=== PATIENT | male | born 1955 | race Caucasian/White ===

== ENCOUNTER 2017-10-02 15:23 | Inpatient (IN) | payer MEDICARE, OTHER ==
[~2017-10-02] VITALS: Ht 167.6 cm; Wt 89.8 kg
--- OUTSIDE RECORDS SUMMARY | 2017-10-02 15:32 | XMS REPORT | Continuity of Care Document ---
Author Author [facility] Address Unknown Phone Unavailable Allergies There is no data. Medications There is no data. Problems Date Dx Coded Attending Type Code Diagnosis Diagnosed By 10/04/2012 682.9 CELLULITIS AND ABSCESS OF UNSPECIFIED SITES 10/04/2012 682.9 CELLULITIS AND ABSCESS OF UNSPECIFIED SITES 10/04/2012 LUCÍA YANEZ APRN 682.9 CELLULITIS AND ABSCESS OF UNSPECIFIED SITES 10/04/2012 LUCÍA YANEZ APRN 682.9 CELLULITIS AND ABSCESS OF UNSPECIFIED SITES 10/04/2012 LUCÍA YANEZ APRN 682.9 CELLULITIS AND ABSCESS OF UNSPECIFIED SITES 10/04/2012 LUCÍA YANEZ APRN 682.9 CELLULITIS AND ABSCESS OF UNSPECIFIED SITES 10/04/2012 PANCHO ANDRADE MD 682.9 CELLULITIS AND ABSCESS OF UNSPECIFIED SITES 10/04/2012 LUCÍA YANEZ APRN 682.9 CELLULITIS AND ABSCESS OF UNSPECIFIED SITES 10/04/2012 PANCHO ANDRADE MD 682.9 CELLULITIS AND ABSCESS OF UNSPECIFIED SITES 10/20/2012 477.9 RHINITIS 10/20/2012 LUCÍA YANEZ APRN 477.9 RHINITIS 10/20/2012 LUCÍA YANEZ APRN 477.9 RHINITIS 10/20/2012 LUCÍA YANEZ APRN 477.9 RHINITIS 10/20/2012 LUCÍA YANEZ APRN 477.9 RHINITIS 10/20/2012 PANCHO ANDRADE MD 477.9 RHINITIS 10/20/2012 LUCÍA YANEZ APRN 477.9 RHINITIS 10/20/2012 PANCHO ANDRADE MD 477.9 RHINITIS 07/14/2013 LUCÍA YANEZ APRN 401.1 HYPERTENSION, BENIGN ESSENTIAL 07/14/2013 LUCÍA YANEZ APRN 401.1 HYPERTENSION, BENIGN ESSENTIAL 07/14/2013 LUCÍA YANEZ APRN 401.1 HYPERTENSION, BENIGN ESSENTIAL 07/14/2013 LUCÍA YANEZ APRN 401.1 HYPERTENSION, BENIGN ESSENTIAL 07/14/2013 PANCHO ANDRADE MD 401.1 HYPERTENSION, BENIGN ESSENTIAL 07/14/2013 LUCÍA YANEZ APRN 401.1 HYPERTENSION, BENIGN ESSENTIAL 07/14/2013 PANCHO ANDRADE MD 401.1 HYPERTENSION, BENIGN ESSENTIAL 09/11/2013 LUCÍA YANEZ APRN 302.72 ERECTILE DISORDER 09/11/2013 LUCÍA YANEZ APRN 785.0 TACHYCARDIA UNSPECIFIED 09/11/2013 LUCÍA YANEZ APRN 790.6 Liver Function Test, Abnormal 09/11/2013 LUCÍA YANEZ APRN 302.72 ERECTILE DISORDER 09/11/2013 LUCÍA YANEZ APRN 785.0 TACHYCARDIA UNSPECIFIED 09/11/2013 LUCÍA YANEZ APRN 790.6 Liver Function Test, Abnormal 09/11/2013 PANCHO ANDRADE MD 302.72 ERECTILE DISORDER 09/11/2013 PANCHO ANDRADE MD 785.0 TACHYCARDIA UNSPECIFIED 09/11/2013 PANCHO ANDRADE MD 790.6 Liver Function Test, Abnormal 09/11/2013 LUCÍA YANEZ APRN 302.72 ERECTILE DISORDER 09/11/2013 LUCÍA YANEZ APRN 785.0 TACHYCARDIA UNSPECIFIED 09/11/2013 LUCÍA YANEZ APRN 790.6 Liver Function Test, Abnormal 09/11/2013 PANCHO ANDRADE MD 302.72 ERECTILE DISORDER 09/11/2013 PANCHO ANDRADE MD 785.0 TACHYCARDIA UNSPECIFIED 09/11/2013 PANCHO ANDRADE MD 790.6 Liver Function Test, Abnormal 09/21/2013 LUCÍA YANEZ APRN 070.54 HEPATITIS C CHRONIC 09/21/2013 PANCHO ANDRADE MD 070.54 HEPATITIS C CHRONIC 09/21/2013 LUCÍA YANEZ APRN 070.54 HEPATITIS C CHRONIC 09/21/2013 PANCHO ANDRADE MD 070.54 HEPATITIS C CHRONIC 02/08/2014 PANCHO ANDRADE MD 686.9 UNSPECIFIED LOCAL INFECTION OF SKIN AND SUBCUTANEOUS TISSUE 02/08/2014 LUCÍA YANEZ APRN 686.9 UNSPECIFIED LOCAL INFECTION OF SKIN AND SUBCUTANEOUS TISSUE 02/08/2014 PANCHO ANDRADE MD 686.9 UNSPECIFIED LOCAL INFECTION OF SKIN AND SUBCUTANEOUS TISSUE Procedures Code Description [place] [address] ROUTINE VENIPUNCTURE 08/03/2013 27148 A1C (RML) 08/03/2013 06632 PSA TOTAL 08/03/2013 30673 TESTOSTERONE TOTAL MALES 08/03/2013 42069 TSH 08/03/2013 44988 CBC 08/03/2013 1855693 GFR CALC (RESULT ONLY) 08/03/2013 52543 CMP 08/03/2013 55591 LIPID PANEL 08/03/2013 72088 ROUTINE VENIPUNCTURE 09/11/2013 03603 LIVER PANEL (LFT) 09/11/2013 85138 HEPATITIS PROFILE 09/11/2013 24744 AMYLASE 09/11/2013 95461 LIPASE 09/11/2013 71004 EKG, TRACING (IN-HOUSE) 09/11/2013 11681 ROUTINE VENIPUNCTURE 09/21/2013 65548 HEP C PCR QUANT W/RAKAN 09/21/2013 [facility] 09/22/2013 02250 ROUTINE VENIPUNCTURE 03/10/2014 00442 TESTOSTERONE TOTAL MALES 03/10/2014 88503 HEP C PCR QUANT (SERIAL) 03/10/2014 11280 LIVER PANEL (LFT) 03/10/2014 46619 CULTURE WOUND (AEROBIC) 08/12/2014 Results Test Result Range CBC - 08/14/17 12:06 WHITE BLOOD CELL COUNT 7.6 Thousand/uL 3.8-10.8 RED BLOOD CELL COUNT 3.25 Million/uL 4.20-5.80 HEMOGLOBIN 11.2 g/dL 13.2-17.1 HEMATOCRIT 31.4 % 38.5-50.0 MCV 96.6 fL 80.0-100.0 MCH 34.5 pg 27.0-33.0 MCHC 35.7 g/dL 32.0-36.0 RDW 12.6 % 11.0-15.0 PLATELET COUNT 113 Thousand/uL 140-400 MPV 10.1 fL 7.5-12.5 ABSOLUTE NEUTROPHILS 4522 cells/uL 4085-8168 ABSOLUTE LYMPHOCYTES 1444 cells/uL 850-3900 ABSOLUTE MONOCYTES 1011 cells/uL 200-950 ABSOLUTE EOSINOPHILS 562 cells/uL 15-500 ABSOLUTE BASOPHILS 61 cells/uL 0-200 NEUTROPHILS 59.5 % NRG LYMPHOCYTES 19.0 % NRG MONOCYTES 13.3 % NRG EOSINOPHILS 7.4 % NRG BASOPHILS 0.8 % NRG TSH - 08/14/17 12:06 TSH 1.38 mIU/L 0.40-4.50 PLATELET ESTIMATION - 08/14/17 12:06 PLATELET ESTIMATION DECREASED ADEQUATE BNP - 08/14/17 12:06 B TYPE NATRIURETIC PEPTIDE (BNP) 39 pg/mL <100 Encounters ACCT No. Visit Date/Time Discharge Status Pt. Type Provider Facility Loc./Unit Complaint [id number] 08/09/2014 15:36:00 08/09/2014 23:59:59 CLS Outpatient PANCHO ANDRADE MD [id number] 03/10/2014 15:22:00 03/10/2014 23:59:59 CLS Outpatient LUCÍA YANEZ APRN [id number] 02/08/2014 15:28:00 02/08/2014 23:59:59 CLS Outpatient PANCHO ANDRADE MD [id number] 09/21/2013 11:47:00 09/21/2013 23:59:59 CLS Outpatient LUCÍA YANEZ APRN [id number] 09/11/2013 11:46:00 09/11/2013 23:59:59 CLS Outpatient LUCÍA YANEZ APRN [id number] 08/03/2013 12:10:00 08/03/2013 23:59:59 CLS Outpatient LUCÍA YANEZ APRN [id number] 07/14/2013 15:51:00 07/14/2013 23:59:59 CLS Outpatient LUCÍA YANEZ APRN [id number] 10/20/2012 12:45:00 Document Registration [id number] 10/04/2012 14:10:00 Document Registration [id number] 08/14/2017 10:40:00 08/14/2017 23:59:59 CLS Outpatient LUCÍA YANEZ APRN [facility] [id number] 08/14/2017 10:40:00 Document Registration [id number] 08/14/2017 12:24:00 08/14/2017 12:24:00 CAN Preadmit RADHA PIÑA Via [facility] CARD B18.2 CHRONIC HEP C R60.1 EDMEA
[2017-10-02] MEDS ORDERED: NS IV 1000 ML 1,000 ML IV ONE (15:40)
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
[2017-10-02 16:06] LABS: BASOPHILS # (AUTO) 0.1 10^3/uL (0.0-0.1); BASOPHILS % (AUTO) 1 % (0-10); EOSINOPHILS # (AUTO) 0.5 10^3/uL (0.0-0.3); EOSINOPHILS % (AUTO) 4 % (0-10); HEMATOCRIT 38 % (40-54); HEMOGLOBIN 12.7 G/DL (13.3-17.7); LYMPHOCYTES # (AUTO) 2.3 X 10^3 (1.0-4.0); LYMPHOCYTES % (AUTO) 20 % (12-44); MEAN CORPUSCULAR HEMOGLOBIN 33 PG (25-34); MEAN CORPUSCULAR HGB CONC 34 G/DL (32-36); MEAN CORPUSCULAR VOLUME 100 FL (80-99); MEAN PLATELET VOLUME 9.9 FL (7.4-10.4); MONOCYTES # (AUTO) 1.6 X 10^3 (0.0-1.0); MONOCYTES % (AUTO) 13 % (0-12); NEUTROPHILS # (AUTO) 7.4 X 10^3 (1.8-7.8); NEUTROPHILS % (AUTO) 63 % (42-75); PLATELET COUNT 121 10^3/uL (130-400); RED CELL DISTRIBUTION WIDTH 13.9 % (10.0-14.5); WHITE BLOOD COUNT 11.8 10^3/uL (4.3-11.0)
[2017-10-02 16:20] LABS: INR 1.2 (0.8-1.4); PROTHROMBIN TIME PATIENT 15.6 SEC (12.2-14.7)
[2017-10-02 16:25] LABS: ACETAMINOPHEN < 10 UG/ML (10-30); ALANINE AMINOTRANSFERASE 45 U/L (0-55); ALBUMIN 2.5 GM/DL (3.2-4.5); ALKALINE PHOSPHATASE 76 U/L (40-136); AMMONIA 110 UMOL/L (11-32); BILIRUBIN,TOTAL 1.9 MG/DL (0.1-1.0); BUN/CREATININE RATIO 22; CARBON DIOXIDE 21 MMOL/L (21-32); CHLORIDE 113 MMOL/L (98-107); CREATININE SERUM 0.86 MG/DL (0.60-1.30); GFR ESTIMATED > 60; GLUCOSE 102 MG/DL (70-105); MAGNESIUM 1.7 MG/DL (1.8-2.4); POTASSIUM 3.7 MMOL/L (3.6-5.0); SALICYLATE < 5.0 MG/DL (5.0-20.0); SODIUM 141 MMOL/L (135-145); TOTAL PROTEIN 8.8 GM/DL (6.4-8.2)
[2017-10-02] MEDS ORDERED: IOHEXOL 350 MG/ML 100 ML (OMNIPAQUE 350) VIAL IV ONE (17:00)
[2017-10-02] MEDS ORDERED: LACTULOSE SYRUP 10GM/15ML (ENULOSE) 30ML UDC PO ONE (17:00)
[2017-10-02] MEDS ORDERED: NS 250 ML (IVPB) BAG IV ONE (17:00)
[2017-10-02] MEDS ORDERED: CATHETER FLUSH 10 ML SYR IV PRN (17:00)
--- NOTE | 2017-10-02 17:31 | Diagnostic Imaging Report ---
PROCEDURE: CT abdomen and pelvis with contrast. TECHNIQUE: Multiple contiguous axial images were obtained through the abdomen and pelvis after administration of intravenous contrast. INDICATION: Substance abuse, abdominal pain. FINDINGS: Lung bases are clear. The liver appears cirrhotic. There is gallbladder wall thickening which may be secondary to the cirrhosis. There are no calculi seen. Portal vein is not dilated. The common duct is not dilated. Pancreas appears normal. Spleen is mildly enlarged. 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 Kidneys and adrenals appear normal. There is marked distention of the urinary bladder with some filling defect in the bladder that could be clot. There is no intraperitoneal free air or free fluid. Small bowel is not dilated. Colon is unremarkable. IMPRESSION: Distended urinary bladder with probable clot in the bladder. Dictated by: Dictated on workstation # [id number]
[2017-10-02 17:40] LABS: CLARITY,URINE SLIGHTLY CLOUDY; COLOR,URINE YELLOW; GLUCOSE, URINE (UA) NEGATIVE (NEGATIVE); KETONES,URINE NEGATIVE (NEGATIVE); LEUKOCYTE ESTERASE ,URINE 3+ (NEGATIVE); NITRITE,URINE NEGATIVE (NEGATIVE); PH,URINE 6 (5-9); PROTEIN,URINE 2+ (NEGATIVE); UROBILINOGEN,URINE 8 MG/DL (NORMAL)
[2017-10-02 17:48] LABS: BILIRUBIN,URINE 1+ (NEGATIVE)
[2017-10-02 17:49] LABS: BACTERIA,URINE LARGE /HPF; WBC,URINE TNTC /HPF
[2017-10-02 17:54] LABS: AMPHETAMINE SCREEN, URINE NEGATIVE (NEGATIVE); BARBITURATE SCREEN URINE NEGATIVE (NEGATIVE); BENZODIAZEPINES SCREEN URINE NEGATIVE (NEGATIVE); CANNABINOID SCREEN, URINE NEGATIVE (NEGATIVE); COCAINE SCREEN URINE NEGATIVE (NEGATIVE); METHADONE STAT NEGATIVE (NEGATIVE); METHAMPHETAMINE SCREEN URINE S POSITIVE (NEGATIVE); OPIATE SCREEN URINE NEGATIVE (NEGATIVE); OXYCODONE STAT NEGATIVE (NEGATIVE); PROPOXYPHENE STAT NEGATIVE (NEGATIVE); TRICYCLIC ANTIDEPRESSANTS SCRE NEGATIVE (NEGATIVE)
[2017-10-02] MEDS ORDERED: cefTRIAXone INJECTION 1,000 MG in NS (IVPB) 50 ML IV ONE (18:15)
--- OUTSIDE RECORDS SUMMARY | 2017-10-02 18:20 | XMS REPORT | Continuity of Care Document ---
Author Author [facility] Address Unknown Phone Unavailable Allergies There [...] Procedures Code [place] [id number] ROUTINE VENIPUNCTURE 08/03/2013 38394 A1C (RML) 08/03/2013 48716 PSA TOTAL 08/03/2013 81960 TESTOSTERONE TOTAL MALES 08/03/2013 96904 TSH 08/03/2013 17309 CBC 08/03/2013 [id number] GFR CALC (RESULT ONLY) 08/03/2013 45493 CMP 08/03/2013 11711 LIPID PANEL 08/03/2013 20699 ROUTINE VENIPUNCTURE 09/11/2013 90630 LIVER PANEL (LFT) 09/11/2013 31271 HEPATITIS PROFILE 09/11/2013 33347 AMYLASE 09/11/2013 22285 LIPASE 09/11/2013 53350 EKG, TRACING (IN-HOUSE) 09/11/2013 35551 ROUTINE VENIPUNCTURE 09/21/2013 48990 HEP C PCR QUANT W/RAKAN 09/21/2013 [facility] [place] 09/22/2013 04467 ROUTINE VENIPUNCTURE 03/10/2014 42655 TESTOSTERONE TOTAL MALES 03/10/2014 02423 HEP C PCR QUANT (SERIAL) 03/10/2014 45064 LIVER PANEL (LFT) 03/10/2014 47071 CULTURE WOUND (AEROBIC) 08/12/2014 Results Test Result Range CBC - 08/14/17 12:06 WHITE BLOOD CELL COUNT 7.6 Thousand/uL 3.8-10.8 RED BLOOD CELL COUNT 3.25 Million/uL 4.20-5.80 HEMOGLOBIN 11.2 g/dL 13.2-17.1 HEMATOCRIT 31.4 % 38.5-50.0 MCV 96.6 fL 80.0-100.0 MCH 34.5 pg 27.0-33.0 MCHC 35.7 g/dL 32.0-36.0 RDW 12.6 % 11.0-15.0 PLATELET COUNT 113 Thousand/uL 140-400 MPV 10.1 fL 7.5-12.5 ABSOLUTE NEUTROPHILS 4522 cells/uL 2095-3179 ABSOLUTE LYMPHOCYTES 1444 cells/uL 850-3900 ABSOLUTE MONOCYTES [...] TYPE NATRIURETIC PEPTIDE (BNP) 39 pg/mL <100 Complete blood count (CBC) with automated white blood cell (WBC) differential - 10/02/17 15:57 Blood leukocytes automated count (number/volume) 11.8 10*3/uL 4.3-11.0 Blood erythrocytes automated count (number/volume) 3.80 10*6/uL 4.35-5.85 Venous blood hemoglobin measurement (mass/volume) 12.7 g/dL 13.3-17.7 Blood hematocrit (volume fraction) 38 % 40-54 Automated erythrocyte mean corpuscular volume 100 [foz_us] 80-99 Automated erythrocyte mean corpuscular hemoglobin (mass per erythrocyte) 33 pg 25-34 Automated erythrocyte mean corpuscular hemoglobin concentration measurement ( mass/volume) 34 g/dL 32-36 Automated erythrocyte distribution width ratio 13.9 % 10.0-14.5 Automated blood platelet count (count/volume) 121 10*3/uL 130-400 Automated blood platelet mean volume measurement 9.9 [foz_us] 7.4-10.4 Automated blood neutrophils/100 leukocytes 63 % 42-75 Automated blood lymphocytes/100 leukocytes 20 % 12-44 Blood monocytes/100 leukocytes 13 % 0-12 Automated blood eosinophils/100 leukocytes 4 % 0-10 Automated blood basophils/100 leukocytes 1 % 0-10 Blood neutrophils automated count (number/volume) 7.4 10*3 1.8-7.8 Blood lymphocytes automated count (number/volume) 2.3 10*3 1.0-4.0 Blood monocytes automated count (number/volume) 1.6 10*3 0.0-1.0 Automated eosinophil count 0.5 10*3/uL 0.0-0.3 Automated blood basophil count (count/volume) 0.1 10*3/uL 0.0-0.1 Blood lactic acid measurement (moles/volume) - 10/02/17 15:57 Blood lactic acid measurement (moles/volume) 1.42 mmol/L 0.50-2.00 Comprehensive metabolic panel - 10/02/17 15:57 Serum or plasma sodium measurement (moles/volume) 141 mmol/L 135-145 Serum or plasma potassium measurement (moles/volume) 3.7 mmol/L 3.6-5.0 Serum or plasma chloride measurement (moles/volume) 113 mmol/L 98-107 Carbon dioxide 21 mmol/L 21-32 Serum or plasma anion gap determination (moles/volume) 7 mmol/L 5-14 Serum or plasma urea nitrogen measurement (mass/volume) 19 mg/dL 7-18 Serum or plasma creatinine measurement (mass/volume) 0.86 mg/dL 0.60-1.30 Serum or plasma urea nitrogen/creatinine mass ratio 22 NRG Serum or plasma creatinine measurement with calculation of estimated glomerular filtration rate > NRG Serum or plasma glucose measurement (mass/volume) 102 mg/dL 70-105 Serum or plasma calcium measurement (mass/volume) 9.0 mg/dL 8.5-10.1 Serum or plasma total bilirubin measurement (mass/volume) 1.9 mg/dL 0.1-1.0 Serum or plasma alkaline phosphatase measurement (enzymatic activity/volume) 76 U/L 40-136 Serum or plasma aspartate aminotransferase measurement (enzymatic activity/ volume) 76 U/L 5-34 Serum or plasma alanine aminotransferase measurement (enzymatic activity/volume ) 45 U/L 0-55 Serum or plasma protein measurement (mass/volume) 8.8 g/dL 6.4-8.2 Serum or plasma albumin measurement (mass/volume) 2.5 g/dL 3.2-4.5 Magnesium - 10/02/17 15:57 Magnesium 1.7 mg/dL 1.8-2.4 Ammonia - 10/02/17 15:57 Ammonia 110 umol/L 11-32 THYROID STIMULATING HORMONE - 10/02/17 15:57 THYROID STIMULATING HORMONE 0.99 u[iU]/mL 0.35-4.94 Serum or plasma salicylates measurement (mass/volume) - 10/02/17 15:57 Serum or plasma salicylates measurement (mass/volume) < mg/dL 5.0-20.0 Serum or plasma acetaminophen measurement (mass/volume) - 10/02/17 15:57 Serum or plasma acetaminophen measurement (mass/volume) < ug/mL 10-30 PT panel in platelet poor plasma by coagulation assay - 10/02/17 15:57 Prothrombin time (PT) in platelet poor plasma by coagulation assay 15.6 s 12.2-14.7 INR in platelet poor plasma or blood by coagulation assay 1.2 0.8-1.4 Activated partial thromboplastin time (aPTT) in platelet poor plasma bycoagulation assay - 10/02/17 15:57 Activated partial thromboplastin time (aPTT) in platelet poor plasma bycoagulation assay 33 s 24-35 Serum or plasma ethanol measurement (mass/volume) - 10/02/17 15:57 Serum or plasma ethanol measurement (mass/volume) < mg/dL <10 Complete urinalysis with reflex to culture - 10/02/17 17:33 Urine color determination YELLOW NRG Urine clarity determination SLIGHTLY CLOUDY NRG Urine pH measurement by test strip 6 5-9 Specific gravity of urine by test strip 1.015 1.016- 1.022 Urine protein assay by test strip, semi-quantitative 2+ NEGATIVE Urine glucose detection by automated test strip NEGATIVE NEGATIVE Erythrocytes detection in urine sediment by light microscopy 4+ NEGATIVE Urine ketones detection by automated test strip NEGATIVE NEGATIVE Urine nitrite detection by test strip NEGATIVE NEGATIVE Urine total bilirubin detection by test strip 1+ NEGATIVE Urine urobilinogen measurement by automated test strip (mass/volume) 8 mg/dL NORMAL Urine leukocyte esterase detection by dipstick 3+ NEGATIVE Automated urine sediment erythrocyte count by microscopy (number/high power field) [HPF] NRG Automated urine sediment leukocyte count by microscopy (number/high power field ) TNTC NRG Bacteria detection in urine sediment by light microscopy LARGE NRG Squamous epithelial cells detection in urine sediment by light microscopy NONE NRG Crystals detection in urine sediment by light microscopy NONE NRG Casts detection in urine sediment by light microscopy NONE NRG Mucus detection in urine sediment by light microscopy NEGATIVE NRG Complete urinalysis with reflex to culture YES NRG Urine drug screening test - 10/02/17 17:33 Urine phencyclidine detection by screening method NEGATIVE NEGATIVE Urine benzodiazepines detection by screening method NEGATIVE NEGATIVE Urine cocaine detection NEGATIVE NEGATIVE Urine amphetamines detection by screening method NEGATIVE NEGATIVE Urine methamphetamine detection by screening method POSITIVE NEGATIVE Urine cannabinoids detection by screening method NEGATIVE NEGATIVE Urine opiates detection by screening method NEGATIVE NEGATIVE Urine barbiturates detection NEGATIVE NEGATIVE Screening urine tricyclic antidepressants detection NEGATIVE NEGATIVE Urine methadone detection by screening method NEGATIVE NEGATIVE Urine oxycodone detection NEGATIVE NEGATIVE Urine propoxyphene detection NEGATIVE NEGATIVE Encounters ACCT No. Visit Date/Time Discharge Status Pt. Type Provider Facility Loc./Unit Complaint [id number] 08/09/2014 15:36:00 08/09/2014 23:59:59 CLS Outpatient PANCHO ANDRADE MD [id number] 03/10/2014 15:22:00 03/10/2014 23:59:59 CLS Outpatient RENATA AGUILARDenis LUCÍA Gilles [id number] 02/08/2014 15:28:00 02/08/2014 23:59:59 CLS Outpatient PANCHO ANDRADE MD [id number] 09/21/2013 11:47:00 09/21/2013 23:59:59 CLS Outpatient RENATA AGUILARLUCÍA Barrios [id number] 09/11/2013 11:46:00 09/11/2013 23:59:59 CLS Outpatient RENATA AGUILARLUCÍA Barrios [id number] 08/03/2013 12:10:00 08/03/2013 23:59:59 CLS Outpatient RENATA AGUILARLUCÍA Barrios [id number] 07/14/2013 15:51:00 07/14/2013 23:59:59 CLS Outpatient RENATA AGUILARLUCÍA Barrios [id number] 10/20/2012 12:45:00 Document Registration [id number] 10/04/2012 14:10:00 Document Registration [id number] 08/14/2017 10:40:00 08/14/2017 23:59:59 CLS Outpatient RENATA AGUILARLUCÍA Barrios [facility] [place] [id number] 08/14/2017 10:40:00 Document Registration [id number] 08/14/2017 12:24:00 08/14/2017 12:24:00 CAN Preadmit RADHA PIÑA [facility] CARD B18.2 CHRONIC HEP C R60.1 EDMEA [id number] 10/02/2017 16:08:00 Document Registration
[2017-10-02 19:00] VITALS: BP 158/85
[2017-10-02] MEDS ORDERED: 1/2 NS IV SOLUTION 1,000 ML IV PRN (19:07)
[2017-10-02 19:15] VITALS: BP 163/87
[2017-10-02] MEDS ORDERED: LORazepam INJ 2 MG/ML (ATIVAN) VIAL IV PRN (19:15)
[2017-10-02] MEDS ORDERED: SENNA W/DOCUSATE (SENOKOT S) TABLET PO PRN (19:15)
[2017-10-02] MEDS ORDERED: ONDANSETRON 4 MG (ZOFRAN) ORAL DISSOLVE TAB SL PRN (19:15)
[2017-10-02] MEDS ORDERED: LORazepam INJ 2 MG/ML (ATIVAN) VIAL IM/IV PRN (19:15)
[2017-10-02] MEDS ORDERED: ANTACID SUSP 30 ML UDC (MYLANTA) PO PRN (19:15)
[2017-10-02] MEDS ORDERED: LORazepam 1 MG (ATIVAN) TAB PO PRN (19:15)
[2017-10-02] MEDS ORDERED: D5 1/2 NS 1000 ML IV SOLUTION 1,000 ML IV PRN (19:15)
[2017-10-02] MEDS ORDERED: ONDANSETRON 4 MG/2 ML (SDV) Z0FRAN IV PRN (19:15)
[2017-10-02 19:30] VITALS: BP 141/78
[2017-10-02] MEDS: D5 1/2 NS W/KCL 20 MEQ/L 1,000 ML IV SCH (19:36)
[2017-10-02] MEDS: THIAMINE INJECTION 100 MG, FOLIC ACID INJECTION 1 MG, MAGNESIUM SULFATE 2 GM, VITAMIN M... IV SCH ×5 (19:47)
[2017-10-02] MEDS: LACTULOSE SYRUP 10GM/15ML (ENULOSE) 30ML UDC PO SCH ×3 (19:49→23:15)
[2017-10-02 20:00] VITALS: BP 161/77
[2017-10-02 22:00] VITALS: BP 172/86
[2017-10-02 23:00] VITALS: BP 154/78
[2017-10-03] VITALS (24 sets, daily range): BP systolic 117–194; BP diastolic 57–119
[2017-10-03] MEDS: D5 1/2 NS W/KCL 20 MEQ/L 1,000 ML IV SCH ×4 (03:53→20:04)
[2017-10-03 04:44] LABS: BASOPHILS # (AUTO) 0.1 10^3/uL (0.0-0.1); BASOPHILS % (AUTO) 0 % (0-10); EOSINOPHILS # (AUTO) 0.6 10^3/uL (0.0-0.3); EOSINOPHILS % (AUTO) 4 % (0-10); HEMATOCRIT 35 % (40-54); HEMOGLOBIN 11.7 G/DL (13.3-17.7); LYMPHOCYTES % (AUTO) 14 % (12-44); MEAN CORPUSCULAR HEMOGLOBIN 33 PG (25-34); MEAN CORPUSCULAR HGB CONC 33 G/DL (32-36); MEAN CORPUSCULAR VOLUME 100 FL (80-99); MEAN PLATELET VOLUME 10.4 FL (7.4-10.4); MONOCYTES # (AUTO) 2.1 X 10^3 (0.0-1.0); MONOCYTES % (AUTO) 15 % (0-12); NEUTROPHILS # (AUTO) 9.1 X 10^3 (1.8-7.8); NEUTROPHILS % (AUTO) 66 % (42-75); PLATELET COUNT 121 10^3/uL (130-400); RED CELL DISTRIBUTION WIDTH 13.7 % (10.0-14.5); WHITE BLOOD COUNT 13.8 10^3/uL (4.3-11.0)
[2017-10-03 05:10] LABS: ALANINE AMINOTRANSFERASE 47 U/L (0-55); ALBUMIN 2.4 GM/DL (3.2-4.5); ALKALINE PHOSPHATASE 89 U/L (40-136); AMMONIA 100 UMOL/L (11-32); BILIRUBIN,TOTAL 1.2 MG/DL (0.1-1.0); BUN/CREATININE RATIO 15; CALCIUM 8.3 MG/DL (8.5-10.1); CARBON DIOXIDE 20 MMOL/L (21-32); CHLORIDE 115 MMOL/L (98-107); CREATININE SERUM 0.85 MG/DL (0.60-1.30); GFR ESTIMATED > 60; GLUCOSE 118 MG/DL (70-105); POTASSIUM 3.6 MMOL/L (3.6-5.0); SODIUM 142 MMOL/L (135-145); TOTAL PROTEIN 8.2 GM/DL (6.4-8.2)
[2017-10-03] MEDS ORDERED: POTASSIUM CL 10MEQ/50ML IVPB 100 ML IV ONE (05:24)
[2017-10-03] MEDS: POTASSIUM CL 10MEQ/50ML IVPB 50 ML IV SCH ×3 (05:26→06:28)
[2017-10-03] MEDS: MAGNESIUM 1 GM/100 ML IVPB 100 ML IV SCH (05:26)
[2017-10-03] MEDS: KCL 20 MEQ TAB (K-DUR) PO SCH (05:27)
[2017-10-03] MEDS: LACTULOSE SYRUP 10GM/15ML (ENULOSE) 30ML UDC PO SCH ×3 (06:21→21:39)
[2017-10-03] MEDS: cefTRIAXone 1 GM/NS 50 ML IVPB IV SCH ×2 (08:45)
[2017-10-03] MEDS: THIAMINE INJECTION 100 MG, FOLIC ACID INJECTION 1 MG, MAGNESIUM SULFATE 2 GM, VITAMIN M... IV SCH ×5 (08:46)
--- NOTE | 2017-10-03 10:10 | History & Physicial (CHS) ---
HPI History of Present Illness: 62 year old male who has a long history of heavy alcohol use was brought to the ED by his family yesterday with report that "he wasn't acting right". Patient had not had any alcohol in several days, and reported being dizzy and having a headache, but "feeling fine" when he got to the ED. His family did not think he was fine, nor did his significant other that he lives with. He has been sleeping a lot and very unsteady on his feet the last two days. Significant other reports that he has done this before in the past when he has stopped drinking, but it hasn't gotten this bad -- she would give him little sips of alcohol with a straw when he got this way before, and he would get better. She reports she tried this, but he wouldn't take it. The patient was noted to fall asleep during conversation, and awaken only with stimulation. He was noted to have a significantly elevated ammonia level, as well as an extremely distended bladder on CT -- when Garcia catheter was placed, 2900 cc was returned. UA shows evidence of UTI. Patient admitted for Sepsis, UTI, Encephalopathy. Source: family, RN/MD, RN notes reviewed, old records Exam Limitations: clinical condition Date seen by provider: October 03, 2017 Time Seen by Provider: 12:00 Attending Physician Monserrat Jones DO [facility] Consult Date of Admission October 02, 2017 at 18:16 Home Medications Home Medications Reviewed patient Home Medication Reconciliation performed by pharmacy medication reconciliations biological science technician and/or nursing. Patients Allergies have been reviewed. Allergies Coded Allergies: No Known Drug Allergies (Unverified , 10/02/17) [facility] Hx Patient Social History Marrital Status: cohabiting Living Status: lives with significant other Employed/Student: self-employed Alcohol Use: Regular Use Recreational Drug Use: No (UDS positive for methamphetamines) Smoking Status: Current Everyday Smoker Type Used: Cigarettes 2nd Hand Smoke Exposure: Yes Recent Foreign Travel: No Contact w/other who traveled: No Recent Hopitalizations: No Recent Infectious Disease Expo: No Physical Abuse Screen: No Sexual Abuse: No Past Medical History Chronic Hepatits C Alcohol Abuse Tobacco Abuse Methamphetamine Abuse Erectile Dysfunction HTN Seasonal Allergies Past Surgical History: Appendectomy Family Medical History Significant Family History: Hypertension, Psychiatric Problems (multiple family members with substance abuse issues) Review of Systems ([facility]) Constitutional: see HPI, dizziness, weakness EENTM: hearing loss (patient hard of hearing at baseline) Respiratory: no symptoms reported Cardiovascular: edema (bilateral lower extremity edema - significant other reports is always present) Gastrointestinal: loss of appetite Genitourinary: see HPI Musculoskeletal: no symptoms reported Skin: no symptoms reported Psychiatric/Neurological: See HPI, Weakness, Other (somnolence) Reviewed Test Results Reviewed Test Results Radiology Date of Exam: 10/02/17 CT ABDOMEN/PELVIS W PROCEDURE: CT abdomen and pelvis with contrast. TECHNIQUE: Multiple contiguous axial images were obtained through the abdomen and pelvis after administration of intravenous contrast. INDICATION: Substance abuse, abdominal pain. FINDINGS: Lung bases are clear. The liver appears cirrhotic. There is gallbladder wall thickening which may be secondary to the cirrhosis. There are no calculi seen. Portal vein is not dilated. The common duct is not dilated. Pancreas appears normal. Spleen is mildly enlarged. 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 Kidneys and adrenals appear normal. There is marked distention of the urinary bladder with some filling defect in the bladder that could be clot. There is no intraperitoneal free air or free fluid. Small bowel is not dilated. Colon is unremarkable. IMPRESSION: Distended urinary bladder with probable clot in the bladder. Physical Exam-([facility]) Physical Exam Vital Signs VS - Last 72 Hours, by Label 10/05/17 10/05/17 10/06/17 10/06/17 20:00 20:00 00:47 01:00 Temp 98.6 100.1 Pulse 85 86 85 Resp 18 17 B/P (MAP) 134/67 (89) 125/58 (80) Pulse Ox 99 95 O2 Delivery Room Air Room Air Room Air 10/06/17 10/06/17 10/06/17 10/06/17 04:23 07:00 08:00 08:39 Temp 99.5 97.8 Pulse 85 66 72 Resp 16 16 B/P (MAP) 122/60 (80) 132/57 (82) Pulse Ox 91 93 O2 Delivery Room Air Room Air Room Air 10/06/17 11:55 B/P (MAP) Capillary Refill : Less Than 3 Seconds General Appearance: WD/WN, no apparent distress Eyes: Bilateral Eye Normal Inspection, Bilateral Eye PERRL HEENT: No scleral icterus (R), No scleral icterus (L), No photophobia Neck: non-tender, full range of motion, supple, normal inspection Respiratory: chest non-tender, lungs clear, normal breath sounds, no respiratory distress, no accessory muscle use Cardiovascular: regular rate, rhythm, no gallop, JVD, systolic murmur Gastrointestinal: normal bowel sounds, non tender, soft, no pulsatile mass, hepatomegaly Back: normal inspection, no CVA tenderness, no vertebral tenderness Extremities: no calf tenderness, normal capillary refill, swelling (2+ pitting edema in bilateral lower extremities, right mildly worse than left) Neurologic/Psychiatric: other (awakens with stimulation and answers questions appropriately, then quickly drifts off to sleep) Skin: normal color, warm/dry Assessment/Plan Assessment/Plan Admission Dx Sepsis UTI Encephalopathy Hyperammonemia Hx of Alcohol Abuse Methamphetamine Abuse Anemia Elevated LFTs Hyperbilirubinemia Hypomagnesemia Hepatitis C Cirrhosis Splenomegaly Gastroesophageal Varices Bladder Distention with probable clot Admission Status: Inpatient Order (span 2 midnights) Reason for Inpatient Admission: treatment of admission diagnoses Assessment & Plan Sepsis -secondary to UTI, see below UTI 10/03 -urine culture pending -started on Rocephin in ED, now Day 2 -WBC 11.8 --> 13.8 -blood cultures pending -bladder significantly distended on CT scan; when garcia placed in ED, return of 2900 cc cloudy, concentrated urine -CT also noted possible clot in bladder, will likely need follow up with urology , or possibly repeat imaging to assure no abnormalities in the bladder after distention and infection resolved Encephalopathy 10/03 -secondary to hyperammonemia vs infection, likely combination of both, as well as potentially also ETOH withdrawal Hyperammonemia 10/03 -110 --> 100 -Lactulose started in ED, appears pt got one dose then no more overnight and one again this morning -will start Xifaxan 550 mg PO BID, continue lactulose q2 hours until stool, then q8 -will trend out; highly possible that pt has elevated ammonia at baseline Hx of Alcohol Abuse 10/03 -BAL <10 on admission -last drink ~3-4 days ago, although unclear, as patient is not awake enough to answer, and significant other not sure -all family at bedside report patient has a long history of heavy alcohol use -significant other reports he will consume 2-3 bottles of hard liquor per week, and go to the bar on the weekend, she will drop him off and pick him up because she does not want him driving -significant other also reports that he will sometimes stop drinking for days at a time, and often will have periods where he is weak and confused, but it resolves after a few days, then pt is fine until his friend that brings him the bottles of alcohol comes over, and then patient starts drinking again -[facility] protocol; has not required any ativan Methamphetamine Abuse 10/03 -UDS positive for methamphetamines -large amount of family at bedside, patient not awake or communicative at the time of exam other than to open eyes briefly -will address further when patient is more awake and alert Anemia 10/03 -Hgb 12.7 --> 11.7 -no joanna bleeding, likely dilutional secondary to IV hydration -gastroesophageal varices on CT scan -no hematemesis, hematuria, or hemoptysis per family Elevated LFTs 10/03 -total bili 1.9 --> 1.2 -AST 76 --> 78 -avoid hepatotoxic medications when possible -known Hep C positive Hyperbilirubinemia 1.9 --> 1.2 Hypomagnesemia 10/03 -1.7 --> 2.1 Hypocalcemia 10/03 -9 --> 8.3 Hypoalbuminemia 10/03 -2.5 --> 2.4 Hepatitis C -chronic Cirrhosis Splenomegaly -mild, per CT Gastroesophageal Varices Bladder Distention with probable clot -2900 cc returned with garcia placement -no gross hematuria -would recommend follow up with urology after discharge and/or reimaging of pelvis after infection cleared FEN: Continue IVF, diet as tolerated once awake DVT Ppx: SCDs, ambulation once awake; will hold lovenox for now, if patient not more awake and ambulating in AM will start lovenox Dispo: Transfer to floor with telemetry, will have PT and OT eval in AM. Patient will likely require 3-4 nights of hospitalization for adequate treatment of his infection and monitoring of his labs and mental status. Condition: Stable CODE STATUS: FULL CODE Clinical Quality Measures DVT/VTE Risk/Contraindication: Risk Factor Score Per Nursin RFS Level Per Nursing on Admit: 3=High Copy Copies To 1: [facility]/MONSERRAT BOLAÑOS DO October 03, 2017 10:10
[2017-10-03] MEDS: RIFAXIMIN 550 MG TABLET (XIFAXAN) PO SCH (21:39)
[2017-10-04] VITALS (11 sets, daily range): BP systolic 123–187; BP diastolic 71–111
[2017-10-04 04:06] LABS: BASOPHILS # (AUTO) 0.1 10^3/uL (0.0-0.1); BASOPHILS % (AUTO) 1 % (0-10); EOSINOPHILS # (AUTO) 0.6 10^3/uL (0.0-0.3); EOSINOPHILS % (AUTO) 6 % (0-10); HEMATOCRIT 33 % (40-54); LYMPHOCYTES # (AUTO) 1.9 X 10^3 (1.0-4.0); LYMPHOCYTES % (AUTO) 18 % (12-44); MEAN CORPUSCULAR HEMOGLOBIN 34 PG (25-34); MEAN CORPUSCULAR HGB CONC 34 G/DL (32-36); MEAN CORPUSCULAR VOLUME 101 FL (80-99); MEAN PLATELET VOLUME 10.3 FL (7.4-10.4); MONOCYTES # (AUTO) 1.8 X 10^3 (0.0-1.0); MONOCYTES % (AUTO) 17 % (0-12); NEUTROPHILS # (AUTO) 6.1 X 10^3 (1.8-7.8); NEUTROPHILS % (AUTO) 59 % (42-75); PLATELET COUNT 105 10^3/uL (130-400); RED BLOOD COUNT 3.23 10^6/uL (4.35-5.85); RED CELL DISTRIBUTION WIDTH 13.9 % (10.0-14.5); WHITE BLOOD COUNT 10.4 10^3/uL (4.3-11.0)
[2017-10-04] MEDS: D5 1/2 NS W/KCL 20 MEQ/L 1,000 ML IV SCH ×3 (04:08→18:43)
[2017-10-04 04:24] LABS: MAGNESIUM 1.8 MG/DL (1.8-2.4)
[2017-10-04 04:33] LABS: ALANINE AMINOTRANSFERASE 45 U/L (0-55); ALBUMIN 2.1 GM/DL (3.2-4.5); ALKALINE PHOSPHATASE 94 U/L (40-136); BILIRUBIN,TOTAL 1.1 MG/DL (0.1-1.0); BUN/CREATININE RATIO 11; CALCIUM 7.7 MG/DL (8.5-10.1); CARBON DIOXIDE 18 MMOL/L (21-32); CHLORIDE 114 MMOL/L (98-107); CREATININE SERUM 0.79 MG/DL (0.60-1.30); GFR ESTIMATED > 60; GLUCOSE 144 MG/DL (70-105); POTASSIUM 3.7 MMOL/L (3.6-5.0); SODIUM 139 MMOL/L (135-145); TOTAL PROTEIN 7.4 GM/DL (6.4-8.2)
[2017-10-04] MEDS: LACTULOSE SYRUP 10GM/15ML (ENULOSE) 30ML UDC PO SCH ×3 (05:41→20:37)
[2017-10-04] MEDS: POTASSIUM CL 10MEQ/50ML IVPB 50 ML IV SCH (05:41)
[2017-10-04] MEDS: MAGNESIUM 1 GM/100 ML IVPB 100 ML IV SCH (05:41)
[2017-10-04] MEDS: KCL 20 MEQ TAB (K-DUR) PO SCH (05:41)
--- NOTE | 2017-10-04 09:20 | Progress Note (SOAP) ---
Subjective Subjective/Events-last exam Patient doing well. Ambulating to bathroom without difficulty. Much more awake than yesterday. Denies complaints, would like to know when he can have the catheter out. No acute events overnight. Review of Systems Date Seen by Provider: October 04, 2017 Time Seen by Provider: 13:19 General: No Chills, No Night Sweats HEENT: No Head Aches, No Dysphasia Pulmonary: No Dyspnea, No Cough Cardiovascular: Edema; No: Chest Pain, Palpitations Gastrointestinal: Diarrhea (per patient report); No: Nausea, Vomiting, Abdominal Pain Genitourinary: No Hematuria Musculoskeletal: No: neck pain, back pain, leg pain Neurological: No: Incoordination, Change in speech, Confusion, Seizures Focused Exam Lactate Level 10/02/17 15:57: Lactic Acid Level 1.42 Objective Exam Last Set of Vital Signs Vital Signs Date Time Temp Pulse Resp B/P (MAP) Pulse Ox O2 Delivery O2 Flow Rate FiO2 10/04/17 07:00 84 10/04/17 06:00 15 167/78 (107) 95 Room Air 10/04/17 04:00 97.9 Capillary Refill : Less Than 3 Seconds I&O Intake and Output 10/04/17 00:00 Intake Total 1550 ml Output Total 3075 ml Balance -1525 ml Intake Oral 1500 ml IV Total 50 ml Output Urine Total 3075 ml General: Alert, Oriented X3, Cooperative, No Acute Distress HEENT: Atraumatic, EOMI, Mucous Memb Moist/[place] Neck: Supple, No Thyromegaly Lungs: Clear to Auscultation, Normal Air Movement Heart: Regular Rate, Normal S1, Normal S2, Other (pt tilted to left at time of exam, murmur III/, best heard at LSB) Abdomen: Normal Bowel Sounds, Soft, No Tenderness Extremities: No Clubbing, No Cyanosis, Other (2+ bilateral lower extremity edema) Skin: No Rashes, No Significant Lesion Neuro: Normal Speech, Normal Tone, Sensation Intact, Cranial Nerves 3-12 NL Psych/Mental Status: Mental Status NL (patient is somewhat sleepy), Mood NL Results/Procedures Lab Laboratory Tests 10/04/17 03:50: White Blood Count 10.4, Red Blood Count 3.23L, Hemoglobin 11.0L, Hematocrit 33L , Mean Corpuscular Volume 101H, Mean Corpuscular Hemoglobin 34, Mean Corpuscular Hemoglobin Concent 34, Red Cell Distribution Width 13.9, Platelet Count 105L, Mean Platelet Volume 10.3, Neutrophils (%) (Auto) 59, Lymphocytes (% ) (Auto) 18, Monocytes (%) (Auto) 17H, Eosinophils (%) (Auto) 6, Basophils (%) ( Auto) 1, Neutrophils # (Auto) 6.1, Lymphocytes # (Auto) 1.9, Monocytes # (Auto) 1.8H, Eosinophils # (Auto) 0.6H, Basophils # (Auto) 0.1, Sodium Level 139, Potassium Level 3.7, Chloride Level 114H, Carbon Dioxide Level 18L, Anion Gap 7 , Blood Urea Nitrogen 9, Creatinine 0.79, Estimat Glomerular Filtration Rate > 60, BUN/Creatinine Ratio 11, Glucose Level 144H, Calcium Level 7.7L, Magnesium Level 1.8, Total Bilirubin 1.1H, Aspartate Amino Transf (AST/SGOT) 78H, Alanine Aminotransferase (ALT/SGPT) 45, Alkaline Phosphatase 94, Ammonia 76H, Total Protein 7.4, Albumin 2.1L Microbiology 10/02/17 Blood Culture - Preliminary, Resulted No growth 10/02/17 MRSA Screen - Final, Complete 10/02/17 Urine Culture - Final, Complete Strep agalactiae Group B See Comments Assessment/Plan Assessment/Plan Assessment & Plan Sepsis -secondary to UTI, see below UTI 10/03 -urine culture pending -started on Rocephin in ED, now Day 2 -WBC 11.8 --> 13.8 -blood cultures pending -bladder significantly distended on CT scan; when garcia placed in ED, return of 2900 cc cloudy, concentrated urine -CT also noted possible clot in bladder, will likely need follow up with urology , or possibly repeat imaging to assure no abnormalities in the bladder after distention and infection resolved 10/04 -urine culture - GBS -Day 3 Rocephin --> change to Ampicillin 1 gram q4H -blood cultures - no growth to date x2 -WBC 11.8 --> 13.8 --> 10.4 -will remove garcia overnight and see if patient is able to void Encephalopathy 10/03 -secondary to hyperammonemia vs infection, likely combination of both, as well as potentially also ETOH withdrawal 10/04 -mental status much improved, although patient still sleepier than normal per significant other Hyperammonemia 10/03 -110 --> 100 -Lactulose started in ED, appears pt got one dose then no more overnight and one again this morning -will start Xifaxan 550 mg PO BID, continue lactulose q2 hours until stool, then q8 -will trend out; highly possible that pt has elevated ammonia at baseline 10/04 -110 --> 100 --> 76 -continue lactulose and Xifaxan Hx of Alcohol Abuse 10/03 -BAL <10 on admission -last drink ~3-4 days ago, although unclear, as patient is not awake enough to answer, and significant other not sure -all family at bedside report patient has a long history of heavy alcohol use -significant other reports he will consume 2-3 bottles of hard liquor per week, and go to the bar on the weekend, she will drop him off and pick him up because she does not want him driving -significant other also reports that he will sometimes stop drinking for days at a time, and often will have periods where he is weak and confused, but it resolves after a few days, then pt is fine until his friend that brings him the bottles of alcohol comes over, and then patient starts drinking again -CIWA protocol; has not required any ativan 10/04 -continues to not require any ativan -continue CIWA scoring Methamphetamine Abuse 10/03 -UDS positive for methamphetamines -large amount of family at bedside, patient not awake or communicative at the time of exam other than to open eyes briefly -will address further when patient is more awake and alert 10/04 -patient still somewhat sleepy at the time of exam -significant other asked about methamphetamines, she appears genuinely surprised and unaware; they have lived together for several years and she states she has never seen him with any drugs, she appears quite distressed but patient is sleeping and she doesn't want to wake him up to confront him -[facility] Anemia 10/03 -Hgb 12.7 --> 11.7 -no joanna bleeding, likely dilutional secondary to IV hydration -gastroesophageal varices on CT scan -no hematemesis, hematuria, or hemoptysis per family 10/04 -Hgb 12.7 --> 11.7 --> 11 -no joanna bleeding seen Thrombocytopenia 10/04 Platelets 121 --> 121 --> 105 Elevated LFTs 10/03 -total bili 1.9 --> 1.2 -AST 76 --> 78 -avoid hepatotoxic medications when possible -known Hep C positive 10/04 -total bili 1.9 --> 1.2 --> 1.1 -AST 76 --> 78 --> 78 -ALT 47 --> 45 Hyperbilirubinemia 1.9 --> 1.2 --> 1.1 Hypomagnesemia 10/03 -1.7 --> 2.1 Hypocalcemia 10/03 -9 --> 8.3 10/04 -9 --> 8.3 --> 7.7 Hypoalbuminemia 10/03 -2.5 --> 2.4 10/04 -2.5 --> 2.4 --> 2.1 Prealbumin pending Heart Murmur 10/04 -noted on yesterday's exam and echo ordered, performed this AM -echo report pending, murmur still present, and much louder when patient tilts to left side -significant other reports patient was scheduled for outpatient echo in August, but did not go; she is not sure why he was scheduled and reports that he does not have a known history of a heart murmur Hepatitis C -chronic Cirrhosis Splenomegaly -mild, per CT Gastroesophageal Varices Bladder Distention with probable clot -2900 cc returned with garcia placement -no gross hematuria -would recommend follow up with urology after discharge and/or reimaging of pelvis after infection cleared FEN: Continue IVF, regular diet DVT Ppx: SCDs, ambulation Dispo: Continue inpatient care with IV abx, PT, OT and lab monitoring. Pt still somewhat sleepy, but much improved. Likely discharge Saturday if patient continues to improve. Condition: Stable CODE STATUS: FULL CODE Clinical Quality Measures DVT/VTE Risk/Contraindication: Risk Factor Score Per Nursin RFS Level Per Nursing on Admit: 3=High Copy Copies To 1: [facility]/ORQUIDEA BOLAÑOS DO October 04, 2017 09:20
[2017-10-04] MEDS: cefTRIAXone 1 GM/NS 50 ML IVPB IV SCH ×2 (09:21)
[2017-10-04] MEDS: RIFAXIMIN 550 MG TABLET (XIFAXAN) PO SCH ×2 (09:40→20:37)
[2017-10-04] MEDS: THIAMINE INJECTION 100 MG, FOLIC ACID INJECTION 1 MG, MAGNESIUM SULFATE 2 GM, VITAMIN M... IV SCH ×5 (09:40)
--- NOTE | 2017-10-04 11:46 | Physical Therapy Evaluation ---
PT Evaluation-General Medical Diagnosis Admission Date October 02, 2017 at 18:16 Medical Diagnosis: hepatic encephalopathy Onset Date: October 02, 2017 Therapy Diagnosis Therapy Diagnosis: weakness/debility Height/Weight Height (Feet): 5 Height (Inches): 6.00 Weight (Pounds): 198 Weight (Ounces): 0.0 Precautions Precautions/Isolations: Fall Prevention, Standard Precautions Weight Bear Status Right Lower Extremity: Right Full Weight Bearing Left Lower Extremity: Left Full Weight Bearing Referral Physician: Karen Reason for Referral: Evaluation/Treatment Medical History Pertinent Medical History: Alcoholism Additional Medical History (+) meth Current History ED with substance abuse/ETOH withdrawal/confusion/liver failure/multiple falls Reviewed History: Yes Social History Home: Single Level Current Living Status: Significant Other Entry Into Home: Stairs With Railing PT Steps Into Home: 4 Prior/Core FIM Prior Level of Function Functional [place] Measure 0=Not Assessed/NA 4=Minimal Assistance 1=Total Assistance 5=Supervision or Setup 2=Maximal Assistance 6=Modified [place] 3=Moderate Assistance 7=Complete [place] Bed Mobility: 7 Transfers (B,C,W/C) (FIM): 7 Gait: 7 PT Evaluation-Current Subjective Patient and family agree to PT. Pain Numeric Pain Scale: 0-No Pain Location: No Pain Reported Objective Patient Orientation: Confused Problem Solving: Fair Attachments: Victor Catheter, IV ROM/Strength ROM Lower Extremities bilateral LE WNL Strength Lower Extremities right knee flexion/extension 4/5; hip flexion 4/5; DF/PF/4/5 left knee flexion/extension 4/5; hip flexion 4/5; DF/PF 4/5 (with noted delay in response of use) Integumentary/Posture Integumentary refer to nursing notes Bladder Incontinence: Vitcor Cath Posture WFL/with left lean in stand and with ambulation Neuromuscular (Tone, Coordination, Reflexes) diminished proprioception and coordination with left LE and UE/noted facial droop left Sensory Vision: Functional Hearing: Impaired Sensation Right Lower Extremit: Impaired Sensation Left Lower Extremity: Impaired Transfers Functional [place] Measure 0=Not Assessed/NA 4=Minimal Assistance 1=Total Assistance 5=Supervision or Setup 2=Maximal Assistance 6=Modified [place] 3=Moderate Assistance 7=Complete [place] Transfers (B, C, W/C) (FIM): 4 Scootin Rollin Supine to/from Sit: 5 Sit to/from Stand: 4 Gait Mode of Locomotion: Walk Anticipated Mode of Locomotion: Walk Gait (FIM): 4 Distance (FIM): 3=150 ft Distance: 250' Gait Level of Assist: 4 Gait Persons Needed: 1 Gait Assistive Device: FWW Comments/Gait Description noted left lean with diminished proprioception with turning left with use of FWW and without/very NBOS and occasionally scissor gait pattern Balance Sitting Static: Normal Sitting Dynamic: Normal Standing Static: Fair Standing Dynamic: Fair (with testing patient is able to self correct 50% of time) Assessment/Needs 62 y.o. male, will benefit from skilled PT to address functional strength and mobility to improve current LOF and to safely return to home with family at maximum LOF. Rehab Potential: Fair Post Rehab Potential-Barriers: drug/alcohol use PT Fpc Goals [employer] Salesperson Goals PT Fpc Goals Time Frame: Oct 18, 2017 Transfers (B,C,W/C) (FIM): 6 Gait (FIM): 6 Gait distance (FIM): 3=150 ft Distance: 300' Gait Level of Assist: 6 Gait Assistive Device: None, FWW Stairs (FIM): 6 # of Steps: 12 Stairs Level Of Assist: 6 PT Plan Problem List Problem List: Activity Tolerance, Functional Strength, Safety, Balance, Gait Treatment/Plan Treatment Plan: Continue Plan of Care Treatment Plan: Bed Mobility, Education, Functional Activity Latha, Functional Strength, Gait, Safety, Therapeutic Exercise, Transfers Treatment Duration: Oct 18, 2017 Frequency: 6 times per week Estimated Hrs Per Day: .5 hour per day Patient and/or Family Agrees t: Yes Safety Risks/Education Patient Education: Safety Issues Teaching Recipient: Patient, Family Teaching Methods: Demonstration, Discussion Response to Teaching: Verbalize Understanding, Return Demonstration Discharge Recommendations Therapy D/C Recommendations: Home w/ Family Support Time/GCodes Time In: 1111 Time Out: 1123 Total Billed Treatment Time: 12 [facility] October 04, 2017 11:46
[2017-10-04] MEDS: AMPICILLIN INJECTION 1,000 MG in NS (IVPB) 50 ML IV SCH ×3 (12:21→20:37)
[2017-10-04] MEDS ORDERED: hydrALAZINE (APESOLINE) 20 MG/ML VIAL IV NR (14:45)
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
[2017-10-04] MEDS ORDERED: lisINopril 10 MG (PRINIVIL) TABLET PO NR (20:00)
[2017-10-04 22:07] LABS: AMPHETAMINE SCREEN, URINE NEGATIVE (NEGATIVE); BARBITURATE SCREEN URINE NEGATIVE (NEGATIVE); BENZODIAZEPINES SCREEN URINE POSITIVE (NEGATIVE); CANNABINOID SCREEN, URINE NEGATIVE (NEGATIVE); COCAINE SCREEN URINE NEGATIVE (NEGATIVE); METHADONE STAT NEGATIVE (NEGATIVE); METHAMPHETAMINE SCREEN URINE S POSITIVE (NEGATIVE); OPIATE SCREEN URINE NEGATIVE (NEGATIVE); OXYCODONE STAT NEGATIVE (NEGATIVE); PROPOXYPHENE STAT NEGATIVE (NEGATIVE); TRICYCLIC ANTIDEPRESSANTS SCRE NEGATIVE (NEGATIVE)
[2017-10-05] MEDS: AMPICILLIN INJECTION 1,000 MG in NS (IVPB) 50 ML IV SCH ×6 (00:08→20:28)
[2017-10-05 00:25] VITALS: BP 130/60
[2017-10-05] MEDS: D5 1/2 NS W/KCL 20 MEQ/L 1,000 ML IV SCH ×2 (03:06→08:38)
[2017-10-05 04:16] VITALS: BP 138/64
[2017-10-05 06:04] LABS: BASOPHILS # (AUTO) 0.1 10^3/uL (0.0-0.1); BASOPHILS % (AUTO) 0 % (0-10); EOSINOPHILS # (AUTO) 0.7 10^3/uL (0.0-0.3); EOSINOPHILS % (AUTO) 6 % (0-10); HEMATOCRIT 34 % (40-54); HEMOGLOBIN 11.5 G/DL (13.3-17.7); LYMPHOCYTES # (AUTO) 2.1 X 10^3 (1.0-4.0); LYMPHOCYTES % (AUTO) 16 % (12-44); MEAN CORPUSCULAR HEMOGLOBIN 34 PG (25-34); MEAN CORPUSCULAR HGB CONC 34 G/DL (32-36); MEAN CORPUSCULAR VOLUME 100 FL (80-99); MEAN PLATELET VOLUME 10.7 FL (7.4-10.4); MONOCYTES # (AUTO) 1.8 X 10^3 (0.0-1.0); MONOCYTES % (AUTO) 14 % (0-12); NEUTROPHILS # (AUTO) 8.4 X 10^3 (1.8-7.8); NEUTROPHILS % (AUTO) 65 % (42-75); PLATELET COUNT 105 10^3/uL (130-400); RED CELL DISTRIBUTION WIDTH 13.7 % (10.0-14.5); WHITE BLOOD COUNT 13.1 10^3/uL (4.3-11.0)
[2017-10-05] MEDS: LACTULOSE SYRUP 10GM/15ML (ENULOSE) 30ML UDC PO SCH ×3 (06:18→20:29)
[2017-10-05 06:27] LABS: ALANINE AMINOTRANSFERASE 47 U/L (0-55); ALBUMIN 2.2 GM/DL (3.2-4.5); ALKALINE PHOSPHATASE 93 U/L (40-136); AMMONIA 55 UMOL/L (11-32); BILIRUBIN,TOTAL 1.3 MG/DL (0.1-1.0); BUN/CREATININE RATIO 14; CALCIUM 7.9 MG/DL (8.5-10.1); CARBON DIOXIDE 20 MMOL/L (21-32); CHLORIDE 112 MMOL/L (98-107); CREATININE SERUM 0.72 MG/DL (0.60-1.30); GFR ESTIMATED > 60; GLUCOSE 117 MG/DL (70-105); MAGNESIUM 1.7 MG/DL (1.8-2.4); POTASSIUM 3.9 MMOL/L (3.6-5.0); SODIUM 138 MMOL/L (135-145); TOTAL PROTEIN 7.5 GM/DL (6.4-8.2)
[2017-10-05 07:00] VITALS: BP 138/62
--- NOTE | 2017-10-05 07:32 | Progress Note (SOAP) ---
Subjective Subjective/Events-last exam Patient much more awake and alert, sitting up in bed, able to easily answer questions appropriately. Wants to go home. Was able to void overnight after catheter DC'ed. No acute events overnight. Review of Systems Date Seen by Provider: October 05, 2017 Time Seen by Provider: 10:40 General: No Chills, No Night Sweats, No Fatigue HEENT: No Head Aches, No Dysphasia Pulmonary: No Dyspnea, No Cough, No Pleuritic Chest Pain Cardiovascular: Edema; No: Chest Pain, Palpitations Gastrointestinal: No: Nausea, Vomiting, Abdominal Pain, Constipation, Hematochezia Genitourinary: No Dysuria, No Frequency, No Incontinence Musculoskeletal: No: neck pain, back pain Neurological: No: Weakness, Numbness, Incoordination, Change in speech, Confusion, Seizures Focused Exam Lactate Level 10/02/17 15:57: Lactic Acid Level 1.42 Objective Exam Last Set of Vital Signs Vital Signs Date Time Temp Pulse Resp B/P (MAP) Pulse Ox O2 Delivery O2 Flow Rate FiO2 10/05/17 04:16 97.1 88 16 138/64 (88) 96 Room Air Capillary Refill : Less Than 3 Seconds I&O Intake and Output 10/05/17 00:00 Intake Total 3670 ml Output Total 3050 ml Balance 620 ml Intake Oral 1770 ml IV Total 1900 ml Output Urine Total 3050 ml # Bowel Movements 2 General: Alert, Oriented X3, Cooperative, No Acute Distress HEENT: Atraumatic, EOMI, Mucous Memb Moist/[place] Lungs: Clear to Auscultation, Normal Air Movement Heart: Regular Rate, Normal S1, Normal S2, Other (III/ murmur, best heard at LSB) Abdomen: Normal Bowel Sounds, Soft, No Tenderness Extremities: No Clubbing, No Cyanosis Skin: No Rashes, No Significant Lesion Neuro: Normal Speech, Normal Tone, Sensation Intact, Cranial Nerves 3-12 NL Psych/Mental Status: Mental Status NL, Mood NL Results/Procedures Lab Laboratory Tests 10/04/17 20:11: Urine Opiates Screen NEGATIVE, Urine Oxycodone Screen NEGATIVE, Urine Methadone Screen NEGATIVE, Urine Propoxyphene Screen NEGATIVE, Urine Barbiturates Screen NEGATIVE, Ur Tricyclic Antidepressants Screen NEGATIVE, Urine Phencyclidine Screen NEGATIVE, Urine Amphetamines Screen NEGATIVE, Urine Methamphetamines Screen POSITIVEH, Urine Benzodiazepines Screen POSITIVEH, Urine Cocaine Screen NEGATIVE, Urine Cannabinoids Screen NEGATIVE 10/05/17 05:50: White Blood Count 13.1H, Red Blood Count 3.40L, Hemoglobin 11.5L, Hematocrit 34L , Mean Corpuscular Volume 100H, Mean Corpuscular Hemoglobin 34, Mean Corpuscular Hemoglobin Concent 34, Red Cell Distribution Width 13.7, Platelet Count 105L, Mean Platelet Volume 10.7H, Neutrophils (%) (Auto) 65, Lymphocytes ( %) (Auto) 16, Monocytes (%) (Auto) 14H, Eosinophils (%) (Auto) 6, Basophils (%) (Auto) 0, Neutrophils # (Auto) 8.4H, Lymphocytes # (Auto) 2.1, Monocytes # (Auto ) 1.8H, Eosinophils # (Auto) 0.7H, Basophils # (Auto) 0.1, Sodium Level 138, Potassium Level 3.9, Chloride Level 112H, Carbon Dioxide Level 20L, Anion Gap 6 , Blood Urea Nitrogen 10, Creatinine 0.72, Estimat Glomerular Filtration Rate > 60, BUN/Creatinine Ratio 14, Glucose Level 117H, Calcium Level 7.9L, Magnesium Level 1.7L, Total Bilirubin 1.3H, Aspartate Amino Transf (AST/SGOT) 76H, Alanine Aminotransferase (ALT/SGPT) 47, Alkaline Phosphatase 93, Ammonia 55H, Total Protein 7.5, Albumin 2.2L Microbiology 10/02/17 Blood Culture - Preliminary, Resulted No growth 10/02/17 MRSA Screen - Final, Complete 10/02/17 Urine Culture - Final, Complete Strep agalactiae Group B See Comments Assessment/Plan Assessment/Plan Assessment & Plan Sepsis -secondary to UTI, see below UTI 10/03 -urine culture pending -started on Rocephin in ED, now Day 2 -WBC 11.8 --> 13.8 -blood cultures pending -bladder significantly distended on CT scan; when garcia placed in ED, return of 2900 cc cloudy, concentrated urine -CT also noted possible clot in bladder, will likely need follow up with urology , or possibly repeat imaging to assure no abnormalities in the bladder after distention and infection resolved 10/04 -urine culture - GBS -Day 3 Rocephin --> change to Ampicillin 1 gram q4H -blood cultures - no growth to date x2 -WBC 11.8 --> 13.8 --> 10.4 -will remove garcia overnight and see if patient is able to void 10/05 -Day 2 Ampicillin -WBC 11.8 --> 13.8 --> 10.4 --> 13.1 -patient able to void without difficulty after garcia removed Encephalopathy 10/03 -secondary to hyperammonemia vs infection, likely combination of both, as well as potentially also ETOH withdrawal 10/04 -mental status much improved, although patient still sleepier than normal per significant other 10/05 -patient awake and alert, at his baseline per significant other Hyperammonemia 10/03 -110 --> 100 -Lactulose started in ED, appears pt got one dose then no more overnight and one again this morning -will start Xifaxan 550 mg PO BID, continue lactulose q2 hours until stool, then q8 -will trend out; highly possible that pt has elevated ammonia at baseline 10/04 -110 --> 100 --> 76 -continue lactulose and Xifaxan 10/05 -110 --> 100 --> 76 --> 55 -continue lactulose and Xifaxan -would like to see ammonia <50, however pt's baseline is unknown; patient wanting discharge today -- will recheck tonight at 1800 and if <50 will discharge tonight, otherwise, will recheck in AM and if stable will plan discharge tomorrow Hx of Alcohol Abuse 10/03 -BAL <10 on admission -last drink ~3-4 days ago, although unclear, as patient is not awake enough to answer, and significant other not sure -all family at bedside report patient has a long history of heavy alcohol use -significant other reports he will consume 2-3 bottles of hard liquor per week, and go to the bar on the weekend, she will drop him off and pick him up because she does not want him driving -significant other also reports that he will sometimes stop drinking for days at a time, and often will have periods where he is weak and confused, but it resolves after a few days, then pt is fine until his friend that brings him the bottles of alcohol comes over, and then patient starts drinking again -CIWA protocol; has not required any ativan 10/04 -continues to not require any ativan -continue CIWA scoring 10/05 -continues to not require any ativan -continue CIWA scoring Methamphetamine Abuse 10/03 -UDS positive for methamphetamines -large amount of family at bedside, patient not awake or communicative at the time of exam other than to open eyes briefly -will address further when patient is more awake and alert 10/04 -patient still somewhat sleepy at the time of exam -significant other asked about methamphetamines, she appears genuinely surprised and unaware; they have lived together for several years and she states she has never seen him with any drugs, she appears quite distressed but patient is sleeping and she doesn't want to wake him up to confront him -[facility] -repeat UDS again positive for methamphetamines; now also positive for benzos -no benzos have been given by staff, chart checked multiple times and also confirmed with nursing staff who checked multiple times -when asked patient and significant other, significant other reports that while patient was more out of it, his daughter who likes to snort xanax and granddaughter who also abuses xanax by snorting or crushing them and injecting them, were wanting him to take something and patient did not want to. She reports that they demanded to be left alone with him, and she stepped out of the room. Asked if patient's behavior was any different when she returned, she said he was much sleepier, and slept for several hours. Patient states he did not take anything brought by anyone, that he doesn't like pills. -patient admits to smoking meth sometimes, states his last use was about a week before admission to the hospital Anemia 10/03 -Hgb 12.7 --> 11.7 -no joanna bleeding, likely dilutional secondary to IV hydration -gastroesophageal varices on CT scan -no hematemesis, hematuria, or hemoptysis per family 10/04 -Hgb 12.7 --> 11.7 --> 11 -no joanna bleeding seen 10/05 -Hgb 12.7 --> 11.7 --> 11 --> 11.5 Thrombocytopenia 10/04 Platelets 121 --> 121 --> 105 10/05 Platelets 121 --> 121 --> 105 --> 105 Elevated LFTs 10/03 -total bili 1.9 --> 1.2 -AST 76 --> 78 -avoid hepatotoxic medications when possible -known Hep C positive 10/04 -total bili 1.9 --> 1.2 --> 1.1 -AST 76 --> 78 --> 78 -ALT 47 --> 45 10/05 -total bili 1.9 --> 1.2 --> 1.1 --> 1.3 -AST 76 --> 78 --> 78 --> 76 -ALT 47 --> 45 --> 47 Hyperbilirubinemia 1.9 --> 1.2 --> 1.1 --> 1.3 Hypomagnesemia 10/03 -1.7 --> 2.1 10/05 -1.7, replace with 2 grams IVPB Hypocalcemia 10/03 -9 --> 8.3 10/04 -9 --> 8.3 --> 7.7 10/04 -9 --> 8.3 --> 7.7 --> 7.9 Hypoalbuminemia 10/03 -2.5 --> 2.4 10/04 -2.5 --> 2.4 --> 2.1 10/05 -2.5 --> 2.4 --> 2.2 Prealbumin still pending Heart Murmur 10/04 -noted on yesterday's exam and echo ordered, performed this AM -echo report pending, murmur still present, and much louder when patient tilts to left side -significant other reports patient was scheduled for outpatient echo in August, but did not go; she is not sure why he was scheduled and reports that he does not have a known history of a heart murmur 10/05 -echo results still pending Hepatitis C -chronic Cirrhosis Splenomegaly -mild, per CT Gastroesophageal Varices Bladder Distention with probable clot -2900 cc returned with garcia placement -no gross hematuria -would recommend follow up with urology after discharge and/or reimaging of pelvis after infection cleared FEN: Saline Lock, regular diet DVT Ppx: SCDs, ambulation Dispo: Continue inpatient care with IV abx, Will recheck ammonia at 1800, if < 50 will discharge, otherwise will recheck in AM and likely DC tomorrow Condition: Stable CODE STATUS: FULL CODE Clinical Quality Measures DVT/VTE Risk/Contraindication: Risk Factor Score Per Nursin RFS Level Per Nursing on Admit: 3=High Copy Copies To 1: [facility]/ORQUIDEA BOLAÑOS DO October 05, 2017 07:32
[2017-10-05] MEDS: lisINopril 20 MG (PRINIVIL) TABLET PO SCH (08:29)
[2017-10-05] MEDS: RIFAXIMIN 550 MG TABLET (XIFAXAN) PO SCH ×2 (08:29→20:28)
[2017-10-05] MEDS: MAGNESIUM 1 GM/100 ML IVPB 100 ML IV SCH ×2 (08:53→09:46)
--- NOTE | 2017-10-05 09:46 | Physical Therapy Daily Note ---
PT Daily Note-Current Subjective Pt laying Supine in bed asleep upon arrival. Pt agrees to walk for PT. Pt is [place]. Pain Location: No Pain Reported Mental Status Patient Orientation: Person, Place, Situation Attachments: IV Transfers Functional [place] Measure 0=Not Assessed/NA 4=Minimal Assistance 1=Total Assistance 5=Supervision or Setup 2=Maximal Assistance 6=Modified [place] 3=Moderate Assistance 7=Complete IndependenceIRFPAI Quality Coding Scale 6 Independent with activity with or without an assistive device 5 Patient requires set up or clean up by helper. Patient completes activity by themselves 4 Supervision or touching assist (CGA). Brick provide cues , steadying assist 3 The helper provides less than half the effort to complete the activity 2 The helper provides more than half the effort to complete the activity 1 Dependent. The helper does all the effort to complete an activity 7 Patient refused to complete or attempt activity 9 The patient did not perform the activity before the current illness or injury 88 Not attempted due to Medical conditions or safety concerns Scootin Supine to/from Sit: 5 Sit to/from Stand: 5 Weight Bearing Right Lower Extremity: Right Full Weight Bearing Left Lower Extremity: Left Full Weight Bearing Gait Training Distance (FIM): 3=150 ft Distance: 200' Gait Level of Assist: 4 Gait Persons Needed: 1 Gait Assistive Device: FWW Pt has slow magdiel & NBOS. TERRITORY SUPERVISOR gives VC to keep feet further apart but pt needs reminders. Treatments Pt transfers from Supine to EOB then EOB to Standing at close SBA. Pt ambulates using FWW at CGA for safety. Pt walks with NBOS and receives VC from TERRITORY SUPERVISOR for wider ELISA. Pt returns to room at end of walk and transfers to recliner to rest. Sp is given education on how pt is walking and how Sp can remind pt to keep wider ELISA for safety. Pt resting at end of tx with all needs met, including call light next to pt. Assessment Current Status: Good Progress Pt fatigues easy and needs VC for wider ELISA. PT Half-Way Goals Bounty Trapper Goals PT Bounty Trapper Goals Time Frame: Oct 18, 2017 Transfers (B,C,W/C) (FIM): 6 Gait (FIM): 6 Gait distance (FIM): 3=150 ft Distance: 300' Gait Level of Assist: 6 Gait Assistive Device: None, FWW Stairs (FIM): 6 # of Steps: 12 Stairs Level Of Assist: 6 PT Plan Problem List Problem List: Activity Tolerance, Functional Strength, Safety, Balance, Gait Treatment/Plan Treatment Plan: Continue Plan of Care Treatment Plan: Bed Mobility, Education, Functional Activity [place], Functional Strength, Gait, Safety, Therapeutic Exercise, Transfers Treatment Duration: Oct 18, 2017 Frequency: 6 times per week Estimated Hrs Per Day: .5 hour per day Patient and/or Family Agrees t: Yes Safety Risks/Education Patient Education: Gait Training, Correct Positioning, Safety Issues Teaching Recipient: Patient, Significant Other Teaching Methods: Discussion Response to Teaching: Verbalize Understanding Time/GCodes Time In: 850 Time Out: 915 Total Billed Treatment Time: 25 Total Billed Treatment 1, GT (15m) & FA (10m) G Codes Necessary: ARAM Greene TERRITORY SUPERVISOR October 05, 2017 09:45
[2017-10-05 12:00] VITALS: BP 149/68
[2017-10-05] MEDS: MUPIROCIN 2% OINT 22 GM (BACTROBAN) TUBE TOP SCH ×2 (13:43→20:29)
[2017-10-05 16:14] VITALS: BP 161/70
[2017-10-05] MEDS ORDERED: LISI-552 PO (18:25)
[2017-10-05] MEDS ORDERED: AMOX500T2 PO (18:25)
--- NOTE | 2017-10-05 18:41 | Discharge Instructions ---
Discharge [facility] Discharge Medications New, Converted or Re-Newed RX: Transmitted to Pharmacy New Medications: Amoxicillin (Amoxicillin) 500 Mg Tablet 500 MG PO TID for 8 Days, #24 TAB 0 Refills Lisinopril (Lisinopril) 20 Mg Tablet 20 MG PO DAILY for 30 Days, #30 TAB Patient Instructions Patient Instructions -take all medications as prescribed -NO ALCOHOL -NO METH -NO SMOKING -keep follow up appointment Goal/Follow Up Appt: Everett Umanzor APRN, October 11 at 11:40 Return to The Hospital For: chest pain or pressure, shortness of breath not relieved by rest, nausea or vomiting that makes you unable to keep down clear liquids or medication for more than 12-24 hours, fever >101 not relieved by tylenol or ibuprofen, if directed by mason apprentice provider or any other emergent complaints or concerns Activity & Diet Discharge Diet: Low Sodium Diet Activity as Tolerated: Yes Copy Copies To 1: [facility]/ORQUIDEA BOLAÑOS DO October 05, 2017 18:31
[2017-10-05 20:00] VITALS: BP 134/67
[2017-10-06] MEDS: AMPICILLIN INJECTION 1,000 MG in NS (IVPB) 50 ML IV SCH ×3 (00:25→08:36)
[2017-10-06 00:47] VITALS: BP 125/58
[2017-10-06 04:23] VITALS: BP 122/60
[2017-10-06] MEDS: LACTULOSE SYRUP 10GM/15ML (ENULOSE) 30ML UDC PO SCH (05:40)
[2017-10-06 05:58] LABS: BASOPHILS # (AUTO) 0.1 10^3/uL (0.0-0.1); BASOPHILS % (AUTO) 1 % (0-10); EOSINOPHILS # (AUTO) 0.9 10^3/uL (0.0-0.3); EOSINOPHILS % (AUTO) 9 % (0-10); HEMATOCRIT 30 % (40-54); HEMOGLOBIN 10.1 G/DL (13.3-17.7); LYMPHOCYTES # (AUTO) 1.8 X 10^3 (1.0-4.0); LYMPHOCYTES % (AUTO) 19 % (12-44); MEAN CORPUSCULAR HEMOGLOBIN 34 PG (25-34); MEAN CORPUSCULAR HGB CONC 33 G/DL (32-36); MEAN CORPUSCULAR VOLUME 102 FL (80-99); MEAN PLATELET VOLUME 10.2 FL (7.4-10.4); MONOCYTES # (AUTO) 1.5 X 10^3 (0.0-1.0); MONOCYTES % (AUTO) 16 % (0-12); NEUTROPHILS # (AUTO) 5.3 X 10^3 (1.8-7.8); NEUTROPHILS % (AUTO) 56 % (42-75); PLATELET COUNT 102 10^3/uL (130-400); RED BLOOD COUNT 2.97 10^6/uL (4.35-5.85); WHITE BLOOD COUNT 9.5 10^3/uL (4.3-11.0)
[2017-10-06 06:19] LABS: ALANINE AMINOTRANSFERASE 47 U/L (0-55); ALBUMIN 1.9 GM/DL (3.2-4.5); ALKALINE PHOSPHATASE 77 U/L (40-136); AMMONIA 57 UMOL/L (11-32); BILIRUBIN,TOTAL 1.3 MG/DL (0.1-1.0); BUN/CREATININE RATIO 14; CALCIUM 7.5 MG/DL (8.5-10.1); CARBON DIOXIDE 20 MMOL/L (21-32); CHLORIDE 112 MMOL/L (98-107); CREATININE SERUM 0.71 MG/DL (0.60-1.30); GFR ESTIMATED > 60; GLUCOSE 122 MG/DL (70-105); MAGNESIUM 1.6 MG/DL (1.8-2.4); POTASSIUM 3.8 MMOL/L (3.6-5.0); SODIUM 138 MMOL/L (135-145); TOTAL PROTEIN 6.6 GM/DL (6.4-8.2)
[2017-10-06 08:00] VITALS: BP 132/57
--- NOTE | 2017-10-06 08:23 | Discharge Summary ---
Diagnosis/Chief Complaint Date of Admission October 02, 2017 at 18:16 Date of Discharge 10/06/17 Admission Diagnosis Admission Diagnosis Sepsis UTI Encephalopathy Hyperammonemia Hx of Alcohol Abuse Methamphetamine Abuse Anemia Elevated LFTs Hyperbilirubinemia Hypomagnesemia Hepatitis C Cirrhosis Splenomegaly Gastroesophageal Varices Bladder Distention with probable clot Discharge Diagnosis Sepsis -secondary to UTI, see below UTI 10/03 -urine culture pending -started on Rocephin in ED, now Day 2 -WBC 11.8 --> 13.8 -blood cultures pending -bladder significantly distended on CT scan; when garcia placed in ED, return of 2900 cc cloudy, concentrated urine -CT also noted possible clot in bladder, will likely need follow up with urology , or possibly repeat imaging to assure no abnormalities in the bladder after distention and infection resolved 10/04 -urine culture - GBS -Day 3 Rocephin --> change to Ampicillin 1 gram q4H -blood cultures - no growth to date x2 -WBC 11.8 --> 13.8 --> 10.4 -will remove garcia overnight and see if patient is able to void 10/05 -Day 2 Ampicillin -WBC 11.8 --> 13.8 --> 10.4 --> 13.1 -patient able to void without difficulty after garcia removed 10/06 -Day 3 Ampicillin -WBC 11.8 --> 13.8 --> 10.4 --> 13.1 --> 9.5 -will discharge to home on Amoxicillin 500 mg TID Encephalopathy 10/03 -secondary to hyperammonemia vs infection, likely combination of both, as well as potentially also ETOH withdrawal 10/04 -mental status much improved, although patient still sleepier than normal per significant other 10/05 -patient awake and alert, at his baseline per significant other 10/06 -remains at baseline, ambulating, eating, voiding, mentating appropriately Hyperammonemia 10/03 -110 --> 100 -Lactulose started in ED, appears pt got one dose then no more overnight and one again this morning -will start Xifaxan 550 mg PO BID, continue lactulose q2 hours until stool, then q8 -will trend out; highly possible that pt has elevated ammonia at baseline 10/04 -110 --> 100 --> 76 -continue lactulose and Xifaxan 10/05 -110 --> 100 --> 76 --> 55 -continue lactulose and Xifaxan -would like to see ammonia <50, however pt's baseline is unknown; patient wanting discharge today -- will recheck tonight at 1800 and if <50 will discharge tonight, otherwise, will recheck in AM and if stable will plan discharge tomorrow 10/06 -110 --> 100 --> 76 --> 55 --> 59 --> 57 -as patient has been at his baseline mentation with his ammonia in 50's, this may be his baseline -will discharge to home -would recommend checking in 1-2 weeks as outpatient to establish baseline for patient Hx of Alcohol Abuse 10/03 -BAL <10 on admission -last drink ~3-4 days ago, although unclear, as patient is not awake enough to answer, and significant other not sure -all family at bedside report patient has a long history of heavy alcohol use -significant other reports he will consume 2-3 bottles of hard liquor per week, and go to the bar on the weekend, she will drop him off and pick him up because she does not want him driving -significant other also reports that he will sometimes stop drinking for days at a time, and often will have periods where he is weak and confused, but it resolves after a few days, then pt is fine until his friend that brings him the bottles of alcohol comes over, and then patient starts drinking again -CIWA protocol; has not required any ativan 10/04 -continues to not require any ativan -continue CIWA scoring 10/05 -continues to not require any ativan -continue CIWA scoring 10/06 -no ativan has been required -all alcohol has been removed from the house by family member -patient encouraged not to start drinking again, has he has several medical issues and several were caused by and can be made worse by ETOH use -pt plans to stay sober; encouraged to utilize resources available at the clinic Methamphetamine Abuse 10/03 -UDS positive for methamphetamines -large amount of family at bedside, patient not awake or communicative at the time of exam other than to open eyes briefly -will address further when patient is more awake and alert 10/04 -patient still somewhat sleepy at the time of exam -significant other asked about methamphetamines, she appears genuinely surprised and unaware; they have lived together for several years and she states she has never seen him with any drugs, she appears quite distressed but patient is sleeping and she doesn't want to wake him up to confront him -[facility] 10/05 -repeat UDS again positive for methamphetamines; now also positive for benzos -no benzos have been given by staff, chart checked multiple times and also confirmed with nursing staff who checked multiple times -when asked patient and significant other, significant other reports that while patient was more out of it, his daughter who likes to snort xanax and granddaughter who also abuses xanax by snorting or crushing them and injecting them, were wanting him to take something and patient did not want to. She reports that they demanded to be left alone with him, and she stepped out of the room. Asked if patient's behavior was any different when she returned, she said he was much sleepier, and slept for several hours. Patient states he did not take anything brought by anyone, that he doesn't like pills. -patient admits to smoking meth sometimes, states his last use was about a week before admission to the hospital 10/06 -pt encouraged to refrain from drug use Tobacco Use -pt encouraged to remain tobacco free Anemia 10/03 -Hgb 12.7 --> 11.7 -no joanna bleeding, likely dilutional secondary to IV hydration -gastroesophageal varices on CT scan -no hematemesis, hematuria, or hemoptysis per family 10/04 -Hgb 12.7 --> 11.7 --> 11 -no joanna bleeding seen 10/05 -Hgb 12.7 --> 11.7 --> 11 --> 11.5 10/06 -Hgb 12.7 --> 11.7 --> 11 --> 11.5 --> 10.1 Thrombocytopenia 10/04 Platelets 121 --> 121 --> 105 10/05 Platelets 121 --> 121 --> 105 --> 105 10/06 Platelets 121 --> 121 --> 105 --> 105 --> 102 Elevated LFTs 10/03 -total bili 1.9 --> 1.2 -AST 76 --> 78 -avoid hepatotoxic medications when possible -known Hep C positive 10/04 -total bili 1.9 --> 1.2 --> 1.1 -AST 76 --> 78 --> 78 -ALT 47 --> 45 10/05 -total bili 1.9 --> 1.2 --> 1.1 --> 1.3 -AST 76 --> 78 --> 78 --> 76 -ALT 47 --> 45 --> 47 10/06 -total bili 1.9 --> 1.2 --> 1.1 --> 1.3 --> 1.3 -AST 76 --> 78 --> 78 --> 76 --> 78 -ALT 47 --> 45 --> 47 --> 47 Hyperbilirubinemia 1.9 --> 1.2 --> 1.1 --> 1.3 --> 1.3 Hypomagnesemia 10/03 -1.7 --> 2.1 10/05 -1.7, replace with 2 grams IVPB 10/06 -1.6 Hypocalcemia 10/03 -9 --> 8.3 10/04 -9 --> 8.3 --> 7.7 10/05 -9 --> 8.3 --> 7.7 --> 7.9 10/06 -9 --> 8.3 --> 7.7 --> 7.9 --> 7.5 Hypoalbuminemia 10/03 -2.5 --> 2.4 10/04 -2.5 --> 2.4 --> 2.1 10/05 -2.5 --> 2.4 --> 2.2 10/06 -2.5 --> 2.4 --> 2.2 --> 1.9 Protein Calorie Malnutrition prealbumin 5.0 Heart Murmur 10/04 -noted on yesterday's exam and echo ordered, performed this AM -echo report pending, murmur still present, and much louder when patient tilts to left side -significant other reports patient was scheduled for outpatient echo in August, but did not go; she is not sure why he was scheduled and reports that he does not have a known history of a heart murmur 10/05 -echo results still pending 10/06 -echo results still pending, pt's follow up in the clinic is not until Saturday so echo results should be available long before then and can be reviewed at discharge appt HTN Pt with HTN throughout stay, was quite significant at one point and pt was given IV hydralazine x1, started on PO lisinopril discharged with rx for lisinopril Hepatitis C -chronic Cirrhosis Splenomegaly -mild, per CT Gastroesophageal Varices Bladder Distention with probable clot -2900 cc returned with garcia placement -no gross hematuria -would recommend follow up with urology after discharge and/or reimaging of pelvis after infection cleared Chief Complaint/HPI Chief Complaint/HPI 62 year old male who has a long history of heavy alcohol use was brought to the ED by his family yesterday with report that "he wasn't acting right". Patient had not had any alcohol in several days, and reported being dizzy and having a headache, but "feeling fine" when he got to the ED. His family did not think he was fine, nor did his significant other that he lives with. He has been sleeping a lot and very unsteady on his feet the last two days. Significant other reports that he has done this before in the past when he has stopped drinking, but it hasn't gotten this bad -- she would give him little sips of alcohol with a straw when he got this way before, and he would get better. She reports she tried this, but he wouldn't take it. The patient was noted to fall asleep during conversation, and awaken only with stimulation. He was noted to have a significantly elevated ammonia level, as well as an extremely distended bladder on CT -- when Garcia catheter was placed, 2900 cc was returned. UA shows evidence of UTI. Patient admitted for Sepsis, UTI, Encephalopathy. Discharge Summary-Simple/Stand Consultations Discharge Physical Examination Allergies: Coded Allergies: No Known Drug Allergies (Unverified , 10/02/17) Vitals & I&Os Vital Sign - Last 12Hours Date Time Temp Pulse Resp B/P (MAP) Pulse Ox O2 Delivery O2 Flow Rate FiO2 10/06/17 07:00 66 10/06/17 04:23 99.5 16 122/60 (80) 91 Room Air Intake and Output 10/06/17 00:00 Intake Total 2450 ml Balance 2450 ml General Appearance: Alert, Oriented X3, Cooperative, No Acute Distress HEENT: Atraumatic, EOMI, Mucous Memb Moist/[place] Respiratory: Clear to Auscultation, Normal Air Movement Cardiovascular: Regular Rate, Normal S1, Normal S2, Other (III/ murmur) Abdominal: Normal Bowel Sounds, Soft, No Tenderness Extremities: No Clubbing, No Cyanosis Skin: No Rashes, No Significant Lesion Neuro: Normal Speech, Normal Tone, Sensation Intact, Cranial Nerves 3-12 NL Psych/Mental Status: Mental Status NL, Mood NL Hospital Course See final discharge diagnosis. Discussion & Recommendations -follow up on echo report at discharge appt; not available for review before patient discharged -would recommend patient have repeat CBC, CMP and Ammonia to establish baseline in 1-2 weeks -CT scan showed bladder distention with probable clot, would recommend urology follow up and/or re-imaging pelvis as outpatient Discharge Condition at discharge stable Instructions to patient/family Please see electronic discharge instructions given to patient. Discharge Medications Reviewed and agree with Discharge Medication list on patient's Discharge Instruction sheet Clinical Quality Measures DVT/VTE Risk/Contraindication: Risk Factor Score Per Nursin RFS Level Per Nursing on Admit: 3=High Copy Copies To 1: [facility]/ORQUIDEA BOLAÑOS DO October 06, 2017 08:23
[2017-10-06] MEDS: MUPIROCIN 2% OINT 22 GM (BACTROBAN) TUBE TOP SCH (08:36)
[2017-10-06] MEDS: lisINopril 20 MG (PRINIVIL) TABLET PO SCH (08:36)
[2017-10-06] MEDS: RIFAXIMIN 550 MG TABLET (XIFAXAN) PO SCH (08:36)
--- NOTE | 2017-10-07 10:58 | Physician Query-Final Dx ---
MORAIMA SHELDON 10/07/17 1058: Final Diagnosis Give Final Diagnosis Please give Final Diagnosis ORQUIDEA GALVAN DO 10/08/17 2202: Final Diagnosis Give Final Diagnosis Sepsis UTI Encephalopathy Hyperammonemia Hx of Alcohol Abuse Methamphetamine Abuse Tobacco Use Anemia Thrombocytopenia Elevated LFTs Hyperbilirubinemia Hypomagnesemia Hypocalcemia Hypoalbuminemia Protein Calorie Malnutrition Heart Murmur HTN Hepatitis C Cirrhosis Splenomegaly Gastroesophageal Varices Bladder Distention with probable clot MORAIMA SHELDON October 07, 2017 10:58 ORQUIDEA GALVAN DO October 08, 2017 22:02
== END 2017-10-06 11:55 | disposition home or self-care (01) | DRG 871 ==
LOC: EDUNIT# 15:23 → ER 15:25 → ICU 18:16 → 4TH 10-04 06:00
PROVIDERS: ADMIT Family Medicine; ATTEND Family Medicine
DX: A41.9 Sepsis, unspecified organism (principal); N39.0 Urinary tract infection, site not specified; G93.40 Encephalopathy, unspecified; E72.20 Disorder of urea cycle metabolism, unspecified; I85.00 Esophageal varices without bleeding; E46 Unspecified protein-calorie malnutrition; F10.20 Alcohol dependence, uncomplicated; N32.89 Other specified disorders of bladder; R26.81 Unsteadiness on feet; R41.0 Disorientation, unspecified; F17.210 Nicotine dependence, cigarettes, uncomplicated; F15.10 Other stimulant abuse, uncomplicated; D64.9 Anemia, unspecified; D69.6 Thrombocytopenia, unspecified; B18.2 Chronic viral hepatitis C; E80.6 Other disorders of bilirubin metabolism; E83.42 Hypomagnesemia; E83.51 Hypocalcemia; E88.09 Other disorders of plasma-protein metabolism, not elsewhere classified; R01.1 Cardiac murmur, unspecified; I10 Essential (primary) hypertension; K74.60 Unspecified cirrhosis of liver; R16.1 Splenomegaly, not elsewhere classified; Y90.0 Blood alcohol level of less than 20 mg/100 ml
CPT/HCPCS: 36415; 51702; 74177; 80053; 80306; 80320; 80329; 81000; 82140; 83605; 83735; 84134; 84443; 85025; 85610; 85730; 87040; 87077; 87081; 87088; 93306; 96361; 96374

== ENCOUNTER 2017-11-01 13:55 | Inpatient (IN) | payer OTHER ==
[~2017-11-01] VITALS: Ht 167.6 cm; Wt 88.5 kg
[~2017-11-01 13:55] MED LIST: AMOX500T2 PO; LISI-552 PO
--- OUTSIDE RECORDS SUMMARY | 2017-11-01 16:22 | XMS REPORT | Continuity of Care Document ---
Author Author [facility] Address Unknown Phone Unavailable Allergies Active Description Code Type Severity Reaction Onset Reported/Identified Relationship to Patient Clinical Status Yes No Known Drug Allergies [id number] Drug Allergy Unknown N/A 10/02/2017 Medications There is no data. Problems Date [...] CELLULITIS AND ABSCESS OF UNSPECIFIED SITES 10/04/2012 LUCAÍ YANEZ APRN 682.9 CELLULITIS AND ABSCESS OF [...] 10/20/2012 LUCÍA YANEZ APRN 477.9 RHINITIS 10/20/2012 LCUÍA YANEZ APRN 477.9 RHINITIS 10/20/2012 PANCHO ANDRADE MD 477.9 RHINITIS 10/20/2012 LUCÍA YANEZ APRN 477.9 RHINITIS 10/20/2012 PANCHO ANDRADE MD 477.Jigar RHINITIS 07/14/2013 LUCÍA YANEZ APRN 401.1 HYPERTENSION, [...] APRN 790.6 Liver Function Test, Abnormal 09/11/2013 PACNHO ANDRADE MD 302.72 ERECTILE DISORDER 09/11/2013 PANCHO ANDRADE MD 785.0 TACHYCARDIA UNSPECIFIED 09/11/2013 PANCHO ANDRADE MD 790.6 Liver Function Test, Abnormal 09/21/2013 LUCÍA YANEZ APRN 070.54 HEPATITIS C CHRONIC 09/21/2013 PANCHO ANDRADE MD 070.54 HEPATITIS C CHRONIC 09/21/2013 LUCÍA YANEZ APRN 070.54 HEPATITIS C CHRONIC 09/21/2013 PANCHO ANDRADE MD 070.54 HEPATITIS C CHRONIC 02/08/2014 PANCHO ANDRADE MD6.9 UNSPECIFIED LOCAL INFECTION OF SKIN AND SUBCUTANEOUS TISSUE 02/08/2014 LUCÍA YANEZ APRN 686.9 UNSPECIFIED LOCAL INFECTION OF SKIN AND SUBCUTANEOUS TISSUE 02/08/2014 APNCHO ANDRADE MD6.9 UNSPECIFIED LOCAL INFECTION OF SKIN AND SUBCUTANEOUS TISSUE 10/03/2017 BARNIDGE DO, ORQUIDEA E Ot F10.10 ALCOHOL ABUSE, UNCOMPLICATED 10/03/2017 BARNIDGE DO, ORQUIDEA E Ot F17.200 NICOTINE DEPENDENCE, UNSPECIFIED, UNCOMP 10/03/2017 BARNIDGE DO, ORQUIDEA E Ot H91.90 UNSPECIFIED HEARING LOSS, UNSPECIFIED EA 10/03/2017 BARNIDGE DO, ORQUIDEA E Ot K72.00 ACUTE AND SUBACUTE HEPATIC FAILURE WITHO 10/03/2017 BARNIDGE DO, ORQUIDEA E Ot N30.01 ACUTE CYSTITIS WITH HEMATURIA 10/03/2017 BARNIDGE DO, ORQUIDEA E Ot R26.81 UNSTEADINESS ON FEET 10/03/2017 BARNIDGE DO, ORQUIDEA E Ot R41.0 DISORIENTATION, UNSPECIFIED 10/04/2017 BARNIDGE DO, ORQUIDEA E Ot F10.10 ALCOHOL ABUSE, UNCOMPLICATED 10/04/2017 BARNIDGE DO, ORQUIDEA E Ot F17.200 NICOTINE DEPENDENCE, UNSPECIFIED, UNCOMP 10/04/2017 BARNIDGE DO, ORQUIDEA E Ot H91.90 UNSPECIFIED HEARING LOSS, UNSPECIFIED EA 10/04/2017 BARNIDGE DO, ORQUIDEA E Ot K72.00 ACUTE AND SUBACUTE HEPATIC FAILURE WITHO 10/04/2017 BARNIDGE DO, ORQUIDEA E Ot N30.01 ACUTE CYSTITIS WITH HEMATURIA 10/04/2017 BARNIDGE DO, ORQUIDEA E Ot R26.81 UNSTEADINESS ON FEET 10/04/2017 BARNIDGE DO, ORQUIDEA E Ot R41.0 DISORIENTATION, UNSPECIFIED 10/04/2017 BARNIDGE DO, ORQUIDEA E Ot F10.10 ALCOHOL ABUSE, UNCOMPLICATED 10/04/2017 BARNIDGE DO, ORQUIDEA E Ot F17.200 NICOTINE DEPENDENCE, UNSPECIFIED, UNCOMP 10/04/2017 BARNIDGE DO, ORQUIDEA E Ot H91.90 UNSPECIFIED HEARING LOSS, UNSPECIFIED EA 10/04/2017 BARNIDGE DO, ORQUIDEA E Ot K72.00 ACUTE AND SUBACUTE HEPATIC FAILURE WITHO 10/04/2017 BARNIDGE DO, ORQUIDEA E Ot N30.01 ACUTE CYSTITIS WITH HEMATURIA 10/04/2017 [facility].81 UNSTEADINESS ON FEET 10/04/2017 [facility] R41.0 DISORIENTATION, UNSPECIFIED 10/06/2017 [facility] A41.9 SEPSIS, UNSPECIFIED ORGANISM 10/06/2017 [facility] B18.2 CHRONIC VIRAL HEPATITIS C 10/06/2017 [facility] D64.9 ANEMIA, UNSPECIFIED 10/06/2017 [facility] D69.6 THROMBOCYTOPENIA, UNSPECIFIED 10/06/2017 [facility] E46 UNSPECIFIED PROTEIN-CALORIE MALNUTRITION 10/06/2017 [facility] E72.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, UNSPE 10/06/2017 [facility] E80.6 OTHER DISORDERS OF BILIRUBIN METABOLISM 10/06/2017 [facility] E83.42 HYPOMAGNESEMIA 10/06/2017 [facility] E83.51 HYPOCALCEMIA 10/06/2017 [facility] E88.09 OT DISORDERS OF PLASMA-PROTEIN METABOLI 10/06/2017 [facility] F10.10 ALCOHOL ABUSE, UNCOMPLICATED 10/06/2017 [facility] F10.20 ALCOHOL DEPENDENCE, UNCOMPLICATED 10/06/2017 [facility] F15.10 OTHER STIMULANT ABUSE, UNCOMPLICATED 10/06/2017 [facility] F17.200 NICOTINE DEPENDENCE, UNSPECIFIED, UNCOMP 10/06/2017 [facility] F17.210 NICOTINE DEPENDENCE, CIGARETTES, UNCOMPL 10/06/2017 [facility] G93.40 ENCEPHALOPATHY, UNSPECIFIED 10/06/2017 [facility] H91.90 UNSPECIFIED HEARING LOSS, UNSPECIFIED EA 10/06/2017 [facility] I10 ESSENTIAL (PRIMARY) HYPERTENSION 10/06/2017 BARNIDGE DO ORQUIDEA E Ot I85.00 ESOPHAGEAL VARICES WITHOUT BLEEDING 10/06/2017 LORETTARyanne OTT ORQUIDEA E Ot K72.00 ACUTE AND SUBACUTE HEPATIC FAILURE WITHO 10/06/2017 LORETTADGE ORQUIDEA E Ot K74.60 UNSPECIFIED CIRRHOSIS OF LIVER 10/06/2017 BARNIDGE DO ORQUIDEA E Ot N30.01 ACUTE CYSTITIS WITH HEMATURIA 10/06/2017 [facility] DO ORQUIDEA E Ot N32.89 OTHER SPECIFIED DISORDERS OF BLADDER 10/06/2017 BARNIDGE DO ORQUIDEA E Ot N39.0 URINARY TRACT INFECTION, SITE NOT SPECIF 10/06/2017 COLE OTTARACELIORQUIDEA E Ot R01.1 CARDIAC MURMUR, UNSPECIFIED 10/06/2017 LORETTAE ORQUIDEA E Ot R16.1 SPLENOMEGALY, NOT ELSEWHERE CLASSIFIED 10/06/2017 BARJESUSDGRyanne OTT ORQUIDEA E Ot R26.81 UNSTEADINESS ON FEET 10/06/[address] [facility] E Ot R41.0 DISORIENTATION, UNSPECIFIED 10/06/2017 LORETTARyanne OTT ORQUIDEA Pearl Ot Y90.0 BLOOD ALCOHOL LEVEL OF LESS THAN 20 MG/1 Procedures Code Description [place] [address] ROUTINE VENIPUNCTURE 08/03/2013 00024 A1C (RML) 08/03/2013 26915 PSA TOTAL 08/03/2013 10253 TESTOSTERONE TOTAL MALES 08/03/2013 80386 TSH 08/03/2013 70876 CBC 08/03/2013 9065813 GFR CALC (RESULT ONLY) 08/03/2013 27176 CMP 08/03/2013 44706 LIPID PANEL 08/03/2013 57280 ROUTINE VENIPUNCTURE 09/11/2013 88785 LIVER PANEL (LFT) 09/11/2013 22248 HEPATITIS PROFILE 09/11/2013 11512 AMYLASE 09/11/2013 41290 LIPASE 09/11/2013 77382 EKG, TRACING (IN-HOUSE) 09/11/2013 32514 ROUTINE VENIPUNCTURE 09/21/2013 56135 HEP C PCR QUANT W/RAKAN 09/21/2013 [facility] 09/22/2013 84120 ROUTINE VENIPUNCTURE 03/10/2014 30351 TESTOSTERONE TOTAL MALES 03/10/2014 81507 HEP C PCR QUANT (SERIAL) 03/10/2014 35320 LIVER PANEL (LFT) 03/10/2014 81302 CULTURE WOUND (AEROBIC) 08/12/2014 Results Test Result Range CBC - 08/14/17 12:06 WHITE BLOOD CELL COUNT 7.6 Thousand/uL 3.8-10.8 RED BLOOD CELL COUNT 3.25 Million/uL 4.20-5.80 HEMOGLOBIN 11.2 g/dL 13.2-17.1 HEMATOCRIT 31.4 % 38.5-50.0 MCV 96.6 fL 80.0-100.0 MCH 34.5 pg 27.0-33.0 MCHC 35.7 g/dL 32.0-36.0 RDW 12.6 % 11.0-15.0 PLATELET COUNT 113 Thousand/uL 140-400 MPV 10.1 fL 7.5-12.5 ABSOLUTE NEUTROPHILS 4522 cells/uL [id number] ABSOLUTE LYMPHOCYTES 1444 cells/uL 850-3900 ABSOLUTE MONOCYTES [...] plasma ethanol measurement (mass/volume) < mg/dL <10 Bacterial blood culture - 10/02/17 15:57 Bacterial blood culture NG NRG Bacterial blood culture - 10/02/17 16:45 Bacterial blood culture NG NRG Complete urinalysis with reflex to culture - [...] NEGATIVE NEGATIVE Urine propoxyphene detection NEGATIVE NEGATIVE Bacterial urine culture - 10/02/17 17:33 Bacterial urine culture SEE COMMEN NRG COLONY COUNT . NRG FTX;REPORTABLE SENT TO [facility] 10/03 09:00 NR FREE TEXT ENTRY 2 REPORTED BY [facility] 10/03/17 17:05 NR Methicillin resistant Staphylococcus aureus (MRSA) screening culture - 19:00 MRSA SCREEN RESULT MRSA ISOLATED NRG Complete blood count (CBC) with automated white blood cell (WBC) differential - 10/03/17 04:33 Blood leukocytes automated count (number/volume) 13.8 10*3/uL 4.3-11.0 Blood erythrocytes automated count (number/volume) 3.50 10*6/uL 4.35-5.85 Venous blood hemoglobin measurement (mass/volume) 11.7 g/dL 13.3-17.7 Blood hematocrit (volume fraction) 35 % 40-54 Automated erythrocyte mean corpuscular volume 100 [foz_us] 80-99 Automated erythrocyte mean corpuscular hemoglobin (mass per erythrocyte) 33 pg 25-34 Automated erythrocyte mean corpuscular hemoglobin concentration measurement ( mass/volume) 33 g/dL 32-36 Automated erythrocyte distribution width ratio 13.7 % 10.0-14.5 Automated blood platelet count (count/volume) 121 10*3/uL 130-400 Automated blood platelet mean volume measurement 10.4 [foz_us] 7.4-10.4 Automated blood neutrophils/100 leukocytes 66 % 42-75 Automated blood lymphocytes/100 leukocytes 14 % 12-44 Blood monocytes/100 leukocytes 15 % 0-12 Automated blood eosinophils/100 leukocytes 4 % 0-10 Automated blood basophils/100 leukocytes 0 % 0-10 Blood neutrophils automated count (number/volume) 9.1 10*3 1.8-7.8 Blood lymphocytes automated count (number/volume) 2.0 10*3 1.0-4.0 Blood monocytes automated count (number/volume) 2.1 10*3 0.0-1.0 Automated eosinophil count 0.6 10*3/uL 0.0-0.3 Automated blood basophil count (count/volume) 0.1 10*3/uL 0.0-0.1 Magnesium - 10/03/17 04:33 Magnesium 2.1 mg/dL 1.8-2.4 Comprehensive metabolic panel - 10/03/17 04:33 Serum or plasma sodium measurement (moles/volume) 142 mmol/L 135-145 Serum or plasma potassium measurement (moles/volume) 3.6 mmol/L 3.6-5.0 Serum or plasma chloride measurement (moles/volume) 115 mmol/L 98-107 Carbon dioxide 20 mmol/L 21-32 Serum or plasma anion gap determination (moles/volume) 7 mmol/L 5-14 Serum or plasma urea nitrogen measurement (mass/volume) 13 mg/dL 7-18 Serum or plasma creatinine measurement (mass/volume) 0.85 mg/dL 0.60-1.30 Serum or plasma urea nitrogen/creatinine mass ratio 15 NRG Serum or plasma creatinine measurement with calculation of estimated glomerular filtration rate > NRG Serum or plasma glucose measurement (mass/volume) 118 mg/dL 70-105 Serum or plasma calcium measurement (mass/volume) 8.3 mg/dL 8.5-10.1 Serum or plasma total bilirubin measurement (mass/volume) 1.2 mg/dL 0.1-1.0 Serum or plasma alkaline phosphatase measurement (enzymatic activity/volume) 89 U/L 40-136 Serum or plasma aspartate aminotransferase measurement (enzymatic activity/ volume) 78 U/L 5-34 Serum or plasma alanine aminotransferase measurement (enzymatic activity/volume ) 47 U/L 0-55 Serum or plasma protein measurement (mass/volume) 8.2 g/dL 6.4-8.2 Serum or plasma albumin measurement (mass/volume) 2.4 g/dL 3.2-4.5 Ammonia - 10/03/17 04:33 Ammonia 100 umol/L 11-32 Complete blood count (CBC) with automated white blood cell (WBC) differential - 10/04/17 03:50 Blood leukocytes automated count (number/volume) 10.4 10*3/uL 4.3-11.0 Blood erythrocytes automated count (number/volume) 3.23 10*6/uL 4.35-5.85 Venous blood hemoglobin measurement (mass/volume) 11.0 g/dL 13.3-17.7 Blood hematocrit (volume fraction) 33 % 40-54 Automated erythrocyte mean corpuscular volume 101 [foz_us] 80-99 Automated erythrocyte mean corpuscular hemoglobin (mass per erythrocyte) 34 pg 25-34 Automated erythrocyte mean corpuscular hemoglobin concentration measurement ( mass/volume) 34 g/dL 32-36 Automated erythrocyte distribution width ratio 13.9 % 10.0-14.5 Automated blood platelet count (count/volume) 105 10*3/uL 130-400 Automated blood platelet mean volume measurement 10.3 [foz_us] 7.4-10.4 Automated blood neutrophils/100 leukocytes 59 % 42-75 Automated blood lymphocytes/100 leukocytes 18 % 12-44 Blood monocytes/100 leukocytes 17 % 0-12 Automated blood eosinophils/100 leukocytes 6 % 0-10 Automated blood basophils/100 leukocytes 1 % 0-10 Blood neutrophils automated count (number/volume) 6.1 10*3 1.8-7.8 Blood lymphocytes automated count (number/volume) 1.9 10*3 1.0-4.0 Blood monocytes automated count (number/volume) 1.8 10*3 0.0-1.0 Automated eosinophil count 0.6 10*3/uL 0.0-0.3 Automated blood basophil count (count/volume) 0.1 10*3/uL 0.0-0.1 Magnesium - 10/04/17 03:50 Magnesium 1.8 mg/dL 1.8-2.4 Ammonia - 10/04/17 03:50 Ammonia 76 umol/L 11-32 Comprehensive metabolic panel - 10/04/17 03:50 Serum or plasma sodium measurement (moles/volume) 139 mmol/L 135-145 Serum or plasma potassium measurement (moles/volume) 3.7 mmol/L 3.6-5.0 Serum or plasma chloride measurement (moles/volume) 114 mmol/L 98-107 Carbon dioxide 18 mmol/L 21-32 Serum or plasma anion gap determination (moles/volume) 7 mmol/L 5-14 Serum or plasma urea nitrogen measurement (mass/volume) 9 mg/dL 7-18 Serum or plasma creatinine measurement (mass/volume) 0.79 mg/dL 0.60-1.30 Serum or plasma urea nitrogen/creatinine mass ratio 11 NRG Serum or plasma creatinine measurement with calculation of estimated glomerular filtration rate > NRG Serum or plasma glucose measurement (mass/volume) 144 mg/dL 70-105 Serum or plasma calcium measurement (mass/volume) 7.7 mg/dL 8.5-10.1 Serum or plasma total bilirubin measurement (mass/volume) 1.1 mg/dL 0.1-1.0 Serum or plasma alkaline phosphatase measurement (enzymatic activity/volume) 94 U/L 40-136 Serum or plasma aspartate aminotransferase measurement (enzymatic activity/ volume) 78 U/L 5-34 Serum or plasma alanine aminotransferase measurement (enzymatic activity/volume ) 45 U/L 0-55 Serum or plasma protein measurement (mass/volume) 7.4 g/dL 6.4-8.2 Serum or plasma albumin measurement (mass/volume) 2.1 g/dL 3.2-4.5 PREALBUMIN - 10/04/17 03:50 PREALBUM 5.0 % 18.0-37.0 Urine drug screening test - 10/04/17 20:11 Urine phencyclidine detection by screening method NEGATIVE NEGATIVE Urine benzodiazepines detection by screening method POSITIVE NEGATIVE Urine cocaine detection NEGATIVE NEGATIVE Urine [...] NEGATIVE NEGATIVE Urine propoxyphene detection NEGATIVE NEGATIVE Complete blood count (CBC) with automated white blood cell (WBC) differential - 10/05/17 05:50 Blood leukocytes automated count (number/volume) 13.1 10*3/uL 4.3-11.0 Blood erythrocytes automated count (number/volume) 3.40 10*6/uL 4.35-5.85 Venous blood hemoglobin measurement (mass/volume) 11.5 g/dL 13.3-17.7 Blood hematocrit (volume fraction) 34 % 40-54 Automated erythrocyte mean corpuscular volume 100 [foz_us] 80-99 Automated erythrocyte mean corpuscular hemoglobin (mass per erythrocyte) 34 pg 25-34 Automated erythrocyte mean corpuscular hemoglobin concentration measurement ( mass/volume) 34 g/dL 32-36 Automated erythrocyte distribution width ratio 13.7 % 10.0-14.5 Automated blood platelet count (count/volume) 105 10*3/uL 130-400 Automated blood platelet mean volume measurement 10.7 [foz_us] 7.4-10.4 Automated blood neutrophils/100 leukocytes 65 % 42-75 Automated blood lymphocytes/100 leukocytes 16 % 12-44 Blood monocytes/100 leukocytes 14 % 0-12 Automated blood eosinophils/100 leukocytes 6 % 0-10 Automated blood basophils/100 leukocytes 0 % 0-10 Blood neutrophils automated count (number/volume) 8.4 10*3 1.8-7.8 Blood lymphocytes automated count (number/volume) 2.1 10*3 1.0-4.0 Blood monocytes automated count (number/volume) 1.8 10*3 0.0-1.0 Automated eosinophil count 0.7 10*3/uL 0.0-0.3 Automated blood basophil count (count/volume) 0.1 10*3/uL 0.0-0.1 Comprehensive metabolic panel - 10/05/17 05:50 Serum or plasma sodium measurement (moles/volume) 138 mmol/L 135-145 Serum or plasma potassium measurement (moles/volume) 3.9 mmol/L 3.6-5.0 Serum or plasma chloride measurement (moles/volume) 112 mmol/L 98-107 Carbon dioxide 20 mmol/L 21-32 Serum or plasma anion gap determination (moles/volume) 6 mmol/L 5-14 Serum or plasma urea nitrogen measurement (mass/volume) 10 mg/dL 7-18 Serum or plasma creatinine measurement (mass/volume) 0.72 mg/dL 0.60-1.30 Serum or plasma urea nitrogen/creatinine mass ratio 14 NRG Serum or plasma creatinine measurement with calculation of estimated glomerular filtration rate > NRG Serum or plasma glucose measurement (mass/volume) 117 mg/dL 70-105 Serum or plasma calcium measurement (mass/volume) 7.9 mg/dL 8.5-10.1 Serum or plasma total bilirubin measurement (mass/volume) 1.3 mg/dL 0.1-1.0 Serum or plasma alkaline phosphatase measurement (enzymatic activity/volume) 93 U/L 40-136 Serum or plasma aspartate aminotransferase measurement (enzymatic activity/ volume) 76 U/L 5-34 Serum or plasma alanine aminotransferase measurement (enzymatic activity/volume ) 47 U/L 0-55 Serum or plasma protein measurement (mass/volume) 7.5 g/dL 6.4-8.2 Serum or plasma albumin measurement (mass/volume) 2.2 g/dL 3.2-4.5 Magnesium - 10/05/17 05:50 Magnesium 1.7 mg/dL 1.8-2.4 Ammonia - 10/05/17 05:50 Ammonia 55 umol/L 11-32 Ammonia - 10/05/17 18:15 Ammonia 59 umol/L 11-32 Complete blood count (CBC) with automated white blood cell (WBC) differential - 10/06/17 05:30 Blood leukocytes automated count (number/volume) 9.5 10*3/uL 4.3-11.0 Blood erythrocytes automated count (number/volume) 2.97 10*6/uL 4.35-5.85 Venous blood hemoglobin measurement (mass/volume) 10.1 g/dL 13.3-17.7 Blood hematocrit (volume fraction) 30 % 40-54 Automated erythrocyte mean corpuscular volume 102 [foz_us] 80-99 Automated erythrocyte mean corpuscular hemoglobin (mass per erythrocyte) 34 pg 25-34 Automated erythrocyte mean corpuscular hemoglobin concentration measurement ( mass/volume) 33 g/dL 32-36 Automated erythrocyte distribution width ratio 14.0 % 10.0-14.5 Automated blood platelet count (count/volume) 102 10*3/uL 130-400 Automated blood platelet mean volume measurement 10.2 [foz_us] 7.4-10.4 Automated blood neutrophils/100 leukocytes 56 % 42-75 Automated blood lymphocytes/100 leukocytes 19 % 12-44 Blood monocytes/100 leukocytes 16 % 0-12 Automated blood eosinophils/100 leukocytes 9 % 0-10 Automated blood basophils/100 leukocytes 1 % 0-10 Blood neutrophils automated count (number/volume) 5.3 10*3 1.8-7.8 Blood lymphocytes automated count (number/volume) 1.8 10*3 1.0-4.0 Blood monocytes automated count (number/volume) 1.5 10*3 0.0-1.0 Automated eosinophil count 0.9 10*3/uL 0.0-0.3 Automated blood basophil count (count/volume) 0.1 10*3/uL 0.0-0.1 Comprehensive metabolic panel - 10/06/17 05:30 Serum or plasma sodium measurement (moles/volume) 138 mmol/L 135-145 Serum or plasma potassium measurement (moles/volume) 3.8 mmol/L 3.6-5.0 Serum or plasma chloride measurement (moles/volume) 112 mmol/L 98-107 Carbon dioxide 20 mmol/L 21-32 Serum or plasma anion gap determination (moles/volume) 6 mmol/L 5-14 Serum or plasma urea nitrogen measurement (mass/volume) 10 mg/dL 7-18 Serum or plasma creatinine measurement (mass/volume) 0.71 mg/dL 0.60-1.30 Serum or plasma urea nitrogen/creatinine mass ratio 14 NRG Serum or plasma creatinine measurement with calculation of estimated glomerular filtration rate > NRG Serum or plasma glucose measurement (mass/volume) 122 mg/dL 70-105 Serum or plasma calcium measurement (mass/volume) 7.5 mg/dL 8.5-10.1 Serum or plasma total bilirubin measurement (mass/volume) 1.3 mg/dL 0.1-1.0 Serum or plasma alkaline phosphatase measurement (enzymatic activity/volume) 77 U/L 40-136 Serum or plasma aspartate aminotransferase measurement (enzymatic activity/ volume) 78 U/L 5-34 Serum or plasma alanine aminotransferase measurement (enzymatic activity/volume ) 47 U/L 0-55 Serum or plasma protein measurement (mass/volume) 6.6 g/dL 6.4-8.2 Serum or plasma albumin measurement (mass/volume) 1.9 g/dL 3.2-4.5 Magnesium - 10/06/17 05:30 Magnesium 1.6 mg/dL 1.8-2.4 Ammonia - 10/06/17 05:30 Ammonia 57 umol/L 11-32 Encounters ACCT No. Visit Date/Time Discharge Status Pt. Type Provider Facility Loc./Unit Complaint [id number] 08/09/2014 15:36:00 08/09/2014 23:59:59 CLS Outpatient PANCHO ANDRADE MD [id number] 03/10/2014 15:22:00 03/10/2014 23:59:59 CLS Outpatient LUCÍA YANEZ APRN [id number] 02/08/2014 15:28:00 02/08/2014 23:59:59 CLS Outpatient PANCHO ANDRADE MD [id number] 09/21/2013 11:47:00 09/21/2013 23:59:59 CLS Outpatient LUCÍA YANEZ APRN [id number] 09/11/2013 11:46:00 09/11/2013 23:59:59 CLS Outpatient LUCÍA YANEZ APRN [id number] 08/03/2013 12:10:00 08/03/2013 23:59:59 CLS Outpatient LUCÍA YANEZ APRN [id number] 07/14/2013 15:51:00 07/14/2013 23:59:59 CLS Outpatient LUCÍA YANEZ APRN [id number] 10/20/2012 12:45:00 Document Registration [id number] 10/04/2012 14:10:00 Document Registration [id number] 10/11/2017 11:40:00 10/11/2017 23:59:59 CLS Outpatient LUCÍA YANEZ APRN [facility] [id number] 08/14/2017 10:40:00 Document Registration [id number] 10/02/2017 18:16:00 10/06/2017 11:55:00 DIS Outpatient ORQUIDEA GALVAN DO [facility] 4TH HEPATIC ENCEPHALOPATHY,LIVER FAILURE,UTI [id number] 08/14/2017 12:24:00 08/14/2017 12:24:00 CAN Preadmit RADHA PIÑA [facility] CARD B18.2 CHRONIC HEP C R60.1 EDMEA
[2017-11-01] MEDS ORDERED: LORazepam 1 MG (ATIVAN) TAB PO PRN (16:30)
[2017-11-01] MEDS ORDERED: CATHETER FLUSH 10 ML SYR IV PRN (16:30)
[2017-11-01] MEDS ORDERED: IBUPROFEN TABLET 200 MG TAB PO PRN (16:30)
[2017-11-01 16:39] LABS: BILIRUBIN,URINE NEGATIVE (NEGATIVE); CLARITY,URINE VERY CLOUDY; COLOR,URINE YELLOW; GLUCOSE, URINE (UA) NEGATIVE (NEGATIVE); KETONES,URINE NEGATIVE (NEGATIVE); LEUKOCYTE ESTERASE ,URINE 3+ (NEGATIVE); NITRITE,URINE NEGATIVE (NEGATIVE); PH,URINE 7 (5-9); PROTEIN,URINE 2+ (NEGATIVE); UROBILINOGEN,URINE 4 MG/DL (NORMAL)
--- NOTE | 2017-11-01 16:41 | History & Physicial (CHS) ---
HPI History of Present Illness: 62 year old male accepted for transfer from [place] ED for admission for hepatic encephalopathy. Pt presented to outlying facility ED by EMS with complaints of increased drowsiness, constipation, decreased voiding. Ammonia was noted to be 113. UDS positive for amphetamines. Report of garcia placement with immediate return of 1L urine; transport EMS reports they obtained another 3L prior to transport, and patient continues to have cloudy urine draining in foely bag. No significant elevation of WBC, but UA with evidence of infection. Based on altered mental status, tachypnea, UTI, suspect sepsis secondary to UTI, secondary to urinary retention. Pt reports he has not had any alcohol since discharge from this facility 10/06. 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 His alcohol level is less than 10, which is consistent with pt's report of abstaining from alcohol. Pt is awake and alert, although somewhat drowsier than baseline. Source: patient, RN/MD, old records Exam Limitations: no limitations Date seen by provider: Nov 01, 2017 Time Seen by Provider: 15:30 Attending Physician Monserrat Jones DO [facility] [place],[facility] Consult Date of Admission Nov 01, 2017 at 15:30 Home Medications Home Medications Reviewed patient Home Medication Reconciliation performed by pharmacy medication reconciliations health type technician and/or nursing. Patients Allergies have been reviewed. Allergies Coded Allergies: No Known Drug Allergies (Unverified , 10/02/17) SSL-[id number]-Qlctus Hx Patient Social History Marrital Status: cohabiting Living Status: lives with significant other in [place] Employed/Student: employed Alcohol Use: Past History (heavy alcohol use until about one month ago) Recreational Drug Use: Yes (methamphetamine positive UDS) Drug of Choice: methamphetamine Smoking Status: Current Everyday Smoker Type Used: Cigarettes 2nd Hand Smoke Exposure: Yes Recent Hopitalizations: No Past Medical History Chronic Hepatits C Alcohol Abuse Tobacco Abuse Methamphetamine Abuse Erectile Dysfunction HTN Seasonal Allergies Past Surgical History: Appendectomy Family Medical History Significant Family History: Hypertension, Psychiatric Problems Review of Systems (CHC) Constitutional: see HPI EENTM: no symptoms reported Respiratory: no symptoms reported Cardiovascular: edema Gastrointestinal: constipation Genitourinary: see HPI, decreased output Musculoskeletal: no symptoms reported Skin: no symptoms reported Psychiatric/Neurological: No Symptoms Reported Reviewed Test Results Reviewed Test Results Lab Laboratory Tests Test 11/01/17 16:30 Range/Units Urine Color YELLOW Urine Clarity VERY CLOUDY H Urine pH 7 5-9 Urine Specific [place] 1.010 L 1.016-1.022 Urine Protein 2+ H NEGATIVE Urine Glucose (UA) NEGATIVE NEGATIVE Urine Ketones NEGATIVE NEGATIVE Urine Nitrite NEGATIVE NEGATIVE Urine Bilirubin NEGATIVE NEGATIVE Urine Urobilinogen 4 H NORMAL MG/DL Urine Leukocyte Esterase 3+ H NEGATIVE Urine RBC (Auto) 5+ H NEGATIVE Urine RBC >100 H /HPF Urine WBC >100 H /HPF Urine Squamous Epithelial Cells 0-2 /HPF Urine Crystals NONE /LPF Urine Bacteria FEW H /HPF Urine Casts NONE /LPF Urine Mucus NEGATIVE /LPF Urine Yeast LARGE H /HPF Urine Culture Indicated NO Urine Opiates Screen NEGATIVE NEGATIVE Urine Oxycodone Screen NEGATIVE NEGATIVE Urine Methadone Screen NEGATIVE NEGATIVE Urine Propoxyphene Screen NEGATIVE NEGATIVE Urine Barbiturates Screen NEGATIVE NEGATIVE Ur Tricyclic Antidepressants Screen NEGATIVE NEGATIVE Urine Phencyclidine Screen NEGATIVE NEGATIVE Urine Amphetamines Screen POSITIVE H NEGATIVE Urine Methamphetamines Screen POSITIVE H NEGATIVE Urine Benzodiazepines Screen NEGATIVE NEGATIVE Urine Cocaine Screen NEGATIVE NEGATIVE Urine Cannabinoids Screen NEGATIVE NEGATIVE Physical Exam-(CHC) Physical Exam Vital Signs VS - Last 72 Hours, by Label 11/01/17 11/01/17 16:45 16:53 Pulse 78 Resp 18 B/P (MAP) 128/62 Pulse Ox 96 96 O2 Delivery Room Air Room Air Capillary Refill : General Appearance: WD/WN, no apparent distress Eyes: Bilateral Eye Normal Inspection, Bilateral Eye EOMI HEENT: normal ENT inspection; No scleral icterus (R), No scleral icterus (L), No pale conjunctivae (R), No pale conjunctivae (L), No photophobia Neck: non-tender, full range of motion, supple, normal inspection Respiratory: chest non-tender, normal breath sounds, no respiratory distress, no accessory muscle use Cardiovascular: normal peripheral pulses, regular rate, rhythm, no gallop, systolic murmur Gastrointestinal: normal bowel sounds, non tender, soft, no pulsatile mass Rectal: deferred Back: normal inspection, no CVA tenderness, no vertebral tenderness Extremities: normal range of motion, non-tender, normal inspection, no calf tenderness, normal capillary refill, swelling Neurologic/Psychiatric: 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, alert, normal mood/affect, oriented x 3, motor weakness (pt with some left sided weakness) Skin: normal color, warm/dry Lymphatic: no adenopathy Assessment/Plan Assessment/Plan Admission Dx Hepatic Encephalopathy Sepsis UTI Urinary Retention HTN Methamphetamine Abuse Hx of ETOH Abuse Admission Status: Inpatient Order (span 2 midnights) Reason for Inpatient Admission: treatment and stabilization of admission conditions (1) Hepatic encephalopathy Status: Acute Assessment & Plan: 11/01 -113 at [facility] -lactulose and xifaxin -recheck in AM -based on previous hospitalization, baseline appears to be in the 50's for patient -pt with left sided weakness, suspect secondary to hepatic encephalopathy which is know to be associated with hemiparesis; pt also displayed this during last hospitalization when ammonia levels were elevated significantly above his baseline (2) Sepsis Status: Acute Assessment & Plan: 11/01 -urine culture pending -rocephin 1 gram IVPB Q24 hours -UA results confirmed with repeat UA on arrival -pt with 3-4 L of urinary retention per report; suspect infection secondary to retention -continue rocephin pending culture results Qualifiers: Qualified Codes: A41.9 - Sepsis, unspecified organism (3) Urinary tract infection Status: Acute Assessment & Plan: 11/01 -see above Qualifiers: Qualified Codes: N30.01 - Acute cystitis with hematuria (4) Urinary retention Status: Chronic Assessment & Plan: 11/01 -suspect that pt has overdistended his bladder to the point that he will continue to have repeated UTI's -garcia in place, would suggest leaving for now -consider discharge with garcia and leg bag, unless able to get urology follow up shortly after discharge -pt with previously assumed blood clot in bladder on previous admission, but no confirmation; consider CT with Contrast to examine now that bladder is empty (5) History of alcohol abuse Status: Chronic Assessment & Plan: 11/01 -reports no ETOH use since previous admission (6) Methamphetamine abuse Status: Chronic Assessment & Plan: 11/01 -positive UDS -admitted history of methamphetamine use (7) Hypertension Status: Chronic Assessment & Plan: 11/01 -pt with mild HTN, similar to previous admission -pt was discharged on lisinopril; pt reports he did not apple picking supervisor rx Qualifiers: Qualified Codes: I10 - Essential (primary) hypertension (8) Thrombocytopenia Status: Chronic Assessment & Plan: -platelets low; similar to previous admission (9) Hyperammonemia Status: Chronic Assessment & Plan: 11/01 -113 at outlying facility -recheck in AM (10) Constipation Status: Acute Assessment & Plan: 11/01 -pt receiving lactulose, this should help with constipation Qualifiers: Qualified Codes: K59.00 - Constipation, unspecified Copy Copies To 1: [facility]/MONSERRAT BOLAÑOS DO Nov 01, 2017 16:41
[2017-11-01 16:45] VITALS: BP 128/62
[2017-11-01 16:48] LABS: BACTERIA,URINE FEW /HPF; RBC,URINE >100 /HPF; SQUAMOUS EPITHELIAL CELL,UR 0-2 /HPF; WBC,URINE >100 /HPF; YEAST,URINE LARGE /HPF
[2017-11-01 16:49] LABS: AMPHETAMINE SCREEN, URINE POSITIVE (NEGATIVE); BARBITURATE SCREEN URINE NEGATIVE (NEGATIVE); BENZODIAZEPINES SCREEN URINE NEGATIVE (NEGATIVE); CANNABINOID SCREEN, URINE NEGATIVE (NEGATIVE); COCAINE SCREEN URINE NEGATIVE (NEGATIVE); METHADONE STAT NEGATIVE (NEGATIVE); METHAMPHETAMINE SCREEN URINE S POSITIVE (NEGATIVE); OPIATE SCREEN URINE NEGATIVE (NEGATIVE); OXYCODONE STAT NEGATIVE (NEGATIVE); PROPOXYPHENE STAT NEGATIVE (NEGATIVE); TRICYCLIC ANTIDEPRESSANTS SCRE NEGATIVE (NEGATIVE)
[2017-11-01] MEDS: fluCOnazole (DIFLUCAN) 100 MG TAB PO SCH (18:13)
[2017-11-01] MEDS: ENOXAPARIN 40 MG/0.4 ML (LOVENOX) SYR SC SCH (18:13)
[2017-11-01] MEDS: NS IV 1000 ML 1,000 ML IV SCH (18:14)
[2017-11-01] MEDS: cefTRIAXone INJECTION 1,000 MG in NS (IVPB) 50 ML IV SCH (18:14)
[2017-11-01 19:45] VITALS: BP 155/75
[2017-11-01] MEDS: POLYETHYLENE GLYCOL 17 GM (MIRALAX) PACK PO SCH (20:46)
[2017-11-01] MEDS: LACTULOSE SYRUP 10GM/15ML (ENULOSE) 30ML UDC PO SCH (20:46)
[2017-11-01] MEDS: RIFAXIMIN 550 MG TABLET (XIFAXAN) PO SCH (20:46)
[2017-11-02] MEDS: NS IV 1000 ML 1,000 ML IV SCH ×4 (00:02→20:27)
[2017-11-02 00:27] VITALS: BP 167/77
[2017-11-02 04:25] LABS: BASOPHILS # (AUTO) 0.1 10^3/uL (0.0-0.1); BASOPHILS % (AUTO) 1 % (0-10); EOSINOPHILS % (AUTO) 9 % (0-10); HEMATOCRIT 34 % (40-54); HEMOGLOBIN 11.8 G/DL (13.3-17.7); LYMPHOCYTES # (AUTO) 1.8 X 10^3 (1.0-4.0); LYMPHOCYTES % (AUTO) 17 % (12-44); MEAN CORPUSCULAR HEMOGLOBIN 35 PG (25-34); MEAN CORPUSCULAR HGB CONC 35 G/DL (32-36); MEAN CORPUSCULAR VOLUME 99 FL (80-99); MEAN PLATELET VOLUME 10.1 FL (7.4-10.4); MONOCYTES # (AUTO) 1.1 X 10^3 (0.0-1.0); MONOCYTES % (AUTO) 11 % (0-12); NEUTROPHILS # (AUTO) 6.5 X 10^3 (1.8-7.8); NEUTROPHILS % (AUTO) 62 % (42-75); PLATELET COUNT 85 10^3/uL (130-400); RED BLOOD COUNT 3.41 10^6/uL (4.35-5.85); RED CELL DISTRIBUTION WIDTH 14.6 % (10.0-14.5); WHITE BLOOD COUNT 10.4 10^3/uL (4.3-11.0)
[2017-11-02 04:27] VITALS: BP 149/75
[2017-11-02 04:47] LABS: ALANINE AMINOTRANSFERASE 71 U/L (0-55); ALBUMIN 2.2 GM/DL (3.2-4.5); ALKALINE PHOSPHATASE 100 U/L (40-136); AMMONIA 123 UMOL/L (11-32); BILIRUBIN,TOTAL 1.1 MG/DL (0.1-1.0); BUN/CREATININE RATIO 21; CALCIUM 7.8 MG/DL (8.5-10.1); CARBON DIOXIDE 18 MMOL/L (21-32); CHLORIDE 113 MMOL/L (98-107); GFR ESTIMATED > 60; GLUCOSE 112 MG/DL (70-105); POTASSIUM 3.6 MMOL/L (3.6-5.0); SODIUM 139 MMOL/L (135-145); TOTAL PROTEIN 7.6 GM/DL (6.4-8.2)
[2017-11-02 08:00] VITALS: BP 181/79
[2017-11-02] MEDS: LACTULOSE SYRUP 10GM/15ML (ENULOSE) 30ML UDC PO SCH ×2 (08:39→20:28)
[2017-11-02] MEDS: cefTRIAXone INJECTION 1,000 MG in NS (IVPB) 50 ML IV SCH (08:43)
[2017-11-02] MEDS: RIFAXIMIN 550 MG TABLET (XIFAXAN) PO SCH ×2 (08:43→20:28)
[2017-11-02] MEDS: fluCOnazole (DIFLUCAN) 100 MG TAB PO SCH (08:43)
[2017-11-02] MEDS ORDERED: lisINopril 20 MG (PRINIVIL) TABLET PO SCH (09:00)
[2017-11-02] MEDS ORDERED: METHYL SALICYLATE/MENTHOL (BENGAY, MUSCLE RUB) 3 OZ TUBE TP PRN (11:15)
[2017-11-02 12:00] VITALS: BP 159/76
--- NOTE | 2017-11-02 12:21 | Progress Note (SOAP) ---
Subjective Subjective/Events-last exam Pt reports feeling better. Continues to have some slurred speech. Pt's S.O reports pt he was not having difficulty with urinary retention until he became more lathargic - he then just stopped getting up to use the bathroom. Pt is unable to tell me today if he is having any difficulty urinating or trouble with weak stream, etc. Review of Systems Date Seen by Provider: Nov 02, 2017 Time Seen by Provider: 11:10 Objective Exam Last Set of Vital Signs Vital Signs Date Time Temp Pulse Resp B/P (MAP) Pulse Ox O2 Delivery O2 Flow Rate FiO2 11/02/17 09:00 Room Air 11/02/17 08:00 99.1 74 16 181/79 (113) 97 Capillary Refill : I&O Intake and Output 11/02/17 00:00 Intake Total 360 ml Output Total 650 ml Balance -290 ml Intake Oral 360 ml Output Urine Total 650 ml # Bowel Movements 2 Daily Weight Change No General: Alert, Cooperative Lungs: Clear to Auscultation Heart: Regular Rate Psych/Mental Status: Mood NL, Other (continues with some mild confusion and slurred speech) Results/Procedures Lab Laboratory Tests 11/01/17 16:30: Urine Color YELLOW, Urine Clarity VERY CLOUDYH, Urine pH 7, Urine Specific [place] 1.010L, Urine Protein 2+H, Urine Glucose (UA) NEGATIVE, Urine Ketones NEGATIVE, Urine Nitrite NEGATIVE, Urine Bilirubin NEGATIVE, Urine Urobilinogen 4H, Urine Leukocyte Esterase 3+H, Urine RBC (Auto) 5+H, Urine RBC >100H, Urine WBC >100H, Urine Squamous Epithelial Cells 0-2, Urine Crystals NONE, Urine Bacteria FEWH, Urine Casts NONE, Urine Mucus NEGATIVE, Urine Yeast LARGEH, Urine Culture Indicated NO, Urine Opiates Screen NEGATIVE, Urine Oxycodone Screen NEGATIVE, Urine Methadone Screen NEGATIVE, Urine Propoxyphene Screen NEGATIVE, Urine Barbiturates Screen NEGATIVE, Ur Tricyclic Antidepressants Screen NEGATIVE, Urine Phencyclidine Screen NEGATIVE, Urine Amphetamines Screen POSITIVEH, Urine Methamphetamines Screen POSITIVEH, Urine Benzodiazepines Screen NEGATIVE, Urine Cocaine Screen NEGATIVE, Urine Cannabinoids Screen NEGATIVE 11/02/17 04:14: White Blood Count 10.4, Red Blood Count 3.41L, Hemoglobin 11.8L, Hematocrit 34L , Mean Corpuscular Volume 99, Mean Corpuscular Hemoglobin 35H, Mean Corpuscular Hemoglobin Concent 35, Red Cell Distribution Width 14.6H, Platelet Count 85L, Mean Platelet Volume 10.1, Neutrophils (%) (Auto) 62, Lymphocytes (%) (Auto) 17 , Monocytes (%) (Auto) 11, Eosinophils (%) (Auto) 9, Basophils (%) (Auto) 1, Neutrophils # (Auto) 6.5, Lymphocytes # (Auto) 1.8, Monocytes # (Auto) 1.1H, Eosinophils # (Auto) 1.0H, Basophils # (Auto) 0.1, Sodium Level 139, Potassium Level 3.6, Chloride Level 113H, Carbon Dioxide Level 18L, Anion Gap 8, Blood Urea Nitrogen 15, Creatinine 0.70, Estimat Glomerular Filtration Rate > 60, BUN/ Creatinine Ratio 21, Glucose Level 112H, Calcium Level 7.8L, Total Bilirubin 1.1H, Aspartate Amino Transf (AST/SGOT) 109H, Alanine Aminotransferase (ALT/SGPT ) 71H, Alkaline Phosphatase 100, Ammonia 123H, Total Protein 7.6, Albumin 2.2L Microbiology 11/01/17 Urine Culture - Preliminary, Resulted Sent To [facility] Assessment/Plan Assessment/Plan (1) Hepatic encephalopathy Status: Acute Assessment & Plan: 11/01 - at [facility] -lactulose and xifaxin -recheck in AM -based on previous hospitalization, baseline appears to be in the 50's for patient -pt with left sided weakness, suspect secondary to hepatic encephalopathy which is know to be associated with hemiparesis; pt also displayed this during last hospitalization when ammonia levels were elevated significantly above his baseline 11/02/17 -ammonia level this am 123; continue lactulose and xifaxin - pt's SO reports they were told he "had a stroke at some point" per CT scan at [facility] - will review outside records (2) Sepsis Status: Acute Assessment & Plan: 11/01 -urine culture pending -rocephin 1 gram IVPB Q24 hours -UA results confirmed with repeat UA on arrival -pt with 3-4 L of urinary retention per report; suspect infection secondary to retention -continue rocephin pending culture results 11/02/17 - urine culture pending Qualifiers: Qualified Codes: A41.9 - Sepsis, unspecified organism (3) Urinary tract infection Status: Acute Qualifiers: Qualified Codes: N30.01 - Acute cystitis with hematuria (4) Urinary retention Status: Chronic Assessment & Plan: 11/01 -suspect that pt has overdistended his bladder to the point that he will continue to have repeated UTI's -garcia in place, would suggest leaving for now -consider discharge with garcia and leg bag, unless able to get urology follow up shortly after discharge -pt with previously assumed blood clot in bladder on previous admission, but no confirmation; consider CT with Contrast to examine now that bladder is empty 11/02/17 - pt's SO reported pt did not have difficulty with urinating until he became lethargic and refused to get up to the BR - when mental status returns to normal, recommend DC garcia and evaluate for urinary retention. 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 11/02/17 - pt had bottle of lisinopril present today Qualifiers: Qualified Codes: I10 - Essential (primary) hypertension (8) Thrombocytopenia Status: Chronic Assessment & Plan: -platelets low; similar to previous admission 11/04/17 - stable at 85 (9) Hyperammonemia Status: Chronic Assessment & Plan: 11/01 -113 at outlying facility -recheck in AM 11/02/17 - 123 today (10) Constipation Status: Acute Assessment & Plan: 11/01 -pt receiving lactulose, this should help with constipation Qualifiers: Qualified Codes: K59.00 - Constipation, unspecified (11) Hepatitis C virus infection Status: Chronic Assessment & Plan: Type 1A - last quant done in 2013 (12) Liver disease, chronic Assessment & Plan: secondary to chronic alcohol use and Hepatitis C Clinical Quality Measures DVT/VTE Risk/Contraindication: Risk Factor Score Per Nursin RFS Level Per Nursing on Admit: 3=High HENRI BLOUNT DO Nov 02, 2017 12:21
--- NOTE | 2017-11-02 14:00 | Physical Therapy Evaluation ---
PT Evaluation-General Medical Diagnosis Admission Date Nov 01, 2017 at 15:30 Medical Diagnosis: hepatic encephalopathy Onset Date: Nov 01, 2017 Therapy Diagnosis Therapy Diagnosis: decreased functional mobility Height/Weight Height (Feet): 5 Height (Inches): 6.00 Weight (Pounds): 195 Weight (Ounces): 0.0 Precautions Precautions/Isolations: Fall Prevention, Standard Precautions Weight Bear Status Right Lower Extremity: Right Full Weight Bearing Left Lower Extremity: Left Full Weight Bearing Referral Physician: Hemant Reason for Referral: Evaluation/Treatment Medical History Pertinent Medical History: Alcoholism, HTN, Smoking Additional Medical History methamphetamine use, chronic Hep C, ED, allergies Current History Pt presented to outside facility ER due to increased drowsiness, constipation, and decreased voiding. Transferred to this facility for hepatic encephalopathy. (+) amphetamines Reviewed History: Yes Social History Home: Single Level Current Living Status: Significant Other Entry Into Home: Level Entry Prior/Core FIM Prior Level of Function Functional [place] Measure 0=Not Assessed/NA 4=Minimal Assistance 1=Total Assistance 5=Supervision or Setup 2=Maximal Assistance 6=Modified [place] 3=Moderate Assistance 7=Complete [place] Bed Mobility: 7 Transfers (B,C,W/C) (FIM): 7 Gait: 7 PT Evaluation-Current Subjective Pt agreeable. Pt and S.O. report the (L) sided weakness is "much better" this date. Pt states he feels "a little wobbly but not bad" with activity. Denies pain. Objective Patient Orientation: Person, Place, Time, Situation Problem Solving: Good Attachments: Victor Catheter ROM/Strength ROM Upper Extremities WFL for mobility ROM Lower Extremities WFL for mobility Strength Upper Extremities WFL for mobility Strength Lower Extremities Grossly 4+/5 Integumentary/Posture Posture unremarkable Sensory Vision: Functional Hearing: Impaired Transfers Functional [place] Measure 0=Not Assessed/NA 4=Minimal Assistance 1=Total Assistance 5=Supervision or Setup 2=Maximal Assistance 6=Modified [place] 3=Moderate Assistance 7=Complete [place] Transfers (B, C, W/C) (FIM): 5 Scootin Rollin Supine to/from Sit: 6 Sit to/from Stand: 5 Gait Mode of Locomotion: Walk Anticipated Mode of Locomotion: Walk Gait (FIM): 4 Distance (FIM): 3=150 ft Distance: 300 Gait Level of Assist: 4 Gait Persons Needed: 1 Gait Assistive Device: None Comments/Gait Description Pt ambulated with CGA x 1. Mildly unsteady but no joanna LOB and stability improved with time up. Does demonstrate narrow ELISA, scissoring at times with gait initiation. Balance Sitting Static: Good Sitting Dynamic: Good Standing Static: Fair Standing Dynamic: Fair Treatment Eval. Returned to bed with rails up, alarm activated. Assessment/Needs Pt is a 62 y.o. male admitted with hepatic encephalopathy. Pt's problem list includes: mild balance deficit and decreased (I) with functional mobility. Pt would benefit from skilled PT to improve functional strength and balance to increase (I) with functional mobility. Rehab Potential: Good PT Short Term Goals Short Term Goals Time Frame: Nov 05, 2017 Transfers (B,C,W/C) (FIM): 6 PT Manager Order Goals Nursing Home Goals PT Manager Order Goals Time Frame: Nov 09, 2017 Gait (FIM): 6 Gait distance (FIM): 3=150 ft Distance: 150 Gait Level of Assist: 6 Gait Assistive Device: None Stairs (FIM): 5 # of Steps: 4 Stairs Level Of Assist: 6 PT LTGs established to allow safe return home with S.O. PT Plan Problem List Problem List: Activity Tolerance, Functional Strength, Safety, Balance, Gait, Transfer Treatment/Plan Treatment Plan: Continue Plan of Care Treatment Plan: Education, Functional Activity L[place], Functional Strength, Gait , Safety, Therapeutic Exercise, Transfers Treatment Duration: Nov 09, 2017 Frequency: 6 times per week Estimated Hrs Per Day: .25 hour per day Patient and/or Family Agrees t: Yes Safety Risks/Education Patient Education: Safety Issues Teaching Recipient: Patient Teaching Methods: Discussion Response to Teaching: Verbalize Understanding Discharge Recommendations Therapy D/C Recommendations: Home w/ Family Support Time/GCodes Time In: 1148 Time Out: 1206 Total Billed Treatment Time: 18 Total Billed Treatment 1, EVLOWC x 18' G Codes Necessary: No HUBER LEAL DPGilles Nov 02, 2017 14:00
[2017-11-02 15:46] VITALS: BP 170/83
[2017-11-02] MEDS: ENOXAPARIN 40 MG/0.4 ML (LOVENOX) SYR SC SCH (16:49)
[2017-11-02] MEDS: POLYETHYLENE GLYCOL 17 GM (MIRALAX) PACK PO SCH (20:27)
[2017-11-02 20:28] VITALS: BP 158/78
[2017-11-03] VITALS (8 sets, daily range): BP systolic 102–161; BP diastolic 51–75
[2017-11-03 05:32] LABS: BASOPHILS # (AUTO) 0.1 10^3/uL (0.0-0.1); BASOPHILS % (AUTO) 1 % (0-10); EOSINOPHILS # (AUTO) 0.9 10^3/uL (0.0-0.3); EOSINOPHILS % (AUTO) 9 % (0-10); HEMATOCRIT 33 % (40-54); HEMOGLOBIN 11.1 G/DL (13.3-17.7); LYMPHOCYTES # (AUTO) 2.1 X 10^3 (1.0-4.0); LYMPHOCYTES % (AUTO) 21 % (12-44); MEAN CORPUSCULAR HEMOGLOBIN 34 PG (25-34); MEAN CORPUSCULAR HGB CONC 34 G/DL (32-36); MEAN CORPUSCULAR VOLUME 100 FL (80-99); MEAN PLATELET VOLUME 10.4 FL (7.4-10.4); MONOCYTES # (AUTO) 1.2 X 10^3 (0.0-1.0); MONOCYTES % (AUTO) 12 % (0-12); NEUTROPHILS # (AUTO) 5.9 X 10^3 (1.8-7.8); NEUTROPHILS % (AUTO) 58 % (42-75); PLATELET COUNT 78 10^3/uL (130-400); RED CELL DISTRIBUTION WIDTH 14.7 % (10.0-14.5); WHITE BLOOD COUNT 10.2 10^3/uL (4.3-11.0)
[2017-11-03 05:59] LABS: ALANINE AMINOTRANSFERASE 65 U/L (0-55); ALBUMIN 2.1 GM/DL (3.2-4.5); ALKALINE PHOSPHATASE 93 U/L (40-136); BILIRUBIN,TOTAL 1.1 MG/DL (0.1-1.0); BUN/CREATININE RATIO 14; CARBON DIOXIDE 21 MMOL/L (21-32); CHLORIDE 116 MMOL/L (98-107); CREATININE SERUM 0.81 MG/DL (0.60-1.30); GFR ESTIMATED > 60; GLUCOSE 106 MG/DL (70-105); POTASSIUM 3.6 MMOL/L (3.6-5.0); SODIUM 141 MMOL/L (135-145)
[2017-11-03] MEDS: cefTRIAXone INJECTION 1,000 MG in NS (IVPB) 50 ML IV SCH (09:16)
[2017-11-03] MEDS: LACTULOSE SYRUP 10GM/15ML (ENULOSE) 30ML UDC PO SCH ×3 (09:16→20:33)
[2017-11-03] MEDS: lisINopril 20 MG (PRINIVIL) TABLET PO SCH (09:17)
[2017-11-03] MEDS: fluCOnazole (DIFLUCAN) 100 MG TAB PO SCH (09:17)
[2017-11-03] MEDS: RIFAXIMIN 550 MG TABLET (XIFAXAN) PO SCH ×2 (09:19→20:33)
[2017-11-03] MEDS: NS IV 1000 ML 1,000 ML IV SCH ×2 (10:24→13:04)
--- NOTE | 2017-11-03 11:59 | Progress Note (SOAP) ---
Subjective Subjective/Events-last exam More alert this am. Review of Systems Date Seen by Provider: Nov 03, 2017 Time Seen by Provider: 10:05 Objective Exam Last Set of Vital Signs Vital Signs Date Time Temp Pulse Resp B/P (MAP) Pulse Ox O2 Delivery O2 Flow Rate FiO2 11/03/17 08:00 99.1 61 16 145/65 (91) 96 Room Air Capillary Refill : I&O Intake and Output 11/03/17 00:00 Intake Total 3540 ml Output Total 2225 ml Balance 1315 ml Intake Oral 1490 ml IV Total 2050 ml Output Urine Total 2225 ml # Bowel Movements 2 General: Alert, Oriented X3, Cooperative Psych/Mental Status: Mood NL Results/Procedures Lab Laboratory Tests 11/03/17 05:17: White Blood Count 10.2, Red Blood Count 3.30L, Hemoglobin 11.1L, Hematocrit 33L , Mean Corpuscular Volume 100H, Mean Corpuscular Hemoglobin 34, Mean Corpuscular Hemoglobin Concent 34, Red Cell Distribution Width 14.7H, Platelet Count 78L, Mean Platelet Volume 10.4, Neutrophils (%) (Auto) 58, Lymphocytes (% ) (Auto) 21, Monocytes (%) (Auto) 12, Eosinophils (%) (Auto) 9, Basophils (%) ( Auto) 1, Neutrophils # (Auto) 5.9, Lymphocytes # (Auto) 2.1, Monocytes # (Auto) 1.2H, Eosinophils # (Auto) 0.9H, Basophils # (Auto) 0.1, Sodium Level 141, Potassium Level 3.6, Chloride Level 116H, Carbon Dioxide Level 21, Anion Gap 4L , Blood Urea Nitrogen 11, Creatinine 0.81, Estimat Glomerular Filtration Rate > 60, BUN/Creatinine Ratio 14, Glucose Level 106H, Calcium Level 8.0L, Total Bilirubin 1.1H, Aspartate Amino Transf (AST/SGOT) 98H, Alanine Aminotransferase (ALT/SGPT) 65H, Alkaline Phosphatase 93, Total Protein 7.0, Albumin 2.1L Microbiology 11/01/17 Urine Culture - Preliminary, Resulted Yeast species Assessment/Plan Assessment/Plan (1) Hepatic encephalopathy Status: Acute Assessment & Plan: 11/01 [facility] xifaxin -recheck in AM -based on previous hospitalization, baseline appears to be in the 50's for patient -pt with left sided weakness, suspect secondary to hepatic encephalopathy which is know to be associated with hemiparesis; pt also displayed this during last hospitalization when ammonia levels were elevated significantly above his baseline 11/02/17 -ammonia level this am 123; on lactulose and xifaxin - pt's SO reports they were told he "had a stroke at some point" per CT scan at [facility] - will review outside records 11/03/17 - will repeat ammonia level in am - review of records from [facility] - evidence of chronic/old stroke R capsule c/ w w/ L UE weakness - pt unable to determine when his weakness began. - pt was not taking Lactulose as OP - increase lactulose to TID (2) Sepsis Status: Acute Assessment & Plan: 11/01 -urine culture pending -rocephin 1 gram IVPB Q24 hours -UA results confirmed with repeat UA on arrival -pt with 3-4 L of urinary retention per report; suspect infection secondary to retention -continue rocephin pending culture results 11/02/17 - urine culture pending 11/03/17 - urine culture growing yeast Qualifiers: Qualified Codes: A41.9 - Sepsis, unspecified organism (3) Urinary tract infection Status: Acute Qualifiers: Qualified Codes: N30.01 - Acute cystitis with hematuria (4) Urinary retention Status: Chronic Assessment & Plan: 11/01 -suspect that pt has overdistended his bladder to the point that he will continue to have repeated UTI's -garcia in place, would suggest leaving for now -consider discharge with garcia and leg bag, unless able to get urology follow up shortly after discharge -pt with previously assumed blood clot in bladder on previous admission, but no confirmation; consider CT with Contrast to examine now that bladder is empty 11/02/17 - pt's SO reported pt did not have difficulty with urinating until he became lethargic and refused to get up to the BR - when mental status returns to normal, recommend DC garcia and evaluate for urinary retention. 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 not picker feeder rx 11/02/17 - pt had bottle of lisinopril present today 11/03/17 - increase Lisinopril to 40mg daily Qualifiers: Qualified Codes: I10 - Essential (primary) hypertension (8) Thrombocytopenia Status: Chronic Assessment & Plan: -platelets low; similar to previous admission 11/02/17 - stable at 85 (9) Hyperammonemia Status: Chronic Assessment & Plan: 11/01 -113 at outlying facility -recheck in AM 11/02/17 - 123 today (10) Constipation Status: Acute Assessment & Plan: 11/01 -pt receiving lactulose, this should help with constipation Qualifiers: Qualified Codes: K59.00 - Constipation, unspecified (11) Hepatitis C virus infection Status: Chronic Assessment & Plan: Type 1A - last quant done in 2013 - can f/u with Dr. Larson as OP (12) Liver disease, chronic Assessment & Plan: secondary to chronic alcohol use and Hepatitis C Clinical Quality Measures DVT/VTE Risk/Contraindication: Risk Factor Score Per Nursin RFS Level Per Nursing on Admit: 3=High HENRI BLOUNT DO Nov 03, 2017 11:59
[2017-11-03] MEDS: ENOXAPARIN 40 MG/0.4 ML (LOVENOX) SYR SC SCH (16:20)
[2017-11-03] MEDS: POLYETHYLENE GLYCOL 17 GM (MIRALAX) PACK PO SCH (20:34)
[2017-11-04] MEDS: NS IV 1000 ML 1,000 ML IV SCH (01:47)
[2017-11-04 04:59] VITALS: BP 142/68
[2017-11-04 05:26] LABS: BASOPHILS # (AUTO) 0.1 10^3/uL (0.0-0.1); BASOPHILS % (AUTO) 1 % (0-10); EOSINOPHILS % (AUTO) 8 % (0-10); HEMATOCRIT 32 % (40-54); LYMPHOCYTES # (AUTO) 1.8 X 10^3 (1.0-4.0); LYMPHOCYTES % (AUTO) 15 % (12-44); MEAN CORPUSCULAR HEMOGLOBIN 34 PG (25-34); MEAN CORPUSCULAR HGB CONC 35 G/DL (32-36); MEAN CORPUSCULAR VOLUME 99 FL (80-99); MEAN PLATELET VOLUME 10.9 FL (7.4-10.4); MONOCYTES # (AUTO) 1.6 X 10^3 (0.0-1.0); MONOCYTES % (AUTO) 13 % (0-12); NEUTROPHILS # (AUTO) 7.4 X 10^3 (1.8-7.8); NEUTROPHILS % (AUTO) 62 % (42-75); PLATELET COUNT 80 10^3/uL (130-400); RED CELL DISTRIBUTION WIDTH 14.7 % (10.0-14.5); WHITE BLOOD COUNT 11.9 10^3/uL (4.3-11.0)
[2017-11-04 05:46] LABS: ALANINE AMINOTRANSFERASE 62 U/L (0-55); ALKALINE PHOSPHATASE 98 U/L (40-136); AMMONIA 104 UMOL/L (11-32); BILIRUBIN,TOTAL 1.1 MG/DL (0.1-1.0); BUN/CREATININE RATIO 20; CALCIUM 7.9 MG/DL (8.5-10.1); CARBON DIOXIDE 20 MMOL/L (21-32); CHLORIDE 112 MMOL/L (98-107); GFR ESTIMATED > 60; GLUCOSE 131 MG/DL (70-105); POTASSIUM 3.5 MMOL/L (3.6-5.0); SODIUM 139 MMOL/L (135-145); TOTAL PROTEIN 6.9 GM/DL (6.4-8.2)
[2017-11-04 08:29] VITALS: BP 145/75
[2017-11-04] MEDS: cefTRIAXone INJECTION 1,000 MG in NS (IVPB) 50 ML IV SCH (09:19)
[2017-11-04] MEDS: LACTULOSE SYRUP 10GM/15ML (ENULOSE) 30ML UDC PO SCH ×3 (09:20→20:13)
[2017-11-04] MEDS: lisINopril 20 MG (PRINIVIL) TABLET PO SCH (09:20)
[2017-11-04] MEDS: fluCOnazole (DIFLUCAN) 100 MG TAB PO SCH (09:20)
[2017-11-04] MEDS: RIFAXIMIN 550 MG TABLET (XIFAXAN) PO SCH ×2 (09:20→20:13)
[2017-11-04] MEDS ORDERED: ASPI-999 PO (10:14)
[2017-11-04] MEDS ORDERED: MULT1CAP27 PO (10:14)
--- NOTE | 2017-11-04 10:17 | Physical Therapy Daily Note ---
PT Daily Note-Current Subjective Patient agrees to PT. He does c/o fatigue. Pain Numeric Pain Scale: 0-No Pain Location: No Pain Reported Mental Status Patient Orientation: Person, Time, Situation Attachments: IV Transfers Functional [place] Measure 0=Not Assessed/NA 4=Minimal Assistance 1=Total Assistance 5=Supervision or Setup 2=Maximal Assistance 6=Modified [place] 3=Moderate Assistance 7=Complete IndependenceIRFPAI Quality Coding Scale 6 Independent with activity with or without an assistive device 5 Patient requires set up or clean up by helper. Patient completes activity by themselves 4 Supervision or touching assist (CGA). [place] provide cues , steadying assist 3 The helper provides less than half the effort to complete the activity 2 The helper provides more than half the effort to complete the activity 1 Dependent. The helper does all the effort to complete an activity 7 Patient refused to complete or attempt activity 9 The patient did not perform the activity before the current illness or injury 88 Not attempted due to Medical conditions or safety concerns Transfers (B, C, W/C) (FIM): 6 Scootin Rollin Supine to/from Sit: 6 Sit to/from Stand: 6 Weight Bearing Right Lower Extremity: Right Full Weight Bearing Left Lower Extremity: Left Full Weight Bearing Gait Training Gait (FIM): 5 Distance (FIM): 3=150 ft Distance: 400' x 2 Gait Level of Assist: 5 Gait Assistive Device: FWW SBA for safety/NBOS/shuffle gait sequence with FWW use. Extended UE's. Assessment Patient ceased treatment and returned to bed. Patient tolerated treatment well. Bed alarm activated. PT Short Term Goals Short Term Goals Time Frame: Nov 05, 2017 Transfers (B,C,W/C) (FIM): 6 PT Human Resources District Manager Goals Nursing Home Goals PT Human Resources District Manager Goals Time Frame: Nov 09, 2017 Gait (FIM): 6 Gait distance (FIM): 3=150 ft Distance: 150 Gait Level of Assist: 6 Gait Assistive Device: None Stairs (FIM): 5 # of Steps: 4 Stairs Level Of Assist: 6 PT Plan Treatment/Plan Treatment Plan: Continue Plan of Care Treatment Plan: Education, Functional Activity [place], Functional Strength, Gait , Safety, Therapeutic Exercise, Transfers Treatment Duration: Nov 09, 2017 Frequency: 6 times per week Estimated Hrs Per Day: .25 hour per day Patient and/or Family Agrees t: Yes Time/GCodes Time In: 907 Time Out: 959 Total Billed Treatment Time: 23 Total Billed Treatment 1 visit FA x 2 23 min EVELINA BALLARD PT Nov 04, 2017 10:17
[2017-11-04 12:00] VITALS: BP 143/70
--- NOTE | 2017-11-04 14:44 | Progress Note (SOAP) ---
Subjective Subjective/Events-last exam Still febrile, remains mildly confused, but is feeling somewhat better. Denies abdominal pain. Review of Systems Date Seen by Provider: Nov 04, 2017 Time Seen by Provider: 10:41 Objective Exam Last Set of Vital Signs Vital Signs Date Time Temp Pulse Resp B/P (MAP) Pulse Ox O2 Delivery O2 Flow Rate FiO2 11/04/17 12:00 99.3 70 16 143/70 (94) 98 Room Air Capillary Refill : I&O Intake and Output 11/04/17 00:00 Intake Total 2100 ml Output Total 3450 ml Balance -1350 ml Intake Oral 2100 ml Output Urine Total 3450 ml # Voids 1 # Bowel Movements 1 General: Alert, No Acute Distress Lungs: Clear to Auscultation, Normal Air Movement Heart: Regular Rate, Other (systolic murmur loudest at tricuspid area) Abdomen: Normal Bowel Sounds, Soft, No Tenderness Extremities: Other (1+ edema to shins) Neuro: Normal Speech Psych/Mental Status: Mood NL Results/Procedures Lab Laboratory Tests 11/04/17 05:15: White Blood Count 11.9H, Red Blood Count 3.20L, Hemoglobin 11.0L, Hematocrit 32L , Mean Corpuscular Volume 99, Mean Corpuscular Hemoglobin 34, Mean Corpuscular Hemoglobin Concent 35, Red Cell Distribution Width 14.7H, Platelet Count 80L, Mean Platelet Volume 10.9H, Neutrophils (%) (Auto) 62, Lymphocytes (%) (Auto) 15 , Monocytes (%) (Auto) 13H, Eosinophils (%) (Auto) 8, Basophils (%) (Auto) 1, Neutrophils # (Auto) 7.4, Lymphocytes # (Auto) 1.8, Monocytes # (Auto) 1.6H, Eosinophils # (Auto) 1.0H, Basophils # (Auto) 0.1, Sodium Level 139, Potassium Level 3.5L, Chloride Level 112H, Carbon Dioxide Level 20L, Anion Gap 7, Blood Urea Nitrogen 14, Creatinine 0.70, Estimat Glomerular Filtration Rate > 60, BUN/ Creatinine Ratio 20, Glucose Level 131H, Calcium Level 7.9L, Total Bilirubin 1.1H, Aspartate Amino Transf (AST/SGOT) 93H, Alanine Aminotransferase (ALT/SGPT ) 62H, Alkaline Phosphatase 98, Ammonia 104H, Total Protein 6.9, Albumin 2.0L Microbiology 11/01/17 Urine Culture - Final, Complete Yeast species Assessment/Plan Assessment/Plan (1) Hepatic encephalopathy Status: Acute Assessment & Plan: 11/01 -113 at [facility]lying hospital -lactulose and xifaxin -based on previous hospitalization, baseline appears to be in the 50's for patient 11/02/17 -ammonia level this am 123; on lactulose and xifaxin 11/03/17 - review of records from [facility] - evidence of chronic/old stroke R capsule c/ w w/ L UE weakness - pt unable to determine when his weakness began. - pt was not taking Lactulose as OP - increase lactulose to TID 11/04/17 - ammonia remains elevated, but patient is alert and has no asterixis, continue increased lactulose dose and rifaximin and monitor clinically. Consider SBP as cause of worsening- given his fever and elevated WBC, however he has no abdominal pain and is on ceftriaxone. Will obtain CT abd/pelvis to evaluate for ascites and re-check bladder abnormalities noted on previous CT in September. (2) Sepsis Status: Acute Assessment & Plan: 11/01 -urine culture pending -rocephin 1 gram IVPB Q24 hours -pt with 3-4 L of urinary retention per report; suspect infection secondary to retention -continue rocephin pending culture results 11/03/17 - urine culture growing yeast 11/04/17 -On fluconazole and ceftriaxone, but remains febrile, checking CT abd/pelvis as noted above. Qualifiers: Qualified Codes: A41.9 - Sepsis, unspecified organism (3) Urinary tract infection Status: Acute Qualifiers: Qualified Codes: N30.01 - Acute cystitis with hematuria (4) Urinary retention Status: Chronic Assessment & Plan: 11/01 -suspect that pt has overdistended his bladder to the point that he will continue to have repeated UTI's -garcia in place, would suggest leaving for now -consider discharge with garcia and leg bag, unless able to get urology follow up shortly after discharge -pt with previously assumed blood clot in bladder on previous admission, but no confirmation; consider CT with Contrast to examine now that bladder is empty 11/02/17 - pt's SO reported pt did not have difficulty with urinating until he became lethargic and refused to get up to the BR - when mental status returns to normal, recommend DC garcia and evaluate for urinary retention. 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 11/02/17 - pt had bottle of lisinopril present today 11/03/17 - increase Lisinopril to 40mg daily Qualifiers: Qualified Codes: I10 - Essential (primary) hypertension (8) Thrombocytopenia Status: Chronic Assessment & Plan: -platelets low; similar to previous admission 11/02/17 - stable at 85 (9) Hyperammonemia Status: Chronic Assessment & Plan: 11/01 -113 at outlying facility (10) Constipation Status: Acute Assessment & Plan: 11/01 -pt receiving lactulose, this should help with constipation Qualifiers: Qualified Codes: K59.00 - Constipation, unspecified (11) Hepatitis C virus infection Status: Chronic Assessment & Plan: Type 1A - last quant done in 2013 - can f/u with Dr. Larson as OP (12) Liver disease, chronic Assessment & Plan: secondary to chronic alcohol use and Hepatitis C Clinical Quality Measures DVT/VTE Risk/Contraindication: Risk Factor Score Per Nursin RFS Level Per Nursing on Admit: 3=High DONTE CASTANEDA MD Nov 04, 2017 2:44 pm
[2017-11-04] MEDS ORDERED: NS 100 ML (IVPB) BAG IV ONE (15:00)
[2017-11-04] MEDS ORDERED: IOHEXOL 350 MG/ML 100 ML (OMNIPAQUE 350) VIAL IV ONE (15:00)
[2017-11-04] MEDS ORDERED: CATHETER FLUSH 10 ML SYR IV PRN (15:00)
[2017-11-04 16:00] VITALS: BP 154/75
[2017-11-04] MEDS ORDERED: ENOXAPARIN 40 MG/0.4 ML (LOVENOX) SYR SC SCH (16:00)
[2017-11-04] MEDS ORDERED: LIDOCAINE UROJET 2% GEL 10 ML PKG TOP NR (16:15)
--- NOTE | 2017-11-04 17:16 | Diagnostic Imaging Report ---
PROCEDURE: CT abdomen and pelvis with contrast. TECHNIQUE: Multiple contiguous axial images were obtained through the abdomen and pelvis after administration of intravenous contrast. INDICATION: Hematuria. COMPARISON: 10/02/2017 FINDINGS: Included portions of the lower chest are clear. CT abdomen: Urinary bladder is severely distended. Small amount of gas is noted near the dome within the etl-caphdto-qewpcbfyp portion of the urinary bladder. No other distinct filling defects are seen. Kidneys have a normal appearance, bilaterally. Liver again demonstrates cirrhotic morphology. There is an area of nodular hyperenhancement within the dome of segment 8 that measures approximately 1.6 cm in diameter. Less well-defined area of nodular enhancement is also noted within segment 6 and measures 2 cm (image 25, series 2). Multiple paraesophageal varices are noted. Spleen is also mildly enlarged. Portal vein is suboptimally opacified to assess for thrombosis. Adrenal glands and pancreas have a normal CT appearance. Small bowel loops are nondistended. Note is made of somewhat thickened appearance to the small bowel wall, distally. Normal appendix cannot be adequately identified, but there is no pericecal inflammation. There is nonspecific mesenteric edema. There may also be small amount of free fluid within the paracolic gutter on the right. No loculated air-fluid collection is seen. There is no free air within the the abdomen. No abnormal mesenteric or retroperitoneal adenopathy is seen. Bony structures show no acute abnormalities. There is mild calcified aortic and arterial atherosclerosis. CT pelvis: Again, urinary bladder is severely distended with small amount of air within the xmn-jfgeddf-tniwxzsbq portion. There is no loculated fluid collection, free fluid, nor free air within the pelvis. No abnormal adenopathy is seen. Bony structures show no acute abnormalities. IMPRESSION: 1. Severe distention of the urinary bladder. Correlation for underlying bladder outlet obstruction is recommended. 2. Small amount of gas within the ost-fkliauk-rjorlrnyq portion of the urinary bladder near the dome. Correlation with recent instrumentation is recommended. Additionally, findings may also be seen with gas-forming cystitis. Clinical correlation recommended. 3. Cirrhotic morphology to the liver. Areas of hyperenhancement within segments 6 and 8 is noted and could be on the basis of regenerative nodule versus hepatomas. Correlation with Eovist MRI of the abdomen is recommended. 4. Sequela of portal venous hypertension including multiple gastroesophageal varices and splenomegaly. 5. Thickening of the distal small bowel wall, mesenteric edema, and small amount of free fluid within the right paracolic gutter. These findings may also be on the basis of underlying portal venous hypertension and underlying liver disease. Underlying enteritis, however, cannot be excluded. Dictated by: Dictated on workstation # [id number]
[2017-11-04 20:00] VITALS: BP 168/76
[2017-11-04] MEDS: POLYETHYLENE GLYCOL 17 GM (MIRALAX) PACK PO SCH (20:13)
[2017-11-05 00:15] VITALS: BP 154/65
[2017-11-05 04:17] VITALS: BP 126/57
[2017-11-05 07:20] LABS: BASOPHILS # (AUTO) 0.1 10^3/uL (0.0-0.1); BASOPHILS % (AUTO) 1 % (0-10); EOSINOPHILS # (AUTO) 1.1 10^3/uL (0.0-0.3); EOSINOPHILS % (AUTO) 11 % (0-10); HEMATOCRIT 32 % (40-54); HEMOGLOBIN 10.8 G/DL (13.3-17.7); LYMPHOCYTES # (AUTO) 1.8 X 10^3 (1.0-4.0); LYMPHOCYTES % (AUTO) 18 % (12-44); MEAN CORPUSCULAR HEMOGLOBIN 34 PG (25-34); MEAN CORPUSCULAR HGB CONC 34 G/DL (32-36); MEAN CORPUSCULAR VOLUME 99 FL (80-99); MEAN PLATELET VOLUME 10.6 FL (7.4-10.4); MONOCYTES # (AUTO) 1.4 X 10^3 (0.0-1.0); MONOCYTES % (AUTO) 13 % (0-12); NEUTROPHILS # (AUTO) 5.9 X 10^3 (1.8-7.8); NEUTROPHILS % (AUTO) 58 % (42-75); PLATELET COUNT 74 10^3/uL (130-400); RED CELL DISTRIBUTION WIDTH 14.9 % (10.0-14.5); WHITE BLOOD COUNT 10.2 10^3/uL (4.3-11.0)
[2017-11-05 07:53] LABS: ALANINE AMINOTRANSFERASE 61 U/L (0-55); ALBUMIN 2.2 GM/DL (3.2-4.5); ALKALINE PHOSPHATASE 103 U/L (40-136); BILIRUBIN,TOTAL 1.3 MG/DL (0.1-1.0); BUN/CREATININE RATIO 18; CALCIUM 8.2 MG/DL (8.5-10.1); CARBON DIOXIDE 25 MMOL/L (21-32); CHLORIDE 110 MMOL/L (98-107); CREATININE SERUM 0.72 MG/DL (0.60-1.30); GFR ESTIMATED > 60; GLUCOSE 96 MG/DL (70-105); POTASSIUM 3.5 MMOL/L (3.6-5.0); SODIUM 140 MMOL/L (135-145); TOTAL PROTEIN 7.1 GM/DL (6.4-8.2)
[2017-11-05] MEDS: lisINopril 20 MG (PRINIVIL) TABLET PO SCH (08:44)
[2017-11-05] MEDS: fluCOnazole (DIFLUCAN) 100 MG TAB PO SCH (08:44)
[2017-11-05] MEDS: RIFAXIMIN 550 MG TABLET (XIFAXAN) PO SCH (08:44)
[2017-11-05] MEDS: LACTULOSE SYRUP 10GM/15ML (ENULOSE) 30ML UDC PO SCH ×2 (08:44→14:14)
[2017-11-05] MEDS: cefTRIAXone INJECTION 1,000 MG in NS (IVPB) 50 ML IV SCH (09:21)
[2017-11-05] MEDS ORDERED: RIFA550T PO (09:26)
[2017-11-05] MEDS ORDERED: CEFD300C3 PO (09:26)
[2017-11-05] MEDS ORDERED: FLUC100T6 PO (09:26)
[2017-11-05] MEDS ORDERED: LACT20SO2 PO (09:26)
[2017-11-05] MEDS ORDERED: TAMS0.4C98 PO (09:26)
[2017-11-05] MEDS ORDERED: LISI-552 PO (09:26)
[2017-11-05] MEDS ORDERED: CEFDINIR 300 MG (OMNICEF) CAP PO SCH (09:30)
--- NOTE | 2017-11-05 09:35 | D/C HH Face to Face Order ---
D/C Face to Face Orders Instructions for Patient Patient Instructions/FollowUp: Follow up with Everett Umanzor APRN at [facility] on 11/11 at 2 pm. At that time, you can talk to him about a referral to see Dr. Larson at [facility] about your hepatitis C. Follow up with Dr. Jacobs (Urology) next week to talk about whether you will be able to stop using the catheter in your bladder. Start taking Flomax (tamsulosin) to help you be able to urinate. Physician to follow Patient: Everett Umanzor APRN Discharge Diet for Home: Low Sodium Diet Goals for Patient: Improve mentation, improve understanding of medications, decrease urinary retention. Patient Data-Allergies,Ht & Wt Patient Allergies: Coded Allergies: No Known Drug Allergies (Unverified , 10/02/17) Height (Feet): 5 Height (Inches): 6.00 Weight (Pounds): 195 Weight (Ounces): 0.0 Home Health Need/Face to Face Date of Face to Face: Nov 05, 2017 Clinical Findings: Generalized weakness and fatigue, Other-list in note ( hepatic encephalopathy) I have seen Pt [id number]: Yes Discharged To: Home Diagnosis/Conditions: Hepatic encephalopathy Urinary retention Hypertension Patient is Homebound due to: CognItive deficits Homebound Status Due to the above stated illness, injury or surgical procedure (medical condition or diagnosis) and associated clinical findings, the patient is homebound because of his/her inability to leave home except with aid of a supportive device and/or person AND leaving the home requires a considerable and taxing effort or is medically contraindicated. Pt req the following assistanc: Aid of another person Home Health Nursing Orders Home Health Services Order: Nursing Services, Bone Drier-Evaluate & Treat, Physical Therapy-Evaluate & Treat Home Health Infusion Therapy Site Location: Hand Therapy Orders Therapy Orders: OT (must have SN or PT order), Physical Therapy Therapy Specific Orders: Teach strategies/cognitive deficits, Teach enviro modifications/safety, Gait training Certify Stmt I certify that this patient is under my care and that I, a nurse practitioner or a physician; a sales operations assistant working with me, had a face to face encounter that - meets the physician face to face encounter requirements with this patient as dated. DONTE CASTANEDA MD Nov 05, 2017 9:32 am
[2017-11-05 10:18] VITALS: BP 128/56
[2017-11-05 12:00] VITALS: BP 129/58
--- NOTE | 2017-11-05 12:03 | Discharge Summary ---
Diagnosis/Chief Complaint Date of Admission Nov 01, 2017 at 3:30 pm Date of Discharge Nov 05, 2017 Admission Diagnosis Admission Diagnosis Hepatic Encephalopathy Sepsis UTI Urinary Retention HTN Methamphetamine Abuse Hx of ETOH Abuse Discharge Diagnosis (1) Hepatic encephalopathy Status: Acute Assessment & Plan: 11/01 -113 [facility] -lactulose and xifaxin -based on previous hospitalization, baseline appears to be in the 50's for patient 11/03/17 - review of records from [facility] - evidence of chronic/old stroke R capsule c/ w w/ L UE weakness - pt unable to determine when his weakness began. - pt was not taking Lactulose as OP - increase lactulose to TID 11/04/17 - ammonia remains elevated, but patient is alert and has no asterixis, continue increased lactulose dose and rifaximin and monitor clinically. Consider SBP as cause of worsening- given his fever and elevated WBC, however he has no abdominal pain and is on ceftriaxone. Will obtain CT abd/pelvis to evaluate for ascites and re-check bladder abnormalities noted on previous CT in September. 11/05- mental status normal, CT abdomen showed indeterminate liver nodules, esophageal varices, splenomegaly and marked bladder distention, garcia replaced. Was not on lactulose outpatient, scripts sent for lactulose and rifaximin. Home health ordered. MRI ordered to f/u liver nodules was inadequate study due to breathing motion, will need further follow-up outpatient. (2) Sepsis Status: Acute Assessment & Plan: 11/01 -urine culture pending -rocephin 1 gram IVPB Q24 hours -pt with 3-4 L of urinary retention per report; suspect infection secondary to retention -continue rocephin pending culture results 11/03/17 - urine culture growing yeast 11/04/17 -On fluconazole and ceftriaxone, but remains febrile, checking CT abd/pelvis as noted above. 11/05/17 discharged with cefdinir and fluconazole to complete 7 day course (3) Urinary tract infection Status: Acute Qualifiers: Qualified Codes: N30.01 - Acute cystitis with hematuria (4) Urinary retention Status: Chronic Assessment & Plan: 11/01 -suspect that pt has overdistended his bladder to the point that he will continue to have repeated UTI's -garcia in place, would suggest leaving for now -consider discharge with garcia and leg bag, unless able to get urology follow up shortly after discharge -pt with previously assumed blood clot in bladder on previous admission, but no confirmation; consider CT with Contrast to examine now that bladder is empty 11/02/17 - pt's SO reported pt did not have difficulty with urinating until he became lethargic and refused to get up to the BR - when mental status returns to normal, recommend DC garcia and evaluate for urinary retention. 11/03/17 - will DC garcia and check post-void residuals 11/05/17- CT scan showed massive retention, garcia replaced, discussed with Dr. Jacobs and will send home with catheter in place and start on tamsulosin, follow up with Dr. Jacobs next week. 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 11/02/17 - pt had bottle of lisinopril present today 11/03/17 - increase Lisinopril to 40mg daily Qualifiers: Qualified Codes: I10 - Essential (primary) hypertension (8) Thrombocytopenia Status: Chronic Assessment & Plan: -platelets low; similar to previous admission 11/02/17 - stable at 85 (9) Hyperammonemia Status: Chronic Assessment & Plan: 11/01 -113 at [facility] (10) Constipation Status: Acute Assessment & Plan: 11/01 -pt receiving lactulose, this should help with constipation Qualifiers: Qualified Codes: K59.00 - Constipation, unspecified (11) Hepatitis C virus infection Status: Chronic Assessment & Plan: Type 1A - last quant done in 2013 - can f/u with Dr. Larson as OP (12) Liver disease, chronic Assessment & Plan: secondary to chronic alcohol use and Hepatitis C Chief Complaint/HPI Chief Complaint/HPI 62 year old male accepted for transfer from [facility] for admission for hepatic encephalopathy. Pt presented to [facility] ED by EMS with complaints of increased drowsiness, constipation, decreased voiding. Ammonia was noted to be 113. UDS positive for amphetamines. Report of garcia placement with immediate return of 1L urine; transport EMS reports they obtained another 3L prior to transport, and patient continues to have cloudy urine draining in foely bag. No significant elevation of WBC, but UA with evidence of infection. Based on altered mental status, tachypnea, UTI, suspect sepsis secondary to UTI, secondary to urinary retention. Pt reports he has not had any alcohol since discharge from this facility 10/06. He reports he did not pick pulling machine tender his blood pressure medicine that was sent to pharmacy at discharge yet, but he has abstained from alcohol and tried to drink more water. His alcohol level is less than 10, which is consistent with pt's report of abstaining from alcohol. Pt is awake and alert, although somewhat drowsier than baseline. Discharge Summary-Simple/Stand Consultations Discharge Physical Examination Allergies: Coded Allergies: No Known Drug Allergies (Unverified , 10/02/17) Vitals & I&Os Vital Sign - Last 12Hours Date Time Temp Pulse Resp B/P (MAP) Pulse Ox O2 Delivery O2 Flow Rate FiO2 11/05/17 10:18 99.6 77 18 128/56 (80) 97 Room Air Intake and Output 11/05/17 00:00 Intake Total 1792 ml Output Total 2550 ml Balance -758 ml General Appearance: Alert, No Acute Distress Respiratory: Clear to Auscultation, Normal Air Movement Cardiovascular: Regular Rate, No Murmurs Abdominal: Normal Bowel Sounds, Soft, No Tenderness Neuro: Normal Speech Psych/Mental Status: Mental Status NL Hospital Course See final discharge diagnosis. Labs Laboratory Tests Test 11/04/17 05:15 11/05/17 06:18 Range/Units White Blood Count 11.9 H 10.2 4.3-11.0 10^3/uL Red Blood Count 3.20 L 3.20 L 4.35-5.85 10^6/uL Hemoglobin 11.0 L 10.8 L 13.3-17.7 G/DL Hematocrit 32 L 32 L 40-54 % Mean Corpuscular Volume 99 99 80-99 FL Mean Corpuscular Hemoglobin 34 34 25-34 PG Mean Corpuscular Hemoglobin Concent 35 34 32-36 G/DL Red Cell Distribution Width 14.7 H 14.9 H 10.0-14.5 % Platelet Count 80 L 74 L 130-400 10^3/uL Mean Platelet Volume 10.9 H 10.6 H 7.4-10.4 FL Neutrophils (%) (Auto) 62 58 42-75 % Lymphocytes (%) (Auto) 15 18 12-44 % Monocytes (%) (Auto) 13 H 13 H 0-12 % Eosinophils (%) (Auto) 8 11 H 0-10 % Basophils (%) (Auto) 1 1 0-10 % Neutrophils # (Auto) 7.4 5.9 1.8-7.8 X 10^3 Lymphocytes # (Auto) 1.8 1.8 1.0-4.0 X 10^3 Monocytes # (Auto) 1.6 H 1.4 H 0.0-1.0 X 10^3 Eosinophils # (Auto) 1.0 H 1.1 H 0.0-0.3 10^3/uL Basophils # (Auto) 0.1 0.1 0.0-0.1 10^3/uL Sodium Level 139 140 135-145 MMOL/L Potassium Level 3.5 L 3.5 L 3.6-5.0 MMOL/L Chloride Level 112 H 110 H 98-107 MMOL/L Carbon Dioxide Level 20 L 25 21-32 MMOL/L Anion Gap 7 5 5-14 MMOL/L Blood Urea Nitrogen 14 13 7-18 MG/DL Creatinine 0.70 0.72 0.60-1.30 MG/DL Estimat Glomerular Filtration Rate > 60 > 60 BUN/Creatinine Ratio 20 18 Glucose Level 131 H 96 70-105 MG/DL Calcium Level 7.9 L 8.2 L 8.5-10.1 MG/DL Total Bilirubin 1.1 H 1.3 H 0.1-1.0 MG/DL Aspartate Amino Transf (AST/SGOT) 93 H 91 H 5-34 U/L Alanine Aminotransferase (ALT/SGPT) 62 H 61 H 0-55 U/L Alkaline Phosphatase 98 103 40-136 U/L Ammonia 104 H 11-32 UMOL/L Total Protein 6.9 7.1 6.4-8.2 GM/DL Albumin 2.0 L 2.2 L 3.2-4.5 GM/DL Discharge Instructions to patient/family Please see electronic discharge instructions given to patient. Discharge Medications Reviewed and agree with Discharge Medication list on patient's Discharge Instruction sheet Clinical Quality Measures DVT/VTE Risk/Contraindication: Risk Factor Score Per Nursin RFS Level Per Nursing on Admit: 3=High DONTE CASTANEDA MD Nov 05, 2017 12:03 pm
[2017-11-05] MEDS ORDERED: GADOXETATE 2.5 MMOL/10 ML (EOVIST) IV ONE (13:45)
--- NOTE | 2017-11-05 15:33 | Diagnostic Imaging Report ---
PROCEDURE: MR imaging abdomen with and without contrast. TECHNIQUE: Multiplanar/multisequence MR imaging of the abdomen was performed with and without contrast. INDICATION: Liver masses noted on recent CT. This study is performed for further evaluation. COMPARISON: Correlation is made with the CT study from 11/04/2017. FINDINGS: The study is severely compromised. There is significant motion artifact on all sequences, limiting interpretability. Many sequences were repeated but to no success. The patient reportedly was unable to hold his breath. The two hyperdense lesions noted in the right lobe of the liver on CT are not visualized with MRI but, again, there is significant motion artifact. There is a nodular contour to the liver, consistent with cirrhosis. No biliary ductal dilatation is seen. The gallbladder is contracted. The pancreas and spleen are unremarkable. There is a small amount of perihepatic ascites. The adrenal glands and kidneys are unremarkable. The visualized bowel loops are unremarkable. IMPRESSION: Severely compromised study due to patient respiratory motion. No discrete liver mass is seen to account for the CT abnormality. Continued followup CT is recommended to confirm stability of the previously described hyperdense nodules. Dictated by: Dictated on workstation # [id number]
[2017-11-05 17:19] VITALS: BP 129/58
== END 2017-11-05 17:25 | disposition home health service (06) | DRG 871 ==
LOC: 4TH 15:30
PROVIDERS: ADMIT Family Medicine; ATTEND Family Medicine
DX: A41.9 Sepsis, unspecified organism (principal); N30.01 Acute cystitis with hematuria; R33.9 Retention of urine, unspecified; K72.00 Acute and subacute hepatic failure without coma; I69.354 Hemiplegia and hemiparesis following cerebral infarction affecting left non-dominant side; R47.81 Slurred speech; B18.2 Chronic viral hepatitis C; K70.9 Alcoholic liver disease, unspecified; I10 Essential (primary) hypertension; D69.6 Thrombocytopenia, unspecified; F15.10 Other stimulant abuse, uncomplicated; N52.9 Male erectile dysfunction, unspecified; J30.2 Other seasonal allergic rhinitis; K59.00 Constipation, unspecified; F17.210 Nicotine dependence, cigarettes, uncomplicated
CPT/HCPCS: 36415; 74177; 74183; 80053; 80306; 81000; 82140; 85025; 87088

== ENCOUNTER 2018-10-04 14:30 | Observation (INO) | payer MEDICARE ==
[~2018-10-04] VITALS: Ht 170.2 cm; Wt 95.3 kg
[~2018-10-04 14:30] MED LIST changes: +ASPI-999 PO; +CEFD300C3 PO; +FLUC100T6 PO; +LACT20SO2 PO; +MULT1CAP27 PO; +RIFA550T PO; +TAMS0.4C98 PO
--- OUTSIDE RECORDS SUMMARY | 2018-10-04 14:34 | XMS REPORT ---
Author Author Migration, Doctor Organization [facility] Address Unknown Phone Unavailable Care Team Providers Care Laborer Tanbark Name Role Phone Migration, Doctor Unavailable Unavailable PROBLEMS Type Condition ICD9-CM Code QLE19-KK Code Onset Dates Condition Status SNOMED Code Problem Generalized edema R60.1 Active 184092704 Problem Chronic liver failure without hepatic coma K72.10 Active 740330313 Problem Other retention of urine R33.8 Active 201868867 Problem Benign prostatic hyperplasia with lower urinary tract symptoms N40.1 Active 295223647 Problem Chronic hepatitis C without hepatic coma B18.2 Active 580295903 Problem Alcohol abuse F10.10 Active 08592634 ALLERGIES No Information ENCOUNTERS Encounter Location Date Diagnosis [facility] [id number], [place] [address] Jun, [facility] [id number] [address] Jun, [facility] [id number] [place] [address] May, [facility] [id number], [place] [address] May, Chronic liver failure without hepatic coma K72.10 [facility] [id number] [address] Apr, [facility] [id number] [place] [address] Apr, Chronic liver failure without hepatic coma K72.10 [facility] [id number] [place] [address] Mar, [facility] [id number] [address] Mar, Chronic liver failure without hepatic coma K72.10 [facility] [id number], [place] [address] Nov, [facility] [address], [place] [address] Nov, [facility] [address], [place] [address] Oct, Hepatic encephalopathy K72.90 [facility] [id number] [place] [address] Oct, [facility] [id number] [place] [address] Oct, [facility] [id number] [place] [address] Oct, [facility] [id number] [place] [address] September, Generalized edema R60.1 ; Alcohol abuse F10.10 and Chronic hepatitis C without hepatic coma B18.2 [facility] [address], [place] [address] September, [facility] [address], [place] [address] Aug, [facility] [address], [place] [address] Jul, [facility] [address] [place] [address] Jul, [facility] [address], [place] [address] Jul, Chronic hepatitis C without hepatic coma B18.2 ; Generalized edema R60.1 and Alcohol abuse F10.10 [facility] [address], [place] [address] Jul, Cellulitis 682.9 [facility] [address], [place] [address] 02 Jan, 2015 Cellulitis 682.9 and Edema 782.3 [facility] [place] [facility] [address] [id number] [place] [address] September, [facility] [place] [facility] [address] [id number] [place] [address] Aug, [facility] [place] [facility] [address] [facility] [id number] [place] [address] Aug, [facility] [place] [facility] [address] [id number] [place] [address] Jul, [facility] [place] [facility] [address] [id number] [place] [address] Jul, [facility] [place] [facility] [address] [facility] [id number] [place] [address] Jul, [facility] [place] [facility] [address] [facility] [id number] [place] [address] Jul, [facility] [place] [facility] [address] [facility] [id number], [place] [address] Jul, [facility] [place] [facility] [address] [facility] [id number] [place] [address] Feb, [facility] [place] [facility] [address] [facility] [id number] [place] [address] Feb, [facility] [place] [facility] [address] [facility] [id number], [place] [address] Feb, [facility] [place] [facility] [address] [id number], [place] [address] Feb, [facility] [place] [facility] [address] [facility] [id number] [place] [address] Feb, [facility] [place] [facility] [address] [facility] [id number], [place] [address] Jan, [facility] [place] [facility] [address] [facility] [id number] [place] [address] Jan, [facility] [place] [facility] [address] [facility] [id number] [place] [address] Jan, [facility] [address] [id number] [place] [address] Jan, [facility] [place] [facility] [address] [id number] [place] [address] Dec, [facility] [place] [facility] [address] [id number] [place] [address] Dec, [facility] [place] [facility] [address] [id number] [place] [address] September, [facility] [place] [facility] [address] [id number] [place] [address] September, [facility] [place] [facility] [address] [id number] [place] [address] September, [facility] [address] [id number] [place] [address] September, [facility] [place] [facility] [address] [id number] [place] [address] September, [facility] [place] [facility] [address] [id number] [place] [address] September, [facility] [place] [facility] [address] [id number] [place] [address] September, [facility] [place] [facility] [address] [id number] [place] [address] September, [facility] [place] [facility] [address] [id number] [place] [address] September, [facility] [place] [facility] [address] [id number] [place] [address] September, [facility] [place] [facility] [address] [id number] [place] [address] Aug, [facility] [place] [facility] [address] [id number] [place] [address] Aug, [facility] [address] [facility] [id number], [place] [address] Aug, [facility] [address] [facility] [id number], [place] [address] Aug, [facility] [address] [facility] [id number], [place] [address] Jul, [facility] [address] [facility] [id number], [place] [address] Jul, [facility] [address] [facility] [id number], [place] [address] Jul, [facility] [address] [facility] [id number], [place] [address] Jul, [facility] [id number], [place] [address] Jul, [facility] [id number], [place] [address] Jul, [facility] [id number], [place] [address] Jun, [facility] [id number], [place] [address] Jun, [facility] [id number], [place] [address] Oct, [facility] [id number] [address] September, IMMUNIZATIONS No Known Immunizations SOCIAL HISTORY Never Assessed REASON FOR VISIT [place] [place] VITAL SIGNS MEDICATIONS Medication Instructions Dosage Frequency Start Date End Date Duration Status Lisinopril-Hydrochlorothiazide 20-25 mg take 1 tablet by Oral route 1 time per day Take in AM Jan, Active Bactrim DS 800-160 mg take 1 tablet by Oral route every 12 hours for 1 weeks for prostatitis Jan, Active Amoxicillin 500 mg 2 capsule by Oral route 2 times per day for 10 day(s) September, Active Cialis 5 mg 1 tablet by Oral route 1 time per day PRN Feb, Active RESULTS No Results PROCEDURES No Known procedures INSTRUCTIONS MEDICATIONS ADMINISTERED No Known Medications MEDICAL (GENERAL) HISTORY Type Description Date Medical History Hypertension Medical History Hepatitis C Medical History low sodium Surgical History appendectomy Surgical History surgery at 6 mos old, pt cannot recall what kind of surgery Hospitalization History detoxing, UTI, liver failure 09/2017 Hospitalization History Hepatic encephalopathy, Sepsis, [facility] 10/2017 Hospitalization History [facility] - 2 days 03/2018
--- OUTSIDE RECORDS SUMMARY | 2018-10-04 14:34 | XMS REPORT ---
Author Author LUCÍA YANEZ Organization [facility] Address [address] [place] [address] Care Team Providers Care Echocardiography Tech Name Role Phone LUCÍA YANEZ Unavailable PROBLEMS Type Condition ICD9-CM Code NFX56-PD Code Onset Dates Condition Status SNOMED Code Problem Chronic liver failure without hepatic coma K72.10 Active 085041080 Problem Generalized edema R60.1 Active 963007182 Problem Alcohol abuse F10.10 Active 05051732 Problem Chronic hepatitis C without hepatic coma B18.2 Active [id number] ALLERGIES No Known Allergies ENCOUNTERS Encounter Location Date Diagnosis [facility] [id number] [place] [address] Mar, [facility] [id number] [place] [address] Mar, Chronic liver failure without hepatic coma K72.10 [facility] [id number] [place] [address] Nov, [facility] [id number] [place] [address] Nov, [facility] [id number] [place] [address] Oct, Hepatic encephalopathy K72.90 [facility] [id number] [place] [address] Oct, [facility] [id number] [place] [address] Oct, [facility] [id number] [place] [address] Oct, [facility] [id number] [place] [address] September, Generalized edema R60.1 ; Alcohol abuse F10.10 and Chronic hepatitis C without hepatic coma B18.2 [facility] [id number] [place] [address] September, [facility] [id number] [place] [address] Aug, [facility] [id number] [place] [address] Jul, [facility] [address] [place] [address] Jul, [facility] [id number] [place] [address] Jul, Chronic hepatitis C without hepatic coma B18.2 ; Generalized edema R60.1 and Alcohol abuse F10.10 [facility] [id number] [place] [address] Jul, Cellulitis 682.9 [facility] [id number] [place] [address] Jan, Cellulitis 682.9 and Edema 782.3 [facility] [id number] [place] [address] September, [facility] [id number] [place] [address] 14 Aug, 2014 [facility] [id number] [place] [address] Aug, [facility] [id number] [place] [address] Jul, [facility] [id number] [place] [address] Jul, [facility] [id number] [place] [address] Jul, [facility] [id number] [place] [address] Jul, [facility] [place] [facility] [address] [id number] [place] [address] Jul, [facility] [place] [facility] [address] [id number] [place] [address] Feb, [facility] [place] [facility] [address] [id number] [place] [address] Feb, [facility] [place] [facility] [address] [id number] [place] [address] Feb, [facility] [place] [facility] [address] [id number] [place] [address] Feb, [facility] [place] [facility] [address] [id number] [place] [address] Feb, [facility] [place] [facility] [address] [id number] [place] [address] Jan, [facility] [place] [facility] [address] [id number] [place] [address] Jan, [facility] [place] [facility] [address] [id number] [place] [address] Jan, [facility] [place] [facility] [address] [id number] [place] [address] Jan, [facility] [place] [facility] [address] [id number], [place] [address] Dec, [facility] [place] [facility] [address] [id number], [place] [address] Dec, [facility] [place] [facility] [address] [id number] [place] [address] September, [facility] [place] [facility] [address] [id number] [place] [address] September, [facility] [place] [facility] [address] [id number] [place] [address] September, [facility] [place] [facility] [address] [id number] [place] [address] September, [facility] [place] [facility] [address] [id number] [place] [address] September, [facility] [place] [facility] [address] [id number] [place] [address] September, [facility] [place] [facility] [address] [id number] [place] [address] September, [facility] [place] [facility] [address] [id number] [place] [address] September, [facility] [place] [facility] [address] [id number] [place] [address] September, [facility] [place] [facility] [address] [id number] [place] [address] September, [facility] [address] [id number] [place] [address] Aug, [facility] [place] [facility] [address] [id number] [place] [address] Aug, [facility] [place] [facility] [address] [id number] [place] [address] Aug, [facility] [place] [facility] [address] [id number] [place] [address] Aug, [facility] [place] [facility] [address] [id number] [place] [address] Jul, [facility] [place] [facility] [address] [id number] [place] [address] Jul, [facility] [place] [facility] [address] [id number] [place] [address] Jul, [facility] [place] [facility] [address] [id number] [place] [address] Jul, [facility] [place] [facility] [address] [id number] [place] [address] Jul, [facility] [address] [facility] [id number], [place] [address] Jul, [facility] [address] [facility] [id number], [place] [address] Jun, [facility] [address] [facility] [id number], [place] [address] Jun, [facility] [address] [facility] [id number], [place] [address] Oct, [facility] [address] [facility] [id number], [place] [address] September, IMMUNIZATIONS No Known Immunizations SOCIAL HISTORY Never Assessed REASON FOR VISIT Hospital f/u, 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 -Yaniv BILLINGS PLAN OF CARE VITAL SIGNS Height 66 in 2018-04-11 Weight 204. lbs 2018-04-11 Temperature 98.1 degrees Fahrenheit 2018-04-11 Heart Rate 88 bpm 2018-04-11 Respiratory Rate 18 2018-04-11 BMI 32.92 kg/m2 2018-04-11 Blood pressure systolic 145 mmHg 2018-04-11 Blood pressure diastolic 70 mmHg 2018-04-11 MEDICATIONS Medication Instructions Dosage Frequency Start Date End Date Duration Status Lactulose 20 GM/30ML Orally 3 times a day 15 ml 8h Active Aspirin 81 81 MG Orally Once a day 1 tablet 24h Active Multivitamin Adults - Active Xifaxan 550 MG Orally Twice a day 1 tablet 12h Mar, 30 day(s) Active Lisinopril-Hydrochlorothiazide 20-25 MG 1 tablet 30 Not-Taking Cefdinir 300 MG Not-Taking Lasix 20 mg Orally Once a day 1 tablet 24h September, 30 day(s) Active Ciprofloxacin HCl 500 MG Orally every 12 hrs 1 tablet 12h 10 day(s) Active Flomax 0.4 MG Orally Once a day 1 capsule 30 minutes after the same meal each day 24h Not-Taking Fluconazole 100 MG Active Lisinopril 20 mg Orally Once a day 2 tablets 24h Active RESULTS No Results PROCEDURES Procedure Date Ordered Result Body Site [facility] VISIT ESTABLISHED PATIENT Apr 11, 2018 INSTRUCTIONS MEDICATIONS ADMINISTERED No Known Medications MEDICAL [...]
--- OUTSIDE RECORDS SUMMARY | 2018-10-04 14:34 | XMS REPORT ---
Author Author LUCÍA YANEZ Organization [facility] Address [address] [place] [address] Care Team Providers Care Heel Dipper Name Role Phone LUCÍA YANEZ Unavailable PROBLEMS Type Condition ICD9-CM Code PXQ37-VC Code Onset Dates Condition Status SNOMED Code Problem Chronic liver failure without hepatic coma K72.10 Active 617694920 Problem Generalized edema R60.1 Active 017119975 Problem Alcohol abuse F10.10 Active 49394254 Problem Chronic hepatitis C without hepatic coma B18.2 Active 042607834 ALLERGIES No Information ENCOUNTERS Encounter Location Date Diagnosis [facility] [id number] [place] [address] Apr, Chronic liver failure without hepatic coma K72.10 [facility] [place] [id number] [place] [address] Mar, [facility] [place] [id number] [place] [address] Mar, Chronic liver failure without hepatic coma K72.10 [facility] [place] [id number] [place] [address] Nov, [facility] [place] [id number] [place] [address] Nov, [facility] [place] [id number] [place] [address] Oct, Hepatic encephalopathy K72.90 [facility] [place] [id number] [place] [address] Oct, [facility] [place] [id number] [place] [address] Oct, [facility] [place] [id number] [place] [address] Oct, [facility] [place] [address] [address] September, Generalized edema R60.1 ; Alcohol abuse F10.10 and Chronic hepatitis C without hepatic coma B18.2 [facility] [place] [id number] [place] [address] September, [facility] [place] [id number] [place] [address] Aug, [facility] [place] [id number] [place] [address] Jul, [facility] [address] [place] [address] Jul, [facility] [place] [id number] [place] [address] Jul, Chronic hepatitis C without hepatic coma B18.2 ; Generalized edema R60.1 and Alcohol abuse F10.10 [facility] [place] [id number] [place] [address] Jul, Cellulitis 682.9 [facility] [place] [id number] [place] [address] Jan, Cellulitis 682.9 and Edema 782.3 [facility] [place] [id number] [place] [address] September, [facility] [place] [id number] [place] [address] Aug, [facility] [place] [id number] [place] [address] Aug, [facility] [place] [id number] [place] [address] Jul, [facility] [place] [id number] [place] [address] Jul, [facility] [place] [id number] [place] [address], [place] [address] Jul, [facility] [place] [facility] [address] [id number] [place] [address] Jul, [facility] [place] [facility] [address] [id number] [place] [address] Jul, [facility] [place] [facility] [address] [id number] [place] [address] Feb, [facility] [place] [facility] [address] [id number] [place] [address] Feb, [facility] [place] [facility] [address] [id number] [place] [address] Feb, [facility] [place] [facility] [address] [id number] [place] [address] Feb, [facility] [place] [facility] [address] [id number] [place] [address] Feb, [facility] [place] [facility] [address] [id number] [place] [address] Jan, [facility] [place] [facility] [address] [id number] [place] [address] Jan, [facility] [place] [facility] [address] [id number] [place] [address] Jan, [facility] [place] [facility] [address] [id number] [place] [address] Jan, [facility] [place] [facility] [address] [id number] [place] [address] Dec, [facility] [place] [facility] [address] [id number] [place] [address] Dec, [facility] [place] [facility] [address] [id number] [place] [address] September, [facility] [place] [facility] [address] [id number] [place] [address] September, [facility] [place] [facility] [address] [id number] [place] [address] September, [facility] [place] [facility] [address] [id number] [place] [address] September, [facility] [place] [facility] [address] [id number] [place] [address] September, [facility] [place] [facility] [address] [id number] [place] [address] September, [facility] [place] [facility] [address] [id number] [place] [address] September, [facility] [place] [facility] [address] [id number] [place] [address] September, [facility] [place] [facility] [address] [id number] [place] [address] September, [facility] [place] [facility] [address] [id number] [place] [address] September, [facility] [place] [facility] [address] [id number] [place] [address] Aug, [facility] [place] [facility] [address] [id number] [place] [address] Aug, [facility] [place] [facility] [address] [id number] [place] [address] Aug, [facility] [place] [facility] [address] [id number] [place] [address] Aug, [facility] [place] [facility] [address] [id number] [place] [address] Jul, [facility] [place] [facility] [address] [id number] [place] [address] Jul, [facility] [place] [facility] [address] [id number] [place] [address] Jul, [facility] [place] [facility] [address] [id number] [place] [address] Jul, [facility] [place] [address] [facility] [id number] [place] [address] Jul, [facility] [place] [address] [facility] [id number] [address] Jul, [facility] [place] [address] [facility] [id number] [place] [address] Jun, [facility] [place] [address] [facility] [id number] [place] [address] Jun, [facility] [place] [address] [facility] [id number] [place] [address] Oct, [facility] [place] [id number] [address] September, IMMUNIZATIONS No Known Immunizations SOCIAL HISTORY Never Assessed REASON FOR VISIT Lab (walk-in) PLAN OF CARE Activity Details Pending Test AMMONIA Future/Pending Procedure ROUTINE VENIPUNCTURE VITAL SIGNS MEDICATIONS Unknown Medications RESULTS No Results PROCEDURES Procedure Date Ordered Result Body Site LAB NOT BILLED BY [facility] May 05, 2018 VENIPUNCT, ROUTINE* May 05, 2018 INSTRUCTIONS MEDICATIONS ADMINISTERED No Known Medications [...]
--- OUTSIDE RECORDS SUMMARY | 2018-10-04 14:35 | XMS REPORT ---
Author Author LUCÍA YANEZ Organization [facility] [place] Address [address] [place] [address] Care Team Providers Care Card Boxer Name Role Phone LUCÍA YANEZ Unavailable PROBLEMS Type Condition ICD9-CM Code QNP58-TX Code Onset Dates Condition Status SNOMED Code Problem Generalized edema R60.1 Active 895977941 Problem Alcohol abuse F10.10 Active 21392272 Problem Chronic hepatitis C without hepatic coma B18.2 Active 490409810 ALLERGIES No Known Allergies ENCOUNTERS Encounter Location Date Diagnosis [facility] [place] [id number] [place] [address] Nov, [facility] [place] [address] [address] Nov, [facility] [place] [id number] [place] [address] Oct, Hepatic encephalopathy K72.90 [facility] [place] [id number] [place] [address] Oct, [facility] [place] [id number] [place] [address] Oct, [facility] [place] [id number] [place] [address] Oct, [facility] [place] [id number] [place] [address] September, Generalized edema R60.1 ; Alcohol abuse F10.10 and Chronic hepatitis C without hepatic coma B18.2 [facility] [place] [id number] [place] [address] September, [facility] [place] [id number] [place] [address] Aug, [facility] [place] [address] [address] Jul, [facility] [address] [place] [address] Jul, [facility] [id number] [place] [address] Jul, Chronic hepatitis C without hepatic coma B18.2 ; Generalized edema R60.1 and Alcohol abuse F10.10 [facility] [id number] [place] [address] Jul, Cellulitis 682.9 [facility] [id number] [place] [address] Jan, Cellulitis 682.9 and Edema 782.3 [facility] [id number] [place] [address] September, [facility] [id number] [place] [address] Aug, [facility] [id number] [place] [address] Aug, [facility] [id number] [place] [address] Jul, [facility] [id number] [place] [address] Jul, [facility] [id number] [place] [address] Jul, [facility] [id number] [place] [address] Jul, [facility] [id number] [place] [address] Jul, [facility] [address] [address] Feb, [facility] [id number] [place] [address] Feb, [facility] [place] [facility] [address] [id number] [place] [address] Feb, [facility] [place] [facility] [address] [id number] [place] [address] Feb, [facility] [place] [facility] [address] [id number] [place] [address] Feb, [facility] [place] [facility] [address] [id number] [place] [address] Jan, [facility] [place] [facility] [address] [id number] [place] [address] Jan, [facility] [place] [facility] [address] [id number] [place] [address] Jan, [facility] [place] [facility] [address] [id number] [place] [address] Jan, [facility] [place] [facility] [address] [id number] [place] [address] Dec, [facility] [place] [facility] [address] [id number] [place] [address] Dec, [facility] [place] [facility] [address] [id number] [place] [address] September, [facility] [place] [facility] [address] [id number] [place] [address] September, [facility] [place] [facility] [address] [id number] [place] [address] September, [facility] [place] [facility] [address] [id number] [place] [address] September, [facility] [place] [facility] [address] [id number] [place] [address] September, [facility] [place] [facility] [address] [id number] [place] [address] September, [facility] [place] [facility] [address] [id number] [place] [address] September, [facility] [place] [facility] [address] [id number] [place] [address] September, [facility] [place] [facility] [address] [id number] [place] [address] September, [facility] [place] [facility] [address] [id number] [place] [address] September, [facility] [place] [facility] [address] [id number] [place] [address] Aug, [facility] [place] [facility] [address] [id number] [place] [address] Aug, [facility] [place] [facility] [address] [id number] [place] [address] Aug, [facility] [place] [facility] [address] [id number] [place] [address] Aug, [facility] [place] [facility] [address] [id number] [place] [address] Jul, [facility] [place] [facility] [address] [id number] [place] [address] Jul, [facility] [place] [facility] [address] [id number] [place] [address] Jul, [facility] [place] [facility] [address] [id number] [place] [address] Jul, [facility] [place] [facility] [address] [id number] [place] [address] Jul, [facility] [place] [facility] [address] [id number] [place] [address] Jul, [facility] [place] [facility] [address] [id number] [place] [address] Jun, [facility] [place] [facility] [address] [id number] [place] [address] Jun, [facility] [place] [address] [facility] [id number] [place] [address] Oct, [facility] [place] [address] [facility] [id number] [place] [address] September, IMMUNIZATIONS No Known Immunizations SOCIAL HISTORY Never Assessed REASON FOR VISIT [facility] Follow up, PT went to the hospital on 11/01 due to heptaic encephalopathy. PT s partner says pt still has his cathader in and has been bothering him -Kary BILLINGS , PTs partner reports his shakes started back again late las night. Its repo rts this morning the pt had to be feed and got sick. Its noted he almost fell wh ile getting out of his truck -Yaniv BILLINGS PLAN OF CARE VITAL SIGNS Height 66 in 2017-11-11 Weight 196.6 lbs 2017-11-11 Temperature 98.6 degrees Fahrenheit 2017-11-11 Heart Rate 68 bpm 2017-11-11 Respiratory Rate 18 2017-11-11 Oximetry on room air:96 % 2017-11-11 BMI 31.73 kg/m2 2017-11-11 Blood pressure systolic 140 mmHg 2017-11-11 Blood pressure diastolic 65 mmHg 2017-11-11 MEDICATIONS Medication Instructions Dosage Frequency Start Date End Date Duration Status Cefdinir 300 MG Not-Taking Fluconazole 100 MG Active Multivitamin Adults - Active Flomax 0.4 MG Orally Once a day 1 capsule 30 minutes after the same meal each day 24h Not-Taking Lisinopril 20 mg Orally Once a day 2 tablets 24h Active Lisinopril-Hydrochlorothiazide 20-25 MG 1 tablet 30 Not-Taking Xifaxan 200 mg Orally Three times a day 2 tablets 8h Oct, Dec, 30 days Active Lasix 20 mg Orally Once a day 1 tablet 24h September, 30 day(s) Not-Taking Lactulose 20 GM/30ML Orally 3 times a day 15 ml 8h Active Aspirin 81 81 MG Orally Once a day 1 tablet 24h Active RESULTS No Results PROCEDURES No Known [...]
--- OUTSIDE RECORDS SUMMARY | 2018-10-04 14:35 | XMS REPORT ---
Author Author DONTE CASTANEDA [facility] Address [address] [place] [address] Care Team Providers Care Cleaning Maid Name Role Phone LEONELTESSA FLANAGANHANY Unavailable PROBLEMS Type Condition ICD9-CM Code [id number] Code Onset Dates Condition Status SNOMED Code Problem Generalized edema R60.1 Active 138349496 Problem Alcohol abuse F10.10 Active 90012384 Problem Chronic hepatitis C without hepatic coma B18.2 Active 274822657 ALLERGIES No Information ENCOUNTERS Encounter Location Date Diagnosis [facility] [id number] [place] [address] Nov, [facility] [address] [address] Nov, [facility] [id number] [place] [address] Oct, Hepatic encephalopathy K72.90 [facility] [id number] [place] [address] Oct, [facility] [id number] [place] [address] Oct, [facility] [id number] [place] [address] Oct, [facility] [id number] [place] [address] September, Generalized edema R60.1 ; Alcohol abuse F10.10 and Chronic hepatitis C without hepatic coma B18.2 [facility] [id number] [place] [address] September, [facility] [address] [address] Aug, [facility] [address] [address] Jul, [facility] [address] [facility] [place] [address] Jul, [facility] [address], [place] [address] Jul, Chronic hepatitis C without hepatic coma B18.2 ; Generalized edema R60.1 and Alcohol abuse F10.10 [facility] [id number] [address] 18 Jul, 2015 Cellulitis 682.9 [facility] [id number] [place] [address] Jan, Cellulitis 682.9 and Edema 782.3 [facility] [id number] [place] [address] September, [facility] [address], [place] [address] Aug, [facility] [id number] [place] [address] Aug, [facility] [id number] [place] [address] Jul, [facility] [address] [address] Jul, [facility] [address], [place] [address] Jul, [facility] [address], [place] [address] Jul, [facility] [id number] [place] [address] Jul, [facility] [address], [place] [address] Feb, [facility] [id number] [place] [address] Feb, [facility] [place] [facility] [address] [id number] [place] [address] Feb, [facility] [place] [facility] [address] [id number] [place] [address] Feb, [facility] [place] [facility] [address] [id number] [place] [address] Feb, [facility] [place] [facility] [address] [id number] [place] [address] Jan, [facility] [place] [facility] [address] [id number] [place] [address] Jan, [facility] [place] [facility] [address] [id number] [place] [address] Jan, [facility] [place] [facility] [address] [id number] [place] [address] Jan, [facility] [place] [facility] [address] [id number] [place] [address] Dec, [facility] [place] [facility] [address] [id number] [place] [address] Dec, [facility] [place] [facility] [address] [id number] [place] [address] September, [facility] [place] [facility] [address] [id number] [place] [address] September, [facility] [place] [facility] [address] [id number] [place] [address] September, [facility] [place] [facility] [address] [id number] [place] [address] September, [facility] [place] [facility] [address] [id number] [place] [address] September, [facility] [place] [facility] [address] [id number] [place] [address] September, [facility] [place] [facility] [address] [id number] [place] [address] September, [facility] [place] [facility] [address] [id number] [place] [address] September, [facility] [place] [facility] [address] [id number] [place] [address] September, [facility] [place] [facility] [address] [id number] [place] [address] September, [facility] [place] [facility] [address] [id number] [place] [address] Aug, [facility] [place] [facility] [address] [id number] [place] [address] Aug, [facility] [place] [facility] [address] [id number] [place] [address] Aug, [facility] [place] [facility] [address] [id number] [place] [address] Aug, [facility] [place] [facility] [address] [id number] [place] [address] Jul, [facility] [place] [facility] [address] [id number] [place] [address] Jul, [facility] [place] [facility] [address] [id number] [place] [address] Jul, [facility] [place] [facility] [address] [id number] [place] [address] Jul, [facility] [place] [facility] [address] [id number] [place] [address] Jul, [facility] [place] [facility] [address] [id number] [place] [address] Jul, [facility] [place] [facility] [address] [id number] [place] [address] Jun, [facility] [place] [facility] [address] [id number] [place] [address] Jun, [facility] [address] [facility] [id number] [place] [address] Oct, [facility] [address] [facility] [id number] [address] September, IMMUNIZATIONS No Known Immunizations SOCIAL HISTORY Never Assessed REASON FOR VISIT Hospital admit/DC PLAN OF CARE VITAL SIGNS MEDICATIONS Medication Instructions Dosage Frequency Start Date End Date Duration Status Lasix 20 mg Orally Once a day 1 tablet 24h September, 30 day(s) Not-Taking Cialis 5 MG Orally Once a day 1 tablet as needed 24h September, Oct, 30 day(s) Not-Taking Lisinopril-Hydrochlorothiazide 20-25 MG 1 tablet 30 Not-Taking Aspirin 81 81 MG Orally Once a day 1 tablet 24h Active Lisinopril 20 mg Orally Once a day 2 tablets 24h Active Xifaxan 200 mg Orally Three times a day 2 tablets 8h Oct, Dec, 30 days Active Flomax 0.4 MG Orally Once a day 1 capsule 30 minutes after the same meal each day 24h Active Lactulose 20 GM/30ML Orally 3 times a day 15 ml 8h Active Multivitamin Adults - Active Fluconazole 100 mg Orally Once a day 1 tablet 24h Oct, Oct, Active Cefdinir 300 MG Orally every 12 hrs 1 capsule 12h Oct, Oct, Active RESULTS No Results PROCEDURES No Known [...]
--- OUTSIDE RECORDS SUMMARY | 2018-10-04 14:35 | XMS REPORT ---
Author Author LUCÍA YANEZ Organization [facility] Address [address] [place] [address] Care Team Providers Care Foam Cutting Supervisor Name Role Phone LUCÍA YANEZ Unavailable PROBLEMS Type Condition ICD9-CM Code KMK80-JO Code Onset Dates Condition Status SNOMED Code Problem Generalized edema R60.1 Active 871899583 Problem Alcohol abuse F10.10 Active 59460087 Problem Chronic hepatitis C without hepatic coma B18.2 Active 119664664 ALLERGIES No Information ENCOUNTERS Encounter Location Date Diagnosis [facility] [id number] [place] [address] Nov, [facility] [address] [address] Nov, [facility] [id number] [place] [address] Oct, Hepatic encephalopathy K72.90 [facility] [id number] [place] [address] Oct, [facility] [id number] [place] [address] Oct, [facility] [id number] [place] [address] Oct, [facility] [id number] [place] [address] September, Generalized edema R60.1 ; Alcohol abuse F10.10 and Chronic hepatitis C without hepatic coma B18.2 [facility] [id number] [place] [address] September, [facility] [id number] [place] [address] Aug, [facility] [address], [place] [address] Jul, [facility] [address] [place] [address] Jul, [facility] [id number] [place] [address] Jul, Chronic hepatitis C without hepatic coma B18.2 ; Generalized edema R60.1 and Alcohol abuse F10.10 [facility] [id number] [place] [address] 18 Jul, 2015 Cellulitis 682.9 [facility] [id number] [place] [address] Jan, Cellulitis 682.9 and Edema 782.3 [facility] [id number] [place] [address] September, [facility] [id number] [place] [address] Aug, [facility] [id number] [place] [address] Aug, [facility] [id number] [place] [address] Jul, [facility] [id number] [place] [address] Jul, [facility] [id number] [place] [address] Jul, [facility] [address], [place] [address] Jul, [facility] [id number] [place] [address] Jul, [facility] [address], [place] [address] Feb, [facility] [id number] [place] [address] Feb, [facility] [place] [facility] [address] [id number] [place] [address] Feb, [facility] [place] [facility] [address] [id number] [place] [address] Feb, [facility] [place] [facility] [address] [id number] [place] [address] Feb, [facility] [place] [facility] [address] [id number] [place] [address] Jan, [facility] [place] [facility] [address] [id number] [place] [address] Jan, [facility] [place] [facility] [address] [id number] [place] [address] Jan, [facility] [place] [facility] [address] [id number] [place] [address] Jan, [facility] [place] [facility] [address] [id number] [place] [address] Dec, [facility] [place] [facility] [address] [id number] [place] [address] Dec, [facility] [place] [facility] [address] [id number] [place] [address] September, [facility] [place] [facility] [address] [id number] [place] [address] September, [facility] [place] [facility] [address] [id number] [place] [address] September, [facility] [place] [facility] [address] [id number] [place] [address] September, [facility] [place] [facility] [address] [id number] [place] [address] September, [facility] [place] [facility] [address] [id number] [place] [address] September, [facility] [place] [facility] [address] [id number] [place] [address] September, [facility] [place] [facility] [address] [id number] [place] [address] September, [facility] [place] [facility] [address] [id number] [place] [address] September, [facility] [place] [facility] [address] [id number] [place] [address] September, [facility] [place] [facility] [address] [id number] [place] [address] Aug, [facility] [place] [facility] [address] [id number] [place] [address] Aug, [facility] [place] [facility] [address] [id number] [place] [address] Aug, [facility] [place] [facility] [address] [id number] [place] [address] Aug, [facility] [place] [facility] [address] [id number] [place] [address] Jul, [facility] [place] [facility] [address] [id number] [place] [address] Jul, [facility] [place] [facility] [address] [id number] [place] [address] Jul, [facility] [place] [facility] [address] [id number] [place] [address] Jul, [facility] [place] [facility] [address] [id number] [place] [address] Jul, [facility] [place] [facility] [address] [id number] [place] [address] Jul, [facility] [place] [facility] [address] [id number] [place] [address] Jun, [facility] [place] [facility] [address] [id number] [place] [address] Jun, [facility] [address] [facility] [id number] [place] [address] Oct, [facility] [address] [facility] [id number], [place] [address] September, IMMUNIZATIONS No Known Immunizations SOCIAL HISTORY Never Assessed REASON FOR VISIT Home Health Note PLAN OF CARE VITAL SIGNS MEDICATIONS Unknown Medications RESULTS No Results PROCEDURES No Known procedures INSTRUCTIONS MEDICATIONS ADMINISTERED No Known Medications MEDICAL (GENERAL) HISTORY Type Description Date Medical History Hypertension Medical History Hepatitis C Medical History low sodium Surgical History appendectomy Surgical History surgery at 6 mos old, pt cannot recall what kind of surgery Hospitalization History detoxing, UTI, liver failure 09/2017 Hospitalization History Hepatic encephalopathy, Sepsis, UTI-[facility] [place] [facility] 10/2017
--- OUTSIDE RECORDS SUMMARY | 2018-10-04 14:35 | XMS REPORT ---
Author Author LUCÍA YANEZ Organization [facility] Address [address] [place] [address] Care Team Providers Care Bulk Sugar Handler Name Role Phone LUCÍA YANEZ Unavailable PROBLEMS Type Condition ICD9-CM Code VZE14-OG Code Onset Dates Condition Status SNOMED Code Problem Chronic liver failure without hepatic coma K72.10 Active 468834885 Problem Generalized edema R60.1 Active 959611407 Problem Alcohol abuse F10.10 Active 45691204 Problem Chronic hepatitis C without hepatic coma B18.2 Active 833773151 ALLERGIES No Information ENCOUNTERS Encounter Location Date Diagnosis [facility] [id number] [place] [address] Mar, [facility] [id number] [place] [address] Mar, Chronic liver failure without hepatic coma K72.10 [facility] [id number] [place] [address] Nov, [facility] [id number] [place] [address] Nov, [facility] [id number] [place] [address] Oct, Hepatic encephalopathy K72.90 [facility] [id number] [place] [address] Oct, [facility] [id number] [place] [address] Oct, [facility] [id number] [place] [address] Oct, [facility] [id number] [place] [address] September, Generalized edema R60.1 ; Alcohol abuse F10.10 and Chronic hepatitis C without hepatic coma B18.2 [facility] [id number] [place] [address] September, [facility] [address] [place] [address] Aug, [facility] [id number] [place] [address] Jul, [facility] [address] [place] [address] Jul, [facility] [id number] [place] [address] Jul, Chronic hepatitis C without hepatic coma B18.2 ; Generalized edema R60.1 and Alcohol abuse F10.10 [facility] [id number] [place] [address] Jul, Cellulitis 682.9 [facility] [id number] [place] [address] Jan, Cellulitis 682.9 and Edema 782.3 [facility] [id number] [place] [address] September, [facility] [address] [address] 14 Aug, 2014 [facility] [address] [place] [address] Aug, [facility] [address] [place] [address] 27 Jul, 2014 [facility] [id number] [place] [address] 27 Jul, 2014 [facility] [address] [address] Jul, [facility] [id number] [place] [address] Jul, [facility] [place] [facility] [address] [id number] [place] [address] Jul, [facility] [place] [facility] [address] [id number] [place] [address] Feb, [facility] [place] [facility] [address] [id number] [place] [address] Feb, [facility] [place] [facility] [address] [id number] [place] [address] Feb, [facility] [place] [facility] [address] [id number] [place] [address] Feb, [facility] [place] [facility] [address] [id number] [place] [address] Feb, [facility] [place] [facility] [address] [id number] [place] [address] Jan, [facility] [place] [facility] [address] [id number] [place] [address] Jan, [facility] [place] [facility] [address] [id number] [place] [address] Jan, [facility] [place] [facility] [address] [id number] [place] [address] Jan, [facility] [place] [facility] [address] [id number] [place] [address] Dec, [facility] [place] [facility] [address] [id number] [address] Dec, [facility] [place] [facility] [address] [id number] [place] [address] September, [facility] [place] [facility] [address] [id number] [place] [address] September, [facility] [place] [facility] [address] [id number] [place] [address] September, [facility] [place] [facility] [address] [id number] [place] [address] September, [facility] [place] [facility] [address] [id number] [place] [address] September, [facility] [place] [facility] [address] [id number] [place] [address] September, [facility] [place] [facility] [address] [id number] [place] [address] September, [facility] [place] [facility] [address] [id number] [place] [address] September, [facility] [place] [facility] [address] [id number] [place] [address] September, [facility] [place] [facility] [address] [id number] [place] [address] September, [facility] [place] [facility] [address] [id number] [place] [address] Aug, [facility] [place] [facility] [address] [id number] [place] [address] Aug, [facility] [place] [facility] [address] [id number] [place] [address] Aug, [facility] [place] [facility] [address] [id number] [place] [address] Aug, [facility] [place] [facility] [address] [id number] [place] [address] Jul, [facility] [place] [facility] [address] [id number] [place] [address] Jul, [facility] [place] [facility] [address] [id number] [place] [address] Jul, [facility] [place] [facility] [address] [id number] [place] [address] Jul, [facility] [place] [facility] [address] [id number] [place] [address] Jul, [facility] [address] [facility] [id number] [address] Jul, [facility] [address] [facility] [id number], [place] [address] Jun, [facility] [id number] [address] Jun, [facility] [id number] [address] Oct, [facility] [address] [facility] [id number], [place] [address] September, IMMUNIZATIONS No Known Immunizations SOCIAL HISTORY Never Assessed REASON FOR VISIT FYI only PLAN OF CARE VITAL SIGNS MEDICATIONS Unknown [...]
--- OUTSIDE RECORDS SUMMARY | 2018-10-04 14:35 | XMS REPORT ---
Author Author LUCÍA YANEZ Organization [facility] Address [address] [place] [address] Care Team Providers Care Daycare Manager Name Role Phone LUCÍA YANEZ Unavailable PROBLEMS Type Condition ICD9-CM Code WPB10-AE Code Onset Dates Condition Status SNOMED Code Problem Generalized edema R60.1 Active 900507083 Problem Alcohol abuse F10.10 Active 40976761 Problem Chronic hepatitis C without hepatic coma B18.2 Active 243569171 ALLERGIES No Known Allergies ENCOUNTERS Encounter Location Date Diagnosis [facility] [id number] [place] [address] Nov, [facility] [address] [address] Nov, [facility] [id number] [place] [address] Oct, Hepatic encephalopathy K72.90 [facility] [id number] [place] [address] Oct, [facility] [id number] [place] [address] Oct, [facility] [id number] [place] [address] Oct, [facility] [id number] [place] [address] September, Generalized edema R60.1 ; Alcohol abuse F10.10 and Chronic hepatitis C without hepatic coma B18.2 [facility] [id number] [place] [address] September, [facility] [id number] [place] [address] Aug, [facility] [address], [place] [address] Jul, [facility] [address] [place] [address] Jul, [facility] [id number] [place] [address] Jul, Chronic hepatitis C without hepatic coma B18.2 ; Generalized edema R60.1 and Alcohol abuse F10.10 [facility] [id number] [place] [address] Jul, Cellulitis 682.9 [facility] [id number] [place] [address] Jan, Cellulitis 682.9 and Edema 782.3 [facility] [id number] [place] [address] September, [facility] [id number] [place] [address] Aug, [facility] [id number] [place] [address] Aug, [facility] [id number] [place] [address] Jul, [facility] [address] [place] [address] Jul, [facility] [id number] [place] [address] Jul, [facility] [address] [place] [address] Jul, [facility] [id number] [place] [address] Jul, [facility] [address], [place] [address] Feb, [facility] [id number] [place] [address] Feb, [facility] [place] [facility] [address] [id number] [place] [address] Feb, [facility] [place] [facility] [address] [id number] [place] [address] Feb, [facility] [place] [facility] [address] [id number] [place] [address] Feb, [facility] [place] [facility] [address] [id number] [place] [address] Jan, [facility] [place] [facility] [address] [id number] [place] [address] Jan, [facility] [place] [facility] [address] [id number] [place] [address] Jan, [facility] [place] [facility] [address] [id number] [place] [address] Jan, [facility] [place] [facility] [address] [id number] [place] [address] Dec, [facility] [place] [facility] [address] [id number] [place] [address] Dec, [facility] [place] [facility] [address] [id number] [place] [address] September, [facility] [place] [facility] [address] [id number] [place] [address] September, [facility] [place] [facility] [address] [id number] [place] [address] September, [facility] [place] [facility] [address] [id number] [place] [address] September, [facility] [place] [facility] [address] [id number] [place] [address] September, [facility] [place] [facility] [address] [id number] [place] [address] September, [facility] [place] [facility] [address] [id number] [place] [address] September, [facility] [place] [facility] [address] [id number] [place] [address] September, [facility] [place] [facility] [address] [id number] [place] [address] September, [facility] [place] [facility] [address] [id number] [place] [address] September, [facility] [place] [facility] [address] [id number] [place] [address] Aug, [facility] [place] [facility] [address] [id number] [place] [address] Aug, [facility] [place] [facility] [address] [id number] [place] [address] Aug, [facility] [place] [facility] [address] [id number] [place] [address] Aug, [facility] [place] [facility] [address] [id number] [place] [address] Jul, [facility] [place] [facility] [address] [id number] [place] [address] Jul, [facility] [place] [facility] [address] [id number] [place] [address] Jul, [facility] [place] [facility] [address] [id number] [place] [address] Jul, [facility] [place] [facility] [address] [id number] [place] [address] Jul, [facility] [place] [facility] [address] [id number] [place] [address] Jul, [facility] [place] [facility] [address] [id number] [place] [address] Jun, [facility] [place] [facility] [address] [id number] [place] [address] Jun, [facility] [address] [facility] [id number] [place] [address] Oct, [facility] [address] [facility] [id number], [place] [address] September, IMMUNIZATIONS No Known Immunizations SOCIAL HISTORY Never Assessed REASON FOR VISIT Hospital Follow up CBrumbackRN PLAN OF CARE Activity Details Follow Up 2 Weeks Reason:elevated ammonia VITAL SIGNS Height 66 in 2017-10-11 Weight 213.0 lbs 2017-10-11 Temperature 97.9 degrees Fahrenheit 2017-10-11 Heart Rate 76 bpm 2017-10-11 Respiratory Rate 18 2017-10-11 BMI 34.38 kg/m2 2017-10-11 Blood pressure systolic 136 mmHg 2017-10-11 Blood pressure diastolic 72 mmHg 2017-10-11 MEDICATIONS Medication Instructions Dosage Frequency Start Date End Date Duration Status Lisinopril 20 MG Orally Once a day 1 tablet 24h Not-Taking Lasix 20 mg Orally Once a day 1 tablet 24h September, 30 day(s) Active Lisinopril-Hydrochlorothiazide 20-25 MG 1 tablet 30 Active Amoxicillin 500 mg Orally 3 times a day 1 capsule 8h Active Cialis 5 MG Orally Once a day 1 tablet as needed 24h September, Oct, 30 day(s) Active RESULTS No Results PROCEDURES No Known procedures INSTRUCTIONS MEDICATIONS ADMINISTERED No Known Medications MEDICAL (GENERAL) HISTORY Type Description Date Medical History Hypertension Medical History Hepatitis C Medical History low sodium Surgical History appendectomy Surgical History surgery at 6 mos old, pt cannot recall what kind of surgery Hospitalization History detoxing, UTI, liver failure 09/2017 Hospitalization History Hepatic encephalopathy, Sepsis, UTI-[facility] 10/2017
--- OUTSIDE RECORDS SUMMARY | 2018-10-04 14:35 | XMS REPORT ---
Author Author LUCÍA YANEZ Organization [facility] Address [address] [place] [address] Care Team Providers Care Insulation Cupola Charger Name Role Phone LUCÍA YANEZ Unavailable PROBLEMS Type Condition ICD9-CM Code PSJ35-TO Code Onset Dates Condition Status SNOMED Code Problem Generalized edema R60.1 Active 241248984 Problem Alcohol abuse F10.10 Active 55111436 Problem Chronic hepatitis C without hepatic coma B18.2 Active 453290797 ALLERGIES No Information ENCOUNTERS Encounter Location Date Diagnosis [facility] [id number] [place] [address] Nov, [facility] [address] [address] Nov, [facility] [id number] [place] [address] Oct, Hepatic encephalopathy K72.90 [facility] [id number] [place] [address] Oct, [facility] [id number] [place] [address] Oct, [facility] [id number] [place] [address] Oct, [facility] [id number] [place] [address] September, Generalized edema R60.1 ; Alcohol abuse F10.10 and Chronic hepatitis C without hepatic coma B18.2 [facility] [id number] [place] [address] September, [facility] [id number] [place] [address] Aug, [facility] [address] [address] Jul, [facility] [address] [place] [address] Jul, [facility] [id number] [place] [address] Jul, Chronic hepatitis C without hepatic coma B18.2 ; Generalized edema R60.1 and Alcohol abuse F10.10 [facility] [place] [id number] [place] [address] 18 Jul, 2015 Cellulitis 682.9 [facility] [place] [id number] [place] [address] Jan, Cellulitis 682.9 and Edema 782.3 [facility] [place] [id number] [place] [address] September, [facility] [place] [id number] [place] [address] Aug, [facility] [id number] [place] [address] Aug, [facility] [place] [id number] [place] [address] Jul, [facility] [place] [address] [place] [address] Jul, [facility] [address] [place] [address] Jul, [facility] [address] [address] Jul, [facility] [id number] [place] [address] Jul, [facility] [address] [address] Feb, [facility] [place] [id number] [place] [address] Feb, [facility] [place] [facility] [address] [id number] [place] [address] Feb, [facility] [place] [facility] [address] [id number] [place] [address] Feb, [facility] [place] [facility] [address] [id number] [place] [address] Feb, [facility] [place] [facility] [address] [id number] [place] [address] Jan, [facility] [place] [facility] [address] [id number] [place] [address] Jan, [facility] [place] [facility] [address] [id number] [place] [address] Jan, [facility] [place] [facility] [address] [id number] [place] [address] Jan, [facility] [place] [facility] [address] [id number] [place] [address] Dec, [facility] [place] [facility] [address] [id number] [place] [address] Dec, [facility] [place] [facility] [address] [id number] [place] [address] September, [facility] [place] [facility] [address] [id number] [place] [address] September, [facility] [place] [facility] [address] [id number] [place] [address] September, [facility] [place] [facility] [address] [id number] [place] [address] September, [facility] [place] [facility] [address] [id number] [place] [address] September, [facility] [place] [facility] [address] [id number] [place] [address] September, [facility] [place] [facility] [address] [id number] [place] [address] September, [facility] [place] [facility] [address] [id number] [place] [address] September, [facility] [place] [facility] [address] [id number] [place] [address] September, [facility] [place] [facility] [address] [id number] [place] [id number] September, [facility] [place] [facility] [address] [id number] [place] [address] Aug, [facility] [place] [facility] [address] [id number] [place] [address] Aug, [facility] [place] [facility] [address] [id number] [place] [id number] Aug, [facility] [place] [facility] [address] [id number] [place] [id number] Aug, [facility] [place] [facility] [address] [id number] [place] [id number] Jul, [facility] [place] [facility] [address] [id number] [place] [id number] Jul, [facility] [place] [facility] [address] [id number] [place] [id number] Jul, [facility] [place] [facility] [address] [id number] [place] [id number] Jul, [facility] [place] [facility] [address] [id number] [place] [id number] Jul, [facility] [place] [facility] [address] [id number] [place] [id number] Jul, [facility] [place] [facility] [address] [id number] [place] [id number] Jun, [facility] [place] [facility] [address] [id number] [place] [id number] Jun, [facility] [address] [facility] [id number] [place] [address] Oct, [facility] [address] [facility] [id number] [address] September, IMMUNIZATIONS No Known Immunizations SOCIAL HISTORY Never Assessed REASON FOR VISIT Requests return call PLAN OF CARE VITAL SIGNS MEDICATIONS Medication Instructions Dosage Frequency Start Date End Date Duration Status Xifaxan 200 mg Orally Three times a day 2 tablets 8h Oct, Dec, 30 days Active RESULTS No Results PROCEDURES No Known [...]
--- OUTSIDE RECORDS SUMMARY | 2018-10-04 14:35 | XMS REPORT ---
Author Author LUCÍA YANEZ Organization [facility] Address [address] [place] [address] Care Team Providers Care Priming Machine Operator Name Role Phone LUCÍA YANEZ Unavailable PROBLEMS Type Condition ICD9-CM Code [id number] Code Onset Dates Condition Status SNOMED Code Problem Generalized edema R60.1 Active 371891951 Problem Alcohol abuse F10.10 Active 71451410 Problem Chronic hepatitis C without hepatic coma B18.2 Active 220665149 ALLERGIES No Information ENCOUNTERS Encounter Location Date Diagnosis [facility] [id number] [place] [address] Nov, [facility] [address] [address] Nov, [facility] [id number] [place] [address] Oct, Hepatic encephalopathy K72.90 [facility] [id number] [place] [address] Oct, [facility] [id number] [place] [address] Oct, [facility] [id number] [place] [address] Oct, [facility] [id number] [place] [address] September, Generalized edema R60.1 ; Alcohol abuse F10.10 and Chronic hepatitis C without hepatic coma B18.2 [facility] [id number] [place] [address] September, [facility] [id number] [place] [address] Aug, [facility] [address] [address] Jul, [facility] [address] [place] [address] Jul, [facility] [id number] [place] [address] Jul, Chronic hepatitis C without hepatic coma B18.2 ; Generalized edema R60.1 and Alcohol abuse F10.10 [facility] [id number] [place] [address] 18 Jul, 2015 Cellulitis 682.9 [facility] [id number] [place] [address] Jan, Cellulitis 682.9 and Edema 782.3 [facility] [id number] [place] [address] September, [facility] [id number] [place] [address] Aug, [facility] [id number] [place] [address] Aug, [facility] [id number] [place] [address] Jul, [facility] [id number] [place] [address] Jul, [facility] [id number] [place] [address] Jul, [facility] [address], [place] [address] Jul, [facility] [id number] [place] [address] Jul, [facility] [address], [place] [address] Feb, [facility] [id number] [place] [address] Feb, [facility] [place] [facility] [address] [id number] [place] [address] Feb, [facility] [place] [facility] [address] [id number] [place] [address] Feb, [facility] [place] [facility] [address] [id number] [place] [address] Feb, [facility] [place] [facility] [address] [id number] [place] [address] Jan, [facility] [place] [facility] [address] [id number] [place] [address] Jan, [facility] [place] [facility] [address] [id number] [place] [address] Jan, [facility] [place] [facility] [address] [id number] [place] [address] Jan, [facility] [place] [facility] [address] [id number] [place] [address] Dec, [facility] [place] [facility] [address] [id number] [place] [address] Dec, [facility] [place] [facility] [address] [id number] [place] [address] September, [facility] [place] [facility] [address] [id number] [place] [address] September, [facility] [place] [facility] [address] [id number] [place] [address] September, [facility] [place] [facility] [address] [id number] [place] [address] September, [facility] [place] [facility] [address] [id number] [place] [address] September, [facility] [place] [facility] [address] [id number] [place] [address] September, [facility] [place] [facility] [address] [id number] [place] [address] September, [facility] [place] [facility] [address] [id number] [place] [address] September, [facility] [place] [facility] [address] [id number] [place] [address] September, [facility] [place] [facility] [address] [id number] [place] [address] September, [facility] [place] [facility] [address] [id number] [place] [address] Aug, [facility] [place] [facility] [address] [id number] [place] [address] Aug, [facility] [place] [facility] [address] [id number] [place] [address] Aug, [facility] [place] [facility] [address] [id number] [place] [address] Aug, [facility] [place] [facility] [address] [id number] [place] [address] Jul, [facility] [place] [facility] [address] [id number] [place] [address] Jul, [facility] [place] [facility] [address] [id number] [place] [address] Jul, [facility] [place] [facility] [address] [id number] [place] [address] Jul, [facility] [place] [facility] [address] [id number] [place] [address] Jul, [facility] [place] [facility] [address] [id number] [place] [address] Jul, [facility] [place] [facility] [address] [id number] [place] [address] Jun, [facility] [place] [facility] [address] [id number] [place] [address] Jun, [facility] [address] [facility] [id number] [place] [address] Oct, [facility] [address] [facility] [id number] [address] September, IMMUNIZATIONS No Known Immunizations SOCIAL HISTORY Never Assessed REASON FOR VISIT home health PLAN OF CARE VITAL SIGNS MEDICATIONS Unknown [...] failure 09/2017 Hospitalization History Hepatic encephalopathy, Sepsis, [facility]TI-[facility] 10/2017
--- OUTSIDE RECORDS SUMMARY | 2018-10-04 14:36 | XMS REPORT ---
Author Author LUCÍA YANEZ Organization [facility] Address [address] [place] [address] Care Team Providers Care Photography Intern Name Role Phone LUCÍA YANEZ Unavailable PROBLEMS Type Condition ICD9-CM Code NUE50-ZL Code Onset Dates Condition Status SNOMED Code Problem Generalized edema R60.1 Active 726883512 Problem Alcohol abuse F10.10 Active 38654927 Problem Chronic hepatitis C without hepatic coma B18.2 Active 161955738 ALLERGIES No Information ENCOUNTERS Encounter Location Date Diagnosis [facility] [id number] [place] [address] Nov, [facility] [address] [address] Nov, [facility] [id number] [place] [address] Oct, Hepatic encephalopathy K72.90 [facility] [id number] [place] [address] Oct, [facility] [id number] [place] [address] Oct, [facility] [id number] [place] [address] Oct, [facility] [id number] [place] [address] September, Generalized edema R60.1 ; Alcohol abuse F10.10 and Chronic hepatitis C without hepatic coma B18.2 [facility] [id number] [place] [address] September, [facility] [id number] [place] [address] Aug, [facility] [address] [address] Jul, [facility] [address] [place] [address] Jul, [facility] [id number] [place] [address] Jul, Chronic hepatitis C without hepatic coma B18.2 ; Generalized edema R60.1 and Alcohol abuse F10.10 [facility] [id number] [place] [address] 18 Jul, 2015 Cellulitis 682.9 [facility] [id number] [place] [address] Jan, Cellulitis 682.9 and Edema 782.3 [facility] [id number] [place] [address] September, [facility] [id number] [place] [address] Aug, [facility] [id number] [place] [address] Aug, [facility] [id number] [place] [address] Jul, [facility] [address] [place] [address] Jul, [facility] [address] [place] [address] Jul, [facility] [address] [address] Jul, [facility] [id number] [place] [address] Jul, [facility] [address], [place] [address] Feb, [facility] [id number] [place] [address] Feb, [facility] [place] [facility] [address] [id number] [place] [address] Feb, [facility] [place] [facility] [address] [id number] [place] [address] Feb, [facility] [place] [facility] [address] [id number] [place] [address] Feb, [facility] [place] [facility] [address] [id number] [place] [address] Jan, [facility] [place] [facility] [address] [id number] [place] [address] Jan, [facility] [place] [facility] [address] [id number] [place] [address] Jan, [facility] [place] [facility] [address] [id number] [place] [address] Jan, [facility] [place] [facility] [address] [id number] [place] [address] Dec, [facility] [place] [facility] [address] [id number] [place] [address] Dec, [facility] [place] [facility] [address] [id number] [place] [address] September, [facility] [place] [facility] [address] [id number] [place] [address] September, [facility] [place] [facility] [address] [id number] [place] [address] September, [facility] [place] [facility] [address] [id number] [place] [address] September, [facility] [place] [facility] [address] [id number] [place] [address] September, [facility] [place] [facility] [address] [id number] [place] [address] September, [facility] [place] [facility] [address] [id number] [place] [address] September, [facility] [place] [facility] [address] [id number] [place] [address] September, [facility] [place] [facility] [address] [id number] [place] [address] September, [facility] [place] [facility] [address] [id number] [place] [address] September, [facility] [place] [facility] [address] [id number] [place] [address] Aug, [facility] [place] [facility] [address] [id number] [place] [address] Aug, [facility] [place] [facility] [address] [id number] [place] [address] Aug, [facility] [place] [facility] [address] [id number] [place] [address] Aug, [facility] [place] [facility] [address] [id number] [place] [address] Jul, [facility] [place] [facility] [address] [id number] [place] [address] Jul, [facility] [place] [facility] [address] [id number] [place] [address] Jul, [facility] [place] [facility] [address] [id number] [place] [address] Jul, [facility] [place] [facility] [address] [id number] [place] [address] Jul, [facility] [place] [facility] [address] [id number] [place] [address] Jul, [facility] [place] [facility] [address] [id number] [place] [address] Jun, [facility] [place] [facility] [address] [id number] [place] [address] Jun, [facility] [address] [facility] [id number] [place] [address] Oct, [facility] [address] [facility] [id number] [address] September, IMMUNIZATIONS No Known Immunizations SOCIAL HISTORY Never Assessed REASON FOR VISIT Unable to contact/Lab results PLAN OF CARE VITAL SIGNS MEDICATIONS Unknown [...] failure 09/2017 Hospitalization History Hepatic encephalopathy, Sepsis, [facility] 10/2017
--- OUTSIDE RECORDS SUMMARY | 2018-10-04 14:36 | XMS REPORT ---
Author Author CECILIA SHARP [facility] Address [address] [place] [address] Care Team Providers Care School Traffic Guard Name Role Phone CECILIA SHARP Unavailable PROBLEMS Type Condition ICD9-CM Code HDH97-LC Code Onset Dates Condition Status SNOMED Code Problem Generalized edema R60.1 Active 816978592 Problem Alcohol abuse F10.10 Active 85304718 Problem Chronic hepatitis C without hepatic coma B18.2 Active 739169939 ALLERGIES No Information ENCOUNTERS Encounter Location Date Diagnosis [facility] [id number] [place] [address] Nov, [facility] [address] [address] Nov, [facility] [address] [address] Oct, Hepatic encephalopathy K72.90 [facility] [address] [address] Oct, [facility] [id number] [place] [address] Oct, [facility] [id number] [place] [address] Oct, [facility] [id number] [place] [address] September, Generalized edema R60.1 ; Alcohol abuse F10.10 and Chronic hepatitis C without hepatic coma B18.2 [facility] [id number] [place] [address] September, [facility] [address] [address] Aug, [facility] [address] [address] Jul, [facility] [address] [place] [address] Jul, [facility] [address] [address] Jul, Chronic hepatitis C without hepatic coma B18.2 ; Generalized edema R60.1 and Alcohol abuse F10.10 [facility] [id number] [place] [address] Jul, Cellulitis 682.9 [facility] [id number] [place] [address] Jan, Cellulitis 682.9 and Edema 782.3 [facility] [id number] [place] [address] September, [facility] [id number] [place] [address] Aug, [facility] [id number] [place] [address] Aug, [facility] [id number] [place] [address] Jul, [facility] [address] [address] Jul, [facility] [address] [address] Jul, [facility] [address] [address] Jul, [facility] [id number] [place] [address] Jul, [facility] [address] [address] Feb, [facility] [id number] [place] [address] [place] [address] Feb, [facility] [place] [facility] [address] [id number] [place] [address] Feb, [facility] [place] [facility] [address] [id number] [place] [address] Feb, [facility] [place] [facility] [address] [id number] [place] [address] Feb, [facility] [place] [facility] [address] [id number] [place] [address] Jan, [facility] [place] [facility] [address] [id number] [place] [address] Jan, [facility] [place] [facility] [address] [id number] [place] [address] Jan, [facility] [place] [facility] [address] [id number] [place] [address] Jan, [facility] [place] [facility] [address] [id number] [place] [address] Dec, [facility] [place] [facility] [address] [id number] [place] [address] Dec, [facility] [place] [facility] [address] [id number] [place] [address] September, [facility] [place] [facility] [address] [id number] [place] [address] September, [facility] [place] [facility] [address] [id number] [place] [address] September, [facility] [place] [facility] [address] [id number] [place] [address] September, [facility] [place] [facility] [address] [id number] [place] [address] September, [facility] [place] [facility] [address] [id number] [place] [address] September, [facility] [place] [facility] [address] [id number] [place] [address] September, [facility] [place] [facility] [address] [id number] [place] [address] September, [facility] [place] [facility] [address] [id number] [place] [address] September, [facility] [place] [facility] [address] [id number] [place] [address] September, [facility] [place] [facility] [address] [id number] [place] [address] Aug, [facility] [place] [facility] [address] [id number] [place] [address] Aug, [facility] [place] [facility] [address] [id number] [place] [address] Aug, [facility] [place] [facility] [address] [id number] [place] [address] Aug, [facility] [place] [facility] [address] [id number] [place] [address] Jul, [facility] [place] [facility] [address] [id number] [place] [address] Jul, [facility] [place] [facility] [address] [id number] [place] [address] Jul, [facility] [place] [facility] [address] [id number] [place] [address] Jul, [facility] [place] [facility] [address] [id number] [place] [address] Jul, [facility] [place] [facility] [address] [id number] [place] [address] Jul, [facility] [place] [facility] [address] [id number] [place] [address] Jun, [facility] [place] [facility] [address] [id number] [place] [address] Jun, [facility] [address] [facility] [id number] [place] [address] Oct, [facility] [address] [facility] [id number] [place] [address] September, IMMUNIZATIONS No Known Immunizations SOCIAL HISTORY Never Assessed REASON FOR VISIT FYI PLAN OF CARE VITAL SIGNS MEDICATIONS Unknown [...] failure 09/2017 Hospitalization History Hepatic encephalopathy, Sepsis, [facility] 10/2017
--- OUTSIDE RECORDS SUMMARY | 2018-10-04 14:36 | XMS REPORT ---
Author Author RADHA Crowell Organization [facility] Address [address] [place] [address] Care Team Providers Care Software Tester Name Role Phone RADHA Crowell Unavailable PROBLEMS Type Condition ICD9-CM Code RHI45-HN Code Onset Dates Condition Status SNOMED Code Problem Generalized edema R60.1 Active 394871949 Problem Alcohol abuse F10.10 Active 82727661 Problem Chronic hepatitis C without hepatic coma B18.2 Active 497369268 ALLERGIES No Information ENCOUNTERS Encounter Location Date Diagnosis [facility] [id number] [place] [address] Nov, [facility] [id number] [place] [address] Nov, [facility] [id number] [place] [address] Oct, Hepatic encephalopathy K72.90 [facility] [id number] [place] [address] Oct, [facility] [id number] [place] [address] Oct, [facility] [id number] [place] [address] Oct, [facility] [id number] [place] [address] September, Generalized edema R60.1 ; Alcohol abuse F10.10 and Chronic hepatitis C without hepatic coma B18.2 [facility] [id number] [place] [address] September, [facility] [id number] [place] [address] Aug, [facility] [address] [address] Jul, [facility] [address] [place] [address] Jul, [facility] [address] [address] Jul, Chronic hepatitis C without hepatic coma B18.2 ; Generalized edema R60.1 and Alcohol abuse F10.10 [facility] [id number] [place] [address] 18 Jul, 2015 Cellulitis 682.9 [facility] [id number] [place] [address] 02 Jan, 2015 Cellulitis 682.9 and Edema 782.3 [facility] [id number] [place] [address] September, [facility] [address] [address] 14 Aug, 2014 [facility] [id number] [place] [address] Aug, [facility] [address] [address] Jul, [facility] [address] [address] Jul, [facility] [address] [address] Jul, [facility] [id number] [place] [address] Jul, [facility] [address], [place] [address] Jul, [facility] [address] [address] Feb, [facility] [place] [facility] [address] [id number] [place] [address] Feb, [facility] [place] [facility] [address] [id number] [place] [address] Feb, [facility] [place] [facility] [address] [id number] [place] [address] Feb, [facility] [place] [facility] [address] [id number] [place] [address] Feb, [facility] [place] [facility] [address] [id number] [place] [address] Jan, [facility] [place] [facility] [address] [id number] [place] [address] Jan, [facility] [place] [facility] [address] [id number] [place] [address] Jan, [facility] [place] [facility] [address] [id number] [place] [address] Jan, [facility] [place] [facility] [address] [id number] [place] [address] Dec, [facility] [place] [facility] [address] [id number] [place] [address] Dec, [facility] [place] [facility] [address] [id number] [place] [address] September, [facility] [place] [facility] [address] [id number] [place] [address] September, [facility] [place] [facility] [address] [id number] [place] [address] September, [facility] [place] [facility] [address] [id number] [place] [address] September, [facility] [place] [facility] [address] [id number] [place] [address] September, [facility] [place] [facility] [address] [id number] [place] [address] September, [facility] [place] [facility] [address] [id number] [place] [address] September, [facility] [place] [facility] [address] [id number] [place] [address] September, [facility] [place] [facility] [address] [id number] [place] [address] September, [facility] [place] [facility] [address] [id number] [place] [address] September, [facility] [place] [facility] [address] [id number] [place] [address] Aug, [facility] [place] [facility] [address] [id number] [place] [address] Aug, [facility] [place] [facility] [address] [id number] [place] [address] Aug, [facility] [place] [facility] [address] [id number] [place] [address] Aug, [facility] [place] [facility] [address] [id number] [place] [address] Jul, [facility] [place] [facility] [address] [id number] [place] [address] Jul, [facility] [place] [facility] [address] [id number] [place] [address] Jul, [facility] [place] [facility] [address] [id number] [place] [address] Jul, [facility] [place] [facility] [address] [id number] [place] [address] Jul, [facility] [place] [facility] [address] [id number] [place] [address] Jul, [facility] [place] [facility] [address] [id number] [place] [address] Jun, [facility] [place] [facility] [address] [facility] [id number] [place] [address] Jun, [facility] [address] [id number] [place] [address] Oct, [facility] [address] [id number] [address] September, IMMUNIZATIONS No Known Immunizations SOCIAL HISTORY Never Assessed REASON FOR VISIT falling PLAN OF CARE VITAL SIGNS MEDICATIONS Unknown [...] failure 09/2017 Hospitalization History Hepatic encephalopathy, Sepsis, UTI-VC 10/2017
--- OUTSIDE RECORDS SUMMARY | 2018-10-04 14:36 | XMS REPORT ---
Author Author RADHA Crowell Organization [facility] Address [address] [place] [address] Care Team Providers Care Flame Annealing Machine Operator Name Role Phone RADHA Crowell Unavailable PROBLEMS Type Condition ICD9-CM Code ZBE90-CB Code Onset Dates Condition Status SNOMED Code Problem Generalized edema R60.1 Active 645174856 Problem Alcohol abuse F10.10 Active 56574162 Problem Chronic hepatitis C without hepatic coma B18.2 Active 382619224 ALLERGIES No Known Allergies ENCOUNTERS Encounter Location Date Diagnosis [facility] [id number] [place] [address] Nov, [facility] [id number] [place] [address] Nov, [facility] [id number] [place] [address] Oct, Hepatic encephalopathy K72.90 [facility] [id number] [place] [address] Oct, [facility] [id number] [place] [address] Oct, [facility] [id number] [place] [address] Oct, [facility] [id number] [place] [address] September, Generalized edema R60.1 ; Alcohol abuse F10.10 and Chronic hepatitis C without hepatic coma B18.2 [facility] [id number] [place] [address] September, [facility] [id number] [place] [address] Aug, [facility] [id number] [place] [address] Jul, [facility] [address] [place] [address] Jul, [facility] [id number] [place] [address] Jul, Chronic hepatitis C without hepatic coma B18.2 ; Generalized edema R60.1 and Alcohol abuse F10.10 [facility] [address] [place] [address] 18 Jul, 2015 Cellulitis 682.9 [facility] [id number] [place] [address] 02 Jan, 2015 Cellulitis 682.9 and Edema 782.3 [facility] [id number] [place] [address] September, [facility] [address], [place] [address] 14 Aug, 2014 [facility] [id number] [place] [address] Aug, [facility] [address], [place] [address] Jul, [facility] [address], [place] [address] Jul, [facility] [address], [place] [address] Jul, [facility] [address] [place] [address] Jul, [facility] [address], [place] [address] Jul, [facility] [address], [place] [address] Feb, [facility] [place] [facility] [address] [id number] [place] [address] Feb, [facility] [place] [facility] [address] [id number] [place] [address] Feb, [facility] [place] [facility] [address] [id number] [place] [address] Feb, [facility] [place] [facility] [address] [id number] [place] [address] Feb, [facility] [place] [facility] [address] [id number] [place] [address] Jan, [facility] [place] [facility] [address] [id number] [place] [address] Jan, [facility] [place] [facility] [address] [id number] [place] [address] Jan, [facility] [place] [facility] [address] [id number] [place] [address] Jan, [facility] [place] [facility] [address] [id number] [place] [address] Dec, [facility] [place] [facility] [address] [id number] [place] [address] Dec, [facility] [place] [facility] [address] [id number] [place] [address] September, [facility] [place] [facility] [address] [id number] [place] [address] September, [facility] [place] [facility] [address] [id number] [place] [address] September, [facility] [place] [facility] [address] [id number] [place] [address] September, [facility] [place] [facility] [address] [id number] [place] [address] September, [facility] [place] [facility] [address] [id number] [place] [address] September, [facility] [place] [facility] [address] [id number] [place] [address] September, [facility] [place] [facility] [address] [id number] [place] [address] September, [facility] [place] [facility] [address] [id number] [place] [address] September, [facility] [place] [facility] [address] [id number] [place] [address] September, [facility] [place] [facility] [address] [id number] [place] [address] Aug, [facility] [place] [facility] [address] [id number] [place] [address] Aug, [facility] [place] [facility] [address] [id number] [place] [address] Aug, [facility] [place] [facility] [address] [id number] [place] [address] Aug, [facility] [place] [facility] [address] [id number] [place] [address] Jul, [facility] [place] [facility] [address] [id number] [place] [address] Jul, [facility] [place] [facility] [address] [id number] [place] [address] Jul, [facility] [place] [facility] [address] [id number], [place] [address] Jul, [facility] [place] [facility] [address] [id number] [place] [address] Jul, [facility] [place] [facility] [address] [id number] [place] [address] Jul, [facility] [place] [facility] [address] [id number] [place] [address] Jun, [facility] [place] [facility] [address] [facility] [id number] [place] [address] Jun, [facility] [address] [facility] [id number] [place] [address] Oct, [facility] [address] [facility] [id number] [place] [address] September, IMMUNIZATIONS No Known Immunizations SOCIAL HISTORY Never Assessed REASON FOR VISIT Vomiting- states he has slowed down on his drinking since he was told he had He patitis C- feet swelling, Family states pt has been confused- --- Tracey Reynoso RN PLAN OF CARE Activity Details Follow Up needs appt with Everett HERRON after the echo is done Reason:edema VITAL SIGNS Height 66 in 2017-08-14 Weight 215 lbs 2017-08-14 Temperature 98.6 degrees Fahrenheit 2017-08-14 Heart Rate 78 bpm 2017-08-14 Respiratory Rate 18 2017-08-14 BMI 34.70 kg/m2 2017-08-14 Blood pressure systolic 138 mmHg 2017-08-14 Blood pressure diastolic 74 mmHg 2017-08-14 MEDICATIONS Medication Instructions Dosage Frequency Start Date End Date Duration Status Lisinopril-Hydrochlorothiazide 20-25 MG 1 tablet 30 Active RESULTS No Results PROCEDURES Procedure Date Ordered Result Body Site COMPREHEN METABOLIC PANEL August 14, 2017 COMPLETE CBC W/AUTO DIFF WBC August 14, 2017 NATRIURETIC PEPTIDE August 14, 2017 ASSAY THYROID STIM HORMONE August 14, 2017 VENIPUNCT, ROUTINE* August 14, 2017 INSTRUCTIONS MEDICATIONS ADMINISTERED No Known Medications MEDICAL (GENERAL) HISTORY Type Description Date Medical History Hypertension Medical History Hepatitis C Medical History low sodium Surgical History appendectomy Surgical History surgery at 6 mos old, pt cannot recall what kind of surgery Hospitalization History detoxing, UTI, liver failure 09/2017 Hospitalization History Hepatic encephalopathy, Sepsis, UTI-[facility] 10/2017
--- OUTSIDE RECORDS SUMMARY | 2018-10-04 14:36 | XMS REPORT ---
Author Author CECILIA SHARP [facility] Address [address] [place] [address] Care Team Providers Care Ham Smoker Name Role Phone CECILIA SHARP Unavailable PROBLEMS Type Condition ICD9-CM Code VZH82-RJ Code Onset Dates Condition Status SNOMED Code Problem Generalized edema R60.1 Active 469342014 Problem Alcohol abuse F10.10 Active 20359095 Problem Chronic hepatitis C without hepatic coma B18.2 Active 495382762 ALLERGIES No Information ENCOUNTERS Encounter Location Date Diagnosis [facility] [id number] [place] [address] Nov, [facility] [address] [address] Oct, Hepatic encephalopathy K72.90 [facility] [address] [address] Oct, [facility] [address] [address] Oct, [facility] [id number] [place] [address] Oct, [facility] [id number] [place] [address] September, Generalized edema R60.1 ; Alcohol abuse F10.10 and Chronic hepatitis C without hepatic coma B18.2 [facility] [address] [address] September, [facility] [id number] [place] [address] Aug, [facility] [address] [address] Jul, [facility] [address] [place] [address] Jul, [facility] [id number] [place] [address] Jul, Chronic hepatitis C without hepatic coma B18.2 ; Generalized edema R60.1 and Alcohol abuse F10.10 [facility] [id number] [place] [address] Jul, Cellulitis 682.9 [facility] [id number] [place] [address] Jan, Cellulitis 682.9 and Edema 782.3 [facility] [id number] [place] [address] September, [facility] [id number] [place] [address] 14 Aug, 2014 [facility] [id number] [place] [address] Aug, [facility] [id number] [place] [address] Jul, [facility] [id number] [place] [address] Jul, [facility] [address] [address] Jul, [facility] [id number] [place] [address] Jul, [facility] [id number] [address] Jul, [facility] [id number] [place] [address] Feb, [facility] [address] [address] Feb, [facility] [id number] [place] [address] [place] [address] Feb, [facility] [place] [facility] [address] [id number] [place] [address] Feb, [facility] [place] [facility] [address] [id number] [place] [address] Feb, [facility] [place] [facility] [address] [id number] [place] [address] Jan, [facility] [place] [facility] [address] [id number] [place] [address] Jan, [facility] [place] [facility] [address] [id number] [place] [address] Jan, [facility] [place] [facility] [address] [id number] [place] [address] Jan, [facility] [place] [facility] [address] [id number] [place] [address] Dec, [facility] [place] [facility] [address] [id number] [place] [address] Dec, [facility] [place] [facility] [address] [id number] [place] [address] September, [facility] [place] [facility] [address] [id number] [place] [address] September, [facility] [place] [facility] [address] [id number] [place] [address] September, [facility] [place] [facility] [address] [id number] [place] [address] September, [facility] [place] [facility] [address] [id number] [place] [address] September, [facility] [place] [facility] [address] [id number] [place] [address] September, [facility] [place] [facility] [address] [id number] [place] [address] September, [facility] [place] [facility] [address] [id number] [place] [address] September, [facility] [place] [facility] [address] [id number] [place] [address] September, [facility] [place] [facility] [address] [id number] [place] [address] September, [facility] [place] [facility] [address] [id number] [place] [address] Aug, [facility] [place] [facility] [address] [id number] [place] [address] Aug, [facility] [place] [facility] [address] [id number] [place] [address] Aug, [facility] [place] [facility] [address] [id number] [place] [address] Aug, [facility] [place] [facility] [address] [id number] [place] [address] Jul, [facility] [place] [facility] [address] [id number] [place] [address] Jul, [facility] [place] [facility] [address] [id number] [place] [address] Jul, [facility] [place] [facility] [address] [id number] [place] [address] Jul, [facility] [place] [facility] [address] [id number] [place] [address] Jul, [facility] [place] [facility] [address] [id number] [place] [address] Jul, [facility] [place] [facility] [address] [id number] [place] [address] Jun, [facility] [place] [facility] [address] [id number] [place] [address] Jun, [facility] [place] [facility] [address] [id number] [place] [address] Oct, [facility] [address] [facility] [id number] [place] [address] September, IMMUNIZATIONS No Known Immunizations SOCIAL HISTORY Never Assessed REASON FOR VISIT SBIRT consultation PLAN OF CARE VITAL SIGNS MEDICATIONS Unknown [...]
--- OUTSIDE RECORDS SUMMARY | 2018-10-04 14:36 | XMS REPORT ---
Author Author LUCÍA YANEZ Organization [facility] Address [address] [place] [address] Care Team Providers Care Skin Care Consultant Name Role Phone LUCÍA YANEZ Unavailable PROBLEMS Type Condition ICD9-CM Code AVE06-KI Code Onset Dates Condition Status SNOMED Code Problem Generalized edema R60.1 Active 921301399 Problem Alcohol abuse F10.10 Active 14829149 Problem Chronic hepatitis C without hepatic coma B18.2 Active [id number] ALLERGIES No Information ENCOUNTERS Encounter Location Date Diagnosis [facility] [id number] [place] [address] Nov, [facility] [address] [address] Nov, [facility] [id number] [place] [address] Oct, Hepatic encephalopathy K72.90 [facility] [id number] [place] [address] Oct, [facility] [id number] [place] [address] Oct, [facility] [id number] [place] [address] Oct, [facility] [id number] [place] [address] September, Generalized edema R60.1 ; Alcohol abuse F10.10 and Chronic hepatitis C without hepatic coma B18.2 [facility] [id number] [place] [address] September, [facility] [id number] [place] [address] Aug, [facility] [address] [place] [address] Jul, [facility] [address] [place] [address] Jul, [facility] [id number] [place] [address] Jul, Chronic hepatitis C without hepatic coma B18.2 ; Generalized edema R60.1 and Alcohol abuse F10.10 [facility] [id number] [place] [address] 18 Jul, 2015 Cellulitis 682.9 [facility] [id number] [place] [address] Jan, Cellulitis 682.9 and Edema 782.3 [facility] [id number] [place] [address] September, [facility] [id number] [place] [address] Aug, [facility] [id number] [place] [address] Aug, [facility] [id number] [place] [address] Jul, [facility] [id number] [place] [address] Jul, [facility] [id number] [place] [address] Jul, [facility] [address] [place] [address] Jul, [facility] [id number] [place] [address] Jul, [facility] [address] [place] [address] Feb, [facility] [id number] [place] [address] Feb, [facility] [place] [facility] [address] [id number] [place] [address] Feb, [facility] [place] [facility] [address] [id number] [place] [address] Feb, [facility] [place] [facility] [address] [id number] [place] [address] Feb, [facility] [place] [facility] [address] [id number] [place] [address] Jan, [facility] [place] [facility] [address] [id number] [place] [address] Jan, [facility] [place] [facility] [address] [id number] [place] [address] Jan, [facility] [place] [facility] [address] [id number] [place] [address] Jan, [facility] [place] [facility] [address] [id number] [place] [address] Dec, [facility] [place] [facility] [address] [id number] [place] [address] Dec, [facility] [place] [facility] [address] [id number] [place] [address] September, [facility] [place] [facility] [address] [id number] [place] [address] September, [facility] [place] [facility] [address] [id number] [place] [address] September, [facility] [place] [facility] [address] [id number] [place] [address] September, [facility] [place] [facility] [address] [id number] [place] [address] September, [facility] [place] [facility] [address] [id number] [place] [address] September, [facility] [place] [facility] [address] [id number] [place] [address] September, [facility] [place] [facility] [address] [id number] [place] [address] September, [facility] [place] [facility] [address] [id number] [place] [address] September, [facility] [place] [facility] [address] [id number] [place] [address] September, [facility] [place] [facility] [address] [id number] [place] [address] Aug, [facility] [place] [facility] [address] [id number] [place] [address] Aug, [facility] [place] [facility] [address] [id number] [place] [address] Aug, [facility] [place] [facility] [address] [id number] [place] [address] Aug, [facility] [place] [facility] [address] [id number] [place] [address] Jul, [facility] [place] [facility] [address] [id number] [place] [address] Jul, [facility] [place] [facility] [address] [id number] [place] [address] Jul, [facility] [place] [facility] [address] [id number] [place] [address] Jul, [facility] [place] [facility] [address] [id number] [place] [address] Jul, [facility] [place] [facility] [address] [id number] [place] [address] Jul, [facility] [place] [facility] [address] [id number] [place] [address] Jun, [facility] [place] [facility] [address] [id number] [place] [address] Jun, [facility] [address] [facility] [id number] [place] [address] Oct, [facility] [address] [facility] [id number] [place] [address] September, IMMUNIZATIONS No Known Immunizations SOCIAL HISTORY Never Assessed REASON FOR VISIT Requests return call PLAN OF CARE VITAL SIGNS MEDICATIONS Unknown [...] failure 09/2017 Hospitalization History Hepatic encephalopathy, Sepsis, UTI-[facility] 10/2017
--- OUTSIDE RECORDS SUMMARY | 2018-10-04 14:37 | XMS REPORT | Continuity of Care Document ---
Author Organization Unknown Address Unknown Allergies Active Description Code Type Severity Reaction Onset Reported/Identified Relationship to Patient Clinical Status Yes No Known Drug Allergies [id number] Drug Allergy Unknown N/A 10/02/2017 Medications There [...] HYPERTENSION, BENIGN ESSENTIAL 09/11/2013 LUCÍA YANEZ APRN T 302.72 ERECTILE DISORDER 09/11/2013 LUCÍA YANEZ APRN [...] SKIN AND SUBCUTANEOUS TISSUE 02/08/2014 PANCHO ANDRADE MD6.9 UNSPECIFIED LOCAL INFECTION [...] E Ot R26.81 UNSTEADINESS ON FEET [facility]04[facility]0 DISORIENTATION, UNSPECIFIED 10/06/2017 [facility] Ot A41.9 SEPSIS, UNSPECIFIED ORGANISM 10/06/2017 [facility] Ot B18.2 CHRONIC VIRAL HEPATITIS C 10/06/2017 [facility] Ot D64.9 ANEMIA, UNSPECIFIED 10/06/[facility] Ot D69.6 THROMBOCYTOPENIA, UNSPECIFIED 10/06/2017 [facility] Ot E46 UNSPECIFIED PROTEIN-CALORIE MALNUTRITION 10/06/2017 [facility] Ot E72.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, UNSPE 10/06/2017 [facility] Ot E80.6 OTHER DISORDERS OF BILIRUBIN METABOLISM 10/06/2017 [facility] Ot E83.42 HYPOMAGNESEMIA 10/06/2017 [facility] Ot E83.51 HYPOCALCEMIA 10/06/2017 [facility] Ot E88.09 OT DISORDERS OF PLASMA-PROTEIN METABOLI 10/06/2017 [facility] Ot F10.10 ALCOHOL ABUSE, UNCOMPLICATED 10/06/2017 [facility] Ot F10.20 ALCOHOL DEPENDENCE, UNCOMPLICATED 10/06/2017 [facility] Ot F15.10 OTHER STIMULANT ABUSE, UNCOMPLICATED 10/06/2017 [facility] Ot F17.200 NICOTINE DEPENDENCE, UNSPECIFIED, UNCOMP 10/06/2017 [facility] Ot F17.210 NICOTINE DEPENDENCE, CIGARETTES, UNCOMPL 10/06/2017 [facility] Ot G93.40 ENCEPHALOPATHY, UNSPECIFIED 10/06/2017 [facility] Ot H91.90 UNSPECIFIED HEARING LOSS, UNSPECIFIED EA 10/06/2017 [facility] Ot I10 ESSENTIAL (PRIMARY) HYPERTENSION 10/06/2017 [facility] Ot I85.00 ESOPHAGEAL VARICES WITHOUT BLEEDING 10/06/2017 [facility] OTT Ot K72.00 ACUTE AND SUBACUTE HEPATIC FAILURE WITHO 10/06/2017 [facility] Ot K74.60 UNSPECIFIED CIRRHOSIS OF LIVER 10/06/2017 [facility] Ot N30.01 ACUTE CYSTITIS WITH HEMATURIA 10/06/2017 [facility] Ot N32.89 OTHER SPECIFIED DISORDERS OF BLADDER 10/06/2017 [facility] Ot N39.0 URINARY TRACT INFECTION, SITE NOT SPECIF 10/06/2017 [facility] [place] OTT Ot R01.1 CARDIAC MURMUR, UNSPECIFIED 10/06/2017 [facility] Ot R16.1 SPLENOMEGALY, NOT ELSEWHERE CLASSIFIED 10/06/2017 [facility] Ot R26.81 UNSTEADINESS ON FEET 10/06/2017 [facility] Ot R41.0 DISORIENTATION, UNSPECIFIED 10/06/2017 [facility] Ot Y90.0 BLOOD ALCOHOL LEVEL OF LESS THAN 20 MG/1 11/05/2017 [facility] [place] OTT Ot A41.9 SEPSIS, UNSPECIFIED ORGANISM 11/05/2017 [facility] [place] OTT Ot B18.2 CHRONIC VIRAL HEPATITIS C 11/05/2017 [facility] [place] OTT Ot D69.6 THROMBOCYTOPENIA, UNSPECIFIED 11/05/2017 [facility] Ot F15.10 OTHER STIMULANT ABUSE, UNCOMPLICATED 11/05/2017 [facility] Ot F17.210 NICOTINE DEPENDENCE, CIGARETTES, UNCOMPL 11/05/2017 [facility] [place] OTT Ot G81.94 HEMIPLEGIA, UNSPECIFIED AFFECTING LEFT N 11/05/2017 [facility] [place] OTT Ot I10 ESSENTIAL (PRIMARY) HYPERTENSION 11/05/2017 [facility] [place] OTT Ot J30.2 OTHER SEASONAL ALLERGIC RHINITIS 11/05/2017 [facility] Ot K59.00 CONSTIPATION, UNSPECIFIED 11/05/2017 [facility] Ot K70.9 ALCOHOLIC LIVER DISEASE, UNSPECIFIED 11/05/2017 [facility] Ot K72.00 ACUTE AND SUBACUTE HEPATIC FAILURE WITHO 11/05/2017 [facility] [place] Ot N30.01 ACUTE CYSTITIS WITH HEMATURIA 11/05/2017 [facility] DO Ot N52.9 MALE ERECTILE DYSFUNCTION, UNSPECIFIED 11/05/2017 [facility] [place] Ot R33.9 RETENTION OF URINE, UNSPECIFIED 11/05/2017 [facility] E Ot R47.81 SLURRED SPEECH 11/05/2017 [facility] DO Ot A41.9 SEPSIS, UNSPECIFIED ORGANISM 11/05/2017 [facility] Ot B18.2 CHRONIC VIRAL HEPATITIS C 11/05/2017 [facility] DO Ot D69.6 THROMBOCYTOPENIA, UNSPECIFIED 11/05/2017 [facility] Ot F15.10 OTHER STIMULANT ABUSE, UNCOMPLICATED 11/05/2017 [facility] Ot F17.210 NICOTINE DEPENDENCE, CIGARETTES, UNCOMPL 11/05/2017 [facility] DO Ot G81.94 HEMIPLEGIA, UNSPECIFIED AFFECTING LEFT N 11/05/2017 [facility] [place] OTT Ot I10 ESSENTIAL (PRIMARY) HYPERTENSION 11/05/2017 [facility] DO Ot I69.354 HEMIPLGA FOLLOWING CEREBRAL INFRC AFFECT 11/05/2017 [facility] Ot J30.2 OTHER SEASONAL ALLERGIC RHINITIS 11/05/2017 [facility] Ot K59.00 CONSTIPATION, UNSPECIFIED 11/05/2017 [facility] Ot K70.9 ALCOHOLIC LIVER DISEASE, UNSPECIFIED 11/05/2017 [facility] [place] Ot K72.00 ACUTE AND SUBACUTE HEPATIC FAILURE WITHO 11/05/2017 [facility] Ot N30.01 ACUTE CYSTITIS WITH HEMATURIA 11/05/2017 [facility] Ot N52.9 MALE ERECTILE DYSFUNCTION, UNSPECIFIED 11/05/2017 [facility] GALVAN DO Ot R33.9 RETENTION OF URINE, UNSPECIFIED 11/05/2017 [facility] GALV[facility] DO Ot R47.81 SLURRED SPEECH Procedures Code Description [place] [address] ROUTINE VENIPUNCTURE 08/03/2013 38856 A1C (RML) 08/03/2013 82697 PSA TOTAL 08/03/2013 83576 TESTOSTERONE TOTAL MALES 08/03/2013 71303 TSH 08/03/2013 29758 CBC 08/03/2013 7042497 GFR CALC (RESULT ONLY) 08/03/2013 87341 CMP 08/03/2013 81603 LIPID PANEL 08/03/2013 24232 ROUTINE VENIPUNCTURE 09/11/2013 22340 LIVER PANEL (LFT) 09/11/2013 07653 HEPATITIS PROFILE 09/11/2013 13958 AMYLASE 09/11/2013 00790 LIPASE 09/11/2013 35459 EKG, TRACING (IN-HOUSE) 09/11/2013 16680 ROUTINE VENIPUNCTURE 09/21/2013 77500 HEP C PCR QUANT W/RAKAN 09/21/2013 [facility] 09/22/2013 09666 ROUTINE VENIPUNCTURE 03/10/2014 72159 TESTOSTERONE TOTAL MALES 03/10/2014 77756 HEP C PCR QUANT (SERIAL) 03/10/2014 79086 LIVER PANEL (LFT) 03/10/2014 38669 CULTURE WOUND (AEROBIC) 08/12/2014 Results Test Result Range CBC - 08/14/17 12:06 WHITE BLOOD CELL COUNT 7.6 Thousand/uL 3.8-10.8 RED BLOOD CELL COUNT 3.25 Million/uL 4.20-5.80 HEMOGLOBIN 11.2 g/dL 13.2-17.1 HEMATOCRIT 31.4 % 38.5-50.0 MCV 96.6 fL 80.0-100.0 MCH 34.5 pg 27.0-33.0 MCHC 35.7 g/dL 32.0-36.0 RDW 12.6 % 11.0-15.0 PLATELET COUNT 113 Thousand/uL 140-400 MPV 10.1 fL 7.5-12.5 ABSOLUTE NEUTROPHILS 4522 cells/uL 5312-0823 ABSOLUTE LYMPHOCYTES 1444 cells/uL 850-3900 ABSOLUTE MONOCYTES [...] Automated erythrocyte mean corpuscular hemoglobin concentration measurement (mass/volume) 34 g/dL 32-36 Automated erythrocyte distribution width ratio 13.9 % 10.0- 14.5 Automated blood platelet count (count/volume) 121 10*3/uL [...] Blood monocytes automated count (number/volume) 1.6 10*3 0.0- 1.0 Automated eosinophil count 0.5 10*3/uL 0.0-0.3 Automated blood basophil count (count/volume) 0.1 10*3/uL 0.0-0.1 Blood lactic acid measurement (moles/volume) - 10/02/17 15:57 Blood lactic acid measurement (moles/volume) 1.42 mmol/L 0.50- 2.00 Comprehensive metabolic panel - 10/02/17 15:57 Serum [...] Serum or plasma aspartate aminotransferase measurement (enzymatic activity/volume) 76 U/L 5-34 Serum or plasma alanine aminotransferase measurement (enzymatic activity/volume) 45 U/L 0-55 Serum or plasma protein [...] gravity of urine by test strip 1.015 1.016-1.022 Urine protein assay by test strip, semi-quantitative [...] sediment leukocyte count by microscopy (number/high power field) TNTC NRG Bacteria detection in urine sediment [...] COLONY COUNT . NRG FTX;REPORTABLE SENT TO [facility] 10/03 09:00 NRG FREE TEXT ENTRY 2 REPORTED BY [facility] 10/03/17 17:05 NRG Methicillin resistant Staphylococcus aureus (MRSA) screening culture - 10/02/17 19:00 MRSA SCREEN RESULT MRSA ISOLATED NRG [...] Automated erythrocyte mean corpuscular hemoglobin concentration measurement (mass/volume) 33 g/dL 32-36 Automated erythrocyte distribution width ratio 13.7 % 10.0- 14.5 Automated blood platelet count (count/volume) 121 10*3/uL [...] Blood monocytes automated count (number/volume) 2.1 10*3 0.0- 1.0 Automated eosinophil count 0.6 10*3/uL 0.0-0.3 Automated [...] Serum or plasma aspartate aminotransferase measurement (enzymatic activity/volume) 78 U/L 5-34 Serum or plasma alanine aminotransferase measurement (enzymatic activity/volume) 47 U/L 0-55 Serum or plasma protein [...] Automated erythrocyte mean corpuscular hemoglobin concentration measurement (mass/volume) 34 g/dL 32-36 Automated erythrocyte distribution width ratio 13.9 % 10.0- 14.5 Automated blood platelet count (count/volume) 105 10*3/uL [...] Blood monocytes automated count (number/volume) 1.8 10*3 0.0- 1.0 Automated eosinophil count 0.6 10*3/uL 0.0-0.3 Automated blood basophil count (count/volume) 0.1 10*3/uL 0.0-0.1 Magnesium - 10/04/17 03:50 Magnesium 1.8 mg/dL 1.8-2.4 Ammonia - 10/04/17 03:50 Ammonia 76 umol/L Comprehensive metabolic panel - 10/04/17 03:50 Serum or plasma sodium measurement (moles/volume) 139 mmol/L 135-145 Serum or plasma potassium measurement (moles/volume) 3.7 mmol/L 3.6-5.0 Serum or plasma chloride measurement (moles/volume) 114 mmol/L 98-107 Carbon dioxide 18 mmol/L -32 Serum or plasma anion gap determination (moles/volume) 7 mmol/L 5-14 Serum or plasma urea nitrogen measurement (mass/volume) 9 mg/dL -18 Serum or plasma creatinine measurement (mass/volume) 0.79 [...] Serum or plasma aspartate aminotransferase measurement (enzymatic activity/volume) 78 U/L 5-34 Serum or plasma alanine aminotransferase measurement (enzymatic activity/volume) 45 U/L 0-55 Serum or plasma protein [...] Automated erythrocyte mean corpuscular hemoglobin concentration measurement (mass/volume) 34 g/dL 32-36 Automated erythrocyte distribution width ratio 13.7 % 10.0- 14.5 Automated blood platelet count (count/volume) 105 10*3/uL [...] Blood monocytes automated count (number/volume) 1.8 10*3 0.0- 1.0 Automated eosinophil count 0.7 10*3/uL 0.0-0.3 Automated [...] Serum or plasma aspartate aminotransferase measurement (enzymatic activity/volume) 76 U/L 5-34 Serum or plasma alanine aminotransferase measurement (enzymatic activity/volume) 47 U/L 0-55 Serum or plasma protein [...] Automated erythrocyte mean corpuscular hemoglobin concentration measurement (mass/volume) 33 g/dL 32-36 Automated erythrocyte distribution width ratio 14.0 % 10.0- 14.5 Automated blood platelet count (count/volume) 102 10*3/uL [...] Blood monocytes automated count (number/volume) 1.5 10*3 0.0- 1.0 Automated eosinophil count 0.9 10*3/uL 0.0-0.3 Automated [...] Serum or plasma aspartate aminotransferase measurement (enzymatic activity/volume) 78 U/L 5-34 Serum or plasma alanine aminotransferase measurement (enzymatic activity/volume) 47 U/L 0-55 Serum or plasma protein measurement (mass/volume) 6.6 g/dL 6.4-8.2 Serum or plasma albumin measurement (mass/volume) 1.9 g/dL 3.2-4.5 Magnesium - 10/06/17 05:30 Magnesium 1.6 mg/dL 1.8-2.4 Ammonia - 10/06/17 05:30 Ammonia 57 umol/L 11-32 Bacterial urine culture - 11/01/17 16:30 Bacterial urine culture [id number] NRG COLONY COUNT >100,000/ML NRG FTX;REPORTABLE RML REPORT AT 1205, 6-18 NRG Complete urinalysis with reflex to culture - 11/01/17 16:30 Urine color determination YELLOW NRG Urine clarity determination VERY CLOUDY NRG Urine pH measurement by test strip 7 5-9 Specific gravity of urine by test strip 1.010 1.016-1.022 Urine protein assay by test strip, semi-quantitative 2+ NEGATIVE Urine glucose detection by automated test strip NEGATIVE NEGATIVE Erythrocytes detection in urine sediment by light microscopy 5+ NEGATIVE Urine ketones detection by automated test strip NEGATIVE NEGATIVE Urine nitrite detection by test strip NEGATIVE NEGATIVE Urine total bilirubin detection by test strip NEGATIVE NEGATIVE Urine urobilinogen measurement by automated test strip (mass/volume) 4 mg/dL NORMAL Urine leukocyte esterase detection by dipstick 3+ NEGATIVE Automated urine sediment erythrocyte count by microscopy (number/high power field) > [HPF] NRG Automated urine sediment leukocyte count by microscopy (number/high power field) > [HPF] NRG Bacteria detection in urine sediment by light microscopy FEW NRG Squamous epithelial cells detection in urine sediment by light microscopy 0-2 NRG Crystals detection in urine sediment by light microscopy NONE NRG Casts detection in urine sediment by light microscopy NONE NRG Mucus detection in urine sediment by light microscopy NEGATIVE NRG Complete urinalysis with reflex to culture NO NRG Yeast detection in urine sediment by light microscopy LARGE NRG Urine drug screening test - 11/01/17 16:30 Urine phencyclidine detection by screening method NEGATIVE NEGATIVE Urine benzodiazepines detection by screening method NEGATIVE NEGATIVE Urine cocaine detection NEGATIVE NEGATIVE Urine amphetamines detection by screening method POSITIVE NEGATIVE Urine methamphetamine detection by screening method [...] automated white blood cell (WBC) differential - 11/02/17 04:14 Blood leukocytes automated count (number/volume) 10.4 10*3/uL 4.3-11.0 Blood erythrocytes automated count (number/volume) 3.41 10*6/uL 4.35-5.85 Venous blood hemoglobin measurement (mass/volume) 11.8 g/dL 13.3-17.7 Blood hematocrit (volume fraction) 34 % 40-54 Automated erythrocyte mean corpuscular volume 99 [foz_us] 80-99 Automated erythrocyte mean corpuscular hemoglobin (mass per erythrocyte) 35 pg 25-34 Automated erythrocyte mean corpuscular hemoglobin concentration measurement (mass/volume) 35 g/dL 32-36 Automated erythrocyte distribution width ratio 14.6 % 10.0- 14.5 Automated blood platelet count (count/volume) 85 10*3/uL 130- 400 Automated blood platelet mean volume measurement 10.1 [foz_us] 7.4-10.4 Automated blood neutrophils/100 leukocytes 62 % 42-75 Automated blood lymphocytes/100 leukocytes 17 % 12-44 Blood monocytes/100 leukocytes 11 % 0-12 Automated blood eosinophils/100 leukocytes 9 % 0-10 Automated blood basophils/100 leukocytes 1 % 0-10 Blood neutrophils automated count (number/volume) 6.5 10*3 1.8-7.8 Blood lymphocytes automated count (number/volume) 1.8 10*3 1.0-4.0 Blood monocytes automated count (number/volume) 1.1 10*3 0.0- 1.0 Automated eosinophil count 1.0 10*3/uL 0.0-0.3 Automated blood basophil count (count/volume) 0.1 10*3/uL 0.0-0.1 Comprehensive metabolic panel - 11/02/17 04:14 Serum or plasma sodium measurement (moles/volume) 139 mmol/L 135-145 Serum or plasma potassium measurement (moles/volume) 3.6 mmol/L 3.6-5.0 Serum or plasma chloride measurement (moles/volume) 113 mmol/L 98-107 Carbon dioxide 18 mmol/L 21-32 Serum or plasma anion gap determination (moles/volume) 8 mmol/L 5-14 Serum or plasma urea nitrogen measurement (mass/volume) 15 mg/dL 7-18 Serum or plasma creatinine measurement (mass/volume) 0.70 mg/dL 0.60-1.30 Serum or plasma urea nitrogen/creatinine mass ratio 21 NRG Serum or plasma creatinine measurement with calculation of estimated glomerular filtration rate > NRG Serum or plasma glucose measurement (mass/volume) 112 mg/dL 70-105 Serum or plasma calcium measurement (mass/volume) 7.8 mg/dL 8.5-10.1 Serum or plasma total bilirubin measurement (mass/volume) 1.1 mg/dL 0.1-1.0 Serum or plasma alkaline phosphatase measurement (enzymatic activity/volume) 100 U/L 40-136 Serum or plasma aspartate aminotransferase measurement (enzymatic activity/volume) 109 U/L 5-34 Serum or plasma alanine aminotransferase measurement (enzymatic activity/volume) 71 U/L 0-55 Serum or plasma protein measurement (mass/volume) 7.6 g/dL 6.4-8.2 Serum or plasma albumin measurement (mass/volume) 2.2 g/dL 3.2-4.5 Ammonia - 11/02/17 04:14 Ammonia 123 umol/L 11-32 Complete blood count (CBC) with automated white blood cell (WBC) differential - 11/03/17 05:17 Blood leukocytes automated count (number/volume) 10.2 10*3/uL 4.3-11.0 Blood erythrocytes automated count (number/volume) 3.30 10*6/uL 4.35-5.85 Venous blood hemoglobin measurement (mass/volume) 11.1 g/dL 13.3-17.7 Blood hematocrit (volume fraction) 33 % 40-54 Automated erythrocyte mean corpuscular volume 100 [foz_us] 80-99 Automated erythrocyte mean corpuscular hemoglobin (mass per erythrocyte) 34 pg 25-34 Automated erythrocyte mean corpuscular hemoglobin concentration measurement (mass/volume) 34 g/dL 32-36 Automated erythrocyte distribution width ratio 14.7 % 10.0- 14.5 Automated blood platelet count (count/volume) 78 10*3/uL 130- 400 Automated blood platelet mean volume measurement 10.4 [foz_us] 7.4-10.4 Automated blood neutrophils/100 leukocytes 58 % 42-75 Automated blood lymphocytes/100 leukocytes 21 % 12-44 Blood monocytes/100 leukocytes 12 % 0-12 Automated blood eosinophils/100 leukocytes 9 % 0-10 Automated blood basophils/100 leukocytes 1 % 0-10 Blood neutrophils automated count (number/volume) 5.9 10*3 1.8-7.8 Blood lymphocytes automated count (number/volume) 2.1 10*3 1.0-4.0 Blood monocytes automated count (number/volume) 1.2 10*3 0.0- 1.0 Automated eosinophil count 0.9 10*3/uL 0.0-0.3 Automated blood basophil count (count/volume) 0.1 10*3/uL 0.0-0.1 Comprehensive metabolic panel - 11/03/17 05:17 Serum or plasma sodium measurement (moles/volume) 141 mmol/L 135-145 Serum or plasma potassium measurement (moles/volume) 3.6 mmol/L 3.6-5.0 Serum or plasma chloride measurement (moles/volume) 116 mmol/L 98-107 Carbon dioxide 21 mmol/L 21-32 Serum or plasma anion gap determination (moles/volume) 4 mmol/L 5-14 Serum or plasma urea nitrogen measurement (mass/volume) 11 mg/dL 7-18 Serum or plasma creatinine measurement (mass/volume) 0.81 mg/dL 0.60-1.30 Serum or plasma urea nitrogen/creatinine mass ratio 14 NRG Serum or plasma creatinine measurement with calculation of estimated glomerular filtration rate > NRG Serum or plasma glucose measurement (mass/volume) 106 mg/dL 70-105 Serum or plasma calcium measurement (mass/volume) 8.0 mg/dL 8.5-10.1 Serum or plasma total bilirubin measurement (mass/volume) 1.1 mg/dL 0.1-1.0 Serum or plasma alkaline phosphatase measurement (enzymatic activity/volume) 93 U/L 40-136 Serum or plasma aspartate aminotransferase measurement (enzymatic activity/volume) 98 U/L 5-34 Serum or plasma alanine aminotransferase measurement (enzymatic activity/volume) 65 U/L 0-55 Serum or plasma protein measurement (mass/volume) 7.0 g/dL 6.4-8.2 Serum or plasma albumin measurement (mass/volume) 2.1 g/dL 3.2-4.5 Complete blood count (CBC) with automated white blood cell (WBC) differential - 11/04/17 05:15 Blood leukocytes automated count (number/volume) 11.9 10*3/uL 4.3-11.0 Blood erythrocytes automated count (number/volume) 3.20 10*6/uL 4.35-5.85 Venous blood hemoglobin measurement (mass/volume) 11.0 g/dL 13.3-17.7 Blood hematocrit (volume fraction) 32 % 40-54 Automated erythrocyte mean corpuscular volume 99 [foz_us] 80-99 Automated erythrocyte mean corpuscular hemoglobin (mass per erythrocyte) 34 pg 25-34 Automated erythrocyte mean corpuscular hemoglobin concentration measurement (mass/volume) 35 g/dL 32-36 Automated erythrocyte distribution width ratio 14.7 % 10.0- 14.5 Automated blood platelet count (count/volume) 80 10*3/uL 130- 400 Automated blood platelet mean volume measurement 10.9 [foz_us] 7.4-10.4 Automated blood neutrophils/100 leukocytes 62 % 42-75 Automated blood lymphocytes/100 leukocytes 15 % 12-44 Blood monocytes/100 leukocytes 13 % 0-12 Automated blood eosinophils/100 leukocytes 8 % 0-10 Automated blood basophils/100 leukocytes 1 % 0-10 Blood neutrophils automated count (number/volume) 7.4 10*3 1.8-7.8 Blood lymphocytes automated count (number/volume) 1.8 10*3 1.0-4.0 Blood monocytes automated count (number/volume) 1.6 10*3 0.0- 1.0 Automated eosinophil count 1.0 10*3/uL 0.0-0.3 Automated blood basophil count (count/volume) 0.1 10*3/uL 0.0-0.1 Comprehensive metabolic panel - 11/04/17 05:15 Serum or plasma sodium measurement (moles/volume) 139 mmol/L 135-145 Serum or plasma potassium measurement (moles/volume) 3.5 mmol/L 3.6-5.0 Serum or plasma chloride measurement (moles/volume) 112 mmol/L 98-107 Carbon dioxide 20 mmol/L 21-32 Serum or plasma anion gap determination (moles/volume) 7 mmol/L 5-14 Serum or plasma urea nitrogen measurement (mass/volume) 14 mg/dL 7-18 Serum or plasma creatinine measurement (mass/volume) 0.70 mg/dL 0.60-1.30 Serum or plasma urea nitrogen/creatinine mass ratio 20 NRG Serum or plasma creatinine measurement with calculation of estimated glomerular filtration rate > NRG Serum or plasma glucose measurement (mass/volume) 131 mg/dL 70-105 Serum or plasma calcium measurement (mass/volume) 7.9 mg/dL 8.5-10.1 Serum or plasma total bilirubin measurement (mass/volume) 1.1 mg/dL 0.1-1.0 Serum or plasma alkaline phosphatase measurement (enzymatic activity/volume) 98 U/L 40-136 Serum or plasma aspartate aminotransferase measurement (enzymatic activity/volume) 93 U/L 5-34 Serum or plasma alanine aminotransferase measurement (enzymatic activity/volume) 62 U/L 0-55 Serum or plasma protein measurement (mass/volume) 6.9 g/dL 6.4-8.2 Serum or plasma albumin measurement (mass/volume) 2.0 g/dL 3.2-4.5 Ammonia - 11/04/17 05:15 Ammonia 104 umol/L 11-32 Complete blood count (CBC) with automated white blood cell (WBC) differential - 11/05/17 06:18 Blood leukocytes automated count (number/volume) 10.2 10*3/uL 4.3-11.0 Blood erythrocytes automated count (number/volume) 3.20 10*6/uL 4.35-5.85 Venous blood hemoglobin measurement (mass/volume) 10.8 g/dL 13.3-17.7 Blood hematocrit (volume fraction) 32 % 40-54 Automated erythrocyte mean corpuscular volume 99 [foz_us] 80-99 Automated erythrocyte mean corpuscular hemoglobin (mass per erythrocyte) 34 pg 25-34 Automated erythrocyte mean corpuscular hemoglobin concentration measurement (mass/volume) 34 g/dL 32-36 Automated erythrocyte distribution width ratio 14.9 % 10.0- 14.5 Automated blood platelet count (count/volume) 74 10*3/uL 130- 400 Automated blood platelet mean volume measurement 10.6 [foz_us] 7.4-10.4 Automated blood neutrophils/100 leukocytes 58 % 42-75 Automated blood lymphocytes/100 leukocytes 18 % 12-44 Blood monocytes/100 leukocytes 13 % 0-12 Automated blood eosinophils/100 leukocytes 11 % 0-10 Automated blood basophils/100 leukocytes 1 % 0-10 Blood neutrophils automated count (number/volume) 5.9 10*3 1.8-7.8 Blood lymphocytes automated count (number/volume) 1.8 10*3 1.0-4.0 Blood monocytes automated count (number/volume) 1.4 10*3 0.0- 1.0 Automated eosinophil count 1.1 10*3/uL 0.0-0.3 Automated blood basophil count (count/volume) 0.1 10*3/uL 0.0-0.1 Comprehensive metabolic panel - 11/05/17 06:18 Serum or plasma sodium measurement (moles/volume) 140 mmol/L 135-145 Serum or plasma potassium measurement (moles/volume) 3.5 mmol/L 3.6-5.0 Serum or plasma chloride measurement (moles/volume) 110 mmol/L 98-107 Carbon dioxide 25 mmol/L 21-32 Serum or plasma anion gap determination (moles/volume) 5 mmol/L 5-14 Serum or plasma urea nitrogen measurement (mass/volume) 13 mg/dL 7-18 Serum or plasma creatinine measurement (mass/volume) 0.72 mg/dL 0.60-1.30 Serum or plasma urea nitrogen/creatinine mass ratio 18 NRG Serum or plasma creatinine measurement with calculation of estimated glomerular filtration rate > NRG Serum or plasma glucose measurement (mass/volume) 96 mg/dL 70-105 Serum or plasma calcium measurement (mass/volume) 8.2 mg/dL 8.5-10.1 Serum or plasma total bilirubin measurement (mass/volume) 1.3 mg/dL 0.1-1.0 Serum or plasma alkaline phosphatase measurement (enzymatic activity/volume) 103 U/L 40-136 Serum or plasma aspartate aminotransferase measurement (enzymatic activity/volume) 91 U/L 5-34 Serum or plasma alanine aminotransferase measurement (enzymatic activity/volume) 61 U/L 0-55 Serum or plasma protein measurement (mass/volume) 7.1 g/dL 6.4-8.2 Serum or plasma albumin measurement (mass/volume) 2.2 g/dL 3.2-4.5 AMMONIA - 05/05/18 16:23 AMMONIA (P) 157 umol/L < OR=72 Encounters ACCT No. Visit Date/Time Discharge Status Pt. Type Provider Facility Loc./Unit Complaint [id number] 08/09/2014 15:36:00 08/09/2014 23:59:59 CLS Outpatient PANCHO ANDRADE MD [id number] 03/10/2014 15:22:00 03/10/2014 23:59:59 CLS Outpatient LUCÍA YANEZ APRN [id number] 02/08/2014 15:28:00 02/08/2014 23:59:59 CLS Outpatient PANCHO ANDRADE MD [id number] 09/21/2013 11:47:00 09/21/2013 23:59:59 CLS Outpatient LUCÍA YANEZ APRN [id number] 09/11/2013 11:46:00 09/11/2013 23:59:59 CLS Outpatient LUCÍA YANEZ APRN [id number] 08/03/2013 12:10:00 08/03/2013 23:59:59 CLS Outpatient LUCÍA YANEZ APRN [id number] 07/14/2013 15:51:00 07/14/2013 23:59:59 CLS Outpatient LUCÍA YANEZ APRN [id number] 10/20/2012 12:45:00 Document Registration [id number] 10/04/2012 14:10:00 Document Registration [id number] 05/05/2018 16:30:00 05/05/2018 23:59:59 CLS Outpatient [facility]EN[facility] [id number] 05/05/2018 16:30:00 Document Registration [id number] 08/14/2017 10:40:00 Document Registration [id number] 11/01/2017 15:30:00 11/05/2017 17:25:00 DIS Inpatient ORQUIDEA GALVAN DO [facility] 4TH HEPATIC ENCEPHALOPATHY [id number] 10/02/2017 18:16:00 10/06/2017 11:55:00 DIS Inpatient ORQUIDEA GALVAN DO [facility] 4TH HEPATIC ENCEPHALOPATHY,LIVER FAILURE,UTI [id number] 08/14/2017 12:24:00 08/14/2017 12:24:00 CAN Preadmit RADHA PIÑA [facility] CARD B18.2 CHRONIC HEP C R60.1 EDMEA [id number] 10/04/2018 14:30:00 ACT Emergency FARNAZ CAMACHO, LISA Keane [facility] ER FALL
[2018-10-04 15:01] LABS: BASOPHILS % (AUTO) 0 % (0-10); EOSINOPHILS # (AUTO) 0.5 10^3/uL (0.0-0.3); EOSINOPHILS % (AUTO) 4 % (0-10); HEMATOCRIT 28 % (40-54); HEMOGLOBIN 9.6 G/DL (13.3-17.7); LYMPHOCYTES # (AUTO) 1.1 X 10^3 (1.0-4.0); LYMPHOCYTES % (AUTO) 9 % (12-44); MEAN CORPUSCULAR HEMOGLOBIN 34 PG (25-34); MEAN CORPUSCULAR HGB CONC 34 G/DL (32-36); MEAN CORPUSCULAR VOLUME 100 FL (80-99); MEAN PLATELET VOLUME 11.6 FL (7.4-10.4); MONOCYTES # (AUTO) 1.6 X 10^3 (0.0-1.0); MONOCYTES % (AUTO) 13 % (0-12); NEUTROPHILS # (AUTO) 9.2 X 10^3 (1.8-7.8); NEUTROPHILS % (AUTO) 75 % (42-75); PLATELET COUNT 88 10^3/uL (130-400); WHITE BLOOD COUNT 12.4 10^3/uL (4.3-11.0)
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
[2018-10-04 15:17] LABS: ALANINE AMINOTRANSFERASE 55 U/L (0-55); ALBUMIN 2.2 GM/DL (3.2-4.5); ALKALINE PHOSPHATASE 110 U/L (40-136); BILIRUBIN,TOTAL 1.7 MG/DL (0.1-1.0); BUN/CREATININE RATIO 29; CALCIUM 8.2 MG/DL (8.5-10.1); CARBON DIOXIDE 18 MMOL/L (21-32); CHLORIDE 111 MMOL/L (98-107); CREATININE SERUM 0.76 MG/DL (0.60-1.30); GFR ESTIMATED > 60; GLUCOSE 137 MG/DL (70-105); POTASSIUM 3.9 MMOL/L (3.6-5.0); SODIUM 137 MMOL/L (135-145); TOTAL PROTEIN 6.7 GM/DL (6.4-8.2)
--- NOTE | 2018-10-04 15:44 | Diagnostic Imaging Report ---
PROCEDURE: CT head and neck without contrast. TECHNIQUE: Contiguous axial images were obtained from the skull base through the vertex. Noncontrast axial images were then obtained of the soft tissue of the neck. Auto Exposure Controls were utilized during the CT exam to meet ALARA standards for radiation dose reduction. INDICATION: Fall from ladder onto concrete floor. Head injury. Neck pain. COMPARISON: No relevant comparison available. FINDINGS: There are no CT findings of acute intracranial hemorrhage. There is no evidence of an abnormal extra-axial collection. There is no intracranial mass effect or shift. There is no hydrocephalus. There are no findings of territorial loss of barros-white differentiation. There appear to be some mild microvascular changes within the white matter. Basilar cisterns are patent. Posterior fossa demonstrates no acute process. The mastoid air cells are clear. The visualized paranasal sinuses demonstrate some moderate mucosal thickening in the left sphenoid sinus but no air-fluid level. Orbital contents are unremarkable. No calvarial fracture is evident. Cervical spine demonstrates straightening of the cervical lordosis. There is normal alignment of the craniocervical junction. The facets are normally aligned. There is no facet joint or disc space widening. There is fusion of the left-sided C2 and C3 facets. There are multilevel endplate changes which are advanced at C5-6 and C6-7. The vertebral body heights are maintained. There is no acute cervical spine fracture evident. Soft tissue of the neck demonstrates no acute process. IMPRESSION: 1. No CT evidence of an acute intracranial abnormality or evidence of calvarial fracture. 2. Chronic appearing left sphenoid sinusitis. 3. Cervical degenerative disc disease and facet arthropathy without evidence of traumatic malalignment or acute cervical spine fracture. Dictated by: Dictated on workstation # [id number]
--- NOTE | 2018-10-04 15:51 | Diagnostic Imaging Report ---
Bilateral humerus series. INDICATION: Fall from ladder onto concrete floor. FINDINGS: There is a complex comminuted fracture involving the proximal aspect of the left humerus with the major fracture lines at the surgical humeral neck. They extend through the greater and lesser tuberosity. There is no evidence of left glenohumeral joint dislocation. AC joint alignment appears maintained. No definitive scapular fracture evident. On the right, there is no glenohumeral joint dislocation. There is no evidence of a right humeral fracture. AC joint alignment appears appropriate. IMPRESSION: 1. Complex comminuted proximal left humeral fracture at the left surgical neck with involvement of the greater and lesser tuberosity but no evidence of glenohumeral joint dislocation. 2. No evidence of right humeral fracture or right glenohumeral joint dislocation. Dictated by: Dictated on workstation # [id number]
--- NOTE | 2018-10-04 15:53 | Diagnostic Imaging Report ---
PROCEDURE: CT chest, abdomen, and pelvis without contrast. TECHNIQUE: Multiple contiguous axial images were obtained through the chest, abdomen, and pelvis without the use of intravenous contrast. Auto Exposure Controls were utilized during the CT exam to meet ALARA standards for radiation dose reduction. INDICATION: Fall from ladder onto concrete floor. FINDINGS: There is some minimal dependent atelectasis in the lung bases. There is no pleural or pericardial fluid. There is no pneumothorax. Thoracic aorta is normal in caliber. Heart size is normal. There is no pathologically enlarged adenopathy in the chest. There are mild degenerative changes in the spine. There are no displaced rib fractures. There is a markedly comminuted fracture of the left humeral head and neck. There is a cirrhotic appearance of the liver. Gallbladder is unremarkable. There is no biliary ductal dilatation. Spleen is normal. Pancreas and adrenal glands are unremarkable. Kidneys have a normal appearance. The abdominal aorta is nonaneurysmal. Bowel gas pattern is nonspecific. There is no free air. There is no ascites. There are no focal inflammatory changes. Bladder is normal. There is no pelvic mass or adenopathy. There are degenerative changes in the lumbar spine. IMPRESSION: Markedly comminuted fracture of the proximal left humeral head and neck. Minimal dependent atelectasis in the lung bases Cirrhotic appearance of the liver. Degenerative changes in the spine. No other acute abnormality in the chest, abdomen, or pelvis. Dictated by: Dictated on workstation # [id number]
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
[2018-10-04] MEDS ORDERED: fentaNYL INJECTION 100 MCG/2 ML AMP ONE (17:54)
[2018-10-04] MEDS ORDERED: fentaNYL INJECTION 100 MCG/2 ML AMP IVP ONE (18:00)
--- OUTSIDE RECORDS SUMMARY | 2018-10-04 18:16 | XMS REPORT | Continuity of Care Document ---
Author Organization Unknown Address Unknown Allergies Active Description Code Type Severity Reaction Onset Reported/Identified Relationship to Patient Clinical Status Yes No Known Drug Allergies [id number] Drug Allergy Unknown N/A 10/02/2017 Medications There [...] APRN 401.1 HYPERTENSION, BENIGN ESSENTIAL 07/14/2013 PANCHO NADRADE MD 401.1 HYPERTENSION, BENIGN ESSENTIAL 07/14/2013 LUCÍA [...] E Ot R26.81 UNSTEADINESS ON FEET [facility]/04[facility].0 DISORIENTATION, UNSPECIFIED 10/06/2017 [facility] Ot A41.9 SEPSIS, UNSPECIFIED ORGANISM 10/06/2017 [facility] Ot B18.2 CHRONIC VIRAL HEPATITIS C 10/06/2017 [facility] Ot D64.9 ANEMIA, UNSPECIFIED 10/06/2017 [facility] E Ot D69.6 THROMBOCYTOPENIA, UNSPECIFIED 10/06/2017 [facility] Ot E46 UNSPECIFIED PROTEIN-CALORIE MALNUTRITION 10/06/2017 [facility] E72.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, UNSPE 10/06/2017 [facility] Ot E80.6 OTHER DISORDERS OF BILIRUBIN METABOLISM 10/06/2017 [facility] Ot E83.42 HYPOMAGNESEMIA 10/06/2017 [facility] Ot E83.51 HYPOCALCEMIA 10/06/2017 [facility] Ot E88.09 OT DISORDERS OF PLASMA-PROTEIN METABOLI 10/06/2017 [facility] Ot F10.10 ALCOHOL ABUSE, UNCOMPLICATED 10/06/2017 [facility] Ot F10.20 ALCOHOL DEPENDENCE, UNCOMPLICATED 10/06/2017 [facility] Ot F15.10 OTHER STIMULANT ABUSE, UNCOMPLICATED 10/06/2017 [facility] Ot F17.200 NICOTINE DEPENDENCE, UNSPECIFIED, UNCOMP 10/06/2017 [facility] Ot F17.210 NICOTINE DEPENDENCE, CIGARETTES, UNCOMPL 10/06/2017 [facility] Ot G93.40 ENCEPHALOPATHY, UNSPECIFIED 10/06/2017 [facility] Ot H91.90 UNSPECIFIED HEARING LOSS, UNSPECIFIED EA 10/06/2017 [facility] I10 ESSENTIAL (PRIMARY) HYPERTENSION 10/06/2017 [facility] Ot I85.00 ESOPHAGEAL VARICES WITHOUT BLEEDING 10/06/2017 [facility] Ot K72.00 ACUTE AND SUBACUTE HEPATIC FAILURE WITHO 10/06/2017 [facility] Ot K74.60 UNSPECIFIED CIRRHOSIS OF LIVER 10/06/2017 [facility] Ot N30.01 ACUTE CYSTITIS WITH HEMATURIA 10/06/2017 [facility] Ot N32.89 OTHER SPECIFIED DISORDERS OF BLADDER 10/06/2017 [facility] Ot N39.0 URINARY TRACT INFECTION, SITE NOT SPECIF 10/06/2017 [facility] OTT Ot R01.1 CARDIAC MURMUR, UNSPECIFIED 10/06/2017 [facility] R16.1 SPLENOMEGALY, NOT ELSEWHERE CLASSIFIED 10/06/2017 [facility] Ot R26.81 UNSTEADINESS ON FEET 10/06/2017 [facility] Ot R41.0 DISORIENTATION, UNSPECIFIED 10/06/2017 [facility] Ot Y90.0 BLOOD ALCOHOL LEVEL OF LESS THAN 20 MG/1 11/05/2017 [facility] OTT Ot A41.9 SEPSIS, UNSPECIFIED ORGANISM 11/05/2017 [facility] OTT Ot B18.2 CHRONIC VIRAL HEPATITIS C 11/05/2017 [facility] OTT Ot D69.6 THROMBOCYTOPENIA, UNSPECIFIED 11/05/2017 [facility] Ot F15.10 OTHER STIMULANT ABUSE, UNCOMPLICATED 11/05/2017 [facility] Ot F17.210 NICOTINE DEPENDENCE, CIGARETTES, UNCOMPL 11/05/2017 [facility] OTT Ot G81.94 HEMIPLEGIA, UNSPECIFIED AFFECTING LEFT N 11/05/2017 [facility] OTT Ot I10 ESSENTIAL (PRIMARY) HYPERTENSION 11/05/2017 [facility] OTT Ot J30.2 OTHER SEASONAL ALLERGIC RHINITIS 11/05/2017 [facility] Ot K59.00 CONSTIPATION, UNSPECIFIED 11/05/2017 [facility] Ot K70.9 ALCOHOLIC LIVER DISEASE, UNSPECIFIED 11/05/2017 [facility] Ot K72.00 ACUTE AND SUBACUTE HEPATIC FAILURE WITHO 11/05/2017 [facility] Ot N30.01 ACUTE CYSTITIS WITH HEMATURIA 11/05/2017 [facility] DO Ot N52.9 MALE ERECTILE DYSFUNCTION, [...] Procedures Code Description [place] [address] ROUTINE VENIPUNCTURE 08/03/2013 26050 A1C (RML) 08/03/2013 40759 PSA TOTAL 08/03/2013 52816 TESTOSTERONE TOTAL MALES 08/03/2013 35479 TSH 08/03/2013 50506 CBC 08/03/2013 2652229 GFR CALC (RESULT ONLY) 08/03/2013 15917 CMP 08/03/2013 03133 LIPID PANEL 08/03/2013 88809 ROUTINE VENIPUNCTURE 09/11/2013 56107 LIVER PANEL (LFT) 09/11/2013 10408 HEPATITIS PROFILE 09/11/2013 94576 AMYLASE 09/11/2013 66556 LIPASE 09/11/2013 42907 EKG, TRACING (IN-HOUSE) 09/11/2013 03546 ROUTINE VENIPUNCTURE 09/21/2013 79657 HEP C PCR QUANT W/RAKAN 09/21/2013 [facility] 09/22/2013 95498 ROUTINE VENIPUNCTURE 03/10/2014 66692 TESTOSTERONE TOTAL MALES 03/10/2014 43304 HEP C PCR QUANT (SERIAL) 03/10/2014 61543 LIVER PANEL (LFT) 03/10/2014 59072 CULTURE WOUND (AEROBIC) 08/12/2014 Results Test Result Range CBC - 08/14/17 12:06 WHITE BLOOD CELL COUNT 7.6 Thousand/uL 3.8-10.8 RED BLOOD CELL COUNT 3.25 Million/uL 4.20-5.80 HEMOGLOBIN 11.2 g/dL 13.2-17.1 HEMATOCRIT 31.4 % 38.5-50.0 MCV 96.6 fL 80.0-100.0 MCH 34.5 pg 27.0-33.0 MCHC 35.7 g/dL 32.0-36.0 RDW 12.6 % 11.0-15.0 PLATELET COUNT 113 Thousand/uL 140-400 MPV 10.1 fL 7.5-12.5 ABSOLUTE NEUTROPHILS 4522 cells/uL 6522-6537 ABSOLUTE LYMPHOCYTES 1444 cells/uL 850-3900 ABSOLUTE MONOCYTES [...] COLONY COUNT . NRG FTX;REPORTABLE SENT TO [facility] 10/03 09:00 NRG FREE TEXT ENTRY 2 REPORTED BY [facility] 10/03/17 17:05 NRG Methicillin resistant Staphylococcus aureus [...] culture - 11/01/17 16:30 Bacterial urine culture [id number] NRG COLONY COUNT >100,000/ML NRG FTX;REPORTABLE RML [...] Status Pt. Type Provider Facility Loc./Unit Complaint [id number] 08/09/2014 15:36:00 08/09/2014 23:59:59 CLS Outpatient PANCHO ANDRADE MD [id number] 03/10/2014 15:22:00 03/10/2014 23:59:59 CLS Outpatient LUCÍA YANEZ APRN [id number] 02/08/2014 15:28:00 02/08/2014 23:59:59 CLS Outpatient PANCHO ANDRADE MD [id number] 09/21/2013 11:47:00 09/21/2013 23:59:59 CLS Outpatient LUCÍA YANEZ APRN [id number] 09/11/2013 11:46:00 09/11/2013 23:59:59 CLS Outpatient LUCÍA YANEZ APRN [id number] 08/03/2013 12:10:00 08/03/2013 23:59:59 CLS Outpatient LUCÍA YANEZ APRN [id number] 07/14/2013 15:51:00 07/14/2013 23:59:59 CLS Outpatient LUCÍA YANEZ APRN [id number] 10/20/2012 12:45:00 Document Registration [id number] 10/04/2012 14:10:00 Document Registration [id number] 05/05/2018 16:30:00 05/05/2018 23:59:59 CLS Outpatient LUCÍA YANEZ APRN [facility] [id number] 05/05/2018 16:30:00 Document Registration [id number] 08/14/2017 10:40:00 Document Registration [id number] 11/01/2017 15:30:00 11/05/2017 17:25:00 DIS Inpatient ORQUIDEA GALVAN DO [facility] 4TH HEPATIC ENCEPHALOPATHY [id number] 10/02/2017 18:16:00 10/06/2017 11:55:00 DIS Inpatient ORQUIDEA GALVAN DO [facility] 4TH HEPATIC ENCEPHALOPATHY,LIVER FAILURE,UTI [id number] 08/14/2017 12:24:00 08/14/2017 12:24:00 CAN Preadmit RADHA PIÑA [facility] CARD B18.2 CHRONIC HEP C R60.1 EDMEA [id number] 10/04/2018 17:32:00 ACT Inpatient ERIC DAVIS DO [facility] 4TH FALL,MULTIPLE CONTUSIONS,FX L HUMERAL NECK
--- NOTE | 2018-10-04 18:32 | NUR ---
PT HERE FOR PT AT THIS TIME.
[2018-10-04 20:00] VITALS: BP 142/63
[2018-10-04] MEDS ORDERED: ACETAMINOPHEN 500 MG TAB (TYLENOL) PO PRN (21:00)
[2018-10-04] MEDS ORDERED: HYDROcodone/APAP 5 MG/325 MG (LORTAB) TAB PO PRN ×3 (21:00→21:15)
[2018-10-04] MEDS: NS IV 1000 ML 1,000 ML IV SCH (22:56)
[2018-10-04] MEDS: fentaNYL INJECTION 100 MCG/2 ML AMP IV PRN (22:57)
[2018-10-05] VITALS: BP 129/61
[2018-10-05] MEDS: fentaNYL INJECTION 100 MCG/2 ML AMP IV PRN (04:00)
[2018-10-05 04:26] VITALS: BP 141/66
[2018-10-05 05:22] LABS: BASOPHILS % (AUTO) 0 % (0-10); EOSINOPHILS # (AUTO) 0.2 10^3/uL (0.0-0.3); EOSINOPHILS % (AUTO) 1 % (0-10); HEMATOCRIT 26 % (40-54); HEMOGLOBIN 8.7 G/DL (13.3-17.7); LYMPHOCYTES # (AUTO) 1.9 X 10^3 (1.0-4.0); LYMPHOCYTES % (AUTO) 13 % (12-44); MEAN CORPUSCULAR HEMOGLOBIN 34 PG (25-34); MEAN CORPUSCULAR HGB CONC 33 G/DL (32-36); MEAN CORPUSCULAR VOLUME 102 FL (80-99); MEAN PLATELET VOLUME 10.5 FL (7.4-10.4); MONOCYTES # (AUTO) 2.3 X 10^3 (0.0-1.0); MONOCYTES % (AUTO) 15 % (0-12); NEUTROPHILS # (AUTO) 10.8 X 10^3 (1.8-7.8); NEUTROPHILS % (AUTO) 71 % (42-75); PLATELET COUNT 98 10^3/uL (130-400); RED CELL DISTRIBUTION WIDTH 15.4 % (10.0-14.5); WHITE BLOOD COUNT 15.2 10^3/uL (4.3-11.0)
[2018-10-05 05:43] LABS: ALANINE AMINOTRANSFERASE 47 U/L (0-55); ALBUMIN 2.1 GM/DL (3.2-4.5); ALKALINE PHOSPHATASE 98 U/L (40-136); BILIRUBIN,TOTAL 1.7 MG/DL (0.1-1.0); BUN/CREATININE RATIO 35; CALCIUM 8.1 MG/DL (8.5-10.1); CARBON DIOXIDE 19 MMOL/L (21-32); CHLORIDE 111 MMOL/L (98-107); CREATININE SERUM 0.71 MG/DL (0.60-1.30); GFR ESTIMATED > 60; GLUCOSE 107 MG/DL (70-105); SODIUM 138 MMOL/L (135-145); TOTAL PROTEIN 6.2 GM/DL (6.4-8.2)
[2018-10-05 06:30] LABS: LYMPHOCYTES % (MANUAL) 11 %; MONOCYTES % (MANUAL) 11 %; NEUTROPHILS % (MANUAL) 78 %
[2018-10-05] MEDS: NS IV 1000 ML 1,000 ML IV SCH (06:52)
[2018-10-05 08:00] VITALS: BP 153/84
--- NOTE | 2018-10-05 10:04 | Consultation - Ortho ---
Consult - Ortho Chief complaintfracture left proximal humerus History of present illnessthe patient is a 63-year-old white male who fell from attic ladder landing mainly on his back hitting his head. He thinks his arms when operative tried to grab something with the left arm. He was seen in the emergency room and x-rays were obtained as well as CT scans. Bony fracture identified was a fracture of the left proximal humerus at the surgical neck and proximal shaft. There is no dislocation. There is no fractures noted of the pelvis. He patient continues with left shoulder and left hip pain. He also complains of left ankle pain but states this is unchanged from prior to his fall. He does have a history of liver disease and was told he needs a liver transplant. He daisies had previous problems with the shoulder and has had injections in the past. He is left-hand dominant. He states he's had previous falls injuring his left hip and never fracture. Past medical history was reviewed and no additions or changes On exam he has no neck pain with palpation. He has swelling and pain left shoulder. There is also bruising. He has no pain over the clavicle. He has no pain at the elbow, forearm, wrist or hand. He has normal sensation to the fingers and thumb with good capillary refill and good radial pulse. Right upper extremity shows no shoulder pain elbow pain or wrist pain. He has good motion without pain. No crepitation or deformity. He is neurovascularly intact to the right upper extremity. He has bruising lateral aspect left hip has significant pain with motion of the left hip. He has no pain left knee. He has pain with motion left ankle but again he states that was present prior to his fall. He can feel his toes and has normal sensation with good capillary refill. He has 2+ pitting edema in lower extremities. He has no pain right ankle or foot. Normal sensation with good capillary refill. No pain left knee or hip with range of motion. No back pain with palpation. X-rays and CT scans were reviewed which shows no fracture involving the pelvis or left hip. The CT scan just goes to the lesser trochanter. X-rays and CT scan were reviewed of the left shoulder and he has comminuted fracture inferior aspect of the head going down to the proximal shaft. There is mild displacement. I don't see a fracture involving the head or the tuberosities. Impression#1) comminuted fracture left proximal humerus/surgical neck,#2) contusion left hip Planthe above was discussed with the patient and family member. I talked to them about the fracture left proximal humerus. I explained to them if left in this position it could heal but he may have some problems regaining his motion and strength. The other option would need to proceed with surgery. He may have some rotator cuff disease and if so would probably be better off with a shoulder replacement versus open reduction internal fixation. He states he does not want any surgery. I explained to him that he may not do as well without surgery but he wants to try to let this heal and if he has problems he could have surgery later on. So for now we will treat him with immobilization. I am concerned about his left hip pain and I reviewed the CT scan it don't see a fracture in the hip or the pelvis but again the CT just goes to the lesser trochanter so I'm going to go ahead and order an x-ray of his pelvis and left hip and make sure he doesn't have a subtrochanteric fracture I'll review this later and if he is doing better tomorrow and there is no fracture in the pelvis or hip and will see if therapy can get him up and getting going. He does live in [place] and I can see him back in follow-up after discharge and repeat his x-rays. I explained to him that sometimes the fracture alignment will improve just with weight of the arm hanging with immobilization of the arm. So again, wall proceed with nonoperative treatment for now. DON HEMPHILL MD October 05, 2018 10:04
--- NOTE | 2018-10-05 10:28 | NUR ---
PATIENT REFUSED PAIN MEDICATION THAT WAS OFFERED AT THIS TIME.
--- NOTE | 2018-10-05 11:30 | Diagnostic Imaging Report ---
EXAMINATION: AP pelvis and left hip series INDICATION: Left hip pain. Fall. FINDINGS: There are moderate osteoarthritic change within the hips with acetabular subchondral sclerosis and osteophyte formation. There is moderate joint space loss. The morphology of the femoral heads appear appropriate without findings of an acute proximal femoral fracture. There is no SI joint or pubic symphysis diastases and the pelvic ring appears intact. IMPRESSION: 1. Osteoarthritic changes of both hips without findings of dislocation or acute fracture. Dictated by: Dictated on workstation # [id number]
[2018-10-05 12:00] VITALS: BP 170/73
--- NOTE | 2018-10-05 12:10 | Progress Note ---
Subjective Time Seen by a Provider: 11:28 Subjective/Events-last exam Pt seen and examined, his main complaints are of left arm pain and left hip pain. Tolerating diet. Review of Systems General: No Chills, No Night Sweats Pulmonary: No Dyspnea, No Cough Cardiovascular: No: Chest Pain, Palpitations Objective Exam Vital Signs Date Time Temp Pulse Resp B/P (MAP) Pulse Ox O2 Delivery O2 Flow Rate FiO2 10/05/18 08:00 98.4 80 16 153/84 (107) 98 Room Air 10/05/18 08:00 98 Room Air 10/05/18 04:26 97.7 70 16 141/66 (91) 95 Room Air 10/05/18 04:00 97.7 10/05/18 00:00 99.5 65 129/61 (83) Room Air 10/04/18 20:00 95 Room Air 2.00 10/04/18 20:00 98.8 67 18 142/63 (89) 100 Room Air 10/04/18 20:00 98.3 67 16 142/63 100 Room Air 10/04/18 20:00 95 Room Air 10/04/18 18:26 64 16 178/90 (119) 95 2.00 10/04/18 14:50 97.9 71 16 164/81 (108) 99 Room Air 10/04/18 14:38 97.9 70 18 169/80 (109) 97 I & O 10/05/18 07:00 Intake Total 300 ml Output Total 600 ml Balance -300 ml Capillary Refill : Less Than 3 SecondsLess Than 3 Seconds General Appearance: No Apparent Distress, WD/WN Respiratory: Chest Non Tender, Lungs Clear, Normal Breath Sounds, No Accessory Muscle Use, No Respiratory Distress Cardiovascular: Regular Rate, Rhythm, No Murmur Gastrointestinal: normal bowel sounds, non tender, soft, no organomegaly, no pulsatile mass Extremity: Other (Left arm immobilized) Results Lab Laboratory Tests 10/04/18 14:51: White Blood Count 12.4H, Red Blood Count 2.81L, Hemoglobin 9.6L, Hematocrit 28L, Mean Corpuscular Volume 100H, Mean Corpuscular Hemoglobin 34, Mean Corpuscular Hemoglobin Concent 34, Red Cell Distribution Width 15.0H, Platelet Count 88L, Mean Platelet Volume 11.6H, Neutrophils (%) (Auto) 75, Lymphocytes (%) (Auto) 9L , Monocytes (%) (Auto) 13H, Eosinophils (%) (Auto) 4, Basophils (%) (Auto) 0, Neutrophils # (Auto) 9.2H, Lymphocytes # (Auto) 1.1, Monocytes # (Auto) 1.6H, Eosinophils # (Auto) 0.5H, Basophils # (Auto) 0.0, Sodium Level 137, Potassium Level 3.9, Chloride Level 111H, Carbon Dioxide Level 18L, Anion Gap 8, Blood Urea Nitrogen 22H, Creatinine 0.76, Estimat Glomerular Filtration Rate > 60, BUN/Creatinine Ratio 29, Glucose Level 137H, Calcium Level 8.2L, Corrected Calcium 9.6, Total Bilirubin 1.7H, Aspartate Amino Transf (AST/SGOT) 84H, Alanine Aminotransferase (ALT/SGPT) 55, Alkaline Phosphatase 110, Total Protein 6.7, Albumin 2.2L 10/05/18 04:38: White Blood Count 15.2H, Red Blood Count 2.59L, Hemoglobin 8.7L, Hematocrit 26L, Mean Corpuscular Volume 102H, Mean Corpuscular Hemoglobin 34, Mean Corpuscular Hemoglobin Concent 33, Red Cell Distribution Width 15.4H, Platelet Count 98L, Mean Platelet Volume 10.5H, Neutrophils (%) (Auto) 71, Lymphocytes (%) (Auto) 13, Monocytes (%) (Auto) 15H, Eosinophils (%) (Auto) 1, Basophils (%) (Auto) 0, Neutrophils # (Auto) 10.8H, Lymphocytes # (Auto) 1.9, Monocytes # (Auto) 2.3H, Eosinophils # (Auto) 0.2, Basophils # (Auto) 0.0, Sodium Level 138, Potassium Level 4.0, Chloride Level 111H, Carbon Dioxide Level 19L, Anion Gap 8, Blood Urea Nitrogen 25H, Creatinine 0.71, Estimat Glomerular Filtration Rate > 60, BUN/Creatinine Ratio 35, Glucose Level 107H, Calcium Level 8.1L, Corrected Calcium 9.6, Total Bilirubin 1.7H, Aspartate Amino Transf (AST/SGOT) 63H, Alanine Aminotransferase (ALT/SGPT) 47, Alkaline Phosphatase 98, Total Protein 6.2L, Albumin 2.1L, Neutrophils % (Manual) 78, Lymphocytes % (Manual) 11, Monocytes % (Manual) 11, Macrocytosis SLIGHT Assessment/Plan Assessment/Plan Assessment/Plan Trauma Fall from Ladder approximately 8ft Left Humerus Fracture Plan to D/C home, Ortho recommended fixing arm but stated pt refused. Pt will follow up with Ortho as outpt. Clinical Quality Measures DVT/VTE Risk/Contraindication: Risk Factor Score Per Nursin RFS Level Per Nursing on Admit: 3=High ERIC DAVIS DO October 05, 2018 12:10
[2018-10-05] MEDS ORDERED: KETO10TA PO (12:17)
--- NOTE | 2018-10-05 12:22 | Discharge Inst-Surgical ---
Discharge Inst-Surgical Depart Medication/Instructions New, Converted or Re-Newed RX: Transmitted to Pharmacy Patient Instructions Follow up Appt: Make appointment for [address] Dang Instructions: Keep Left arm immobilized. No strenuous activity. May shower in 24 hours, no tub bath or soaking. Use incentive spirometer at home as directed. No Smoking Symptoms to Report: Appetite Changes, Extremity Discoloration, Numbness/Tingling, Swelling Increased, Bleeding Excessive, Eyesight Changes, Pain Increased, Urine Color Change, Constipation(Persistent), Fever over 101 degree F, Pain/Pressure in chest, Urinating Difficulty, Cough Up/Vomit Blood, Heart Beat Irreg/Pounding, Pain/Pressure in jaw, Cramps in feet or legs, Lightheadedness, Pain/Pressure in shoulder, Diarrhea(Persistent), Memory Changes Suddenly, Questions/Concerns, Weight gain consecutive days, Dizziness/Fainting, Nausea/Vomiting, Shortness of Breath, Weight gain over 2 pounds If questions or concerns contact your physician Or seek help at emergency department. Activity Activity as Tolerated: Yes Driving Instructions: No Driving/Refer to Dr. Vazquez Discharge Diet: Low Sodium Diet If Any Problems/Questions/Issu: Contact Your Physician, Go to Emergency Room Skin/Wound Care Infection Signs and Symptoms: Increased Redness, Skin Itchy or Has a Rash, Increased Swelling, Temperature Above 101 F ERIC DAVIS DO October 05, 2018 12:22
[2018-10-05 13:24] VITALS: BP 170/73
== END 2018-10-05 12:17 | disposition home or self-care (01) ==
LOC: ER 14:30 → 4TH 17:32 → UNDOADMOB 17:32 → 4TH 18:45 → UNDODISOB 10-05 13:20
PROVIDERS: ADMIT Surgery; ATTEND Surgery
DX: S42.212A Unspecified displaced fracture of surgical neck of left humerus, initial encounter for closed fracture (principal); S70.02XA Contusion of left hip, initial encounter; B19.20 Unspecified viral hepatitis C without hepatic coma; F17.210 Nicotine dependence, cigarettes, uncomplicated; W11.XXXA Fall on and from ladder, initial encounter; Z79.82 Long term (current) use of aspirin; Z79.899 Other long term (current) drug therapy
CPT/HCPCS: 12001; 36415; 70450; 70490; 71250; 74176; 80053; 85007; 85025; 85027; G0378

== ENCOUNTER 2019-06-17 09:30 | Inpatient (IN) | payer MEDICARE, OTHER ==
[2019-06-17] VITALS (19 sets, daily range): BP systolic 101–206; BP diastolic 57–108
[~2019-06-17] VITALS: Ht 182 cm; Wt 85.5 kg
[~2019-06-17 09:30] MED LIST changes: +KETO10TA PO; -TAMS0.4C98 PO; +TMSL.4C PO
[2019-06-17] MEDS ORDERED: NS IV 1000 ML 1,000 ML IV SCH (09:38)
[2019-06-17] MEDS ORDERED: PROPOFOL DRIP (ICU) 100 ML IV ONE ×2 (09:48→21:30)
[2019-06-17 09:55] LABS: BASOPHILS % (AUTO) 0 % (0-10); EOSINOPHILS # (AUTO) 0.2 10^3/uL (0.0-0.3); EOSINOPHILS % (AUTO) 2 % (0-10); HEMATOCRIT 38 % (40-54); HEMOGLOBIN 12.7 G/DL (13.3-17.7); LYMPHOCYTES # (AUTO) 1.3 X 10^3 (1.0-4.0); LYMPHOCYTES % (AUTO) 14 % (12-44); MEAN CORPUSCULAR HEMOGLOBIN 34 PG (25-34); MEAN CORPUSCULAR HGB CONC 34 G/DL (32-36); MEAN CORPUSCULAR VOLUME 100 FL (80-99); MEAN PLATELET VOLUME 10.8 FL (7.4-10.4); MONOCYTES # (AUTO) 1.1 X 10^3 (0.0-1.0); MONOCYTES % (AUTO) 12 % (0-12); NEUTROPHILS # (AUTO) 6.7 X 10^3 (1.8-7.8); NEUTROPHILS % (AUTO) 72 % (42-75); PLATELET COUNT 107 10^3/uL (130-400); RED CELL DISTRIBUTION WIDTH 14.8 % (10.0-14.5); WHITE BLOOD COUNT 9.3 10^3/uL (4.3-11.0)
[2019-06-17] MEDS ORDERED: PROPOFOL INJECTION 50 ML IV SCH (10:00)
[2019-06-17 10:02] LABS: BILIRUBIN,URINE NEGATIVE (NEGATIVE); CLARITY,URINE CLOUDY; COLOR,URINE YELLOW; GLUCOSE, URINE (UA) NEGATIVE (NEGATIVE); KETONES,URINE NEGATIVE (NEGATIVE); LEUKOCYTE ESTERASE ,URINE TRACE (NEGATIVE); NITRITE,URINE NEGATIVE (NEGATIVE); PH,URINE >=9.0 (5-9); PROTEIN,URINE 1+ (NEGATIVE)
[2019-06-17 10:11] LABS: INR 1.2 (0.8-1.4); PROTHROMBIN TIME PATIENT 15.5 SEC (12.2-14.7)
[2019-06-17 10:12] LABS: ABG BASE EXCESS -1.7 MMOL/L (-2.5-2.5); ABG OXYGEN SATURATION 99 % (94-100); ABG PCO2 38 MMHG (35-45); ABG PH 7.39 (7.37-7.43); ABG PO2 121 MMHG (79-93); ALLENS TEST POSITIVE; INSPIRED O2 50%; PATIENT TEMP 97; VENTILATOR YES
[2019-06-17 10:14] LABS: AMORPHOUS SEDIMENT,UR MOD AMOR PHOSPHATE /LPF; BACTERIA,URINE LARGE /HPF; SQUAMOUS EPITHELIAL CELL,UR RARE /HPF; WBC,URINE 0-2 /HPF
[2019-06-17 10:14] LABS: ALANINE AMINOTRANSFERASE 58 U/L (0-55); ALBUMIN 2.5 GM/DL (3.2-4.5); ALKALINE PHOSPHATASE 116 U/L (40-136); AMMONIA 302 UMOL/L (11-32); AMYLASE 53 U/L (25-125); BILIRUBIN,TOTAL 1.9 MG/DL (0.1-1.0); BUN/CREATININE RATIO 24; CALCIUM 8.4 MG/DL (8.5-10.1); CARBON DIOXIDE 23 MMOL/L (21-32); CHLORIDE 112 MMOL/L (98-107); CREATINE KINASE 46 U/L (30-200); GFR ESTIMATED > 60; GLUCOSE 106 MG/DL (70-105); LIPASE 56 U/L (8-78); MAGNESIUM 1.8 MG/DL (1.6-2.4); POTASSIUM 4.6 MMOL/L (3.6-5.0); SALICYLATE < 5.0 MG/DL (5.0-20.0); SODIUM 138 MMOL/L (135-145); TOTAL PROTEIN 8.2 GM/DL (6.4-8.2)
[2019-06-17 10:15] LABS: ACETAMINOPHEN < 10 UG/ML (10-30)
[2019-06-17] MEDS ORDERED: PROPOFOL DRIP (ICU) 100 ML IV SCH ×3 (10:15→13:00)
[2019-06-17 10:17] LABS: AMPHETAMINE SCREEN, URINE NEGATIVE (NEGATIVE); BARBITURATE SCREEN URINE NEGATIVE (NEGATIVE); BENZODIAZEPINES SCREEN URINE NEGATIVE (NEGATIVE); CANNABINOID SCREEN, URINE NEGATIVE (NEGATIVE); COCAINE SCREEN URINE NEGATIVE (NEGATIVE); METHADONE STAT NEGATIVE (NEGATIVE); METHAMPHETAMINE SCREEN URINE S NEGATIVE (NEGATIVE); OPIATE SCREEN URINE NEGATIVE (NEGATIVE); OXYCODONE STAT NEGATIVE (NEGATIVE); PROPOXYPHENE STAT NEGATIVE (NEGATIVE); TRICYCLIC ANTIDEPRESSANTS SCRE NEGATIVE (NEGATIVE)
[2019-06-17] MEDS ORDERED: LACTULOSE SYRUP 10GM/15ML (ENULOSE) 30ML UDC NG ONE (10:30)
[2019-06-17 10:34] LABS: CREATINE KINASE MB 1.1 NG/ML (<6.6); TSH (THYROID ANALYZER) 1.67 UIU/ML (0.35-4.94)
--- NOTE | 2019-06-17 10:41 | Diagnostic Imaging Report ---
INDICATION: Evaluate tube placement. FINDINGS: There is cardiomegaly. There is marked prominence of the thoracic aorta. There is some prominence of the mediastinum. There is some scarring in the right lung. There is no pleural effusion or pneumothorax. IMPRESSION: Prominence of the mediastinum. Possibility of underlying hematoma cannot be excluded. Further evaluation with CT chest is recommended. Dictated by: Dictated on workstation # [id number]
[2019-06-17] MEDS ORDERED: HOLD METFORMIN - RECEIVED CONTRAST 20 ML VIAL IV SCH (11:00)
[2019-06-17] MEDS ORDERED: IOHEXOL 350 MG/ML 100 ML (OMNIPAQUE 350) VIAL IV ONE (11:00)
[2019-06-17] MEDS ORDERED: NS 100 ML (IVPB) BAG IV ONE (11:00)
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
--- NOTE | 2019-06-17 11:30 | Diagnostic Imaging Report ---
PROCEDURE: CT chest with contrast only. TECHNIQUE: Multiple contiguous axial images were obtained through the chest after administration of intravenous contrast. Auto Exposure Controls were utilized during the CT exam to meet ALARA standards for radiation dose reduction. DATE: June 17, 2019. COMPARISON: Chest radiograph June 17, 2019. CT chest, abdomen, and pelvis October 04, 2018. INDICATION: 64-year-old male, unresponsive. FINDINGS: There is respiratory motion artifact. There is no identified pulmonary nodule. There is no lung mass. There are predominantly linear opacities in the dependent aspect of the right upper lobe and also present in the right lower lobe which most likely relate to atelectasis. There is a trace amount of right-sided pleural fluid with adjacent atelectasis. There is no sizable left pleural effusion. There is no pneumothorax. The central airways are patent. There is a tracheal diverticulum, best illustrated on axial image 15. The endotracheal tube is below the thoracic inlet and above the felisha. There is limited evaluation for segmental and subsegmental pulmonary emboli given the timing of the contrast bolus as well as motion artifact. There is no identified large central pulmonary embolus. The main pulmonary artery diameter is within normal limits. The heart is not enlarged. There is no pericardial effusion. There is no identified abnormally enlarged mediastinal, hilar, or axillary lymph node which meets CT size criteria for adenopathy. The liver is nodular in contour, consistent with cirrhosis. There are gastroesophageal varices. The spleen does not appear to be enlarged. There is an enteric tube within the stomach. There is mild mesenteric stranding. There is no sizable volume ascites in the included field of view. There are atherosclerotic calcifications. There is a fracture deformity of the left proximal humerus. The fracture margins appear well-corticated and there appears to be some bone remodeling. This is most likely a nonunited prior fracture. There is a deformity of the posterior aspect of the left sixth rib and also the posterior aspect of the left seventh rib. These appear most likely chronic in age. There are also chronic appearing right-sided rib deformities. There is no identified acute bony abnormality. IMPRESSION: 1. Trace right pleural effusion with adjacent atelectasis. 2. Mild atelectasis in the right lower lobe and right upper lobe. No additional focal airspace consolidation. 3. No otherwise identified acute cardiopulmonary abnormality. 4. Cirrhosis with gastroesophageal varices. No prominent splenomegaly or ascites in the included field of view. Dictated by: Dictated on workstation # [id number]
--- NOTE | 2019-06-17 11:39 | Diagnostic Imaging Report ---
CLINICAL INDICATION: Patient is unresponsive. Concern for hepatic encephalopathy. Rule out stroke. Non-activation. EXAM: Axial CT scan of the brain performed without IV contrast. Auto Exposure Controls were utilized during the CT exam to meet ALARA standards for radiation dose reduction. COMPARISON: Head CT and neck CT without contrast dated 10/04/2018. FINDINGS: There is no evidence of acute cerebral infarct, intracranial hemorrhage, or gross mass effect. The brain parenchymal volume appears appropriate for patient's age. There is no significant change to the patchy and confluent areas of low-attenuation white matter changes involving both cerebral hemispheres suspected to be related to chronic small vessel ischemic disease. Stable curvilinear chronic infarct involving the right basal ganglia region. There is normal barros-white matter distinction. There is no significant midline shift or herniation. There is no evidence of hydrocephalus. The basal cisterns are unremarkable. The skull, extracranial soft tissue, and orbits are unremarkable. There is progression of moderate consolidation involving the sphenoid sinus or chronic bony sinusitis changes. There is mild ethmoid sinus mucosal thickening. Temporal bones show no significant abnormality. IMPRESSION: 1: There is no definite interval CT evidence of interval acute cerebral infarction, intracranial hemorrhage, or mass seen. Given the diffuse low attenuation changes throughout the brain parenchyma which can obscure more subtle findings, if there is clinical concern for acute cerebral infarction, MRI of the brain would better evaluate. 2: Again seen diffuse patchy and confluent areas of low attenuation white matter changes involving both cerebral hemispheres. This may be related to chronic small vessel ischemic disease changes. 3: Stable chronic infarct involving right basal ganglia. 4: There is progression of paranasal sinus disease. Results of this report were discussed with Dr. Alyssa Marinelli via the telephone on 06/17/2019 at 1125 hours. Dictated by: Dictated on workstation # [id number]
[2019-06-17] MEDS ORDERED: cefTRIAXone FOR IV USE 1,000 MG in WATER (STERILE) FOR INJECTION 10 ML IV ONE (12:15)
[2019-06-17] MEDS ORDERED: D5 1/2 NS W/KCL 20 MEQ/L 1,000 ML IV SCH (13:15)
--- NOTE | 2019-06-17 13:23 | Occ Therapy Progress Note ---
Therapy Progress Note Order received for OT eval and treat. Chart review completed. Pt currently intubated. Hold therapy at this time. Will continue to monitor pt status and initiate therapy when pt able to actively participate. YOVANY MAGANA OT Jun 17, 2019 13:23
[2019-06-17] MEDS: cefTRIAXone 1,000 MG/SWFI 10 ML IV PUSH IV SCH ×2 (14:07)
--- NOTE | 2019-06-17 14:09 | Physical Therapy Progress Note ---
Therapy Progress Note Patient currently intubated and sedated, will check back tomorrow and start when he is able to participate. KARINA JONES PT Jun 17, 2019 14:09
[2019-06-17] MEDS ORDERED: CYAN500T62 PO (14:35)
[2019-06-17] MEDS ORDERED: LACT10SO27 PO (14:35)
[2019-06-17] MEDS ORDERED: MILK500C PO (14:35)
[2019-06-17] MEDS ORDERED: MULT-1029 PO (14:35)
[2019-06-17] MEDS ORDERED: FISH400C PO (14:35)
[2019-06-17] MEDS ORDERED: FOLI0.8T PO (14:35)
[2019-06-17] MEDS ORDERED: RT-ALBUTEROL/IPRATROPIUM 3 ML (DUONEB) VIAL INH PRN (16:00)
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
[2019-06-17 16:24] LABS: ABG OXYGEN SATURATION 97 % (94-100); ABG PCO2 34 MMHG (35-45); ABG PO2 82 MMHG (79-93); ABG TCO2 22.2 MMOL/L (21.0-31.0)
[2019-06-17 16:26] LABS: ALLENS TEST POSITIVE; INSPIRED O2 21%; PATIENT TEMP 36.1; VENTILATOR YES
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
[2019-06-17] MEDS: D5 LR IV SOLUTION 1,000 ML IV SCH ×2 (18:24→20:39)
[2019-06-17] MEDS: inSUlin ASPART (NovoLOG) 1 UNIT/0.01 ML (CHARGE PER UNIT) SC SCH (18:25)
[2019-06-17] MEDS: RT-ALBUTEROL/IPRATROPIUM 3 ML (DUONEB) VIAL INH SCH ×2 (18:38→22:07)
[2019-06-17] MEDS: RIFAXIMIN 550 MG TABLET (XIFAXAN) PO SCH (20:38)
[2019-06-17] MEDS ORDERED: LACTULOSE SYRUP 10GM/15ML (ENULOSE) 30ML UDC NG SCH (21:00)
[2019-06-17] MEDS ORDERED: fentaNYL INJECTION 100 MCG/2 ML AMP IV PRN (22:15)
[2019-06-17] MEDS ORDERED: LORazepam INJ 2 MG/ML (ATIVAN) VIAL IV PRN (22:15)
[2019-06-18] VITALS (21 sets, daily range): BP systolic 107–139; BP diastolic 56–76
[2019-06-18] MEDS: inSUlin ASPART (NovoLOG) 1 UNIT/0.01 ML (CHARGE PER UNIT) SC SCH ×2 (00:47→04:18)
[2019-06-18] MEDS: RT-ALBUTEROL/IPRATROPIUM 3 ML (DUONEB) VIAL INH SCH ×5 (01:57→19:55)
[2019-06-18] MEDS: D5 LR IV SOLUTION 1,000 ML IV SCH ×3 (03:19→23:11)
[2019-06-18 03:24] LABS: BASOPHILS % (AUTO) 0 % (0-10); EOSINOPHILS # (AUTO) 0.6 10^3/uL (0.0-0.3); EOSINOPHILS % (AUTO) 6 % (0-10); HEMATOCRIT 32 % (40-54); HEMOGLOBIN 10.9 G/DL (13.3-17.7); LYMPHOCYTES % (AUTO) 17 % (12-44); MEAN CORPUSCULAR HEMOGLOBIN 34 PG (25-34); MEAN CORPUSCULAR HGB CONC 34 G/DL (32-36); MEAN CORPUSCULAR VOLUME 101 FL (80-99); MEAN PLATELET VOLUME 10.8 FL (7.4-10.4); MONOCYTES # (AUTO) 1.1 X 10^3 (0.0-1.0); MONOCYTES % (AUTO) 9 % (0-12); NEUTROPHILS # (AUTO) 7.8 X 10^3 (1.8-7.8); NEUTROPHILS % (AUTO) 68 % (42-75); PLATELET COUNT 85 10^3/uL (130-400); RED CELL DISTRIBUTION WIDTH 14.8 % (10.0-14.5); WHITE BLOOD COUNT 11.5 10^3/uL (4.3-11.0)
[2019-06-18 03:39] LABS: ALANINE AMINOTRANSFERASE 50 U/L (0-55); ALBUMIN 2.1 GM/DL (3.2-4.5); ALKALINE PHOSPHATASE 94 U/L (40-136); AMMONIA 92 UMOL/L (11-32); BILIRUBIN,TOTAL 1.8 MG/DL (0.1-1.0); BUN/CREATININE RATIO 22; CALCIUM 8.2 MG/DL (8.5-10.1); CARBON DIOXIDE 17 MMOL/L (21-32); CHLORIDE 116 MMOL/L (98-107); CREATININE SERUM 0.69 MG/DL (0.60-1.30); GFR ESTIMATED > 60; GLUCOSE 116 MG/DL (70-105); MAGNESIUM 1.6 MG/DL (1.6-2.4); PHOSPHORUS 3.4 MG/DL (2.3-4.7); POTASSIUM 3.7 MMOL/L (3.6-5.0); SODIUM 139 MMOL/L (135-145); TOTAL PROTEIN 6.7 GM/DL (6.4-8.2)
[2019-06-18 04:16] LABS: ABG OXYGEN SATURATION 98 % (94-100); ABG PCO2 34 MMHG (35-45); ABG PH 7.41 (7.37-7.43); ABG PO2 91 MMHG (79-93); ABG TCO2 21.8 MMOL/L (21.0-31.0)
[2019-06-18] MEDS: POTASSIUM CL 10MEQ/50ML IVPB 50 ML IV SCH (04:19)
[2019-06-18] MEDS: KCL 20 MEQ TAB (K-DUR) PO SCH (04:20)
[2019-06-18 04:30] LABS: ALLENS TEST YES-POS; INSPIRED O2 21%; PATIENT TEMP 37.4; VENTILATOR YES
--- NOTE | 2019-06-18 05:39 | Pulmonary Progress Note ---
Subjective Time Seen by a Provider: 05:32 Subjective/Events-last exam PT sedated on vent. Sepsis Event Evaluation Height, Weight, BMI Height: '" Weight: lbs. oz. kg; 24.00 BMI Method: Focused Exam Lactate Level 06/17/19 09:40: Lactic Acid Level 1.98 Exam Exam Vital Signs Date Time Temp Pulse Resp B/P (MAP) Pulse Ox O2 Delivery O2 Flow Rate FiO2 06/18/19 04:00 78 13 114/62 (79) 98 Mechanical Ventilator 21.00 06/18/19 03:57 Mechanical Ventilator 21 06/18/19 03:56 37.4 06/18/19 03:00 89 10 108/64 (79) 97 Mechanical Ventilator 21.00 06/18/19 02:00 73 18 107/62 (77) 97 Mechanical Ventilator 21.00 06/18/19 01:57 77 21 97 21 06/18/19 01:00 72 06/18/19 01:00 72 12 119/64 (82) 97 Mechanical Ventilator 21.00 06/18/19 00:00 Mechanical Ventilator 21 06/18/19 00:00 73 112/59 (76) 97 Mechanical Ventilator 21.00 06/17/19 23:50 37.3 06/17/19 23:00 76 12 137/70 (92) 97 Mechanical Ventilator 21.00 06/17/19 22:07 98 95 21 06/17/19 22:00 76 11 117/67 (84) 97 Mechanical Ventilator 21.00 06/17/19 21:38 36.05325 98 11 135/79 95 Mechanical Ventilator 06/17/19 21:00 72 10 130/69 (89) 96 Mechanical Ventilator 21.00 06/17/19 20:00 86 14 134/70 (91) 98 Mechanical Ventilator 21.00 06/17/19 20:00 36.9 06/17/19 19:50 Mechanical Ventilator 21 06/17/19 19:00 81 06/17/19 19:00 76 10 139/71 (93) 98 Mechanical Ventilator 21.00 06/17/19 18:33 88 22 98 21 06/17/19 18:00 75 18 129/70 (89) 98 Mechanical Ventilator 25.00 06/17/19 17:00 67 11 130/69 (89) 99 Mechanical Ventilator 25.00 06/17/19 16:00 70 31 112/57 (75) 98 Mechanical Ventilator 25.00 06/17/19 16:00 36.3 06/17/19 16:00 Mechanical Ventilator 25 06/17/19 15:00 70 16 101/58 (72) 96 Mechanical Ventilator 25.00 06/17/19 14:28 70 16 95 21 06/17/19 14:15 36.1 96 100 06/17/19 14:00 77 16 106/61 (76) 95 Mechanical Ventilator 25.00 06/17/19 13:51 96 Mechanical Ventilator 25 06/17/19 13:02 98 23 100 25 06/17/19 13:00 80 11 125/67 (86) 98 Mechanical Ventilator 25.00 06/17/19 12:49 81 06/17/19 12:28 37.0 83 16 126/76 95 Mechanical Ventilator 06/17/19 12:00 87 16 118/68 (85) 97 Mechanical Ventilator 25.00 06/17/19 11:00 124/70 (88) Mechanical Ventilator 25.00 06/17/19 10:00 36.09676 96 16 184/97 100 Mechanical Ventilator 06/17/19 09:45 120 17 206/108 (140) 98 Mechanical Ventilator 25.00 06/17/19 09:34 36.1 96 16 200/103 (135) 100 Mechanical Ventilator I & O 06/18/19 07:00 Intake Total 2330 ml Output Total 2075 ml Balance 255 ml Height & Weight Height: '" Weight: lbs. oz. kg; 24.00 BMI Method: General Appearance: Chronically ill, Other (intubated) HEENT: Other (PATCHY ERYTHEMATOUS RASH TO FACE, HAS APPEARANCE OF FUNGAL-TYPE INFECTION TO CHIN AREA) Respiratory: Normal Breath Sounds Cardiovascular: Regular Rate, Rhythm Capillary Refill: Less Than 3 Seconds Extremity: Pedal Edema (TRACE BILATERALLY. CHRONIC VENOUS STASIS CHANGES BILATERAL LOWER LEGS) Neurologic/Psychiatric: Other (intubated) Skin: Normal Color, Warm/Dry Results Lab Laboratory Tests 06/17/19 09:40 06/18/19 03:10 Assessment/Plan Assessment/Plan Acute respiratory failure secondary to being unresponsive -Intubated per EMS upon admission -Will proceed with extubation this AM -D/C propofol -decrease sedating meds secondary to lethargy -UDS is negative HX of hep C with liver failure and elevated bilirubin -Check US of abdomen and screen for acute cholangitis Hepatic encephalopathy -Continue Lactulose, Rifaxamine Anemia -Check occult stool -Monitor Nonanion gapped metabolic acidosis -Monitor Thrombocytopenia -D/C lovenox and monitor Hypomag -replace Debility -PT/OT PJ MUNOZ DO Jun 18, 2019 05:39
[2019-06-18] MEDS: LACTULOSE SYRUP 10GM/15ML (ENULOSE) 30ML UDC NG SCH ×4 (06:13→19:59)
[2019-06-18] MEDS: MAGNESIUM 1 GM/100 ML IVPB 100 ML IV SCH ×3 (06:13→07:40)
[2019-06-18] MEDS ORDERED: LORazepam INJ 2 MG/ML (ATIVAN) VIAL IV PRN (06:45)
[2019-06-18] MEDS ORDERED: morphine INJ 4 MG/ML 1 ML (VIAL/SYRINGE) IVP PRN (06:45)
[2019-06-18] MEDS: RIFAXIMIN 550 MG TABLET (XIFAXAN) PO SCH ×2 (08:30→19:59)
--- NOTE | 2019-06-18 08:48 | Occ Therapy Progress Note ---
Therapy Progress Note Pt sedated/ on vent, OT to eval/ treat when pt medically stable and able to participate in skilled therapy sessions. HERBIE PILLAI OTR Jun 18, 2019 08:48
[2019-06-18] MEDS ORDERED: ENOXAPARIN 40 MG/0.4 ML (LOVENOX) SYR SC SCH (09:00)
[2019-06-18] MEDS ORDERED: PANTOPRAZOLE 40 MG (PROTONIX) VIAL IV SCH (09:00)
--- NOTE | 2019-06-18 09:08 | ST Dysphagia Evaluation ---
Speech Evaluation-General Medical Diagnosis AMS Onset Date: Jun 17, 2019 Therapy Diagnosis Therapy Diagnosis: Oropharyngeal Dysphagia Referral Referring Physician: Dr. Cespedes Reason for Referral: Evaluation/Treatment Medical History Reviewed History: Yes Speech PLF/Current-Dysphagia Prior Level of Function Patient was unable to report prior level of functioning prior to hospital admission. Subjective Patient was cooperative for evaluation tasks. Patient was recently extubated this morning and was moderately disoriented.Patient required repetition of directions to complete oral motor examination and administration of differing consistencies. Cognitive Status Patient Orientation: Confused, Eyes Open, Mumbles Oral Motor Skills Dentition: Edentalous Current Food Consistancy: Regular Ability to Follow Directions: Fair Oral Expression Ability: Moderate Impairment Voice Voice Phonatory-Based Quality: Breathy Voice Pitch: Normal Voice Loudness: Normal Face Facial Symmetry: Symmetrical Oral-Facial Assessment Oral-Facial Dentition: Normal Labial Seal Description: Normal Smile: Normal Lingual Protrusion: Normal Lingual ROM: Normal Lingual Strength: Normal Pharynx Velopharyngeal Move.: Normal Dysphagia Evaluation Consistencies Presented: Thin Liquid, Mechanical Soft, Pureed Pharyngeal Phase: Multiple Swallow Attempts Dietary Recommendations: Mechanical Soft Liquid Recommendations: Thin Swallowing Precautions: Alternate Liquids/Solids, Double Swallow, Decreased Bolus 1/2 Tsp, Liquids from Straw, Small Bites and Sips, Sitting Upright 90 Degrees, Sitting 90 Degrees 30 Post Intake Dysphagia Evaluation Summary Patient was admitted to the ICU s/p AMS. Patient was administered thin liquid via 1/2 tsp spoon and straw and demonstrated no s/s of penetration or a spiration. Patient was then presented with 1/2 tsp spoon of pureed and mechanical soft consistencies and presented with no s/s of penetration/aspiration. It is recommended that patient receive a DYSPHAGIA II diet with thin liquids. Additionally, patient is to utilize compensatory strategies of small bites and small sips, sitting upright, and alternating liquids and solids during mealtimes. Barriers to Learning Current medical status. Speech Short Term Goals Short Term Goals Short Term Goals 1. Patient will tolerate least restrictive diet with no s/s of aspiration at 9 0%. 2. Patient will utilize compensatory strategies as trained with 90% accuracy with minimal cues. Speech Fpc Goals Liquor Blender Goals Patient will maintain adequate nutrition/hydration via safe and effective swallow function. Speech-Plan Patient/Family Goals Patient/Family Goals: Patient wishes to return to previous level of independence. Treatment Plan Speech Therapy Treatment Plan: Continue Plan of Care Treatment Duration: Jun 25, 2019 Frequency: 2 times per week Estimated Hrs Per Day: .25 hour per day Rehab Potential: Fair Barriers to Learning: Current medical status Pt/Family Agrees to Plan: Yes Safety Risks/Education Teaching Recipient: Patient Teaching Methods: Demonstration Response to Teaching: Return Demonstration Education Topics Provided: Patient was provided instruction on the utilization of compensatory strategies during all mealtimes. Time Speech Therapy Time In: 08:45 Speech Therapy Time Out: 09:00 Total Billed Time: 15 Billed Treatment Time RobinJOSE BETHANIA ST Jun 18, 2019 09:08
--- NOTE | 2019-06-18 09:20 | Diagnostic Imaging Report ---
INDICATION: Dyspnea COMPARISON: 06/17 FINDINGS: ET tube mid thoracic trachea. OG catheter goes into the stomach. Rightward rotation limits evaluation of the mediastinal contour. The heart size itself within normal limits. There is poor inspiratory volume with some crowding of the lung markings. Perihilar and basilar partial atelectasis. The possibility of a developing infiltrate in this patient's left lower lobe could not be excluded. IMPRESSION: Limited by rotation and poor inspiration questionable findings for developing infiltrate in the left base. Support apparatus projects in good alignment. Dictated by: Dictated on workstation # [id number]
--- NOTE | 2019-06-18 09:22 | Diagnostic Imaging Report ---
INDICATION: Liver failure and ascites. The liver is normal in size at 14.1 cm. Liver does demonstrate a nodular contour, suggestive of cirrhosis. There is also parenchymal heterogeneity. No discrete liver mass is detected. The portal vein was obscured. The gallbladder is without stones or sludge. No wall thickening or biliary duct dilatation is seen. Visualized pancreas is unremarkable. Spleen is slightly enlarged at 14.1 cm. Aorta proximally is normal in caliber. Mid and distal aorta were obscured. IVC appears patent. Kidneys are without calculi or hydronephrosis. There is no ascites. IMPRESSION: 1. Limited study due to bowel gas and patient's immobility. There are findings suggestive of cirrhosis and perhaps a component of portal hypertension with splenomegaly. No significant ascites is seen. No liver mass is detected. 2. No evidence of cholelithiasis or acute cholecystitis. Dictated by: Dictated on workstation # [id number]
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
--- NOTE | 2019-06-18 11:46 | Physical Therapy Progress Note ---
Therapy Progress Note Patient extubated this morning. At this time patient is too sedated to be evaluated by PT. Will check in again in afternoon. [id number] EVELINA BALLARD PT Jun 18, 2019 11:45
[2019-06-18] MEDS: cefTRIAXone 1,000 MG/SWFI 10 ML IV PUSH IV SCH ×2 (13:38)
--- NOTE | 2019-06-18 15:14 | Physical Therapy Evaluation ---
PT Evaluation-General Medical Diagnosis Admission Date Jun 17, 2019 at 12:00 Medical Diagnosis: AMS Onset Date: Jun 17, 2019 Therapy Diagnosis Therapy Diagnosis: Debility/Deconditioning Referral Physician: Niecy Reason for Referral: Evaluation/Treatment Medical History Pertinent Medical History: Alcoholism, HTN, Smoking Additional Medical History Hepatitis. Cirrhosis. Liver Disease. Current History Patient arrived in ER via EMS after found unresponsive. Reviewed History: Yes Social History Home: Single Level Current Living Status: Spouse Entry Into Home: Level Entry PT Steps Into Home: 0 PT Steps Inside Home: 0 Prior Prior Level of Function SCALE: Activities may be completed with or without assistive devices. 0-Cucvmfykqk-uhlupbm completes the activity by him/herself with no assistance from a helper. 5-Set-up or Clean-up Assistance-helper sets up or cleans up; patient completes activity. Cocoa assists only prior to or following the activity. 4-Supervision or Touching Assistance-helper provides verbal cues and/or touching/steadying and/or contact guard assistance as patient completes activity. Assistance may be provided throughout the activity or intermittently. 3-Partial/Moderate Assistance-helper does LESS THAN HALF the effort. Cocoa lifts, holds or supports trunk or limbs, but provides less than half the effort. 2-Substantial/Maximal Assistance-helper does MORE THAN HALF the effort. Cocoa lifts or holds trunk or limbs and provides more than half the effort. 0-Gubhpofib-znufvz does ALL the effort. Patient does none of the effort to complete the activity. Or, the assistance of 2 or more helpers is required for the patient to complete the activity. If activity was not attempted, code reason: 7-Patient Refused. 9-Not Applicable-not attempted and the patient did not perform the activity before the current illness, exacerbation or injury. 10-Not Attempted due to Environmental Limitations-(lack of equipment, weather restraints, etc.). 88-Not Attempted due to Medical Conditions or Safety Concerns. Bed Mobility: 6 Transfers (B,C,W/C): 6 Gait: 6 PT Evaluation-Current Subjective Patient is agreeable to sitting EOB and transferring to recliner. Objective Patient Orientation: Mumbles Attachments: Victor Catheter, IV ROM/Strength ROM Upper Extremities Limited LUE ROM ROM Lower Extremities WFL BLE Strength Upper Extremities Decreased LUE Strength Lower Extremities Generalized BLE weakness. Integumentary/Posture Integumentary See nursing notes. Bowel Incontinence: No Bladder Incontinence: Victor Cath Sensory Vision: Functional Hearing: Impaired Sensation Right Lower Extremit: Intact Sensation Left Lower Extremity: Intact Transfers Roll Left to Right (QC): 3 Sit to Lying (QC): 3 Lying to Sitting/Side of Bed(Q: 3 Sit to Stand (QC): 3 Chair/Ojh-lg-Syxnx Xfer(QC): 3 Gait Does the Patient Walk?: No and Walking Goal IS indicated Wheelchair Training Does the Pt Use a Wheelchair?: No Balance Sitting Static: Fair Sitting Dynamic: Fair Standing Static: Fair Standing Dynamic: Fair Assessment/Needs Patient was able to stand and transfer to recliner with modA. Patient was able to maintain upright sitting position. Patient will benefit from skilled therapy to reach maximum LOF. Rehab Potential: Fair PT Group Home Goals Group Home Goals PT Plant Pathology Teacher Goals Time Frame: Jun 26, 2019 Roll Left & Right (QC): 6 Sit to Lying (QC): 6 Lying-Sitting on Side/Bed(QC): 6 Sit to Stand (QC): 6 Chair/Gpp-vg-Wadym Xfer(QC): 6 Toilet Transfer (QC): 6 Does the Patient Walk: Yes Walk 10 feet (QC): 6 Walk 50ft with 2 Turns (QC): 6 Walk 150 ft (QC): 6 PT Plan Problem List Problem List: Activity Tolerance, Functional Strength, Safety, Balance, Gait, Transfer, Bed Mobility Treatment/Plan Treatment Plan: Continue Plan of Care Treatment Plan: Bed Mobility, Education, Functional Activity Latha, Functional Strength, Gait, Safety, Therapeutic Exercise, Transfers Treatment Duration: Jun 26, 2019 Frequency: 6 times per week Estimated Hrs Per Day: .25 hour per day Patient and/or Family Agrees t: Yes Safety Risks/Education Patient Education: Transfer Techniques Teaching Recipient: Patient, Family Teaching Methods: Discussion Response to Teaching: Reinforcement Needed Discharge Recommendations Therapy Discharge Recommendati: Home & Family Time/GCodes Time In: 1450 Time Out: 1500 Total Billed Treatment Time: 10 Total Billed Treatment 1 visit EVL 10 EVELINA BALLARD PT Jun 18, 2019 15:14
[2019-06-19 00:20] VITALS: BP 139/68
[2019-06-19] MEDS: RT-ALBUTEROL/IPRATROPIUM 3 ML (DUONEB) VIAL INH SCH ×2 (02:00→09:53)
[2019-06-19 04:25] VITALS: BP 150/78
[2019-06-19 04:54] LABS: BASOPHILS # (AUTO) 0.1 10^3/uL (0.0-0.1); BASOPHILS % (AUTO) 1 % (0-10); EOSINOPHILS # (AUTO) 0.7 10^3/uL (0.0-0.3); EOSINOPHILS % (AUTO) 9 % (0-10); HEMATOCRIT 30 % (40-54); HEMOGLOBIN 10.2 G/DL (13.3-17.7); LYMPHOCYTES # (AUTO) 1.8 X 10^3 (1.0-4.0); LYMPHOCYTES % (AUTO) 22 % (12-44); MEAN CORPUSCULAR HEMOGLOBIN 34 PG (25-34); MEAN CORPUSCULAR HGB CONC 34 G/DL (32-36); MEAN CORPUSCULAR VOLUME 100 FL (80-99); MEAN PLATELET VOLUME 10.1 FL (7.4-10.4); MONOCYTES # (AUTO) 1.2 X 10^3 (0.0-1.0); MONOCYTES % (AUTO) 15 % (0-12); NEUTROPHILS # (AUTO) 4.3 X 10^3 (1.8-7.8); NEUTROPHILS % (AUTO) 54 % (42-75); PLATELET COUNT 80 10^3/uL (130-400); RED CELL DISTRIBUTION WIDTH 14.8 % (10.0-14.5); WHITE BLOOD COUNT 8.1 10^3/uL (4.3-11.0)
[2019-06-19 05:16] LABS: BUN/CREATININE RATIO 17; CALCIUM 7.6 MG/DL (8.5-10.1); CARBON DIOXIDE 22 MMOL/L (21-32); CHLORIDE 114 MMOL/L (98-107); CREATININE SERUM 0.69 MG/DL (0.60-1.30); GFR ESTIMATED > 60; GLUCOSE 98 MG/DL (70-105); MAGNESIUM 1.7 MG/DL (1.6-2.4); PHOSPHORUS 3.1 MG/DL (2.3-4.7); POTASSIUM 3.4 MMOL/L (3.6-5.0); SODIUM 139 MMOL/L (135-145); TRIGLYCERIDES 45 MG/DL (<150)
[2019-06-19] MEDS: MAGNESIUM 1 GM/100 ML IVPB 100 ML IV SCH ×3 (05:56→08:18)
[2019-06-19] MEDS: POTASSIUM CL 10MEQ/50ML IVPB 50 ML IV SCH ×3 (05:56→08:19)
[2019-06-19] MEDS: KCL 20 MEQ TAB (K-DUR) PO SCH (05:57)
--- NOTE | 2019-06-19 06:14 | Pulmonary Progress Note ---
Subjective Time Seen by a Provider: 06:10 Subjective/Events-last exam No complications noted. Sepsis Event Evaluation Height, Weight, BMI Height: '" Weight: lbs. oz. kg; 24.00 BMI Method: Focused Exam Lactate Level 06/17/19 09:40: Lactic Acid Level 1.98 Exam Exam Vital Signs Date Time Temp Pulse Resp B/P (MAP) Pulse Ox O2 Delivery O2 Flow Rate FiO2 06/19/19 04:25 37.2 97 19 150/78 (102) 98 Room Air 06/19/19 02:00 95 Room Air 06/19/19 00:20 37.6 106 18 139/68 (91) 95 Room Air 06/18/19 20:40 Room Air 06/18/19 20:40 37.9 110 22 115/68 (84) 96 Room Air 06/18/19 20:00 105 13 138/76 (96) 98 Room Air 06/18/19 20:00 96 Room Air 06/18/19 19:55 98 Room Air 06/18/19 19:23 37.1 06/18/19 19:00 126 18 131/63 (85) 97 Room Air 06/18/19 19:00 126 06/18/19 18:00 123 15 100 Room Air 06/18/19 17:00 113 16 100 Room Air 06/18/19 16:00 117 9 100 Room Air 06/18/19 16:00 96 Room Air 06/18/19 15:35 38.0 06/18/19 15:00 107 16 129/74 (92) 98 Room Air 06/18/19 14:05 96 Room Air 06/18/19 14:00 101 15 118/67 (84) 95 Room Air 06/18/19 13:00 102 14 118/67 (84) 94 Room Air 06/18/19 12:48 79 06/18/19 12:00 37.8 06/18/19 12:00 96 Room Air 06/18/19 12:00 93 14 130/65 (86) 97 Room Air 06/18/19 11:00 80 13 115/56 (75) 97 Room Air 06/18/19 10:22 37.4 80 97 06/18/19 10:19 97 Room Air 06/18/19 10:00 79 15 130/68 (88) 98 Room Air 06/18/19 09:00 83 135/64 (87) Room Air 06/18/19 08:00 92 16 121/63 (82) 96 Room Air 06/18/19 08:00 96 Room Air 06/18/19 07:02 96 Room Air 06/18/19 07:00 94 14 119/57 (77) 97 Room Air 06/18/19 07:00 101 I & O 06/19/19 06:59 Intake Total 2040 ml Output Total 1125 ml Balance 915 ml Height & Weight Height: '" Weight: lbs. oz. kg; 24.00 BMI Method: General Appearance: No Apparent Distress, WD/WN, Chronically ill HEENT: Other (PATCHY ERYTHEMATOUS RASH TO FACE, HAS APPEARANCE OF FUNGAL-TYPE INFECTION TO CHIN AREA) Respiratory: Lungs Clear, Normal Breath Sounds Cardiovascular: Regular Rate, Rhythm Capillary Refill: Less Than 3 Seconds Gastrointestinal: soft, distended Extremity: Pedal Edema (TRACE BILATERALLY. CHRONIC VENOUS STASIS CHANGES BILATERAL LOWER LEGS) Neurologic/Psychiatric: Disoriented Skin: Normal Color, Warm/Dry Results Lab Laboratory Tests 06/17/19 09:40 06/18/19 03:10 06/19/19 04:20 Assessment/Plan Assessment/Plan HX of hep C with liver failure and elevated bilirubin -Check US of abdomen and screen for acute cholangitis Hepatic encephalopathy -Continue Lactulose, Rifaxamine Anemia -Check occult stool -Monitor Thrombocytopenia -D/C lovenox and monitor Hypomag, hypokalemia -replace Debility -PT/OT Pt is doing well. He is ok for discharge from pulmonary standpoint. I am going to sign off please call with any questions. PJ MUNOZ DO Jun 19, 2019 06:14
[2019-06-19] MEDS ORDERED: KCL 20 MEQ TAB (K-DUR) PO ONE (06:15)
[2019-06-19 08:00] VITALS: BP 130/65
[2019-06-19] MEDS: RIFAXIMIN 550 MG TABLET (XIFAXAN) PO SCH (08:35)
[2019-06-19] MEDS: LACTULOSE SYRUP 10GM/15ML (ENULOSE) 30ML UDC NG SCH ×2 (08:36→13:19)
[2019-06-19] MEDS ORDERED: PANTOPRAZOLE 40 MG (PROTONIX) TAB PO SCH (09:00)
--- NOTE | 2019-06-19 11:14 | Physical Therapy Daily Note ---
PT Daily Note-Current Subjective Patient agreeable to therapy at this time. Mental Status Patient Orientation: Confused Attachments: Victor Catheter, IV Transfers SCALE: Activities may be completed with or without assistive devices. 2-Lpkuwodnao-dzhrvxi completes the activity by him/herself with no assistance from a helper. 5-Set-up or Clean-up Assistance-helper sets up or cleans up; patient completes activity. [place] assists only prior to or following the activity. 4-Supervision or Touching Assistance-helper provides verbal cues and/or touching/steadying and/or contact guard assistance as patient completes activity. Assistance may be provided throughout the activity or intermittently. 3-Partial/Moderate Assistance-helper does LESS THAN HALF the effort. [place] lifts, holds or supports trunk or limbs, but provides less than half the effort. 2-Substantial/Maximal Assistance-helper does MORE THAN HALF the effort. [place] lifts or holds trunk or limbs and provides more than half the effort. 5-Tlakqhqyb-qnwbih does ALL the effort. Patient does none of the effort to complete the activity. Or, the assistance of 2 or more helpers is required for the patient to complete the activity. If activity was not attempted, code reason: 7-Patient Refused. 9-Not Applicable-not attempted and the patient did not perform the activity before the current illness, exacerbation or injury. 10-Not Attempted due to Environmental Limitations-(lack of equipment, weather restraints, etc.). 88-Not Attempted due to Medical Conditions or Safety Concerns. Roll Left & Right (QC): 6 Lying to Sitting/Side of Bed(Q: 6 Sit to Stand (QC): 4 Chair/Ary-ii-Khmvs Xfer(QC): 4 Gait Training Does the Patient Walk?: Yes Distance: 50' Walk 10 feet (QC): 3 Walk 50 ft with 2 Turns(QC): 3 Gait Assistive Device: FWW Patient needed assist in guiding walker with CGA for safety. Wheelchair Training Does the Pt Use a Wheelchair?: No Treatments Ambulation. Transfers. Assessment Patient could not direct walker during ambulation and needed assist. Patient requires redirection to remain on task and complete functional mobility. PT Watch Dial Stoner Goals Watch Dial Stoner Goals PT Watch Dial Stoner Goals Time Frame: Jun 26, 2019 Roll Left & Right (QC): 6 Sit to Lying (QC): 6 Lying-Sitting on Side/Bed(QC): 6 Sit to Stand (QC): 6 Chair/Ztw-rn-Jvwck Xfer(QC): 6 Toilet Transfer (QC): 6 Does the Patient Walk: Yes Walk 10 feet (QC): 6 Walk 50ft with 2 Turns (QC): 6 Walk 150 ft (QC): 6 PT Plan Problem List Problem List: Activity Tolerance, Functional Strength, Safety, Balance, Gait, Transfer Treatment/Plan Treatment Plan: Continue Plan of Care Treatment Plan: Bed Mobility, Education, Functional Activity Latha, Functional Strength, Gait, Safety, Therapeutic Exercise, Transfers Treatment Duration: Jun 26, 2019 Frequency: 6 times per week Estimated Hrs Per Day: .25 hour per day Patient and/or Family Agrees t: Yes Safety Risks/Education Patient Education: Gait Training, Transfer Techniques Teaching Recipient: Patient Teaching Methods: Discussion Response to Teaching: Reinforcement Needed Time/GCodes Time In: 1044 Time Out: 1058 Total Billed Treatment Time: 14 Total Billed Treatment 1 visit GT 14 EVELINA BALLARD PT Jun 19, 2019 11:14
[2019-06-19] MEDS ORDERED: RIFA550T PO (11:22)
[2019-06-19] MEDS ORDERED: PANT40TA3 PO (11:22)
[2019-06-19] MEDS ORDERED: LACT20SO2 NG (11:22)
--- NOTE | 2019-06-19 11:22 | Discharge Summary ---
Discharge Summary Hospital Course Was the Problem List Reviewed?: Yes Problems/Dx: (1) Unresponsive state Status: Acute (2) Hyperammonemia Status: Chronic (3) Methamphetamine abuse Status: Chronic (4) History of alcohol abuse Status: Chronic (5) Liver disease, chronic (6) Hepatic encephalopathy Status: Acute Hospital Course Date of Admission: Jun 17, 2019 at 12:00 Admission Diagnosis : Family Physician/Provider: [facility] Date of Discharge: 06/19/19 Discharge Diagnosis: AMS due to hepatic encephalopathy, ESLD Hospital Course: Hospital course: Pt had a brief hospital course, he was admitted for respiratory failure, intubated due to hepatic encephalopathy with ammonia of greater than 300. Pt was taking Lactulose and Rifaximin was initiated and he was ready for discharge at time of rounds so that was completed. Labs and Pending Lab Test: Laboratory Tests 06/18/19 12:02: Glucometer 92 06/18/19 15:38: Glucometer 148H 06/19/19 04:20: White Blood Count 8.1, Red Blood Count 3.03L, Hemoglobin 10.2L, Hematocrit 30L, Mean Corpuscular Volume 100H, Mean Corpuscular Hemoglobin 34, Mean Corpuscular Hemoglobin Concent 34, Red Cell Distribution Width 14.8H, Platelet Count 80L, Mean Platelet Volume 10.1, Neutrophils (%) (Auto) 54, Lymphocytes (%) (Auto) 22, Monocytes (%) (Auto) 15H, Eosinophils (%) (Auto) 9, Basophils (%) (Auto) 1, Neutrophils # (Auto) 4.3, Lymphocytes # (Auto) 1.8, Monocytes # (Auto) 1.2H, Eosinophils # (Auto) 0.7H, Basophils # (Auto) 0.1, Sodium Level 139, Potassium Level 3.4L, Chloride Level 114H, Carbon Dioxide Level 22, Anion Gap 3L, Blood Urea Nitrogen 12, Creatinine 0.69, Estimat Glomerular Filtration Rate > 60, BUN /Creatinine Ratio 17, Glucose Level 98, Calcium Level 7.6L, Phosphorus Level 3.1, Magnesium Level 1.7, Triglycerides Level 45 Microbiology 06/17/19 MRSA Screen - Final, Complete MRSA not isolated 06/17/19 Blood Culture - Preliminary, Resulted No growth 06/17/19 Urine Culture - Preliminary, Resulted Klebsiella pneumoniae Escherichia coli Enterococcus faecalis Home Meds Active Reported Lactulose 10 Gm/15 Ml Solution 15 Ml PO TID Folic Acid 0.8 Mg Tablet 0.8 Mg PO DAILY Milk Thistle 500 Mg Capsule 1,000 Mcg PO DAILY Murphy 3-6-9 Complex Softgel (Fish Oil/Borage/Flax/Om3,6,9#1) 400 Mg Capsule 1 Cap PO DAILY Vitamin B-12 (Cyanocobalamin (Vitamin B-12)) 500 Mcg Tablet 500 Mcg PO DAILY Centrum Silver Tablet (Multivit-Min/FA/Lycopene/Lut) 1 Each Tablet 1 Tab PO DAILY Assessment/Pt Instructions [facility] 1 week Discharge Planning: <30 minutes discharge planning Discharge Instructions Discharge Diet: No Restrictions Activity as Tolerated: Yes Discharge Physical Examination Vital Signs Vital Signs Date Time Temp Pulse Resp B/P (MAP) Pulse Ox O2 Delivery O2 Flow Rate FiO2 06/19/19 09:53 95 Room Air 06/19/19 08:00 36.5 105 16 130/65 (86) 06/18/19 07:00 06/18/19 03:57 21 General Appearance: No Apparent Distress, WD/WN, Chronically ill Respiratory: Lungs Clear Cardiovascular: Regular Rate, Rhythm Allergies: Coded Allergies: No Allergy Information Available (Unverified , 06/17/19) No Known Drug Allergies (Unverified , 10/02/17) Discharge Summary Date of Admission Jun 17, 2019 at 12:00 Date of Discharge Discharge Date: Jun 19, 2019 Admission Diagnosis Assessment: VDRF ESLD Plan: Vent management appreciated Discharge Diagnosis Assessment: s/p resp failure now extubated Hepatic encephalopathy ESLD Plan: Move to floor (1) Unresponsive state Status: Acute (2) Hyperammonemia Status: Chronic (3) Methamphetamine abuse Status: Chronic (4) History of alcohol abuse Status: Chronic (5) Liver disease, chronic (6) Hepatic encephalopathy Status: Acute SHANA ABBOTT DO Jun 19, 2019 11:22
[2019-06-19 12:00] VITALS: BP 135/64
--- NOTE | 2019-06-19 13:00 | Occupational Therapy Eval ---
OT Evaluation-General/PLF Medical Diagnosis Admission Date Jun 17, 2019 at 12:00 Medical Diagnosis: AMS Onset Date: Jun 17, 2019 Therapy Diagnosis Therapy Diagnosis: Decreased ADL status/ strength Precautions Precautions/Isolations: Standard Precautions Weight Bear Status Weight Bearing Restriction: Weight Bearing/Tolerated Referral Physician: Niecy Sebastian Reason: Activity Tolerance, Self Care, Evaluation/Treatment, Strengthening/ROM Medical History Pertinent Medical History: Alcoholism, HTN, Smoking Additional Medical History alcoholism, HTN, smoking, hepatic encephalopathy, hepatits, cirrhosis, liver disease, drug use (meth) Current History Pt was transported by EMS to ER after being found unresponsive at home. Hepatic encephalopathy. Pt intubated 06/17-06/18, extubated 06/18. Reviewed History: Yes Social History Home: Single Level Current Living Status: Spouse Entry Into Home: Level Entry Steps Into Home: 0 Steps Inside Home: 0 ADL-Prior Level of Function SCALE: Activities may be completed with or without assistive devices. 5-Copexrsdjm-jwbvtmm completes the activity by him/herself with no assistance from a helper. 5-Set-up or Clean-up Assistance-helper sets up or cleans up; patient completes activity. [place] assists only prior to or following the activity. 4-Supervision or Touching Assistance-helper provides verbal cues and/or touching/steadying and/or contact guard assistance as patient completes activity. Assistance may be provided throughout the activity or intermittently. 3-Partial/Moderate Assistance-helper does LESS THAN HALF the effort. [place] lifts, holds or supports trunk or limbs, but provides less than half the effort. 2-Substantial/Maximal Assistance-helper does MORE THAN HALF the effort. [place] lifts or holds trunk or limbs and provides more than half the effort. 2-Cfoljtroh-kvayih does ALL the effort. Patient does none of the effort to complete the activity. Or, the assistance of 2 or more helpers is required for the patient to complete the activity. If activity was not attempted, code reason: 7-Patient Refused. 9-Not Applicable-not attempted and the patient did not perform the activity before the current illness, exacerbation or injury. 10-Not Attempted due to Environmental Limitations-(lack of equipment, weather restraints, etc.). 88-Not Attempted due to Medical Conditions or Safety Concerns. ADL PLOF Comments Pt's significant other states pt relied on spouse for all ADLs including showering, dressing, bottom hygiene, etc. Self Care: Dependent Functional Cognition: Needed Some Help Occupation: "scrap metal" Drive Self: Yes OT Current Status Subjective Pt denies pain currently, mumbles. [place]- significant other speaks up for pt. Pt states feeling "okay"/ denies weakness. Mental Status/Objective Attachments: Victor Catheter Current Glasses/Contacts: No Hearing Aids: No Dentures/Partials: No Hand Dominance: Left Upper Extremity ROM Decreased bilaterally. L shoulder disarticulation by 2 finger widths. Pt states he fell from attic, s/o states he broke humeral head, pt states torn RTC mm. Pt given sling to wear to maintain placement while in hospital to decrease risk of pull, requires TD for donning. Upper Extremity Coordination WFL Upper Extremity Sensation WFL Upper Extremity Strength Decreased bilaterally, reaches 90* RUE Edema: RLE pitting/ fibrotic. BUE edematous. ADL-Treatment Eating (QC): 6 Oral Hygiene (QC): 7 Shower/Bathe Self (QC): 2 (Per clinical nursing manager post-sponge bath.) Upper Body Dressing (QC): 1 (TD for sling donning.) On/Off Footwear (QC): 1 (Pt unable to doff sock, OT doffs sock. 5/5 toes squ ared off due to edema. Pt has cirrhosis of liver) Other Treatments Pt seen with s/o present. S/o provides hx. Pt provides some hx when asked, pt repeats self, states he is not longer "foggy." Pt educated on OT role and ADLs/ UE usage. Pt educated on L shoulder mobility and importance of maintaining neutral position/ not allowing gravity to pull on UE and increase pull on mm/ increase space while in hospital. fell from attic, came to ER and was given sling. Pt positioned with pillow and sling while here. L hand flexors tight, education of stretching/ maintaining open hand on pillow to decrease risk of contraction during shoulder immobility. Pt and s/o state s/o provides all care when needed. 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 Pt asked if he is taking care of liver, pt states he doesn't know. Pt has edema/ fibrotic skin of RLE; pt educated on laying supine/ feet elevated when sleeping. Pt denies ADLs, unable to doff socks. Pt educated on goals of increasing strength/ mobility/ safety. Pt remains in chair end of session, call light in reach, all needs met. Education OT Patient Education: Exercise program, Home exercise program, Instructions to caregiver, Modified ADL techniques, Purpose of tx/functional activities Teaching Recipient: Patient Teaching Methods: Demonstration, Discussion Response to Teaching: Verbalize Understanding, Return Demonstration, Reinforce ment Needed OT Check Inspector Goals Residential Goals Time Frame: Jun 26, 2019 Eating (QC): 6 Oral Hygiene (QC): 6 Toileting Hygiene (QC): 2 Shower/Bathe Self (QC): 3 Upper Body Dressing (QC): 4 Lower Body Dressing (QC): 2 On/Off Footwear (QC): 2 Additional Goals: 1-Demonstrate ADL Tasks, 2-Verbalize Understanding, 3- ImproveStrength/Latha 1=Demonstrate adherence to instructed precautions during ADL tasks. 2=Patient will verbalize/demonstrate understanding of assistive devices/modifications for ADL. 3=Patient will improve strength/tolerance for activity to enable patient to perform ADL's. OT Education/Plan Problem List/Assessment Assessment: Decreased Activ Tolerance, Decreased Safety Aware, Decreased UE Strength, Edema, Impaired Cognition, Impaired Funct Balance, Impaired I ADL's, Impaired Self-Care Skills, Restricted Funct UE ROM Discharge Recommendations Plan/Recommendations: Continue POC Therapy Discharge Recommendati: Home & Family, Post Acute OT Treatment Plan/Plan of Care Treatment,Training & Education: Yes Patient would benefit from OT for education, treatment and training to promote independence in ADL's, mobility, safety and/or upper extremity function for AD L's. Plan of Care: ADL Retraining, Caregiver Training, Functional Mobility, Group Exercise/Act as Ind, Orthotic Fitting/Training, UE Funct Exercise/Act Treatment Duration: Jun 26, 2019 Frequency: 5 times per week Estimated Hrs Per Day: .25 hour per day Agreement: Yes Rehab Potential: Fair Time/GCodes Start Time: 11:45 Stop Time: 12:13 Total Time Billed (hr/min): 28 Billed Treatment Time 1, EVM (10), FA (18)= 28 HERBIE PILLAI OTR Jun 19, 2019 13:00
[2019-06-19] MEDS: cefTRIAXone 1,000 MG/SWFI 10 ML IV PUSH IV SCH ×2 (13:19)
[2019-06-19 15:33] VITALS: BP 135/64
== END 2019-06-19 15:53 | disposition home or self-care (01) | DRG 208 ==
LOC: MERGE 09:32 → EDBD 09:32 → ER 09:32 → ICU 12:00 → 4TH 06-18 20:43
PROVIDERS: ADMIT Internal Medicine; ATTEND Internal Medicine
PROC: 5A1935Z Respiratory Ventilation, Less than 24 Consecutive Hours (ICD-10-PCS; principal; 2019-06-17)
DX: J96.00 Acute respiratory failure, unspecified whether with hypoxia or hypercapnia (principal); I46.9 Cardiac arrest, cause unspecified; K72.00 Acute and subacute hepatic failure without coma; E87.2 Acidosis; N39.0 Urinary tract infection, site not specified; I85.10 Secondary esophageal varices without bleeding; K74.60 Unspecified cirrhosis of liver; B19.20 Unspecified viral hepatitis C without hepatic coma; D64.9 Anemia, unspecified; D69.6 Thrombocytopenia, unspecified; F15.10 Other stimulant abuse, uncomplicated; F10.10 Alcohol abuse, uncomplicated; F17.210 Nicotine dependence, cigarettes, uncomplicated; I10 Essential (primary) hypertension; E83.42 Hypomagnesemia; I87.8 Other specified disorders of veins
CPT/HCPCS: 36415; 70450; 71045; 71260; 76700; 80048; 80053; 80306; 80320; 80329; 81000; 82140; 82150; 82550; 82553; 82805; 82962; 83605; 83690; 83735; 83874; 83880; 84100; 84443; 84478; 84484; 85025; 85610; 85730; 87040; 87070; 87077; 87081; 87088; 87186; 87205; 87804; 93005; 93041; 94002; 94640; 94760

== ENCOUNTER 2019-07-08 15:16 | Inpatient (IN) | payer MEDICARE ==
[~2019-07-08] VITALS: Ht 167.7 cm; Wt 90.5 kg
[~2019-07-08 15:16] MED LIST changes: +CYAN500T62 PO; +FISH400C PO; +FOLI0.8T PO; +LACT10SO27 PO; +LACT20SO2 NG; +MILK500C PO; +MULT-1029 PO; +PANT40TA3 PO
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
[2019-07-08 15:43] LABS: HEMATOCRIT 32 % (40-54); HEMOGLOBIN 10.7 G/DL (13.3-17.7); LYMPHOCYTES % (AUTO) 17 % (12-44); MEAN CORPUSCULAR HEMOGLOBIN 34 PG (25-34); MEAN CORPUSCULAR HGB CONC 33 G/DL (32-36); MEAN CORPUSCULAR VOLUME 103 FL (80-99); MEAN PLATELET VOLUME 10.2 FL (7.4-10.4); MONOCYTES % (AUTO) 13 % (0-12); NEUTROPHILS % (AUTO) 63 % (42-75); PLATELET COUNT 91 10^3/uL (130-400); RED CELL DISTRIBUTION WIDTH 15.8 % (10.0-14.5)
[2019-07-08 15:44] LABS: BASOPHILS # (AUTO) 0.1 10^3/uL (0.0-0.1); BASOPHILS % (AUTO) 1 % (0-10); EOSINOPHILS # (AUTO) 0.5 10^3/uL (0.0-0.3); EOSINOPHILS % (AUTO) 5 % (0-10); LYMPHOCYTES # (AUTO) 1.6 X 10^3 (1.0-4.0); MONOCYTES # (AUTO) 1.2 X 10^3 (0.0-1.0); NEUTROPHILS # (AUTO) 5.7 X 10^3 (1.8-7.8)
[2019-07-08 15:52] LABS: INR 1.3 (0.8-1.4); PROTHROMBIN TIME PATIENT 16.4 SEC (12.2-14.7)
[2019-07-08 15:57] LABS: BILIRUBIN,URINE 2+ (NEGATIVE); CLARITY,URINE CLOUDY; COLOR,URINE BROWN; GLUCOSE, URINE (UA) NEGATIVE (NEGATIVE); KETONES,URINE TRACE (NEGATIVE); LEUKOCYTE ESTERASE ,URINE 1+ (NEGATIVE); NITRITE,URINE POSITIVE (NEGATIVE); PH,URINE 6.5 (5-9); PROTEIN,URINE 3+ (NEGATIVE); RBC,URINE TNTC /HPF
[2019-07-08 15:58] LABS: BACTERIA,URINE FEW /HPF; WBC,URINE >100 /HPF
[2019-07-08 16:05] LABS: ALANINE AMINOTRANSFERASE 40 U/L (0-55); ALKALINE PHOSPHATASE 153 U/L (40-136); BILIRUBIN,TOTAL 2.1 MG/DL (0.1-1.0); BUN/CREATININE RATIO 18; CALCIUM 8.2 MG/DL (8.5-10.1); CARBON DIOXIDE 21 MMOL/L (21-32); CHLORIDE 116 MMOL/L (98-107); CREATININE SERUM 0.77 MG/DL (0.60-1.30); GFR ESTIMATED > 60; GLUCOSE 117 MG/DL (70-105); POTASSIUM 3.5 MMOL/L (3.6-5.0); SODIUM 146 MMOL/L (135-145); TOTAL PROTEIN 7.3 GM/DL (6.4-8.2)
[2019-07-08 16:06] LABS: ALBUMIN 2.3 GM/DL (3.2-4.5); LIPASE 58 U/L (8-78)
--- NOTE | 2019-07-08 16:11 | Diagnostic Imaging Report ---
PROCEDURE: CT head without contrast. TECHNIQUE: Multiple contiguous axial images were obtained through the brain without the use of intravenous contrast. Auto Exposure Controls were utilized during the CT exam to meet ALARA standards for radiation dose reduction. INDICATION: Altered mental status. COMPARISON: Comparison is made to study of 06/17/2019. FINDINGS: Examination is limited by motion artifact. Ventricles and sulci are prominent but not significantly changed compared to previous study. There is moderate low density throughout the deep white matter of both hemispheres. 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 No hemorrhage is detected. There is no abnormal mass effect or shift of midline structures. Calvarium appears intact and the visualized paranasal sinuses are clear. IMPRESSION: Limited study redemonstrates senescent findings of brain without CT evidence of acute intracranial abnormality. Dictated by: Dictated on workstation # [id number]
[2019-07-08] MEDS ORDERED: PIPERACILLIN/TAZOBACTAM (BULK) 4.5 GM in NS (IVPB) 100 ML IV ONE (16:15)
[2019-07-08] MEDS ORDERED: NS (IVPB) 100 ML ONE (16:22)
[2019-07-08] MEDS ORDERED: PIPERACILLIN/TAZO 4.5 GM VIAL (ZOSYN) IV ONE (16:22)
[2019-07-08 16:53] LABS: AMMONIA 61 UMOL/L (11-32)
[2019-07-08] MEDS: LACTULOSE SYRUP 10GM/15ML (ENULOSE) 30ML UDC PO ONE ×2 (17:28→23:23)
--- NOTE | 2019-07-08 17:29 | NUR ---
PT WAS GIVEN HIS OWN PERSONAL LACTULOSE 30 ML DUE TO PHAMACY NOT HAVING STOCKED IN ER.
[2019-07-08 20:13] VITALS: BP 178/82
[2019-07-08] MEDS: NS IV 1000 ML 1,000 ML IV SCH (23:24)
[2019-07-08] MEDS ORDERED: LORazepam INJ 2 MG/ML (ATIVAN) VIAL ONE (23:48)
[2019-07-08] MEDS ORDERED: HYDROcodone/APAP 5 MG/325 MG (LORTAB) TAB ONE (23:50)
[2019-07-09] VITALS: BP 163/71
[2019-07-09] MEDS ORDERED: HYDROcodone/APAP 5 MG/325 MG (LORTAB) TAB PO PRN
[2019-07-09] MEDS ORDERED: LORazepam INJ 2 MG/ML (ATIVAN) VIAL IVP PRN
[2019-07-09 04:00] VITALS: BP 160/63
[2019-07-09 05:37] LABS: BASOPHILS # (AUTO) 0.1 10^3/uL (0.0-0.1); BASOPHILS % (AUTO) 1 % (0-10); EOSINOPHILS # (AUTO) 0.7 10^3/uL (0.0-0.3); EOSINOPHILS % (AUTO) 8 % (0-10); HEMATOCRIT 31 % (40-54); HEMOGLOBIN 10.2 G/DL (13.3-17.7); LYMPHOCYTES # (AUTO) 1.8 X 10^3 (1.0-4.0); LYMPHOCYTES % (AUTO) 20 % (12-44); MEAN CORPUSCULAR HEMOGLOBIN 34 PG (25-34); MEAN CORPUSCULAR HGB CONC 33 G/DL (32-36); MEAN CORPUSCULAR VOLUME 103 FL (80-99); MEAN PLATELET VOLUME 9.9 FL (7.4-10.4); MONOCYTES # (AUTO) 1.1 X 10^3 (0.0-1.0); MONOCYTES % (AUTO) 13 % (0-12); NEUTROPHILS # (AUTO) 5.2 X 10^3 (1.8-7.8); NEUTROPHILS % (AUTO) 59 % (42-75); PLATELET COUNT 87 10^3/uL (130-400); WHITE BLOOD COUNT 8.9 10^3/uL (4.3-11.0)
[2019-07-09 05:50] LABS: INR 1.4 (0.8-1.4); PROTHROMBIN TIME PATIENT 17.9 SEC (12.2-14.7)
[2019-07-09 06:05] LABS: ALANINE AMINOTRANSFERASE 39 U/L (0-55); ALKALINE PHOSPHATASE 142 U/L (40-136); BILIRUBIN,TOTAL 2.2 MG/DL (0.1-1.0); BUN/CREATININE RATIO 19; CALCIUM 7.7 MG/DL (8.5-10.1); CARBON DIOXIDE 21 MMOL/L (21-32); CHLORIDE 116 MMOL/L (98-107); GFR ESTIMATED > 60; GLUCOSE 86 MG/DL (70-105); POTASSIUM 3.5 MMOL/L (3.6-5.0); SODIUM 143 MMOL/L (135-145); TOTAL PROTEIN 6.6 GM/DL (6.4-8.2)
[2019-07-09] MEDS ORDERED: KCL 20 MEQ TAB (K-DUR) PO NR (08:15)
[2019-07-09 08:44] VITALS: BP 141/86
[2019-07-09] MEDS ORDERED: PHARMACY TO DOSE SQ SCH (09:00)
[2019-07-09] MEDS: LACTULOSE SYRUP 10GM/15ML (ENULOSE) 30ML UDC PO SCH ×2 (09:39→21:58)
[2019-07-09] MEDS: ENOXAPARIN 40 MG/0.4 ML (LOVENOX) SYR SC SCH (09:40)
[2019-07-09] MEDS: NS IV 1000 ML 1,000 ML IV SCH (09:42)
[2019-07-09 11:27] VITALS: BP 174/83
[2019-07-09] MEDS: cefTRIAXone FOR IV USE 1,000 MG in WATER (STERILE) FOR INJECTION 10 ML IV SCH (13:10)
--- NOTE | 2019-07-09 14:57 | History & Physical ---
HPI History of Present Illness: 64 yo M with known ESLD that presented to ER with altered mental status. GF with patient states that this is how he gets when his ammonia is elevated. He is able to answer questions this AM but answers slowly. States that he has missed several doses of his lactulose. Patient has a known h.o meth use but denies any recent use since last admission. Denies any pain or discomfort. Decreased appetite. States that he has been having 1-2 BM daily. Source: patient, RN/MD Exam Limitations: clinical condition Date seen by provider: Jul 09, 2019 Time Seen by Provider: 10:05 Attending Physician Pati Crane MD PCP Center[facility] Consult Date of Admission Jul 08, 2019 at 17:48 Home Medications Home Medications Reviewed patient Home Medication Reconciliation performed by pharmacy medication reconciliations supply technician and/or nursing. Patients Allergies have been reviewed. Allergies Coded Allergies: No Allergy Information Available (Unverified , 06/17/19) No Known Drug Allergies (Unverified , 10/02/17) VLE-Ptxxwk-Hdwlio Hx Patient Social History Alcohol Use: Past History Recreational Drug Use: Yes (PAST USE BUT DENIES NOW) Drug of Choice: METHAMPHETAMINES, BENZODIAZEPINES Smoking Status: Former Smoker Type Used: Cigarettes 2nd Hand Smoke Exposure: Yes Recent Foreign Travel: No Contact w/other who traveled: No Recent Hopitalizations: No Recent Infectious Disease Expo: No Immunizations Up To Date Tetanus Booster (TDap): Unknown Date of Influenza Vaccine: Feb 16, 2019 Past Medical History Chronic Hepatits C Alcohol Abuse Tobacco Abuse Methamphetamine Abuse Erectile Dysfunction HTN Seasonal Allergies Past Surgical History: Appendectomy Family Medical History Significant Family History: Hypertension, Psychiatric Problems Review of Systems (CHC) Constitutional: No chills, No fever; malaise, weakness EENTM: no symptoms reported; No mouth pain, No nose congestion, No throat pain Respiratory: cough; No dyspnea on exertion, No short of breath Cardiovascular: no symptoms reported; No chest pain, No palpitations Gastrointestinal: No abdominal pain, No constipation, No diarrhea; loss of appetite; No nausea, No vomiting Genitourinary: no symptoms reported; No dysuria, No frequency, No hematuria Musculoskeletal: no symptoms reported; No back pain, No muscle pain, No neck pain Skin: No lesions, No rash Reviewed Test Results Reviewed Test Results Lab Laboratory Tests Test 07/08/19 15:25 07/08/19 15:40 07/09/19 05:10 Range/Units White Blood Count 9.0 8.9 4.3-11.0 10^3/uL Red Blood Count 3.12 L 3.01 L 4.35-5.85 10^6/uL Hemoglobin 10.7 L 10.2 L 13.3-17.7 G/DL Hematocrit 32 L 31 L 40-54 % Mean Corpuscular Volume 103 H 103 H 80-99 FL Mean Corpuscular Hemoglobin 34 34 25-34 PG Mean Corpuscular Hemoglobin Concent 33 33 32-36 G/DL Red Cell Distribution Width 15.8 H 16.0 H 10.0-14.5 % Platelet Count 91 L 87 L 130-400 10^3/uL Mean Platelet Volume 10.2 9.9 7.4-10.4 FL Neutrophils (%) (Auto) 63 59 42-75 % Lymphocytes (%) (Auto) 17 20 12-44 % Monocytes (%) (Auto) 13 H 13 H 0-12 % Eosinophils (%) (Auto) 5 8 0-10 % Basophils (%) (Auto) 1 1 0-10 % Neutrophils # (Auto) 5.7 5.2 1.8-7.8 X 10^3 Lymphocytes # (Auto) 1.6 1.8 1.0-4.0 X 10^3 Monocytes # (Auto) 1.2 H 1.1 H 0.0-1.0 X 10^3 Eosinophils # (Auto) 0.5 H 0.7 H 0.0-0.3 10^3/uL Basophils # (Auto) 0.1 0.1 0.0-0.1 10^3/uL Prothrombin Time 16.4 H 17.9 H 12.2-14.7 SEC INR Comment 1.3 1.4 0.8-1.4 Sodium Level 146 H 143 135-145 MMOL/L Potassium Level 3.5 L 3.5 L 3.6-5.0 MMOL/L Chloride Level 116 H 116 H 98-107 MMOL/L Carbon Dioxide Level 21 21 21-32 MMOL/L Anion Gap 9 6 5-14 MMOL/L Blood Urea Nitrogen 14 15 7-18 MG/DL Creatinine 0.77 0.80 0.60-1.30 MG/DL Estimat Glomerular Filtration Rate > 60 > 60 BUN/Creatinine Ratio 18 19 Glucose Level 117 H 86 70-105 MG/DL Calcium Level 8.2 L 7.7 L 8.5-10.1 MG/DL Corrected Calcium 9.6 9.3 8.5-10.1 MG/DL Total Bilirubin 2.1 H 2.2 H 0.1-1.0 MG/DL Aspartate Amino Transf (AST/SGOT) 71 H 61 H 5-34 U/L Alanine Aminotransferase (ALT/SGPT) 40 39 0-55 U/L Alkaline Phosphatase 153 H 142 H 40-136 U/L Ammonia 61 H 11-32 UMOL/L Total Protein 7.3 6.6 6.4-8.2 GM/DL Albumin 2.3 L 2.0 L 3.2-4.5 GM/DL Lipase 58 8-78 U/L Urine Color BROWN H Urine Clarity CLOUDY Urine pH 6.5 5-9 Urine Specific [place] 1.025 H 1.016-1.022 Urine Protein 3+ H NEGATIVE Urine Glucose (UA) NEGATIVE NEGATIVE Urine Ketones TRACE H NEGATIVE Urine Nitrite POSITIVE H NEGATIVE Urine Bilirubin 2+ H NEGATIVE Urine Urobilinogen >=8.0 < = 1.0 MG/DL Urine Leukocyte Esterase 1+ H NEGATIVE Urine RBC (Auto) 3+ H NEGATIVE Urine RBC TNTC H /HPF Urine WBC >100 H /HPF Urine Squamous Epithelial Cells /HPF Urine Crystals NONE /LPF Urine Bacteria FEW H /HPF Urine Casts NONE /LPF Urine Mucus NEGATIVE /LPF Urine Culture Indicated YES Physical Exam-(CHC) Physical Exam Vital Signs VS - Last 72 Hours, by Label 07/08/19 07/08/19 07/08/19 07/08/19 15:50 19:20 20:13 21:00 Temp 36.7 36.2 37.2 Pulse 100 84 90 Resp 16 18 16 B/P (MAP) 155/94 (114) 134/82 178/82 Pulse Ox 98 98 99 94 O2 Delivery Room Air Room Air Room Air Room Air 07/09/19 07/09/19 07/09/19 07/09/19 00:00 00:00 00:02 04:00 Temp 37.8 37.8 37.2 36.6 Pulse 93 93 88 Resp 20 20 21 B/P (MAP) 163/71 (101) 163/71 (101) 160/63 (95) Pulse Ox 94 94 97 O2 Delivery Room Air Room Air Room Air 07/09/19 07/09/19 08:44 11:27 Temp 37.8 37.0 Pulse 84 84 Resp 18 20 B/P (MAP) 141/86 (104) 174/83 (113) Pulse Ox 97 100 O2 Delivery Room Air Room Air Capillary Refill : Less Than 3 Seconds General Appearance: WD/WN HEENT: PERRL/EOMI Neck: non-tender, full range of motion, supple Respiratory: chest non-tender, no respiratory distress, no accessory muscle use, crackles Cardiovascular: normal peripheral pulses, regular rate, rhythm, no murmur Gastrointestinal: normal bowel sounds, non tender, soft; No guarding, No rebound Back: no CVA tenderness, no vertebral tenderness Extremities: no calf tenderness, normal capillary refill Neurologic/Psychiatric: food mixer assembler II-XII nml as tested, alert, other (speech slowed) Skin: normal color, warm/dry Lymphatic: no adenopathy Assessment/Plan Assessment/Plan Admission Status: Inpatient Order (span 2 midnights) Reason for Inpatient Admission: Patient requiring close monitor for worsening of mental status and ensuring medication administration (1) AMS (altered mental status) Status: Acute Assessment & Plan: - Most likely for hepatic Encephalopathy vs drug intoxication, continue to monitor for improvement Qualifiers: Qualified Codes: R41.82 - Altered mental status, unspecified (2) Hepatic encephalopathy Status: Acute Assessment & Plan: - Restarted Lactulose and Rifaximin (3) Chronic liver failure Status: Acute Qualifiers: Qualified Codes: K72.10 - Chronic hepatic failure without coma (4) Hyperammonemia Status: Chronic (5) Methamphetamine abuse Status: Chronic (6) History of alcohol abuse Status: Chronic (7) Hepatitis C virus infection Status: Chronic Qualifiers: Qualified Codes: B18.2 - Chronic viral hepatitis C (8) Hypokalemia Status: Acute Assessment & Plan: - Replace and repeat BMP In AM (9) DVT prophylaxis Status: Acute Assessment & Plan: - Lovenox Clinical Quality Measures DVT/VTE Risk/Contraindication: Risk Factor Score Per Nursin RFS Level Per Nursing on Admit: 4+=Very High PATI CRANE MD Jul 09, 2019 14:57
[2019-07-09 16:32] VITALS: BP 166/81
[2019-07-09 19:44] VITALS: BP 175/85
--- NOTE | 2019-07-09 21:30 | NUR ---
product design manager helped pt to bathroom for shower. pt's girlfriend who is also his engineer automated equipment, was upset, states she takes care of him, and showers him at home. education regarding risks for fall and how to prevent falls provided.
[2019-07-09] MEDS: RIFAXIMIN 550 MG TABLET (XIFAXAN) PO SCH (21:58)
[2019-07-10] VITALS: BP 156/76
[2019-07-10 04:00] VITALS: BP 139/61
[2019-07-10 05:03] LABS: BASOPHILS % (AUTO) 1 % (0-10); EOSINOPHILS # (AUTO) 0.7 10^3/uL (0.0-0.3); EOSINOPHILS % (AUTO) 11 % (0-10); HEMATOCRIT 30 % (40-54); HEMOGLOBIN 9.9 G/DL (13.3-17.7); LYMPHOCYTES # (AUTO) 1.6 X 10^3 (1.0-4.0); LYMPHOCYTES % (AUTO) 25 % (12-44); MEAN CORPUSCULAR HEMOGLOBIN 34 PG (25-34); MEAN CORPUSCULAR HGB CONC 33 G/DL (32-36); MEAN CORPUSCULAR VOLUME 103 FL (80-99); MEAN PLATELET VOLUME 9.7 FL (7.4-10.4); MONOCYTES # (AUTO) 0.8 X 10^3 (0.0-1.0); MONOCYTES % (AUTO) 12 % (0-12); NEUTROPHILS # (AUTO) 3.4 X 10^3 (1.8-7.8); NEUTROPHILS % (AUTO) 52 % (42-75); PLATELET COUNT 69 10^3/uL (130-400); RED CELL DISTRIBUTION WIDTH 14.9 % (10.0-14.5); WHITE BLOOD COUNT 6.4 10^3/uL (4.3-11.0)
[2019-07-10 05:20] LABS: ALANINE AMINOTRANSFERASE 39 U/L (0-55); ALBUMIN 1.9 GM/DL (3.2-4.5); ALKALINE PHOSPHATASE 148 U/L (40-136); BILIRUBIN,TOTAL 1.5 MG/DL (0.1-1.0); BUN/CREATININE RATIO 19; CALCIUM 7.8 MG/DL (8.5-10.1); CARBON DIOXIDE 21 MMOL/L (21-32); CHLORIDE 112 MMOL/L (98-107); CREATININE SERUM 0.74 MG/DL (0.60-1.30); GFR ESTIMATED > 60; GLUCOSE 109 MG/DL (70-105); MAGNESIUM 1.6 MG/DL (1.6-2.4); PHOSPHORUS 3.3 MG/DL (2.3-4.7); POTASSIUM 3.9 MMOL/L (3.6-5.0); SODIUM 139 MMOL/L (135-145); TOTAL PROTEIN 6.4 GM/DL (6.4-8.2)
[2019-07-10 07:59] VITALS: BP 143/80
[2019-07-10] MEDS: ENOXAPARIN 40 MG/0.4 ML (LOVENOX) SYR SC SCH (08:56)
[2019-07-10] MEDS: RIFAXIMIN 550 MG TABLET (XIFAXAN) PO SCH (08:56)
[2019-07-10] MEDS: LACTULOSE SYRUP 10GM/15ML (ENULOSE) 30ML UDC PO SCH (08:56)
--- NOTE | 2019-07-10 10:21 | NUR ---
Visited with pt's girlfriend/caregiver (Audrey) outside. She shared her concerns, described pt's history of alcoholism. Offered active listening and engaged in rapport building.
[2019-07-10] MEDS: cefTRIAXone FOR IV USE 1,000 MG in WATER (STERILE) FOR INJECTION 10 ML IV SCH (11:55)
[2019-07-10 12:00] VITALS: BP 161/76
--- NOTE | 2019-07-10 13:26 | Discharge Summary ---
Diagnosis/Chief Complaint Date of Admission Jul 08, 2019 at 17:48 Date of Discharge Discharge Diagnosis Problems/Diagnosis: (1) AMS (altered mental status) Assessment & Plan: - Most likely for hepatic Encephalopathy vs drug intoxication, continue to monitor for improvement Qualifiers: Qualified Codes: R41.82 - Altered mental status, unspecified Status: Acute (2) Hepatic encephalopathy Assessment & Plan: - Restarted Lactulose and Rifaximin Status: Acute (3) Chronic liver failure Qualifiers: Qualified Codes: K72.10 - Chronic hepatic failure without coma Status: Acute (4) Hyperammonemia Status: Chronic (5) Methamphetamine abuse Status: Chronic (6) History of alcohol abuse Status: Chronic (7) Hepatitis C virus infection Qualifiers: Qualified Codes: B18.2 - Chronic viral hepatitis C Status: Chronic (8) Hypokalemia Assessment & Plan: - Replace and repeat BMP In AM Status: Acute (9) DVT prophylaxis Assessment & Plan: - Lovenox Status: Acute Chief Complaint/HPI Chief Complaint/HPI 64 yo M with known ESLD that presented to ER with altered mental status. GF with patient states that this is how he gets when his ammonia is elevated. He is able to answer questions this AM but answers slowly. States that he has missed several doses of his lactulose. Patient has a known h.o meth use but denies any recent use since last admission. Denies any pain or discomfort. Decreased appetite. States that he has been having 1-2 BM daily. Discharge Summary-Simple/Stand Consultations Discharge Physical Examination Allergies: Coded Allergies: No Allergy Information Available (Unverified , 06/17/19) No Known Drug Allergies (Unverified , 10/02/17) Vitals & I&Os Vital Sign - Last 12Hours Date Time Temp Pulse Resp B/P (MAP) Pulse Ox O2 Delivery O2 Flow Rate FiO2 07/10/19 12:00 37.1 74 18 161/76 (104) 99 Room Air Intake and Output 07/10/19 00:00 Intake Total 2630 ml Output Total 900 ml Balance 1730 ml Hospital Course See final discharge diagnosis. Discharge Instructions to patient/family Please see electronic discharge instructions given to patient. Discharge Medications Reviewed and agree with Discharge Medication list on patient's Discharge Instruction sheet Clinical Quality Measures DVT/VTE Risk/Contraindication: Risk Factor Score Per Nursin RFS Level Per Nursing on Admit: 4+=Very High GAULT,PATI R MD Jul 10, 2019 13:26
[2019-07-10] MEDS ORDERED: CEFD300C3 PO (13:27)
--- NOTE | 2019-07-10 13:28 | Discharge Summary ---
Discharge [facility] Reconcile Patient Problems Problems Reviewed?: Yes Discharge Medications New, Converted or Re-Newed RX: Transmitted to Pharmacy New Medications: Cefdinir (Cefdinir) 300 Mg Capsule 300 MG PO BID for 5 Days, #10 CAP Continued Medications: Cyanocobalamin (Vitamin B-12) (Vitamin B-12) 500 Mcg Tablet 500 MCG PO DAILY, TAB Fish Oil/Borage/Flax/Om3,6,9#1 ([place] 3-6-9 Complex Softgel) 400 Mg Capsule 1 CAP PO DAILY, CAP Folic Acid (Folic Acid) 0.8 Mg Tablet 0.8 MG PO DAILY, TAB Lactulose (Lactulose) 20 Gm/30 Ml Solution 30 GM NG TID, #8 OZ Milk Thistle (Milk Thistle) 500 Mg Capsule 1000 MCG PO DAILY, CAP Multivit-Min/FA/Lycopene/Lut (Centrum Silver Tablet) 1 Each Tablet 1 TAB PO DAILY, TAB Pantoprazole Sodium (Pantoprazole Sodium) 40 Mg Tablet.dr 40 MG PO DAILY, #30 TAB Rifaximin (Xifaxan) 550 Mg Tablet 550 MG PO BID, #60 TAB Patient Instructions Goal/Follow Up Appt: You have an appt with Everett Umanzor on Sat @ 240 PM Patient Instructions: - Make sure you take your Lactulose and your antibiotic Activity & Diet Discharge Diet: Cardiac Diet Activity as Tolerated: Yes Copy Copies To 1: [facility] PATI Tom MD Jul 10, 2019 13:28
--- NOTE | 2019-07-10 13:49 | NUR ---
CM DISCHARGE PLANNING: Asked to visit with patient et girlfriend/pharmacy care coordinator to assess if there are any needs et to address concerns voiced from staff about possible pharmacy care coordinator being intoxicated. Both asleep in the patient's bed when I entered the room. They awakened easily to my voice. The patient kept his eyes closed after that et grunted to questions that were asked. His pharmacy care coordinator answered questions appropriately et quickly. She appeared to have appropriate behavior at the time of my visit et I did not see any reason for continued concerns. I f/u with the primary care nurse Julia et 4th floorworker lasting Autumn to see if they felt any further intervention was needed. Both denied any further concerns or needs at this time.
== END 2019-07-10 14:06 | disposition home or self-care (01) | DRG 442 ==
LOC: EDUNIT# 15:16 → ER FS 15:19 → 4TH 17:48
PROVIDERS: ADMIT Family Medicine; ATTEND Family Medicine
DX: K72.00 Acute and subacute hepatic failure without coma (principal); E72.20 Disorder of urea cycle metabolism, unspecified; N39.0 Urinary tract infection, site not specified; F19.10 Other psychoactive substance abuse, uncomplicated; B18.2 Chronic viral hepatitis C; F10.11 Alcohol abuse, in remission; N52.9 Male erectile dysfunction, unspecified; I10 Essential (primary) hypertension; K74.60 Unspecified cirrhosis of liver; K72.10 Chronic hepatic failure without coma; E87.6 Hypokalemia; Z87.891 Personal history of nicotine dependence; J30.2 Other seasonal allergic rhinitis; Z91.19 Patient's noncompliance with other medical treatment and regimen; M24.412 Recurrent dislocation, left shoulder; D64.9 Anemia, unspecified; R16.1 Splenomegaly, not elsewhere classified
CPT/HCPCS: 36415; 70450; 80053; 81000; 82140; 83690; 83735; 84100; 85025; 85610; 87077; 87088; 87186; 96374

== ENCOUNTER 2019-12-09 16:32 | Inpatient (IN) | payer MEDICARE, MEDICAID ==
[~2019-12-09] VITALS: Ht 157 cm; Wt 90.1 kg
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
[2019-12-09 17:20] LABS: BASOPHILS # (AUTO) 0.1 10^3/uL (0.0-0.1); BASOPHILS % (AUTO) 1 % (0-10); EOSINOPHILS # (AUTO) 0.6 10^3/uL (0.0-0.3); EOSINOPHILS % (AUTO) 4 % (0-10); HEMATOCRIT 37 % (40-54); HEMOGLOBIN 12.7 G/DL (13.3-17.7); LYMPHOCYTES # (AUTO) 2.2 X 10^3 (1.0-4.0); LYMPHOCYTES % (AUTO) 16 % (12-44); MEAN CORPUSCULAR HEMOGLOBIN 35 PG (25-34); MEAN CORPUSCULAR HGB CONC 34 G/DL (32-36); MEAN CORPUSCULAR VOLUME 103 FL (80-99); MEAN PLATELET VOLUME 10.3 FL (7.4-10.4); MONOCYTES # (AUTO) 1.5 X 10^3 (0.0-1.0); MONOCYTES % (AUTO) 11 % (0-12); NEUTROPHILS # (AUTO) 9.4 X 10^3 (1.8-7.8); NEUTROPHILS % (AUTO) 68 % (42-75); PLATELET COUNT 95 10^3/uL (130-400); RED CELL DISTRIBUTION WIDTH 14.1 % (10.0-14.5); WHITE BLOOD COUNT 13.9 10^3/uL (4.3-11.0)
[2019-12-09 17:22] LABS: ALANINE AMINOTRANSFERASE 50 U/L (0-55); ALBUMIN 2.3 GM/DL (3.2-4.5); ALKALINE PHOSPHATASE 111 U/L (40-136); BILIRUBIN,TOTAL 3.1 MG/DL (0.1-1.0); BUN/CREATININE RATIO 40; CALCIUM 8.2 MG/DL (8.5-10.1); CARBON DIOXIDE 20 MMOL/L (21-32); CHLORIDE 111 MMOL/L (98-107); CREATININE SERUM 0.67 MG/DL (0.60-1.30); GFR ESTIMATED > 60; GLUCOSE 105 MG/DL (70-105); POTASSIUM 3.9 MMOL/L (3.6-5.0); SODIUM 139 MMOL/L (135-145); TOTAL PROTEIN 7.9 GM/DL (6.4-8.2)
[2019-12-09 17:23] LABS: LIPASE 39 U/L (8-78)
--- NOTE | 2019-12-09 17:28 | Diagnostic Imaging Report ---
EXAMINATION: Chest 1 view HISTORY: Mild hypoxia. Altered mental status. COMPARISON: Chest radiograph on 06/18/2019. FINDINGS: The lung volumes are normal. No focal consolidation is seen. No large pleural effusion or pneumothorax is seen. The cardiomediastinal silhouette is normal in size and contour. No acute osseous abnormality is seen. IMPRESSION: 1. No acute pleuroparenchymal process. Dictated by: Dictated on workstation # [id number]
[2019-12-09 17:30] LABS: CLARITY,URINE CLOUDY; COLOR,URINE ORANGE; GLUCOSE, URINE (UA) NEGATIVE (NEGATIVE); KETONES,URINE NEGATIVE (NEGATIVE); NITRITE,URINE NEGATIVE (NEGATIVE); PROTEIN,URINE 1+ (NEGATIVE)
[2019-12-09 17:31] LABS: BACTERIA,URINE LARGE /HPF; BILIRUBIN,URINE NEGATIVE (NEGATIVE); LEUKOCYTE ESTERASE ,URINE 2+ (NEGATIVE); TRIPLE PHOSPHATE CRYSTAL,UR FEW /LPF; WBC,URINE 50-100 /HPF
--- NOTE | 2019-12-09 17:35 | NUR ---
AMMONIA SAMPLE SENT [facility] TO [facility].
[2019-12-09] MEDS ORDERED: cefTRIAXone FOR IV USE 1,000 MG in WATER (STERILE) FOR INJECTION 10 ML IV ONE (18:30)
--- OUTSIDE RECORDS SUMMARY | 2019-12-09 18:50 | XMS REPORT ---
Author Author Luther YANEZ Organization [facility] Address [address] [place] [address] Care Team Providers Care Employment Assistant Name Role Phone LUCÍA YANEZ Unavailable PROBLEMS Type Condition ICD9-CM Code MXW65-FD Code Onset Dates Condition S tatus SNOMED Code Problem Other retention of urine R33.8 Activ e 238078029 Problem Chronic liver failure without hepatic coma K72.10 Active 915987815 Problem Hyperammonemia E72.20 Active 51282 08 Problem Benign prostatic hyperplasia with lower urinary tract symptoms N40.1 Active 294979940 Problem Alcohol abuse F10.10 Active 799209 05 Problem Generalized edema R60.1 Active 27 7091081 Problem Chronic hepatitis C without hepatic coma B18.2 Active 171528056 ALLERGIES No Information ENCOUNTERS Encounter Location Date Diagnosis [facility] [address] [facility] [id number] [address] [place] [phone] Jun, Retention of urine R33.9 [facility] [address] [facility] [id number] [address] [place] [phone] Jun, [facility] [address] [facility] [id number] [address] [place] [phone] Jun, [facility] [address] [facility] [id number] [address] [place] [phone] May, [facility] [address] [facility] [id number] [address] [place] [phone] Apr, [facility] [address] [id number] [address] [place] [phone] Apr, [facility] [address] [facility] [id number] [address] [place] [phone] Mar, [facility] [address] [facility] [id number] [address] [place] [phone] Mar, Chronic hepatitis C without hepatic coma B18.2 and Hyperammonemia E72.20 [facility] [address] [facility] [id number] [address] [place] [phone] Mar, [facility] [address] [facility] [id number] [address] [place] [phone] Nov, Pain, joint, shoulder, left M25.512 and Chronic liver failure without hepatic coma K72.10 [facility] [address] [facility] [id number] [address] [place] [phone] Oct, [facility] [address] [facility] [id number] [address] [place] [phone] Jun, [facility] [address] [facility] [id number] [address] [place] [phone] Jun, [facility] [address] [facility] [id number] [address] [place] [phone] May, [facility] [address] [facility] [id number] [address] [place] [phone] May, Chronic liver failure withou t hepatic coma K72.10 [facility] [address] [facility] [id number] [address] [place] [phone] Apr, [facility] [address] [facility] [id number] [address] [place] [phone] Apr, Chronic liver failure withou t hepatic coma K72.10 [facility] [address] [facility] [id number] [address] [place] [phone] Mar, [facility] [address] [facility] [id number] [address] [place] [phone] Mar, Chronic liver failure withou t hepatic coma K72.10 [facility] [address] [facility] [id number] [address] [place] [phone] Nov, [facility] [address] [facility] [id number] [address] [place] [phone] Nov, [facility] [address] [facility] [id number] [address] [place] [phone] Oct, Hepatic encephalopathy K72.9 0 [facility] [address] [facility] [id number] [address] [place] [phone] Oct, [facility] [address] [facility] [id number] [address] [place] [phone] Oct, [facility] [address] [facility] [id number] [address] [place] [phone] Oct, [facility] [address] [facility] [id number] [address] [place] [phone] September, Generalized edema R60.1 ; Al cohol abuse F10.10 and Chronic hepatitis C without hepatic coma B18.2 [facility] [address] [facility] [id number] [address] [place] [phone] September, [facility] [address] [facility] [id number] [address] [place] [phone] Aug, [facility] [address] [facility] [id number] [address] [place] [phone] Jul, [facility] [address] [facility] [id number] [place] [phone] Jul, [facility] [address] [facility] [id number] [address] [place] [phone] Jul, Chronic hepatitis C without hepatic coma B18.2 ; Generalized edema R60.1 and Alcohol abuse F10.10 [facility] [address] [facility] [id number] [address] [place] [phone] Jul, Cellulitis 682.9 [facility] [address] [facility] [id number] [address] [place] [phone] Jan, Cellulitis 682.9 and Edema 7 82.3 [facility] [address] [facility] [id number] [address] [place] [phone] September, [facility] [address] [id number] [address] [place] [address], [place] [address] 14 Aug, 2014 [facility] [address] [id number] [address] [place] [address], [place] [address] Aug, [facility] [address] [id number] [address] [place] [address], [place] [address] Jul, [facility] [address] [id number] [address] [place] [address], [place] [address] Jul, [facility] [address] [id number] [address] [place] [address], [place] [address] Jul, [facility] [address] [id number] [address] [place] [address], [place] [address] Jul, [facility] [address] [id number] [address] [place] [address], [place] [address] Jul, [facility] [address] [id number] [address] [place] [address], [place] [address] Feb, [facility] [address] [id number] [address] [place] [address], [place] [address] Feb, [facility] [address] [id number] [address] [place] [address], [place] [address] Feb, [facility] [address] [id number] [address] [place] [address], [place] [address] Feb, [facility] [address] [id number] [address] [place] [address], [place] [address] Feb, [facility] [address] [id number] [address] [place] [address], [place] [address] Jan, [facility] [address] [id number] [address] [place] [address], [place] [address] Jan, [facility] [address] [id number] [address] [place] [address], [place] [address] Jan, [facility] [address] [id number] [address] [place] [address], [place] [address] Jan, [facility] [address] [id number] [address] [place] [address], [place] [address] Dec, [facility] [address] [id number] [address] [place] [address], [place] [address] Dec, [facility] [address] [id number] [address] [place] [address], [place] [address] September, [facility] [address] [id number] [address] [place] [address], [place] [address] September, [facility] [address] [id number] [address] [place] [address], [place] [address] September, [facility] [address] [id number] [address] [place] [address], [place] [address] September, [facility] [address] [id number] [address] [place] [address], [place] [address] September, [facility] [address] [id number] [address] [place] [address], [place] [address] September, [facility] [address] [id number] [address] [place] [address], [place] [address] September, [facility] [address] [id number] [address] [place] [address], [place] [address] September, [facility] [address] [id number] [address] [place] [address], [place] [address] September, [facility] [address] [id number] [address] [place] [address], [place] [address] September, [facility] [address] [id number] [address] [place] [address], [place] [address] Aug, [facility] [address] [id number] [address] [place] [address], [place] [address] Aug, [facility] [address] [id number] [address] [place] [address], [place] [address] Aug, [facility] [address] [id number] [address] [place] [phone] Aug, [facility] [address] [id number] [address] [place] [phone] Jul, [facility] [address] [id number] [address] [place] [phone] Jul, [facility] [address] [id number] [address] [place] [phone] Jul, [facility] [address] [id number] [address] [place] [phone] Jul, [facility] [address] [id number] [address] [place] [phone] Jul, [facility] [address] [id number] [address] [place] [phone] Jul, [facility] [address] [id number] [address] [place] [phone] Jun, [facility] [address] [id number] [address] [place] [id number] Jun, [facility] [address] [id number] [address] [place] [phone] Oct, [facility] [address] [id number] [address] [place] [phone] September, IMMUNIZATIONS No Known Immunizations SOCIAL HISTORY Never Assessed REASON FOR VISIT PLAN OF CARE VITAL SIGNS MEDICATIONS Unknown Medications RESULTS No Results PROCEDURES No Known procedures INSTRUCTIONS MEDICATIONS ADMINISTERED No Known Medications MEDICAL (GENERAL) HISTORY Type Description Date Medical History Hypertension Medical History Hepatitis C Medical History low sodium Surgical History appendectomy Surgical History surgery at 6 mos old, pt cannot recall w hat kind of surgery Hospitalization History detoxing, UTI, liver failure 09/2017 Hospitalization History Hepatic encephalopathy, Sepsis, UTI- [facility] 10/2017 Hospitalization History [facility] - 2 days 03/2018 Hospitalization History Liver failure
--- OUTSIDE RECORDS SUMMARY | 2019-12-09 18:50 | XMS REPORT ---
Author Author Luther ANDRADE Organization [facility] Address [address] [place] [address] Care Team Providers Care Singing Teacher Name Role Phone PANCHO ANDRADE Unavailable PROBLEMS Type Condition ICD9-CM Code APG05-WX Code Onset Dates Condition S tatus SNOMED Code Problem Other retention of urine R33.8 Activ e 373223054 Problem Chronic liver failure without hepatic coma K72.10 Active 724978150 Problem Hyperammonemia E72.20 Active 53195 08 Problem Benign prostatic hyperplasia with lower urinary tract symptoms N40.1 Active 030829615 Problem Alcohol abuse F10.10 Active 337318 05 Problem Generalized edema R60.1 Active 27 0119114 Problem Chronic hepatitis C without hepatic coma B18.2 Active [id number] ALLERGIES No Information ENCOUNTERS Encounter Location Date Diagnosis [facility] [address] [facility] [id number] [address] [place] [address] Aug, [facility] [address] [facility] [id number] [address] [place] [address] Jun, Retention of urine R33.9 [facility] [address] [facility] [id number] [address] [place] [address] Jun, [facility] [address] [facility] [id number] [address] [place] [address] Jun, [facility] [address] [facility] [id number] [address] [place] [address] May, [facility] [address] [facility] [id number] [address] [place] [address] Apr, [facility] [address] [facility] [id number] [address] [place] [address] Apr, [facility] [address] [facility] [id number] [address] [place] [address] Mar, [facility] [address] [facility] [id number] [address] [place] [address] Mar, Chronic hepatitis C without hepatic coma B18.2 and Hyperammonemia E72.20 [facility] [address] [facility] [id number] [address] [place] [address] Mar, [facility] [address] [facility] [id number] [address] [place] [address] Nov, Pain, joint, shoulder, left M25.512 and Chronic liver failure without hepatic coma K72.10 [facility] [address] [facility] [id number] [address] [place] [address] Oct, [facility] [address] [facility] [id number] [address] [place] [address] Jun, [facility] [address] [facility] [id number] [address] [place] [address] Jun, [facility] [address] [facility] [id number] [address] [place] [address] May, [facility] [address] [facility] [id number] [address] [place] [address] May, Chronic liver failure withou t hepatic coma K72.10 [facility] [address] [facility] [id number] [address] [place] [address] Apr, [facility] [address] [facility] [id number] [address] [place] [address] Apr, Chronic liver failure withou t hepatic coma K72.10 [facility] [address] [facility] [id number] [address] [place] [address] Mar, [facility] [address] [facility] [id number] [address] [place] [address] Mar, Chronic liver failure withou t hepatic coma K72.10 [facility] [address] [facility] [id number] [address] [place] [address] Nov, [facility] [address] [facility] [id number] [address] [place] [address] Nov, [facility] [address] [facility] [id number] [address] [place] [address] Oct, Hepatic encephalopathy K72.9 0 [facility] [address] [facility] [id number] [address] [place] [address] Oct, [facility] [address] [facility] [id number] [address] [place] [address] Oct, [facility] [address] [facility] [id number] [address] [place] [address] Oct, [facility] [address] [facility] [id number] [address] [place] [address] September, Generalized edema R60.1 ; Al cohol abuse F10.10 and Chronic hepatitis C without hepatic coma B18.2 [facility] [address] [facility] [id number] [address] [place] [address] September, [facility] [address] [facility] [id number] [address] [place] [address] Aug, [facility] [address] [facility] [id number] [address] [place] [phone] Jul, [facility] [address] [facility] [id number] [place] [address] Jul, [facility] [address] [facility] [id number] [address] [place] [address] Jul, Chronic hepatitis C without hepatic coma B18.2 ; Generalized edema R60.1 and Alcohol abuse F10.10 [facility] [address] [facility] [id number] [address] [place] [address] Jul, Cellulitis 682.9 [facility] [address] [facility] [id number] [address] [place] [id number] 02 Jan, 2015 Cellulitis 682.9 and Edema 7 82.3 [facility] [place] [facility] [address] [id number] [address] [place] [address], [place] [address] September, [facility] [place] [facility] [address] [id number] [address] [place] [address], [place] [address] 14 Aug, 2014 [facility] [place] [facility] [address] [id number] [address] [place] [address], [place] [address] Aug, [facility] [place] [facility] [address] [id number] [address] [place] [address], [place] [address] Jul, [facility] [place] [facility] [address] [id number] [address] [place] [address], [place] [address] Jul, [facility] [place] [facility] [address] [id number] [address] [place] [address], [place] [address] Jul, [facility] [place] [facility] [address] [id number] [address] [place] [address], [place] [address] Jul, [facility] [place] [facility] [address] [id number] [address] [place] [address], [place] [address] Jul, [facility] [place] [facility] [address] [id number] [address] [place] [address], [place] [address] Feb, [facility] [place] [facility] [address] [id number] [address] [place] [address], [place] [address] Feb, [facility] [place] [facility] [address] [id number] [address] [place] [address], [place] [address] Feb, [facility] [place] [facility] [address] [id number] [address] [place] [address] Feb, [facility] [place] [facility] [address] [id number] [address] [place] [address], [place] [address] Feb, [facility] [place] [facility] [address] [id number] [address] [place] [address], [place] [address] Jan, [facility] [place] [facility] [address] [id number] [address] [place] [address], [place] [address] Jan, [facility] [place] [facility] [address] [id number] [address] [place] [address], [place] [address] Jan, [facility] [address] [id number] [address] [place] [address], [place] [address] Jan, [facility] [address] [id number] [address] [place] [address], [place] [address] Dec, [facility] [address] [id number] [address] [place] [address], [place] [address] Dec, [facility] [address] [id number] [address] [place] [address], [place] [address] September, [facility] [address] [id number] [address] [place] [address], [place] [address] September, [facility] [address] [id number] [address] [place] [address], [place] [address] September, [facility] [address] [id number] [address] [place] [address], [place] [address] September, [facility] [address] [id number] [address] [place] [address], [place] [address] September, [facility] [address] [id number] [address] [place] [address], [place] [address] September, [facility] [address] [id number] [address] [place] [address], [place] [address] September, [facility] [address] [id number] [address] [place] [address], [place] [address] September, [facility] [address] [id number] [address] [place] [address], [place] [address] September, [facility] [address] [id number] [address] [place] [address], [place] [address] September, [facility] [address] [id number] [address] [place] [address], [place] [address] Aug, [facility] [address] [id number] [address] [place] [address], [place] [address] Aug, [facility] [address] [id number] [address] [place] [address] Aug, [facility] [address] [id number] [address] [place] [address] Aug, [facility] [address] [id number] [address] [place] [address] Jul, [facility] [address] [id number] [address] [place] [address] Jul, [facility] [address] [id number] [address] [place] [address] Jul, [facility] [address] [id number] [address] [place] [address] Jul, [facility] [address] [id number] [address] [place] [address] Jul, [facility] [address] [id number] [address] [place] [address] Jul, [facility] [address] [id number] [address] [place] [address] Jun, [facility] [address] [id number] [address] [place] [address] Jun, [facility] [address] [id number] [address] [place] [address] Oct, [facility] [address] [id number] [address] [place] [address] September, IMMUNIZATIONS No Known Immunizations SOCIAL HISTORY Never Assessed REASON FOR VISIT PLAN OF CARE VITAL SIGNS Height 66 in 2014-02-08 Weight 195.2 lbs 2014-02-08 Temperature 97.8 degrees Fahrenheit 2014-02-08 Heart Rate 90 bpm 2014-02-08 Respiratory Rate 16 2014-02-08 Blood pressure systolic 130 mmHg 2014-02-08 Blood pressure diastolic 78 mmHg 2014-02-08 MEDICATIONS Unknown Medications RESULTS No Results PROCEDURES [...]
--- OUTSIDE RECORDS SUMMARY | 2019-12-09 18:50 | XMS REPORT ---
Author Author Luther YANEZ Organization [facility] Address [address] [place] [address] Care Team Providers Care Fixing Machine Operator Name Role Phone LUCÍA YANEZ Unavailable PROBLEMS Type Condition ICD9-CM Code AFV97-SY Code Onset Dates Condition S tatus SNOMED Code Problem Other retention of urine R33.8 Activ e 605824377 Problem Chronic liver failure without hepatic coma K72.10 Active 239735116 Problem Hyperammonemia E72.20 Active 58066 08 Problem Benign prostatic hyperplasia with lower urinary tract symptoms N40.1 Active 833210265 Problem Alcohol abuse F10.10 Active 477048 05 Problem Generalized edema R60.1 Active 27 7274512 Problem Chronic hepatitis C without hepatic coma B18.2 Active 570975895 ALLERGIES No Information ENCOUNTERS Encounter Location Date Diagnosis [facility] [address] [id number] Jun, Retention of urine R33.9 [facility] [address] [address] Jun, [facility] [address] [address] Jun, [facility] [address] [address] May, [facility] [address] [address] Apr, [facility] [address] [address] Apr, [facility] [address] [address] Mar, [facility] [address] [address] Mar, Chronic hepatitis C without hepatic coma B18.2 and Hyperammonemia E72.20 [facility] [address] [address] Mar, [facility] [address] [address] Nov, Pain, joint, shoulder, left M25.512 and Chronic liver failure without hepatic coma K72.10 [facility] [address] [address] Oct, [facility] [address] [address] Jun, [facility] [address] [address] Jun, [facility] [address] [address] May, [facility] [address] [address] May, Chronic liver failure without hepatic co ma K72.10 [facility] [address] [address] Apr, [facility] [address] [address] Apr, Chronic liver failure without hepatic co ma K72.10 [facility] [address] [address] Mar, [facility] [address] [address] Mar, Chronic liver failure without hepatic co ma K72.10 [facility] [address] [address] Nov, [facility] [address] [address] Nov, [facility] [address] [address] Oct, Hepatic encephalopathy K72.90 [facility] [place] [facility] [id number] [place] [address] Oct, [facility] [address] [address] Oct, [facility] [address] [address] Oct, [facility] [address] [address] September, Generalized edema R60.1 ; Alcohol abuse F10.10 and Chronic hepatitis C without hepatic coma B18.2 [facility] [address] [address] September, [facility] [address] [address] Aug, [facility] [address] [address] Jul, [facility] [address] [place] [address] Jul, [facility] [address] [address] Jul, Chronic hepatitis C without hepatic coma B18.2 ; Generalized edema R60.1 and Alcohol abuse F10.10 [facility] [address] [address] Jul, Cellulitis 682.9 [facility] [address] [address] Jan, Cellulitis 682.9 and Edema 782.3 [facility] [address] [address] September, [facility] [address] [address] 14 Aug, 2014 [facility] [address] [address] 13 Aug, 2014 [facility] [address] [address] Jul, [facility] [place] [facility] [address] [facility] [id number] [facility] [place] [address] Jul, [facility] [place] [facility] [address] [facility] [id number] [facility] [place] [address] Jul, [facility] [place] [facility] [address] [id number] [facility] [place] [address] Jul, [facility] [place] [facility] [address] [id number] [place] [address] Jul, 2014 [facility] [place] [facility] [address] [facility] [id number] [facility] [place] [address] Feb, [facility] [place] [facility] [address] [id number] [place] [address] Feb, [facility] [place] [facility] [address] [id number] [place] [address] Feb, [facility] [place] [facility] [address] [id number] [place] [address] Feb, [facility] [place] [facility] [address] [id number] [place] [address] Feb, [facility] [place] [facility] [address] [id number] [place] [address] Jan, [facility] [place] [facility] [address] [id number] [place] [address] Jan, [facility] [place] [facility] [address] [id number] [place] [address] Jan, [facility] [place] [facility] [address] [facility] [id number] [place] [address] Jan, [facility] [place] [facility] [address] [id number] [place] [address] Dec, [facility] [place] [facility] [address] [id number] [place] [address] Dec, [facility] [place] [facility] [address] [id number] [place] [address] September, [facility] [place] [facility] [address] [id number] [place] [address] September, [facility] [place] [facility] [address] [facility] [id number] [place] [address] September, [facility] [place] [facility] [address] [id number] [place] [address] September, [facility] [place] [facility] [address] [id number] [place] [address] September, [facility] [place] [facility] [address] [id number] [place] [address] September, [facility] [place] [facility] [address] [id number] [place] [address] September, [facility] [place] [facility] [address] [id number] [place] [address] September, [facility] [place] [facility] [address] [id number] [place] [address] September, [facility] [place] [facility] [address] [id number] [place] [address] September, [facility] [place] [facility] [address] [id number] [place] [address] Aug, [facility] [place] [facility] [address] [id number] [place] [address] Aug, [facility] [place] [facility] [address] [id number] [place] [address] Aug, [facility] [place] [facility] [address] [id number] [place] [address] Aug, [facility] [place] [facility] [address] [id number] [place] [address] Jul, [facility] [place] [facility] [address] [id number] [place] [address] Jul, [facility] [place] [facility] [address] [id number] [place] [address] Jul, [facility] [place] [facility] [address] [id number] [place] [address] Jul, [facility] [address] [id number] [place] [address] Jul, [facility] [id number] [place] [address] Jul, [facility] [address] [id number] [place] [address] Jun, [facility] [id number] [place] [address] Jun, [facility] [address] [id number] [place] [address] Oct, [facility] [id number] [place] [address] September, IMMUNIZATIONS No Known Immunizations SOCIAL HISTORY [...]
--- OUTSIDE RECORDS SUMMARY | 2019-12-09 18:51 | XMS REPORT ---
Author Author Luther YANEZ Organization [facility] Address [address] [place] [address] Care Team Providers Care Graduate Internship Name Role Phone LUCÍA YANEZ Unavailable PROBLEMS Type Condition ICD9-CM Code BPI47-AW Code Onset Dates Condition S tatus SNOMED Code Problem Other retention of urine R33.8 Activ e 967045287 Problem Chronic liver failure without hepatic coma K72.10 Active 611962677 Problem Hyperammonemia E72.20 Active 73337 08 Problem Benign prostatic hyperplasia with lower urinary tract symptoms N40.1 Active 935003348 Problem Alcohol abuse F10.10 Active 377252 05 Problem Generalized edema R60.1 Active 27 5760909 Problem Chronic hepatitis C without hepatic coma B18.2 Active [id number] ALLERGIES No Information ENCOUNTERS Encounter Location Date Diagnosis [facility] [address] [address] Jun, Retention of urine R33.9 [facility] [address] [address] Jun, [facility] [address] [address] Jun, [facility] [address] [address] May, [facility] [address] [address] Apr, [facility] [address] [address] Apr, [facility] [address] [address] Mar, [facility] [address] [address] Mar, Chronic hepatitis C without hepatic coma B18.2 and Hyperammonemia E72.20 [facility] [address] [address] Mar, [facility] [address] [address] Nov, Pain, joint, shoulder, left M25.512 and Chronic liver failure without hepatic coma K72.10 [facility] [address] [address] Oct, [facility] [address] [address] Jun, [facility] [address] [address] Jun, [facility] [address] [address] May, [facility] [address] [address] May, Chronic liver failure without hepatic co ma K72.10 [facility] [address] [address] Apr, [facility] [address] [address] Apr, Chronic liver failure without hepatic co ma K72.10 [facility] [address] [address] Mar, [facility] [address] [address] Mar, Chronic liver failure without hepatic co ma K72.10 [facility] [address] [address] Nov, [facility] [address] [address] Nov, [facility] [address] [address] Oct, Hepatic encephalopathy K72.90 [facility] [place] [facility] [id number] [place] [address] Oct, [facility] [address] [address] Oct, [facility] [address] [address] Oct, [facility] [address] [address] September, Generalized edema R60.1 ; Alcohol abuse F10.10 and Chronic hepatitis C without hepatic coma B18.2 [facility] [address] [address] September, [facility] [address] [address] Aug, [facility] [address] [address] Jul, [facility] [address] [place] [address] Jul, [facility] [address] [address] Jul, Chronic hepatitis C without hepatic coma B18.2 ; Generalized edema R60.1 and Alcohol abuse F10.10 [facility] [address] [address] Jul, Cellulitis 682.9 [facility] [address] [address] Jan, Cellulitis 682.9 and Edema 782.3 [facility] [address] [address] September, [facility] [address] [address] 14 Aug, 2014 [facility] [address] [address] 13 Aug, 2014 [facility] [address] [address] Jul, [facility] [place] [facility] [address] [facility] [id number] [facility] [place] [address] Jul, [facility] [place] [facility] [address] [facility] [id number] [facility] [place] [address] Jul, [facility] [place] [facility] [address] [id number] [facility] [place] [address] Jul, [facility] [place] [facility] [address] [id number] [place] [address] Jul, 2014 [facility] [place] [facility] [address] [facility] [id number] [facility] [place] [address] Feb, [facility] [place] [facility] [address] [id number] [place] [address] Feb, [facility] [place] [facility] [address] [id number] [place] [address] Feb, [facility] [place] [facility] [address] [id number] [place] [address] Feb, [facility] [place] [facility] [address] [id number] [place] [address] Feb, [facility] [place] [facility] [address] [id number] [place] [address] Jan, [facility] [place] [facility] [address] [id number] [place] [address] Jan, [facility] [place] [facility] [address] [id number] [place] [address] Jan, [facility] [place] [facility] [address] [facility] [id number] [place] [address] Jan, [facility] [place] [facility] [address] [id number] [place] [address] Dec, [facility] [place] [facility] [address] [id number] [place] [address] Dec, [facility] [place] [facility] [address] [id number] [place] [address] September, [facility] [place] [facility] [address] [id number] [place] [address] September, [facility] [place] [facility] [address] [facility] [id number] [place] [address] September, [facility] [place] [facility] [address] [id number] [place] [address] September, [facility] [place] [facility] [address] [id number] [place] [address] September, [facility] [place] [facility] [address] [id number] [place] [address] September, [facility] [place] [facility] [address] [id number] [place] [address] September, [facility] [place] [facility] [address] [id number] [place] [address] September, [facility] [place] [facility] [address] [id number] [place] [address] September, [facility] [place] [facility] [address] [id number] [place] [address] September, [facility] [place] [facility] [address] [id number] [place] [address] Aug, [facility] [place] [facility] [address] [id number] [place] [address] Aug, [facility] [place] [facility] [address] [id number] [place] [address] Aug, [facility] [place] [facility] [address] [id number] [place] [address] Aug, [facility] [place] [facility] [address] [id number] [place] [address] Jul, [facility] [place] [facility] [address] [id number] [place] [address] Jul, [facility] [place] [facility] [address] [id number] [place] [address] Jul, [facility] [place] [facility] [address] [id number] [place] [address] Jul, [facility] [address] [id number] [place] [address] Jul, [facility] [address] [id number] [place] [address] Jul, [facility] [address] [id number] [place] [address] Jun, [facility] [address] [id number] [place] [address] Jun, [facility] [address] [id number] [place] [address] Oct, [facility] [id number] [place] [address] September, IMMUNIZATIONS No Known Immunizations SOCIAL HISTORY Never Assessed REASON FOR VISIT PLAN OF CARE VITAL SIGNS MEDICATIONS Unknown Medications RESULTS No Results PROCEDURES Procedure Date Ordered Result Body Site COMPLETE CBC W/AUTO DIFF WBC August 03, 2013 ASSAY THYROID STIM HORMONE August 03, 2013 ASSAY OF TOTAL TESTOSTERONE August 03, 2013 ASSAY OF PSA, TOTAL August 03, 2013 GLYCATED HEMOGLOBIN TEST August 03, 2013 LIPID PANEL August 03, 2013 COMPREHEN METABOLIC PANEL August 03, 2013 VENIPUNCT, ROUTINE* August 03, 2013 INSTRUCTIONS MEDICATIONS ADMINISTERED No Known Medications MEDICAL [...]
--- OUTSIDE RECORDS SUMMARY | 2019-12-09 18:51 | XMS REPORT ---
Author Author Luther YANEZ Organization [facility] Address [address] [place] [address] Care Team Providers Care Gymnastics Coach Or Instructor Name Role Phone LUCÍA YANEZ Unavailable PROBLEMS Type Condition ICD9-CM Code XMU36-ND Code Onset Dates Condition S tatus SNOMED Code Problem Other retention of urine R33.8 Activ e 380702118 Problem Chronic liver failure without hepatic coma K72.10 Active 731649163 Problem Hyperammonemia E72.20 Active 66746 08 Problem Benign prostatic hyperplasia with lower urinary tract symptoms N40.1 Active 130499608 Problem Alcohol abuse F10.10 Active 356303 05 Problem Generalized edema R60.1 Active 27 1108874 Problem Chronic hepatitis C without hepatic coma B18.2 Active [id number] ALLERGIES No Information ENCOUNTERS Encounter Location Date Diagnosis [facility] [address] [address] Jul, [facility] [address] [address] Jun, Retention of urine R33.9 [facility] [address] [address] Jun, [facility] [address] [address] Jun, [facility] [address] [address] May, [facility] [address] [address] Apr, [facility] [address] [address] Apr, [facility] [address] [address] Mar, [facility] [id number] [place] [address] Mar, Chronic hepatitis C without hepatic coma B18.2 and Hyperammonemia E72.20 [facility] [id number] [place] [address] Mar, [facility] [id number] [place] [address] Nov, Pain, joint, shoulder, left M25.512 and Chronic liver failure without hepatic coma K72.10 [facility] [id number] [place] [address] Oct, [facility] [address] [address] Jun, [facility] [address] [address] Jun, [facility] [id number] [place] [address] May, [facility] [address] [address] May, Chronic liver failure without hepatic co ma K72.10 [facility] [address] [address] Apr, [facility] [address] [address] Apr, Chronic liver failure without hepatic co ma K72.10 [facility] [place] [facility] [id number] [place] [address] Mar, [facility] [address] [address] Mar, Chronic liver failure without hepatic co ma K72.10 [facility] [place] [facility] [id number] [place] [address] Nov, [facility] [address] [address] Nov, [facility] [id number] [place] [address] Oct, Hepatic encephalopathy K72.90 [facility] [address] [address] Oct, [facility] [address] [address] Oct, [facility] [address] [address] Oct, [facility] [address] [address] September, Generalized edema R60.1 ; Alcohol abuse F10.10 and Chronic hepatitis C without hepatic coma B18.2 [facility] [address] [address] September, [facility] [address] [address] Aug, [facility] [address] [address] Jul, [facility] [address] [place] [address] Jul, [facility] [address] [address] Jul, Chronic hepatitis C without hepatic coma B18.2 ; Generalized edema R60.1 and Alcohol abuse F10.10 [facility] [address] [address] Jul, Cellulitis 682.9 [facility] [address] [address] Jan, Cellulitis 682.9 and Edema 782.3 [facility] [address] [address] September, [facility] [address] [address] Aug, [facility] [address] [address] 13 Aug, 2014 [facility] [place] [facility] [address] [facility] [id number] [facility] [place] [address] Jul, [facility] [place] [facility] [address] [facility] [id number] [facility] [place] [address] Jul, [facility] [place] [facility] [address] [id number] [place] [address] Jul, [facility] [place] [facility] [address] [id number] [place] [address] Jul, 2014 [facility] [place] [facility] [address] [facility] [id number] [facility] [place] [address] Jul, [facility] [place] [facility] [address] [id number] [place] [address] Feb, [facility] [place] [facility] [address] [id number] [place] [address] Feb, [facility] [place] [facility] [address] [id number] [place] [address] Feb, [facility] [place] [facility] [address] [id number] [place] [address] Feb, [facility] [place] [facility] [address] [id number] [place] [address] Feb, [facility] [place] [facility] [address] [id number] [place] [address] Jan, [facility] [place] [facility] [address] [id number] [place] [address] Jan, [facility] [place] [facility] [address] [id number] [facility] [place] [address] Jan, [facility] [place] [facility] [address] [id number] [place] [address] Jan, [facility] [place] [facility] [address] [id number] [place] [address] Dec, [facility] [place] [facility] [address] [id number] [place] [address] Dec, [facility] [place] [facility] [address] [id number] [place] [address] September, [facility] [place] [facility] [address] [facility] [id number] [place] [address] September, [facility] [place] [facility] [address] [id number] [place] [address] September, [facility] [place] [facility] [address] [id number] [place] [address] September, [facility] [place] [facility] [address] [id number] [place] [address] September, [facility] [place] [facility] [address] [id number] [place] [address] September, [facility] [place] [facility] [address] [id number] [place] [address] September, [facility] [place] [facility] [address] [id number] [place] [address] September, [facility] [place] [facility] [address] [id number] [place] [address] September, [facility] [place] [facility] [address] [id number] [place] [address] September, [facility] [place] [facility] [address] [id number] [place] [address] Aug, [facility] [place] [facility] [address] [id number] [place] [address] Aug, [facility] [place] [facility] [address] [id number] [place] [address] Aug, [facility] [place] [facility] [address] [id number] [place] [address] Aug, [facility] [place] [facility] [address] [id number] [place] [address] Jul, [facility] [place] [facility] [address] [id number] [place] [address] Jul, [facility] [place] [facility] [address] [id number] [place] [address] Jul, [facility] [address] [id number] [place] [address] Jul, [facility] [address] [id number] [place] [address] Jul, [facility] [address] [id number] [place] [address] Jul, [facility] [address] [id number] [place] [address] Jun, [facility] [address] [id number] [place] [address] Jun, [facility] [id number] [place] [address] Oct, [facility] [address] [id number] [place] [address] September, IMMUNIZATIONS No Known Immunizations SOCIAL HISTORY Never Assessed REASON FOR VISIT PLAN OF CARE VITAL SIGNS Height 66 in 2013-07-14 Weight 192.1 lbs 2013-07-14 Temperature 97.3 degrees Fahrenheit 2013-07-14 Heart Rate 90 bpm 2013-07-14 Respiratory Rate 20 2013-07-14 Blood pressure systolic 154 mmHg 2013-07-14 Blood pressure diastolic 84 mmHg 2013-07-14 MEDICATIONS Unknown Medications RESULTS No Results PROCEDURES [...]
--- OUTSIDE RECORDS SUMMARY | 2019-12-09 18:52 | XMS REPORT | Continuity of Care Document ---
Author Organization Unknown Address Unknown Phone Unavailable Allergies Active Description Code Type Severity Reaction Onset Reported/Identified Relationship to Patient Clinical Status Yes No Known Drug Allergies [id number] Drug Allergy Unknown N/A 10/02/2017 Yes No Allergy Information Available [id number] Drug Allergy Unknown N/A 020 Yes No Allergy Information Available [id number] Drug Allergy Unknown N/A 020 Medications There is no data. Problems Date Dx Coded Attending Type Code Diagnosis Diagnosed By 10/04/2012 682.9 CELL ULITIS AND ABSCESS OF UNSPECIFIED SITES 10/04/2012 682.9 CELL ULITIS AND ABSCESS OF UNSPECIFIED SITES 10/04/2012 LUCÍA YANEZ APRN 68 2.9 CELLULITIS AND ABSCESS OF UNSPECIFIED SITES 10/04/2012 LUCÍA YANEZ APRN 68 2.9 CELLULITIS AND ABSCESS OF UNSPECIFIED SITES 10/04/2012 LUCÍA YANEZ APRN 68 2.9 CELLULITIS AND ABSCESS OF UNSPECIFIED SITES 10/04/2012 LUCÍA YANEZ APRN 68 2.9 CELLULITIS AND ABSCESS OF UNSPECIFIED SITES 10/04/2012 PANCHO ANDRADE MD 682.9 CELLULITIS AND ABSCESS OF UNSPECIFIED SITES 10/04/2012 LUCÍA YANEZ APRN 68 2.9 CELLULITIS AND ABSCESS OF UNSPECIFIED SITES 10/04/2012 PANCHO ANDRADE MD 682.9 CELLULITIS AND ABSCESS OF UNSPECIFIED SITES 10/20/2012 477.9 RHINITIS 10/20/2012 LUCÍA YANEZ APRN 47 7.9 RHINITIS 10/20/2012 LUCÍA YANEZ APRN 47 7.9 RHINITIS 10/20/2012 LUCÍA YANEZ APRN 47 7.9 RHINITIS 10/20/2012 LUCÍA YANEZ APRN 47 7.9 RHINITIS 10/20/2012 PANCHO ANDRADE MD 477.9 RHINITIS 10/20/2012 LUCÍA YANEZ APRN 47 7.9 RHINITIS 10/20/2012 PANCHO ANDRADE MD 477.9 RHINITIS 07/14/2013 RENATA SEAMING INSPECTOR, LUCÍA T 40 1.1 HYPERTENSION, BENIGN ESSENTIAL 07/14/2013 LUCÍA YANEZ APRN T 40 1.1 HYPERTENSION, BENIGN ESSENTIAL 07/14/2013 LUCÍA YANEZ APRN T 40 1.1 HYPERTENSION, BENIGN ESSENTIAL 07/14/2013 LUCÍA YANEZ APRN T 40 1.1 HYPERTENSION, BENIGN ESSENTIAL 07/14/2013 PANCHO ANDRADE MD 401.1 HYPERTENSION, BENIGN ESSENTIAL 07/14/2013 LUCÍA YANEZ APRN 40 1.1 HYPERTENSION, BENIGN ESSENTIAL 07/14/2013 PANCHO ANDRADE MD 401.1 HYPERTENSION, BENIGN ESSENTIAL 09/11/2013 LUCÍA YANEZ APRN T 302.72 ERECTILE DISORDER 09/11/2013 LUCÍA YANEZ APRN T 78 5.0 TACHYCARDIA UNSPECIFIED 09/11/2013 LUCÍA YANEZ APRN T 79 0.6 Liver Function Test, Abnormal 09/11/2013 LUCÍA YANEZ APRN 302.72 ERECTILE DISORDER 09/11/2013 LUCÍA YANEZ APRN 78 5.0 TACHYCARDIA UNSPECIFIED 09/11/2013 LUCÍA YANEZ APRN 79 0.6 Liver Function Test, Abnormal 09/11/2013 PANCHO ANDRADE MD 302.7 2 ERECTILE DISORDER 09/11/2013 PANCHO ANDRADE MD 785.0 TACHYCARDIA UNSPECIFIED 09/11/2013 PANCHO ANDRADE MD 790.6 Liver Function Test, Abnormal 09/11/2013 LUCÍA YANEZ APRN 302.72 ERECTILE DISORDER 09/11/2013 LUCÍA YANEZ APRN 78 5.0 TACHYCARDIA UNSPECIFIED 09/11/2013 LUCÍA YANEZ APRN 79 0.6 Liver Function Test, Abnormal 09/11/2013 PANCHO ANDRADE MD 302.7 2 ERECTILE DISORDER 09/11/2013 PANCHO ANDRADE MD 785.0 TACHYCARDIA UNSPECIFIED 09/11/2013 PANCHO ANDRADE MD 790.6 Liver Function Test, Abnormal 09/21/2013 LUCÍA YANEZ APRN 070.54 HEPATITIS C CHRONIC 09/21/2013 PANCHO ANDRADE MD 070.5 4 HEPATITIS C CHRONIC 09/21/2013 LUCÍA YANEZ APRN 070.54 HEPATITIS C CHRONIC 09/21/2013 PANCHO ANDRADE MD 070.5 4 HEPATITIS C CHRONIC 02/08/2014 PANCHO ANDRADE MD 686.9 UNSPECIFIED LOCAL INFECTION OF SKIN AND SUBCUTANEOUS TISSUE 02/08/2014 LUCÍA YANEZ APRN 68 6.9 UNSPECIFIED LOCAL INFECTION OF SKIN AND SUBCUTANEOUS TISSUE 02/08/2014 RAYMOND CAMACHO, PANCHO 686.9 UNSPECIFIED LOCAL INFECTION OF SKIN AND [...] ACUTE AND SUBACUTE HEPATIC FAILURE WITHO 10/04/2017 [facility].01 ACUTE CYSTITIS WITH HEMATURIA 10/04/2017 [facility] Ot R26.81 UNSTEADINESS ON FEET 10/04/2017 [facility] Ot R41.0 DISORIENTATION, UNSPECIFIED 10/06/2017 [facility] Ot A41.9 SEPSIS, UNSPECIFIED ORGANISM 10/06/2017 [facility] Ot B18.2 CHRONIC VIRAL HEPATITIS C 10/06/2017 [facility] Ot D64.9 ANEMIA, UNSPECIFIED 10/06/2017 [facility] Ot D69.6 THROMBOCYTOPENIA, UNSPECIFIED 10/06/2017 [facility] Ot E46 UNSPECIFIED PROTEIN-CALORIE MALNUTRITION 10/06/2017 [facility] Ot E72.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, UNSPE 10/06/2017 [facility] Ot E80.6 OTHER DISORDERS OF BILIRUBIN METABOLISM 10/06/2017 [facility] Ot E83.42 HYPOMAGNESEMIA 10/06/2017 [facility] Ot E83.51 HYPOCALCEMIA 10/06/2017 [facility] Ot E88.09 OTH DISORDERS OF PLASMA-PROTEIN METABOLI 10/06/2017 [facility] Ot F10.10 ALCOHOL ABUSE, UNCOMPLICATED 10/06/2017 [facility] Ot F10.20 ALCOHOL DEPENDENCE, UNCOMPLICATED 10/06/2017 [facility] Ot F15.10 OTHER STIMULANT ABUSE, UNCOMPLICATED 10/06/2017 [facility] Ot F17.200 NICOTINE DEPENDENCE, UNSPECIFIED, UNCOMP 10/06/2017 [facility] Ot F17.210 NICOTINE DEPENDENCE, CIGARETTES, UNCOMPL 10/06/2017 [facility] Ot G93.40 ENCEPHALOPATHY, UNSPECIFIED 10/06/2017 [facility] Ot H91.90 UNSPECIFIED HEARING LOSS, UNSPECIFIED EA 10/06/2017 [facility] ORQU[place] OTT Ot I10 ESSENTIAL (PRIMARY) HYPERTENSION 10/06/2017 [facility] DOORQUIDEA Ot I85.00 ESOPHAGEAL VARICES WITHOUT BLEEDING 10/06/2017 [facility] DOORQUIDEA Ot K72.00 ACUTE AND SUBACUTE HEPATIC FAILURE WITHO 10/06/2017 [facility] OTT Ot K74.60 UNSPECIFIED CIRRHOSIS OF LIVER 10/06/2017 [facility] DOORQUIDEA Ot N30.01 ACUTE CYSTITIS WITH HEMATURIA 10/06/2017 [facility] Ot N32.89 OTHER SPECIFIED DISORDERS OF BLADDER 10/06/2017 [facility] DOORQUIDEA Ot N39.0 URINARY TRACT INFECTION, SITE NOT SPECIF 10/06/2017 [facility] [place] OTT Ot R01.1 CARDIAC MURMUR, UNSPECIFIED 10/06/2017 [facility] [place] OTT Ot R16.1 SPLENOMEGALY, NOT ELSEWHERE CLASSIFIED 10/06/2017 [facility] DOORQUIDEA Ot R26.81 UNSTEADINESS ON FEET 10/06/2017 [facility] R41.0 DISORIENTATION, UNSPECIFIED 10/06/2017 [facility] [place] OTT Ot Y90.0 BLOOD ALCOHOL LEVEL OF LESS THAN 20 MG/1 11/05/2017 [facility] Pearl DO Ot A41.9 SEPSIS, UNSPECIFIED ORGANISM 11/05/2017 [facility] [place] OTT Ot B18.2 CHRONIC VIRAL HEPATITIS C 11/05/2017 [facility] DOORQUIDEA Ot D69.6 THROMBOCYTOPENIA, UNSPECIFIED 11/05/2017 [facility] DOORQUIDEA Ot F15.10 OTHER STIMULANT ABUSE, UNCOMPLICATED 11/05/2017 [facility] DOORQUIDEA Ot F17.210 NICOTINE DEPENDENCE, CIGARETTES, UNCOMPL 11/05/2017 [facility] ORQU[place] OTT Ot G81.94 HEMIPLEGIA, UNSPECIFIED AFFECTING LEFT N 11/05/2017 [facility] [place] E Ot I10 ESSENTIAL (PRIMARY) HYPERTENSION 11/05/2017 [facility] DOORQUIDEA Ot J30.2 OTHER SEASONAL ALLERGIC RHINITIS 11/05/2017 [facility] DOORQU[facility] Ot K59.00 CONSTIPATION, UNSPECIFIED 11/05/2017 [facility] DOORQU[facility]A Ot K70.9 ALCOHOLIC LIVER DISEASE, UNSPECIFIED 11/05/2017 [facility] DOORQU[facility] Ot K72.00 ACUTE AND SUBACUTE HEPATIC FAILURE WITHO 11/05/2017 [facility] DOOR[facility] Ot N30.01 ACUTE CYSTITIS WITH HEMATURIA 11/05/2017 [facility] DO[facility] E Ot N52.9 MALE ERECTILE DYSFUNCTION, UNSPECIFIED 11/05/2017 [facility] [place] OTT Ot R33.9 RETENTION OF URINE, UNSPECIFIED 11/05/2017 [facility] Ot R47.81 SLURRED SPEECH 11/05/2017 [facility] [place] OTT Ot A41.9 SEPSIS, UNSPECIFIED ORGANISM 11/05/2017 [facility] Ot B18.2 CHRONIC VIRAL HEPATITIS C 11/05/2017 [facility] DOORQUIDEA Ot D69.6 THROMBOCYTOPENIA, UNSPECIFIED 11/05/2017 [facility] [place] OTT Ot F15.10 OTHER STIMULANT ABUSE, UNCOMPLICATED 11/05/2017 [facility] [place] OTT Ot F17.210 NICOTINE DEPENDENCE, CIGARETTES, UNCOMPL 11/05/2017 [facility] Pearl DO Ot G81.94 HEMIPLEGIA, UNSPECIFIED AFFECTING LEFT N 11/05/2017 [facility] DOORQUIDEA Ot I10 ESSENTIAL (PRIMARY) HYPERTENSION 11/05/2017 [facility] DOORQU[place] Ot I69.354 HEMIPLGA FOLLOWING CEREBRAL INFRC AFFECT 11/05/2017 [facility] Pearl DO Ot J30.2 OTHER SEASONAL ALLERGIC RHINITIS 11/05/2017 [facility] DOORQU[place]A Ot K59.00 CONSTIPATION, UNSPECIFIED 11/05/2017 [facility] Ot K70.9 ALCOHOLIC LIVER DISEASE, UNSPECIFIED 11/05/2017 [facility] Ot K72.00 ACUTE AND SUBACUTE HEPATIC FAILURE WITHO 11/05/2017 [facility] [place] Pearl Ot N30.01 ACUTE CYSTITIS WITH HEMATURIA 11/05/2017 [facility] [place] Pearl Ot N52.9 MALE ERECTILE DYSFUNCTION, UNSPECIFIED 11/05/2017 [facility] [place] Pearl Ot R33.9 RETENTION OF URINE, UNSPECIFIED 11/05/2017 [facility] [place] Pearl Ot R47.81 SLURRED SPEECH 10/05/2018 RYAN DO, B Ot B19.2 0 UNSPECIFIED VIRAL HEPATITIS C WITHOUT HE 10/05/2018 RYAN DO, B Ot F17.2 10 NICOTINE DEPENDENCE, CIGARETTES, UNCOMPL 10/05/2018 RYAN DO, B Ot S42.212A UNSP DISP FX OF SURGICAL NECK OF LEFT HU 10/05/2018 RYAN DO, B Ot S70.02XA CONTUSION OF LEFT HIP, INITIAL ENCOUNTER 10/05/2018 FUENTESANTONIO DO B Ot W11.XXXA FALL ON AND FROM LADDER, INITIAL ENCOUNT 10/05/2018 RYAN DO, B Ot 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 10/05/2018 FUENTESANTONIO DO, B Ot Z79.8 99 OTHER GRAVURE PRESS SET UP OPERATOR (CURRENT) DRUG THERAPY 10/05/2018 RYAN DO, B Ot B19.2 0 UNSPECIFIED VIRAL HEPATITIS C WITHOUT HE 10/05/2018 RYAN DO, B Ot F17.2 10 NICOTINE DEPENDENCE, CIGARETTES, UNCOMPL 10/05/2018 RYAN DO, B Ot S42.212A UNSP DISP FX OF SURGICAL NECK OF LEFT HU 10/05/2018 RAYN DO, B Ot S70.02XA CONTUSION OF LEFT HIP, INITIAL ENCOUNTER 10/05/2018 RYAN DO B Ot W11.XXXA FALL ON AND FROM LADDER, INITIAL ENCOUNT 10/05/2018 DELANTONIO DO, B Ot Z79.8 2 SKILLED NURSING (CURRENT) USE OF ASPIRIN 10/05/2018 DELMAN DO, B Ot Z79.8 99 OTHER SKILLED NURSING (CURRENT) DRUG THERAPY 06/18/2019 SHANA ABBOTT DO Ot B19.20 UNSPECIFIED VIRAL HEPATITIS C WITHOUT HE 06/18/2019 ABBOTT DO, SHANA Ot D64.9 ANEMIA, UNSPECIFIED 06/18/2019 ABBOTT DO, SHANA Ot D69.6 THROMBOCYTOPENIA, UNSPECIFIED 06/18/2019 ABBOTT DO, SHANA Ot E87.2 ACIDOSIS 06/18/2019 ABBOTT DO, SHANA Ot F10.10 ALCOHOL ABUSE, UNCOMPLICATED 06/18/2019 ABBOTT DO, SHANA Ot F15.10 OTHER STIMULANT ABUSE, UNCOMPLICATED 06/18/2019 ABBOTT DO, SHANA Ot F17.21 0 NICOTINE DEPENDENCE, CIGARETTES, UNCOMPL 06/18/2019 ABBOTT DO, SHANA Ot I10 ESSENTIAL (PRIMARY) HYPERTENSION 06/18/2019 ABBOTT DO, SHANA Ot I46.9 CARDIAC ARREST, CAUSE UNSPECIFIED 06/18/2019 ABBOTT DO, SHANA Ot 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 06/18/2019 ABBOTT DO, SHANA Ot I87.8 OTHER SPECIFIED DISORDERS OF VEINS 06/18/2019 ABBOTT DO, SHANA Ot J96.00 ACUTE RESPIRATORY FAILURE, UNSP W HYPOXI 06/18/2019 ABBOTT DO, SHANA Ot K72.90 HEPATIC FAILURE, UNSPECIFIED WITHOUT COM 06/18/2019 ABBOTT DO, SHANA Ot K74.60 UNSPECIFIED CIRRHOSIS OF LIVER 06/18/2019 ABBOTT DO, SHANA Ot N39.0 URINARY TRACT INFECTION, SITE NOT SPECIF 06/18/2019 ABBOTT DO, SHANA Ot R16.1 SPLENOMEGALY, NOT ELSEWHERE CLASSIFIED 06/19/2019 ABBOTT DO, SHANA Ot B19.20 UNSPECIFIED VIRAL HEPATITIS C WITHOUT HE 06/19/2019 ABBOTT DO, SHANA Ot D64.9 ANEMIA, UNSPECIFIED 06/19/2019 ABBOTT DO, SHANA Ot D69.6 THROMBOCYTOPENIA, UNSPECIFIED 06/19/2019 ABBOTT DO, SHANA Ot E87.2 ACIDOSIS 06/19/2019 ABBOTT DO, SHANA Ot F10.10 ALCOHOL ABUSE, UNCOMPLICATED 06/19/2019 ABBOTT DO, SHANA Ot F15.10 OTHER STIMULANT ABUSE, UNCOMPLICATED 06/19/2019 ABBOTT DO, SHANA Ot F17.21 0 NICOTINE DEPENDENCE, CIGARETTES, UNCOMPL 06/19/2019 ABBOTT DO, SHANA Ot I10 ESSENTIAL (PRIMARY) HYPERTENSION 06/19/2019 ABBOTT DO, SHANA Ot I46.9 CARDIAC ARREST, CAUSE UNSPECIFIED 06/19/2019 ABBOTT DO, SHANA Ot 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 06/19/2019 ABBOTT DO, SHANA Ot I87.8 OTHER SPECIFIED DISORDERS OF VEINS 06/19/2019 ABBOTT DO, SHANA Ot J96.00 ACUTE RESPIRATORY FAILURE, UNSP W HYPOXI 06/19/2019 ABBOTT DO, SHANA Ot K72.90 HEPATIC FAILURE, UNSPECIFIED WITHOUT COM 06/19/2019 ABBOTT DO, SHANA Ot K74.60 UNSPECIFIED CIRRHOSIS OF LIVER 06/19/2019 ABBOTT DO, SHANA Ot N39.0 URINARY TRACT INFECTION, SITE NOT SPECIF 06/19/2019 ABBOTT DO, SHANA Ot R16.1 SPLENOMEGALY, NOT ELSEWHERE CLASSIFIED 06/19/2019 ABBOTT DO, SHANA Ot B19.20 UNSPECIFIED VIRAL HEPATITIS C WITHOUT HE 06/19/2019 ABBOTT DO, SHANA Ot D64.9 ANEMIA, UNSPECIFIED 06/19/2019 ABBOTT DO, SHANA Ot D69.6 THROMBOCYTOPENIA, UNSPECIFIED 06/19/2019 ABBOTT DO, SHANA Ot E83.42 HYPOMAGNESEMIA 06/19/2019 ABBOTT DO, SHANA Ot E87.2 ACIDOSIS 06/19/2019 ABBOTT DO, SHANA Ot F10.10 ALCOHOL ABUSE, UNCOMPLICATED 06/19/2019 ABBOTT DO, SHANA Ot F15.10 OTHER STIMULANT ABUSE, UNCOMPLICATED 06/19/2019 ABBOTT DO, SHANA Ot F17.21 0 NICOTINE DEPENDENCE, CIGARETTES, UNCOMPL 06/19/2019 ABBOTT DO, SHANA Ot I10 ESSENTIAL (PRIMARY) HYPERTENSION 06/19/2019 ABBOTT DO, SHANA Ot I46.9 CARDIAC ARREST, CAUSE UNSPECIFIED 06/19/2019 ABBOTT DO, SHANA Ot 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 06/19/2019 ABBOTT DO, SHANA Ot I87.8 OTHER SPECIFIED DISORDERS OF VEINS 06/19/2019 ABBOTT DO, SHANA Ot J96.00 ACUTE RESPIRATORY FAILURE, UNSP W HYPOXI 06/19/2019 ABBOTT DO, SHANA Ot K72.00 ACUTE AND SUBACUTE HEPATIC FAILURE WITHO 06/19/2019 ABBOTT DO, SHANA Ot K74.60 UNSPECIFIED CIRRHOSIS OF LIVER 06/19/2019 ABBOTT DO, SHANA Ot N39.0 URINARY TRACT INFECTION, SITE NOT SPECIF 07/10/2019 PATI ROBLERO MD Ot B18.2 CHRONIC VIRAL HEPATITIS C 07/10/2019 PATI ROBLERO MD Ot D64.9 ANEMIA, UNSPECIFIED 07/10/2019 PATI ROBLERO MD Ot E72.2 0 DISORDER OF UREA CYCLE METABOLISM, UNSPE 07/10/2019 PATI ROBLERO MD Ot E87.6 HYPOKALEMIA 07/10/2019 PATI ROBLERO MD Ot F10.1 1 ALCOHOL ABUSE, IN REMISSION 07/10/2019 PATI ROBLERO MD Ot F19.1 0 OTHER PSYCHOACTIVE SUBSTANCE ABUSE, UNCO 07/10/2019 PATI ROBLERO MD Ot I10 ESSENTIAL (PRIMARY) HYPERTENSION 07/10/2019 PATI ROBLERO MD Ot J30.2 OTHER SEASONAL ALLERGIC RHINITIS 07/10/2019 PATI ROBLERO MD Ot K72.0 0 ACUTE AND SUBACUTE HEPATIC FAILURE WITHO 07/10/2019 PATI ROBLERO MD Ot K72.1 0 CHRONIC HEPATIC FAILURE WITHOUT COMA 07/10/2019 PATI ROBLERO MD Ot K74.6 0 UNSPECIFIED CIRRHOSIS OF LIVER 07/10/2019 PATI ROBLERO MD Ot 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, LEFT SHOULDER 07/10/2019 PATI ROBLERO MD Ot N39.0 URINARY TRACT INFECTION, SITE NOT SPECIF 07/10/2019 PATI ROBLERO MD Ot N52.9 MALE ERECTILE DYSFUNCTION, UNSPECIFIED 07/10/2019 PATI ROBLERO MD Ot R16.1 SPLENOMEGALY, NOT ELSEWHERE CLASSIFIED 07/10/2019 PATI ROBLERO MD Ot R41.8 2 ALTERED MENTAL STATUS, UNSPECIFIED 07/10/2019 PATI ROBLERO MD Ot Z87.8 91 PERSONAL HISTORY OF NICOTINE DEPENDENCE 07/10/2019 PATI ROBLERO MD Ot Z91.1 9 PATIENT'S NONCOMPLIANCE W [facility] Procedures Code [place] [address] ROUT INE VENIPUNCTURE 08/03/2013 06054 A1C (RML) 08/03/2013 33963 PSA TOTAL 08/03/2013 84604 TEST OSTERONE TOTAL MALES 08/03/2013 39538 TSH 08/03/2013 38219 CBC 08/03/2013 0914833 GF R CALC (RESULT ONLY) 08/03/2013 40521 CMP 08/03/2013 99273 LIPI D PANEL 08/03/2013 35279 ROUT INE VENIPUNCTURE 09/11/2013 72001 LIVE R PANEL (LFT) 09/11/2013 73825 HEPA TITIS PROFILE 09/11/2013 08434 AMYLASE 09/11/2013 07042 LIPASE 09/11/2013 66475 EKG, TRACING (IN-HOUSE) 09/11/2013 63625 ROUT INE VENIPUNCTURE 09/21/2013 73623 HEP C PCR QUANT W/RAKAN 09/21/2013 [facility] 09/22/2013 07922 ROUT INE VENIPUNCTURE 03/10/2014 74822 TEST OSTERONE TOTAL MALES 03/10/2014 15211 HEP C PCR QUANT (SERIAL) 03/10/2014 61397 LIVE R PANEL (LFT) 03/10/2014 28650 CULT URE WOUND (AEROBIC) 08/12/2014 [id number] RE SPIRATORY VENTILATION, LESS THAN 24 CO 06/17/2019 Results Test Result Range CBC - 08/14/17 12:06 WHITE BLOOD CELL COUNT 7.6 Thousand/uL 3 .8-10.8 RED BLOOD CELL COUNT 3.25 Million/uL 4.2 0-5.80 HEMOGLOBIN 11.2 g/dL 13.2-17.1 HEMATOCRIT 31.4 % 38.5-50.0 MCV 96.6 fL 80.0-100.0 MCH 34.5 pg 27.0-33.0 MCHC 35.7 g/dL 32.0-36.0 RDW 12.6 % 11.0-15.0 PLATELET COUNT 113 Thousand/uL 140-400 MPV 10.1 fL 7.5-12.5 ABSOLUTE NEUTROPHILS 4522 cells/uL 1500- 7800 ABSOLUTE LYMPHOCYTES 1444 cells/uL 850-3 900 ABSOLUTE MONOCYTES 1011 cells/uL 200-950 ABSOLUTE EOSINOPHILS [...] pg/mL <100 Complete blood count (CBC) with automate d white blood cell (WBC) differential - 10/02/17 15:57 Blood leukocytes automated count (number/volume) 11.8 10*3/uL 4.3-11.0 Blood erythrocytes automated count (number/volume) 3.80 10*6/uL 4.35-5.85 Venous blood hemoglobin measurement (mass/volume) 12.7 g/dL 13.3-17.7 Blood hematocrit (volume fraction) 38 % 40-54 Automated erythrocyte mean corpuscular volume 100 [foz_us] 80-99 Automated erythrocyte mean corpuscular h emoglobin (mass per erythrocyte) 33 pg 25-34 Automated erythrocyte mean corpuscular h emoglobin concentration measurement (mass/volume) 34 g/dL 32-36 Automated erythrocyte distribution width ratio 13. 9 % 10.0- 14.5 Automated blood platelet count [...] 10*3 1.0-4.0 Blood monocytes automated count (number/volume) 1. 6 10*3 0.0-1.0 Automated eosinophil count 0.5 10*3/uL 0 .0-0.3 Automated blood basophil count (count/volume) 0.1 10*3/uL 0.0-0.1 Blood lactic acid measurement (moles/vol ume) - 10/02/17 15:57 Blood lactic acid measurement [...] 5-14 Serum or plasma urea nitrogen measurement (mass/volume ) 19 mg/dL 7-18 Serum or plasma creatinine measurement (mass/volume) 0.86 mg/dL 0.60-1.30 Serum or plasma urea nitrogen/creatinine mass ratio 22 NRG Serum or plasma creatinine measurement w ith calculation of estimated glomerular filtration rate > NRG Serum or plasma glucose measurement (mass/volume) 102 mg/dL 70-105 Serum or plasma calcium measurement (mass/volume) 9.0 mg/dL 8.5-10.1 Serum or plasma total bilirubin measurement (mass/volu me) 1.9 mg/dL 0.1-1.0 Serum or plasma alkaline phosphatase angelina surement (enzymatic activity/volume) 76 U/L 40-136 Serum or plasma aspartate aminotransfera se measurement (enzymatic activity/volume) 76 U/L 5-34 Serum or plasma alanine aminotransferase measurement (enzymatic activity/volume) 45 U/L 0-55 Serum or plasma protein measurement (mass/volume) 8.8 g/dL 6.4-8.2 Serum or plasma albumin measurement (mass/volume) 2.5 g/dL 3.2-4.5 Magnesium - 10/02/17 15:57 Magnesium 1.7 mg/dL 1.8-2.4 Ammonia - 10/02/17 15:57 Ammonia 110 umol/L 11-32 THYROID STIMULATING HORMONE - 10/02/17 1 5:57 THYROID STIMULATING HORMONE 0.99 u[iU]/mL 0.35-4.94 Serum or plasma salicylates measurement (mass/volume) - 10/02/17 15:57 Serum or plasma salicylates measurement (mass/volume) < mg/dL 5.0-20.0 Serum or plasma acetaminophen measuremen t (mass/volume) - 10/02/17 15:57 Serum or plasma acetaminophen measurement (mass/volume ) < ug/mL 10-30 PT panel in platelet poor plasma by coag ulation assay - 10/02/17 15:57 Prothrombin time (PT) in platelet poor plasma by coagu lation assay 15.6 s 12.2-14.7 INR in platelet poor plasma or blood by coagulation as say 1.2 0.8-1.4 Activated partial thromboplastin time (a PTT) in platelet poor plasma bycoagulation assay - 10/02/17 15:57 Activated partial thromboplastin time (a PTT) in platelet poor plasma bycoagulation assay 33 s 24-35 Serum or plasma ethanol measurement (mas s/volume) - 10/02/17 15:57 Serum or plasma ethanol measurement (mass/volume) < mg/dL <10 Bacterial blood culture - 10/02/17 15:57 Bacterial blood culture NG NRG Bacterial blood culture - 10/02/17 16:45 Bacterial blood culture NG NRG Complete urinalysis with reflex to cultu re - 10/02/17 17:33 Urine color determination YELLOW NRG Urine clarity determination SLIGHTLY CLOUDY NRG Urine pH measurement by test strip 6 5-9 Specific gravity of urine by test strip 1.015 1.016-1.022 Urine protein assay by test strip, semi-quantitative 2+ NEGATIVE Urine glucose detection by automated test strip NE GATIVE NEGATIVE Erythrocytes detection in urine sediment by light micr oscopy 4+ NEGATIVE Urine ketones detection by automated test strip NE GATIVE NEGATIVE Urine nitrite detection by test strip NEGATIVE NEGATIVE Urine total bilirubin detection by test strip 1+ NEGATIVE Urine urobilinogen measurement by automated test strip (mass/volume) 8 mg/dL NORMAL Urine leukocyte esterase detection by dipstick 3+ NEGATIVE Automated urine sediment erythrocyte cou nt by microscopy (number/high power field) [HPF] NRG Automated urine sediment leukocyte count by microscopy (number/high power field) TNTC NRG Bacteria detection in urine sediment by light microsco py LARGE NRG Squamous epithelial cells detection in u rine sediment by light microscopy NONE NRG Crystals detection in urine sediment by light microsco py NONE NRG Casts detection in urine sediment by light microscopy NONE NRG Mucus detection in urine sediment by light microscopy NEGATIVE NRG Complete urinalysis with reflex to culture YES NRG Urine drug screening test - 10/02/17 17: 33 Urine phencyclidine detection by screening method NEGATIVE NEGATIVE Urine benzodiazepines detection by screening method NEGATIVE NEGATIVE Urine cocaine detection NEGATIVE NEGATI VE Urine amphetamines detection by screening method N EGATIVE NEGATIVE Urine methamphetamine detection by screening method POSITIVE NEGATIVE Urine cannabinoids detection by screening method N EGATIVE NEGATIVE Urine opiates detection by screening method NEGATI VE NEGATIVE Urine barbiturates detection NEGATIVE N EGATIVE Screening urine tricyclic antidepressants detection NEGATIVE NEGATIVE Urine methadone detection by screening method NEGA TIVE NEGATIVE Urine oxycodone detection NEGATIVE NEGA TIVE Urine propoxyphene detection NEGATIVE N EGATIVE Bacterial urine culture - 10/02/17 17:33 Bacterial urine culture SEE COMMEN NRG COLONY COUNT . NRG FTX;REPORTABLE SENT TO [facility] 10/03 09:00 NRG FREE TEXT ENTRY 2 REPORTED BY [facility] 10/03/17 17:05 NRG Methicillin resistant Staphylococcus aur eus (MRSA) screening culture - 10/02/17 19:00 MRSA SCREEN RESULT MRSA ISOLATED NRG Complete blood count (CBC) with automate d white blood cell (WBC) differential - 10/03/17 04:33 Blood leukocytes automated count (number/volume) 13.8 10*3/uL 4.3-11.0 Blood erythrocytes automated count (number/volume) 3.50 10*6/uL 4.35-5.85 Venous blood hemoglobin measurement (mass/volume) 11.7 g/dL 13.3-17.7 Blood hematocrit (volume fraction) 35 % 40-54 Automated erythrocyte mean corpuscular volume 100 [foz_us] 80-99 Automated erythrocyte mean corpuscular h emoglobin (mass per erythrocyte) 33 pg 25-34 Automated erythrocyte mean corpuscular h emoglobin concentration measurement (mass/volume) 33 g/dL 32-36 Automated erythrocyte distribution width ratio 13. 7 % 10.0- 14.5 Automated blood platelet count [...] 10*3 1.0-4.0 Blood monocytes automated count (number/volume) 2. 1 10*3 0.0-1.0 Automated eosinophil count 0.6 10*3/uL 0 .0-0.3 Automated blood basophil count (count/volume) 0.1 10*3/uL [...] 5-14 Serum or plasma urea nitrogen measurement (mass/volume ) 13 mg/dL 7-18 Serum or plasma creatinine measurement (mass/volume) 0.85 mg/dL 0.60-1.30 Serum or plasma urea nitrogen/creatinine mass ratio 15 NRG Serum or plasma creatinine measurement w ith calculation of estimated glomerular filtration rate > NRG Serum or plasma glucose measurement (mass/volume) 118 mg/dL 70-105 Serum or plasma calcium measurement (mass/volume) 8.3 mg/dL 8.5-10.1 Serum or plasma total bilirubin measurement (mass/volu me) 1.2 mg/dL 0.1-1.0 Serum or plasma alkaline phosphatase angelina surement (enzymatic activity/volume) 89 U/L 40-136 Serum or plasma aspartate aminotransfera se measurement (enzymatic activity/volume) 78 U/L 5-34 Serum or plasma alanine aminotransferase measurement (enzymatic activity/volume) 47 U/L 0-55 Serum or plasma protein measurement (mass/volume) 8.2 g/dL 6.4-8.2 Serum or plasma albumin measurement (mass/volume) 2.4 g/dL 3.2-4.5 Ammonia - 10/03/17 04:33 Ammonia 100 umol/L 11-32 Complete blood count (CBC) with automate d white blood cell (WBC) differential - 10/04/17 03:50 Blood leukocytes automated count (number/volume) 10.4 10*3/uL 4.3-11.0 Blood erythrocytes automated count (number/volume) 3.23 10*6/uL 4.35-5.85 Venous blood hemoglobin measurement (mass/volume) 11.0 g/dL 13.3-17.7 Blood hematocrit (volume fraction) 33 % 40-54 Automated erythrocyte mean corpuscular volume 101 [foz_us] 80-99 Automated erythrocyte mean corpuscular h emoglobin (mass per erythrocyte) 34 pg 25-34 Automated erythrocyte mean corpuscular h emoglobin concentration measurement (mass/volume) 34 g/dL 32-36 Automated erythrocyte distribution width ratio 13. 9 % 10.0- 14.5 Automated blood platelet count [...] 10*3 1.0-4.0 Blood monocytes automated count (number/volume) 1. 8 10*3 0.0-1.0 Automated eosinophil count 0.6 10*3/uL 0 .0-0.3 Automated blood basophil count (count/volume) 0.1 10*3/uL 0.0-0.1 Magnesium - 10/04/17 03:50 Magnesium 1.8 mg/dL 1.8-2.4 Ammonia - 10/04/17 03:50 Ammonia 76 umol/L - Comprehensive metabolic panel - 10/04/17 03:50 Serum or plasma sodium measurement (moles/volume) 139 mmol/L 135-145 Serum or plasma potassium measurement (moles/volume) 3.7 mmol/L 3.6-5.0 Serum or plasma chloride measurement (moles/volume) 114 mmol/L 98-107 Carbon dioxide 18 mmol/L -32 Serum or plasma anion gap determination (moles/volume) 7 mmol/L 5-14 Serum or plasma urea nitrogen measurement (mass/volume ) 9 mg/dL -18 Serum or plasma creatinine measurement (mass/volume) 0.79 mg/dL 0.60-1.30 Serum or plasma urea nitrogen/creatinine mass ratio 11 NRG Serum or plasma creatinine measurement w ith calculation of estimated glomerular filtration rate > NRG Serum or plasma glucose measurement (mass/volume) 144 mg/dL 70-105 Serum or plasma calcium measurement (mass/volume) 7.7 mg/dL 8.5-10.1 Serum or plasma total bilirubin measurement (mass/volu me) 1.1 mg/dL 0.1-1.0 Serum or plasma alkaline phosphatase angelina surement (enzymatic activity/volume) 94 U/L 40-136 Serum or plasma aspartate aminotransfera se measurement (enzymatic activity/volume) 78 U/L 5-34 Serum or plasma alanine aminotransferase measurement (enzymatic activity/volume) 45 U/L 0-55 Serum or plasma protein measurement (mass/volume) 7.4 g/dL 6.4-8.2 Serum or plasma albumin measurement (mass/volume) 2.1 g/dL 3.2-4.5 PREALBUMIN - 10/04/17 03:50 PREALBUM 5.0 % 18.0-37.0 Urine drug screening test - 10/04/17 20: 11 Urine phencyclidine detection by screening method NEGATIVE NEGATIVE Urine benzodiazepines detection by screening method POSITIVE NEGATIVE Urine cocaine detection NEGATIVE NEGATI VE Urine amphetamines detection by screening method N EGATIVE NEGATIVE Urine methamphetamine detection by screening method POSITIVE NEGATIVE Urine cannabinoids detection by screening method N EGATIVE NEGATIVE Urine opiates detection by screening method NEGATI VE NEGATIVE Urine barbiturates detection NEGATIVE N EGATIVE Screening urine tricyclic antidepressants detection NEGATIVE NEGATIVE Urine methadone detection by screening method NEGA TIVE NEGATIVE Urine oxycodone detection NEGATIVE NEGA TIVE Urine propoxyphene detection NEGATIVE N EGATIVE Complete blood count (CBC) with automate d white blood cell (WBC) differential - 10/05/17 05:50 Blood leukocytes automated count (number/volume) 13.1 10*3/uL 4.3-11.0 Blood erythrocytes automated count (number/volume) 3.40 10*6/uL 4.35-5.85 Venous blood hemoglobin measurement (mass/volume) 11.5 g/dL 13.3-17.7 Blood hematocrit (volume fraction) 34 % 40-54 Automated erythrocyte mean corpuscular volume 100 [foz_us] 80-99 Automated erythrocyte mean corpuscular h emoglobin (mass per erythrocyte) 34 pg 25-34 Automated erythrocyte mean corpuscular h emoglobin concentration measurement (mass/volume) 34 g/dL 32-36 Automated erythrocyte distribution width ratio 13. 7 % 10.0- 14.5 Automated blood platelet count [...] 10*3 1.0-4.0 Blood monocytes automated count (number/volume) 1. 8 10*3 0.0-1.0 Automated eosinophil count 0.7 10*3/uL 0 .0-0.3 Automated blood basophil count (count/volume) 0.1 10*3/uL 0.0-0.1 Comprehensive metabolic panel - 10/05/17 05:50 Serum or plasma sodium measurement (moles/volume) 138 mmol/L 135-145 Serum or plasma potassium measurement (moles/volume) 3.9 mmol/L 3.6-5.0 Serum or plasma chloride measurement (moles/volume) 112 mmol/L 98-107 Carbon dioxide 20 mmol/L 21-32 Serum or plasma anion gap determination (moles/volume) 6 mmol/L 5-14 Serum or plasma urea nitrogen measurement (mass/volume ) 10 mg/dL 7-18 Serum or plasma creatinine measurement (mass/volume) 0.72 mg/dL 0.60-1.30 Serum or plasma urea nitrogen/creatinine mass ratio 14 NRG Serum or plasma creatinine measurement w ith calculation of estimated glomerular filtration rate > NRG Serum or plasma glucose measurement (mass/volume) 117 mg/dL 70-105 Serum or plasma calcium measurement (mass/volume) 7.9 mg/dL 8.5-10.1 Serum or plasma total bilirubin measurement (mass/volu me) 1.3 mg/dL 0.1-1.0 Serum or plasma alkaline phosphatase angelina surement (enzymatic activity/volume) 93 U/L 40-136 Serum or plasma aspartate aminotransfera se measurement (enzymatic activity/volume) 76 U/L 5-34 Serum [...] umol/L 11-32 Complete blood count (CBC) with automate d white blood cell (WBC) differential - 10/06/17 05:30 Blood leukocytes automated count (number/volume) 9.5 10*3/uL 4.3-11.0 Blood erythrocytes automated count (number/volume) 2.97 10*6/uL 4.35-5.85 Venous blood hemoglobin measurement (mass/volume) 10.1 g/dL 13.3-17.7 Blood hematocrit (volume fraction) 30 % 40-54 Automated erythrocyte mean corpuscular volume 102 [foz_us] 80-99 Automated erythrocyte mean corpuscular h emoglobin (mass per erythrocyte) 34 pg 25-34 Automated erythrocyte mean corpuscular h emoglobin concentration measurement (mass/volume) 33 g/dL 32-36 Automated erythrocyte distribution width ratio 14. 0 % 10.0- 14.5 Automated blood platelet count [...] 10*3 1.0-4.0 Blood monocytes automated count (number/volume) 1. 5 10*3 0.0-1.0 Automated eosinophil count 0.9 10*3/uL 0 .0-0.3 Automated blood basophil count (count/volume) 0.1 10*3/uL 0.0-0.1 Comprehensive metabolic panel - 10/06/17 05:30 Serum or plasma sodium measurement (moles/volume) 138 mmol/L 135-145 Serum or plasma potassium measurement (moles/volume) 3.8 mmol/L 3.6-5.0 Serum or plasma chloride measurement (moles/volume) 112 mmol/L 98-107 Carbon dioxide 20 mmol/L 21-32 Serum or plasma anion gap determination (moles/volume) 6 mmol/L 5-14 Serum or plasma urea nitrogen measurement (mass/volume ) 10 mg/dL 7-18 Serum or plasma creatinine measurement (mass/volume) 0.71 mg/dL 0.60-1.30 Serum or plasma urea nitrogen/creatinine mass ratio 14 NRG Serum or plasma creatinine measurement w ith calculation of estimated glomerular filtration rate > NRG Serum or plasma glucose measurement (mass/volume) 122 mg/dL 70-105 Serum or plasma calcium measurement (mass/volume) 7.5 mg/dL 8.5-10.1 Serum or plasma total bilirubin measurement (mass/volu me) 1.3 mg/dL 0.1-1.0 Serum or plasma alkaline phosphatase angelina surement (enzymatic activity/volume) 77 U/L 40-136 Serum or plasma aspartate aminotransfera se measurement (enzymatic activity/volume) 78 U/L 5-34 Serum or plasma alanine aminotransferase measurement (enzymatic activity/volume) 47 U/L 0-55 Serum or plasma protein measurement (mass/volume) 6.6 g/dL 6.4-8.2 Serum or plasma albumin measurement (mass/volume) 1.9 g/dL 3.2-4.5 Magnesium - 10/06/17 05:30 Magnesium 1.6 mg/dL 1.8-2.4 Ammonia - 10/06/17 05:30 Ammonia 57 umol/L 11-32 Bacterial urine culture - 11/01/17 16:30 Bacterial urine culture [id number] NRG COLONY COUNT >100,000/ML NRG FTX;REPORTABLE RML REPORT AT 1205, 618 NRG Complete urinalysis with reflex to cultu re - 11/01/17 16:30 Urine color determination YELLOW NRG Urine clarity determination VERY CLOUDY NRG Urine pH measurement by test strip 7 5-9 Specific gravity of urine by test strip 1.010 1.016-1.022 Urine protein assay by test strip, semi-quantitative 2+ NEGATIVE Urine glucose detection by automated test strip NE GATIVE NEGATIVE Erythrocytes detection in urine sediment by light micr oscopy 5+ NEGATIVE Urine ketones detection by automated test strip NE GATIVE NEGATIVE Urine nitrite detection by test strip NEGATIVE NEGATIVE Urine total bilirubin detection by test strip NEGA TIVE NEGATIVE Urine urobilinogen measurement by automated test strip (mass/volume) 4 mg/dL NORMAL Urine leukocyte esterase detection by dipstick 3+ NEGATIVE Automated urine sediment erythrocyte cou nt by microscopy (number/high power field) > [HPF] NRG Automated urine sediment leukocyte count by microscopy (number/high power field) > [HPF] NRG Bacteria detection in urine sediment by light microsco py FEW NRG Squamous epithelial cells detection in u rine sediment by light microscopy 0-2 NRG Crystals detection in urine sediment by light microsco py NONE NRG Casts detection in urine sediment by light microscopy NONE NRG Mucus detection in urine sediment by light microscopy NEGATIVE NRG Complete urinalysis with reflex to culture NO NRG Yeast detection in urine sediment by light microscopy LARGE NRG Urine drug screening test - 11/01/17 16: 30 Urine phencyclidine detection by screening method NEGATIVE NEGATIVE Urine benzodiazepines detection by screening method NEGATIVE NEGATIVE Urine cocaine detection NEGATIVE NEGATI VE Urine amphetamines detection by screening method P OSITIVE NEGATIVE Urine methamphetamine detection by screening method POSITIVE NEGATIVE Urine cannabinoids detection by screening method N EGATIVE NEGATIVE Urine opiates detection by screening method NEGATI VE NEGATIVE Urine barbiturates detection NEGATIVE N EGATIVE Screening urine tricyclic antidepressants detection NEGATIVE NEGATIVE Urine methadone detection by screening method NEGA TIVE NEGATIVE Urine oxycodone detection NEGATIVE NEGA TIVE Urine propoxyphene detection NEGATIVE N EGATIVE Complete blood count (CBC) with automate d white blood cell (WBC) differential - 11/02/17 04:14 Blood leukocytes automated count (number/volume) 10.4 10*3/uL 4.3-11.0 Blood erythrocytes automated count (number/volume) 3.41 10*6/uL 4.35-5.85 Venous blood hemoglobin measurement (mass/volume) 11.8 g/dL 13.3-17.7 Blood hematocrit (volume fraction) 34 % 40-54 Automated erythrocyte mean corpuscular volume 99 [ foz_us] 80-99 Automated erythrocyte mean corpuscular h emoglobin (mass per erythrocyte) 35 pg 25-34 Automated erythrocyte mean corpuscular h emoglobin concentration measurement (mass/volume) 35 g/dL 32-36 Automated erythrocyte distribution width ratio 14. 6 % 10.0- 14.5 Automated blood platelet count (count/volume) 85 1 0*3/uL 130-400 Automated blood platelet mean volume measurement 10.1 [...] 10*3 1.0-4.0 Blood monocytes automated count (number/volume) 1. 1 10*3 0.0-1.0 Automated eosinophil count 1.0 10*3/uL 0 .0-0.3 Automated blood basophil count (count/volume) 0.1 10*3/uL 0.0-0.1 Comprehensive metabolic panel - 11/02/17 04:14 Serum or plasma sodium measurement (moles/volume) 139 mmol/L 135-145 Serum or plasma potassium measurement (moles/volume) 3.6 mmol/L 3.6-5.0 Serum or plasma chloride measurement (moles/volume) 113 mmol/L 98-107 Carbon dioxide 18 mmol/L 21-32 Serum or plasma anion gap determination (moles/volume) 8 mmol/L 5-14 Serum or plasma urea nitrogen measurement (mass/volume ) 15 mg/dL 7-18 Serum or plasma creatinine measurement (mass/volume) 0.70 mg/dL 0.60-1.30 Serum or plasma urea nitrogen/creatinine mass ratio 21 NRG Serum or plasma creatinine measurement w ith calculation of estimated glomerular filtration rate > NRG Serum or plasma glucose measurement (mass/volume) 112 mg/dL 70-105 Serum or plasma calcium measurement (mass/volume) 7.8 mg/dL 8.5-10.1 Serum or plasma total bilirubin measurement (mass/volu me) 1.1 mg/dL 0.1-1.0 Serum or plasma alkaline phosphatase angelina surement (enzymatic activity/volume) 100 U/L 40-136 Serum or plasma aspartate aminotransfera se measurement (enzymatic activity/volume) 109 U/L 5-34 Serum or plasma alanine aminotransferase measurement (enzymatic activity/volume) 71 U/L 0-55 Serum or plasma protein measurement (mass/volume) 7.6 g/dL 6.4-8.2 Serum or plasma albumin measurement (mass/volume) 2.2 g/dL 3.2-4.5 Ammonia - 11/02/17 04:14 Ammonia 123 umol/L 11-32 Complete blood count (CBC) with automate d white blood cell (WBC) differential - 11/03/17 05:17 Blood leukocytes automated count (number/volume) 10.2 10*3/uL 4.3-11.0 Blood erythrocytes automated count (number/volume) 3.30 10*6/uL 4.35-5.85 Venous blood hemoglobin measurement (mass/volume) 11.1 g/dL 13.3-17.7 Blood hematocrit (volume fraction) 33 % 40-54 Automated erythrocyte mean corpuscular volume 100 [foz_us] 80-99 Automated erythrocyte mean corpuscular h emoglobin (mass per erythrocyte) 34 pg 25-34 Automated erythrocyte mean corpuscular h emoglobin concentration measurement (mass/volume) 34 g/dL 32-36 Automated erythrocyte distribution width ratio 14. 7 % 10.0- 14.5 Automated blood platelet count (count/volume) 78 1 0*3/uL 130-400 Automated blood platelet mean volume measurement [...] 10*3 1.0-4.0 Blood monocytes automated count (number/volume) 1. 2 10*3 0.0-1.0 Automated eosinophil count 0.9 10*3/uL 0 .0-0.3 Automated blood basophil count (count/volume) 0.1 10*3/uL 0.0-0.1 Comprehensive metabolic panel - 11/03/17 05:17 Serum or plasma sodium measurement (moles/volume) 141 mmol/L 135-145 Serum or plasma potassium measurement (moles/volume) 3.6 mmol/L 3.6-5.0 Serum or plasma chloride measurement (moles/volume) 116 mmol/L 98-107 Carbon dioxide 21 mmol/L 21-32 Serum or plasma anion gap determination (moles/volume) 4 mmol/L 5-14 Serum or plasma urea nitrogen measurement (mass/volume ) 11 mg/dL 7-18 Serum or plasma creatinine measurement (mass/volume) 0.81 mg/dL 0.60-1.30 Serum or plasma urea nitrogen/creatinine mass ratio 14 NRG Serum or plasma creatinine measurement w ith calculation of estimated glomerular filtration rate > NRG Serum or plasma glucose measurement (mass/volume) 106 mg/dL 70-105 Serum or plasma calcium measurement (mass/volume) 8.0 mg/dL 8.5-10.1 Serum or plasma total bilirubin measurement (mass/volu me) 1.1 mg/dL 0.1-1.0 Serum or plasma alkaline phosphatase angelina surement (enzymatic activity/volume) 93 U/L 40-136 Serum or plasma aspartate aminotransfera se measurement (enzymatic activity/volume) 98 U/L 5-34 Serum or plasma alanine aminotransferase measurement (enzymatic activity/volume) 65 U/L 0-55 Serum or plasma protein measurement (mass/volume) 7.0 g/dL 6.4-8.2 Serum or plasma albumin measurement (mass/volume) 2.1 g/dL 3.2-4.5 Complete blood count (CBC) with automate d white blood cell (WBC) differential - 11/04/17 05:15 Blood leukocytes automated count (number/volume) 11.9 10*3/uL 4.3-11.0 Blood erythrocytes automated count (number/volume) 3.20 10*6/uL 4.35-5.85 Venous blood hemoglobin measurement (mass/volume) 11.0 g/dL 13.3-17.7 Blood hematocrit (volume fraction) 32 % 40-54 Automated erythrocyte mean corpuscular volume 99 [ foz_us] 80-99 Automated erythrocyte mean corpuscular h emoglobin (mass per erythrocyte) 34 pg 25-34 Automated erythrocyte mean corpuscular h emoglobin concentration measurement (mass/volume) 35 g/dL 32-36 Automated erythrocyte distribution width ratio 14. 7 % 10.0- 14.5 Automated blood platelet count (count/volume) 80 1 0*3/uL 130-400 Automated blood platelet mean volume measurement 10.9 [...] 10*3 1.0-4.0 Blood monocytes automated count (number/volume) 1. 6 10*3 0.0-1.0 Automated eosinophil count 1.0 10*3/uL 0 .0-0.3 Automated blood basophil count (count/volume) 0.1 10*3/uL 0.0-0.1 Comprehensive metabolic panel - 11/04/17 05:15 Serum or plasma sodium measurement (moles/volume) 139 mmol/L 135-145 Serum or plasma potassium measurement (moles/volume) 3.5 mmol/L 3.6-5.0 Serum or plasma chloride measurement (moles/volume) 112 mmol/L 98-107 Carbon dioxide 20 mmol/L 21-32 Serum or plasma anion gap determination (moles/volume) 7 mmol/L 5-14 Serum or plasma urea nitrogen measurement (mass/volume ) 14 mg/dL 7-18 Serum or plasma creatinine measurement (mass/volume) 0.70 mg/dL 0.60-1.30 Serum or plasma urea nitrogen/creatinine mass ratio 20 NRG Serum or plasma creatinine measurement w ith calculation of estimated glomerular filtration rate > NRG Serum or plasma glucose measurement (mass/volume) 131 mg/dL 70-105 Serum or plasma calcium measurement (mass/volume) 7.9 mg/dL 8.5-10.1 Serum or plasma total bilirubin measurement (mass/volu me) 1.1 mg/dL 0.1-1.0 Serum or plasma alkaline phosphatase angelina surement (enzymatic activity/volume) 98 U/L 40-136 Serum or plasma aspartate aminotransfera se measurement (enzymatic activity/volume) 93 U/L 5-34 Serum or plasma alanine aminotransferase measurement (enzymatic activity/volume) 62 U/L 0-55 Serum or plasma protein measurement (mass/volume) 6.9 g/dL 6.4-8.2 Serum or plasma albumin measurement (mass/volume) 2.0 g/dL 3.2-4.5 Ammonia - 11/04/17 05:15 Ammonia 104 umol/L 11-32 Complete blood count (CBC) with automate d white blood cell (WBC) differential - 11/05/17 06:18 Blood leukocytes automated count (number/volume) 10.2 10*3/uL 4.3-11.0 Blood erythrocytes automated count (number/volume) 3.20 10*6/uL 4.35-5.85 Venous blood hemoglobin measurement (mass/volume) 10.8 g/dL 13.3-17.7 Blood hematocrit (volume fraction) 32 % 40-54 Automated erythrocyte mean corpuscular volume 99 [ foz_us] 80-99 Automated erythrocyte mean corpuscular h emoglobin (mass per erythrocyte) 34 pg 25-34 Automated erythrocyte mean corpuscular h emoglobin concentration measurement (mass/volume) 34 g/dL 32-36 Automated erythrocyte distribution width ratio 14. 9 % 10.0- 14.5 Automated blood platelet count (count/volume) 74 1 0*3/uL 130-400 Automated blood platelet mean volume measurement 10.6 [...] 10*3 1.0-4.0 Blood monocytes automated count (number/volume) 1. 4 10*3 0.0-1.0 Automated eosinophil count 1.1 10*3/uL 0 .0-0.3 Automated blood basophil count (count/volume) 0.1 10*3/uL 0.0-0.1 Comprehensive metabolic panel - 11/05/17 06:18 Serum or plasma sodium measurement (moles/volume) 140 mmol/L 135-145 Serum or plasma potassium measurement (moles/volume) 3.5 mmol/L 3.6-5.0 Serum or plasma chloride measurement (moles/volume) 110 mmol/L 98-107 Carbon dioxide 25 mmol/L 21-32 Serum or plasma anion gap determination (moles/volume) 5 mmol/L 5-14 Serum or plasma urea nitrogen measurement (mass/volume ) 13 mg/dL 7-18 Serum or plasma creatinine measurement (mass/volume) 0.72 mg/dL 0.60-1.30 Serum or plasma urea nitrogen/creatinine mass ratio 18 NRG Serum or plasma creatinine measurement w ith calculation of estimated glomerular filtration rate > NRG Serum or plasma glucose measurement (mass/volume) 96 mg/dL 70-105 Serum or plasma calcium measurement (mass/volume) 8.2 mg/dL 8.5-10.1 Serum or plasma total bilirubin measurement (mass/volu me) 1.3 mg/dL 0.1-1.0 Serum or plasma alkaline phosphatase angelina surement (enzymatic activity/volume) 103 U/L 40-136 Serum or plasma aspartate aminotransfera se measurement (enzymatic activity/volume) 91 U/L 5-34 Serum or plasma alanine aminotransferase measurement (enzymatic activity/volume) 61 U/L 0-55 Serum or plasma protein measurement (mass/volume) 7.1 g/dL 6.4-8.2 Serum or plasma albumin measurement (mass/volume) 2.2 g/dL 3.2-4.5 AMMONIA - 05/05/18 16:23 AMMONIA (P) 157 umol/L < OR = 72 Complete blood count (CBC) with automate d white blood cell (WBC) differential - 10/04/18 14:51 Blood leukocytes automated count (number/volume) 12.4 10*3/uL 4.3-11.0 Blood erythrocytes automated count (number/volume) 2.81 10*6/uL 4.35-5.85 Venous blood hemoglobin measurement (mass/volume) 9.6 g/dL 13.3-17.7 Blood hematocrit (volume fraction) 28 % 40-54 Automated erythrocyte mean corpuscular volume 100 [foz_us] 80-99 Automated erythrocyte mean corpuscular h emoglobin (mass per erythrocyte) 34 pg 25-34 Automated erythrocyte mean corpuscular h emoglobin concentration measurement (mass/volume) 34 g/dL 32-36 Automated erythrocyte distribution width ratio 15. 0 % 10.0- 14.5 Automated blood platelet count (count/volume) 88 1 0*3/uL 130-400 Automated blood platelet mean volume measurement 11.6 [foz_us] 7.4-10.4 Automated blood neutrophils/100 leukocytes 75 % 42-75 Automated blood lymphocytes/100 leukocytes 9 % 12-44 Blood monocytes/100 leukocytes 13 % 0-12 Automated blood eosinophils/100 leukocytes 4 % 0-10 Automated blood basophils/100 leukocytes 0 % 0-10 Blood neutrophils automated count (number/volume) 9.2 10*3 1.8-7.8 Blood lymphocytes automated count (number/volume) 1.1 10*3 1.0-4.0 Blood monocytes automated count (number/volume) 1. 6 10*3 0.0-1.0 Automated eosinophil count 0.5 10*3/uL 0 .0-0.3 Automated blood basophil count (count/volume) 0.0 10*3/uL 0.0-0.1 Comprehensive metabolic panel - 10/04/18 14:51 Serum or plasma sodium measurement (moles/volume) 137 mmol/L 135-145 Serum or plasma potassium measurement (moles/volume) 3.9 mmol/L 3.6-5.0 Serum or plasma chloride measurement (moles/volume) 111 mmol/L 98-107 Carbon dioxide 18 mmol/L 21-32 Serum or plasma anion gap determination (moles/volume) 8 mmol/L 5-14 Serum or plasma urea nitrogen measurement (mass/volume ) 22 mg/dL 7-18 Serum or plasma creatinine measurement (mass/volume) 0.76 mg/dL 0.60-1.30 Serum or plasma urea nitrogen/creatinine mass ratio 29 NRG Serum or plasma creatinine measurement w ith calculation of estimated glomerular filtration rate > NRG Serum or plasma glucose measurement (mass/volume) 137 mg/dL 70-105 Serum or plasma calcium measurement (mass/volume) 8.2 mg/dL 8.5-10.1 Serum or plasma total bilirubin measurement (mass/volu me) 1.7 mg/dL 0.1-1.0 Serum or plasma alkaline phosphatase angelina surement (enzymatic activity/volume) 110 U/L 40-136 Serum or plasma aspartate aminotransfera se measurement (enzymatic activity/volume) 84 U/L 5-34 Serum or plasma alanine aminotransferase measurement (enzymatic activity/volume) 55 U/L 0-55 Serum or plasma protein measurement (mass/volume) 6.7 g/dL 6.4-8.2 Serum or plasma albumin measurement (mass/volume) 2.2 g/dL 3.2-4.5 CALCIUM CORRECTED 9.6 mg/dL 8.5-10.1 Complete blood count (CBC) with automate d white blood cell (WBC) differential - 10/05/18 04:38 Blood leukocytes automated count (number/volume) 15.2 10*3/uL 4.3-11.0 Blood erythrocytes automated count (number/volume) 2.59 10*6/uL 4.35-5.85 Venous blood hemoglobin measurement (mass/volume) 8.7 g/dL 13.3-17.7 Blood hematocrit (volume fraction) 26 % 40-54 Automated erythrocyte mean corpuscular volume 102 [foz_us] 80-99 Automated erythrocyte mean corpuscular h emoglobin (mass per erythrocyte) 34 pg 25-34 Automated erythrocyte mean corpuscular h emoglobin concentration measurement (mass/volume) 33 g/dL 32-36 Automated erythrocyte distribution width ratio 15. 4 % 10.0- 14.5 Automated blood platelet count (count/volume) 98 1 0*3/uL 130-400 Automated blood platelet mean volume measurement 10.5 [foz_us] 7.4-10.4 Automated blood neutrophils/100 leukocytes 71 % 42-75 Automated blood lymphocytes/100 leukocytes 13 % 12-44 Blood monocytes/100 leukocytes 15 % 0-12 Automated blood eosinophils/100 leukocytes 1 % 0-10 Automated blood basophils/100 leukocytes 0 % 0-10 Blood neutrophils automated count (number/volume) 10.8 10*3 1.8-7.8 Blood lymphocytes automated count (number/volume) 1.9 10*3 1.0-4.0 Blood monocytes automated count (number/volume) 2. 3 10*3 0.0-1.0 Automated eosinophil count 0.2 10*3/uL 0 .0-0.3 Automated blood basophil count (count/volume) 0.0 10*3/uL 0.0-0.1 Comprehensive metabolic panel - 10/05/18 04:38 Serum or plasma sodium measurement (moles/volume) 138 mmol/L 135-145 Serum or plasma potassium measurement (moles/volume) 4.0 mmol/L 3.6-5.0 Serum or plasma chloride measurement (moles/volume) 111 mmol/L 98-107 Carbon dioxide 19 mmol/L 21-32 Serum or plasma anion gap determination (moles/volume) 8 mmol/L 5-14 Serum or plasma urea nitrogen measurement (mass/volume ) 25 mg/dL 7-18 Serum or plasma creatinine measurement (mass/volume) 0.71 mg/dL 0.60-1.30 Serum or plasma urea nitrogen/creatinine mass ratio 35 NRG Serum or plasma creatinine measurement w ith calculation of estimated glomerular filtration rate > NRG Serum or plasma glucose measurement (mass/volume) 107 mg/dL 70-105 Serum or plasma calcium measurement (mass/volume) 8.1 mg/dL 8.5-10.1 Serum or plasma total bilirubin measurement (mass/volu me) 1.7 mg/dL 0.1-1.0 Serum or plasma alkaline phosphatase angelina surement (enzymatic activity/volume) 98 U/L 40-136 Serum or plasma aspartate aminotransfera se measurement (enzymatic activity/volume) 63 U/L 5-34 Serum or plasma alanine aminotransferase measurement (enzymatic activity/volume) 47 U/L 0-55 Serum or plasma protein measurement (mass/volume) 6.2 g/dL 6.4-8.2 Serum or plasma albumin measurement (mass/volume) 2.1 g/dL 3.2-4.5 CALCIUM CORRECTED 9.6 mg/dL 8.5-10.1 Blood manual differential performed dete ction - 10/05/18 04:38 Blood monocytes/100 leukocytes 11 % NRG Manual blood segmented neutrophils/100 leukocytes 78 % NRG Manual blood lymphocytes/100 leukocytes 11 % NRG Blood macrocytes detection by light microscopy SLI T NRG CMP - 04/08/19 17:08 GLUCOSE 116 mg/dL 65-99 UREA NITROGEN (BUN) 16 mg/dL 7-25 CREATININE 0.74 mg/dL 0.70-1.25 eGFR NON-AFR. MACEDONIAN 96 mL/min/1.73m2 > OR = 60 eGFR 111 mL/min/1.73m2 > OR = 60 BUN/CREATININE RATIO NOT APPLICABLE (calc) 6-22 SODIUM 142 mmol/L 135-146 POTASSIUM 4.2 mmol/L 3.5-5.3 CHLORIDE 111 mmol/L 98-110 CARBON DIOXIDE 26 mmol/L 20-32 CALCIUM 8.3 mg/dL 8.6-10.3 PROTEIN, TOTAL 7.6 g/dL 6.1-8.1 ALBUMIN 2.3 g/dL 3.6-5.1 GLOBULIN 5.3 g/dL (calc) 1.9-3.7 ALBUMIN/GLOBULIN RATIO 0.4 (calc) 1.0-2. 5 BILIRUBIN, TOTAL 1.8 mg/dL 0.2-1.2 ALKALINE PHOSPHATASE 106 U/L 40-115 AST 70 U/L 10-35 ALT 39 U/L 9-46 CBC - 04/08/19 17:08 WHITE BLOOD CELL COUNT 8.2 Thousand/uL 3 .8-10.8 RED BLOOD CELL COUNT 3.41 Million/uL 4.2 0-5.80 HEMOGLOBIN 11.7 g/dL 13.2-17.1 HEMATOCRIT 33.2 % 38.5-50.0 MCV 97.4 fL 80.0-100.0 MCH 34.3 pg 27.0-33.0 MCHC 35.2 g/dL 32.0-36.0 RDW 13.4 % 11.0-15.0 PLATELET COUNT 110 Thousand/uL 140-400 MPV 10.8 fL 7.5-12.5 ABSOLUTE NEUTROPHILS 4977 cells/uL 1500- 7800 ABSOLUTE LYMPHOCYTES 1812 cells/uL 850-3 900 ABSOLUTE MONOCYTES 902 cells/uL 200-950 ABSOLUTE EOSINOPHILS 426 cells/uL 15-500 ABSOLUTE BASOPHILS 82 cells/uL 0-200 NEUTROPHILS 60.7 % NRG LYMPHOCYTES 22.1 % NRG MONOCYTES 11.0 % NRG EOSINOPHILS 5.2 % NRG BASOPHILS 1.0 % NRG AMMONIA - 04/08/19 17:08 AMMONIA (P) 187 umol/L < OR = 72 Serum or plasma triglyceride measurement (mass/volume) - 06/17/19 09:40 Serum or plasma triglyceride measurement (mass/volume) 51 mg/dL <150 Serum or plasma lithium measurement (mol es/volume) - 01/29/20 09:40 BNP PT 14.0 pg/mL <100.0 Comprehensive metabolic panel - 06/17/19 09:40 Serum or plasma sodium measurement (moles/volume) 138 mmol/L 135-145 Serum or plasma potassium measurement (moles/volume) 4.6 mmol/L 3.6-5.0 Serum or plasma chloride measurement (moles/volume) 112 mmol/L 98-107 Carbon dioxide 23 mmol/L 21-32 Serum or plasma anion gap determination (moles/volume) 3 mmol/L 5-14 Serum or plasma urea nitrogen measurement (mass/volume ) 17 mg/dL 7-18 Serum or plasma creatinine measurement (mass/volume) 0.70 mg/dL 0.60-1.30 Serum or plasma urea nitrogen/creatinine mass ratio 24 NRG Serum or plasma creatinine measurement w ith calculation of estimated glomerular filtration rate > NRG Serum or plasma glucose measurement (mass/volume) 106 mg/dL 70-105 Serum or plasma calcium measurement (mass/volume) 8.4 mg/dL 8.5-10.1 Serum or plasma total bilirubin measurement (mass/volu me) 1.9 mg/dL 0.1-1.0 Serum or plasma alkaline phosphatase angelina surement (enzymatic activity/volume) 116 U/L 40-136 Serum or plasma aspartate aminotransfera se measurement (enzymatic activity/volume) 77 U/L 5-34 Serum or plasma alanine aminotransferase measurement (enzymatic activity/volume) 58 U/L 0-55 Serum or plasma protein measurement (mass/volume) 8.2 g/dL 6.4-8.2 Serum or plasma albumin measurement (mass/volume) 2.5 g/dL 3.2-4.5 CALCIUM CORRECTED 9.6 mg/dL 8.5-10.1 Magnesium - 06/17/19 09:40 Magnesium 1.8 mg/dL 1.6-2.4 Serum or plasma creatine kinase measurem ent (enzymatic activity/volume) - 06/17/19 09:40 Serum or plasma creatine kinase measurem ent (enzymatic activity/volume) 46 U/L 30-200 Serum or plasma creatine kinase MB measu rement (enzymatic activity/volume) - 06/17/19 09:40 Serum or plasma creatine kinase MB measu rement (enzymatic activity/volume) 1.1 ng/mL <6.6 Serum or plasma troponin i.cardiac measu rement (mass/volume) - 06/17/19 09:40 Serum or plasma troponin i.cardiac measurement (mass/v olume) < ng/mL <0.028 Myoglobin, serum - 06/17/19 09:40 Myoglobin, serum 325.2 ng/mL 10.0-92.0 Serum or plasma amylase measurement (enz ymatic activity/volume) - 06/17/19 09:40 Serum or plasma amylase measurement (enzymatic activit y/volume) 53 U/L 25-125 Lipase - 06/17/19 09:40 Lipase 56 U/L 8-78 Ammonia - 06/17/19 09:40 Ammonia 302 umol/L 11-32 Serum or plasma thyrotropin measurement by detection limit <=0.05 miu/l (units/volume) - 06/17/19 09:40 Serum or plasma thyrotropin measurement by detection limit <=0.05 miu/l (units/volume) 1.67 u[iU]/mL 0.35-4.94 Serum or plasma salicylates measurement (mass/volume) - 06/17/19 09:40 Serum or plasma salicylates measurement (mass/volume) < mg/dL 5.0-20.0 Serum or plasma acetaminophen measuremen t (mass/volume) - 06/17/19 09:40 Serum or plasma acetaminophen measurement (mass/volume ) < ug/mL 10-30 Serum or plasma ethanol measurement (mas s/volume) - 06/17/19 09:40 Serum or plasma ethanol measurement (mass/volume) < mg/dL <10 Bacterial blood culture - 06/17/19 09:40 Bacterial blood culture NG NRG Complete blood count (CBC) with automate d white blood cell (WBC) differential - 06/17/19 09:40 Blood leukocytes automated count (number/volume) 9.3 10*3/uL 4.3-11.0 Blood erythrocytes automated count (number/volume) 3.78 10*6/uL 4.35-5.85 Venous blood hemoglobin measurement (mass/volume) 12.7 g/dL 13.3-17.7 Blood hematocrit (volume fraction) 38 % 40-54 Automated erythrocyte mean corpuscular volume 100 [foz_us] 80-99 Automated erythrocyte mean corpuscular h emoglobin (mass per erythrocyte) 34 pg 25-34 Automated erythrocyte mean corpuscular h emoglobin concentration measurement (mass/volume) 34 g/dL 32-36 Automated erythrocyte distribution width ratio 14. 8 % 10.0- 14.5 Automated blood platelet count (count/volume) 107 10*3/uL 130-400 Automated blood platelet mean volume measurement 10.8 [foz_us] 7.4-10.4 Automated blood neutrophils/100 leukocytes 72 % 42-75 Automated blood lymphocytes/100 leukocytes 14 % 12-44 Blood monocytes/100 leukocytes 12 % 0-12 Automated blood eosinophils/100 leukocytes 2 % 0-10 Automated blood basophils/100 leukocytes 0 % 0-10 Blood neutrophils automated count (number/volume) 6.7 10*3 1.8-7.8 Blood lymphocytes automated count (number/volume) 1.3 10*3 1.0-4.0 Blood monocytes automated count (number/volume) 1. 1 10*3 0.0-1.0 Automated eosinophil count 0.2 10*3/uL 0 .0-0.3 Automated blood basophil count (count/volume) 0.0 10*3/uL 0.0-0.1 Blood lactic acid measurement (moles/vol ume) - 06/17/19 09:40 Blood lactic acid measurement (moles/volume) 1.98 mmol/L 0.50-2.00 PT panel in platelet poor plasma by coag ulation assay - 06/17/19 09:40 Prothrombin time (PT) in platelet poor plasma by coagu lation assay 15.5 s 12.2-14.7 INR in platelet poor plasma or blood by coagulation as say 1.2 0.8-1.4 Activated partial thromboplastin time (a PTT) in platelet poor plasma bycoagulation assay - 06/17/19 09:40 Activated partial thromboplastin time (a PTT) in platelet poor plasma bycoagulation assay 35 s 24-35 Influenza virus A and B antigen detectio n - 06/17/19 09:40 FLU RESULT NEGATIVE FOR INFLUENZA A AND B ANTIGENS BY [facility] Comprehensive metabolic panel - 06/17/19 09:40 Serum or plasma sodium measurement (moles/volume) 138 mmol/L 135-145 Serum or plasma potassium measurement (moles/volume) 4.6 mmol/L 3.6-5.0 Serum or plasma chloride measurement (moles/volume) 112 mmol/L 98-107 Carbon dioxide 23 mmol/L 21-32 Serum or plasma anion gap determination (moles/volume) 3 mmol/L 5-14 Serum or plasma urea nitrogen measurement (mass/volume ) 17 mg/dL 7-18 Serum or plasma creatinine measurement (mass/volume) 0.70 mg/dL 0.60-1.30 Serum or plasma urea nitrogen/creatinine mass ratio 24 NRG Serum or plasma creatinine measurement w ith calculation of estimated glomerular filtration rate > NRG Serum or plasma glucose measurement (mass/volume) 106 mg/dL 70-105 Serum or plasma calcium measurement (mass/volume) 8.4 mg/dL 8.5-10.1 Serum or plasma total bilirubin measurement (mass/volu me) 1.9 mg/dL 0.1-1.0 Serum or plasma alkaline phosphatase angelina surement (enzymatic activity/volume) 116 U/L 40-136 Serum or plasma aspartate aminotransfera se measurement (enzymatic activity/volume) 77 U/L 5-34 Serum or plasma alanine aminotransferase measurement (enzymatic activity/volume) 58 U/L 0-55 Serum or plasma protein measurement (mass/volume) 8.2 g/dL 6.4-8.2 Serum or plasma albumin measurement (mass/volume) 2.5 g/dL 3.2-4.5 CALCIUM CORRECTED 9.6 mg/dL 8.5-10.1 Magnesium - 06/17/19 09:40 Magnesium 1.8 mg/dL 1.6-2.4 Serum or plasma creatine kinase measurem ent (enzymatic activity/volume) - 06/17/19 09:40 Serum or plasma creatine kinase measurem ent (enzymatic activity/volume) 46 U/L 30-200 Serum or plasma amylase measurement (enz ymatic activity/volume) - 06/17/19 09:40 Serum or plasma amylase measurement (enzymatic activit y/volume) 53 U/L 25-125 Lipase - 06/17/19 09:40 Lipase 56 U/L 8-78 Ammonia - 06/17/19 09:40 Ammonia 302 umol/L 11-32 Serum or plasma salicylates measurement (mass/volume) - 06/17/19 09:40 Serum or plasma salicylates measurement (mass/volume) < mg/dL 5.0-20.0 Serum or plasma acetaminophen measuremen t (mass/volume) - 06/17/19 09:40 Serum or plasma acetaminophen measurement (mass/volume ) < ug/mL 10-30 Serum or plasma ethanol measurement (mas s/volume) - 06/17/19 09:40 Serum or plasma ethanol measurement (mass/volume) < mg/dL <10 Sputum Gram stain - 06/17/19 09:47 Sputum Gram stain Mixed Bacterial Meghana NRG Bacterial sputum culture - 06/17/19 09:4 7 QUANTITY OF GROWTH Moderate Growth NRG Bacterial sputum culture USUAL RESP NRG Bacterial urine culture - 06/17/19 09:49 Bacterial urine culture [id number] NRG COLONY COUNT >100,000/ML NRG FTX;REPORTABLE SUSCEPTIBILITY REPORTED 06/20 17:30 NRG FREE TEXT ENTRY 2 PRELIM RAPID ID TEST AT [facility] 06/18 7:50 NRG FREE TEXT ENTRY 3 RML CONFIRMED ID 06/18 14:05 NRG Complete urinalysis with reflex to cultu re - 06/17/19 09:49 Urine color determination YELLOW NRG Urine clarity determination CLOUDY NR G Urine pH measurement by test strip >= 5-9 Specific gravity of urine by test strip 1.010 1.016-1.022 Urine protein assay by test strip, semi-quantitative 1+ NEGATIVE Urine glucose detection by automated test strip NE GATIVE NEGATIVE Erythrocytes detection in urine sediment by light micr oscopy NEGATIVE NEGATIVE Urine ketones detection by automated test strip NE GATIVE NEGATIVE Urine nitrite detection by test strip NEGATIVE NEGATIVE Urine total bilirubin detection by test strip NEGA TIVE NEGATIVE Urine urobilinogen measurement by automated test strip (mass/volume) 4.0 mg/dL < = 1.0 Urine leukocyte esterase detection by dipstick TRA CE NEGATIVE Automated urine sediment erythrocyte cou nt by microscopy (number/high power field) NONE NRG Automated urine sediment leukocyte count by microscopy (number/high power field) [HPF] NRG Bacteria detection in urine sediment by light microsco py LARGE NRG Squamous epithelial cells detection in u rine sediment by light microscopy RARE NRG Crystals detection in urine sediment by light microsco py PRESENT NRG Casts detection in urine sediment by light microscopy NONE NRG Mucus detection in urine sediment by light microscopy NEGATIVE NRG Complete urinalysis with reflex to culture YES NRG Amorphous sediment detection in urine sediment by ligh t microscopy MOD YOHANNES PHOSPHATE NRG Dirithromycin susceptibility test by dis k diffusion - 06/17/19 09:49 Gentamicin susceptibility test by minimum inhibitory c oncentration <= NRG Trimethoprim/sulfamethoxazole susceptibi lity test by minimum inhibitoryconcentration <= NRG Levofloxacin susceptibility test by minimum inhibitory concentration <= NRG Ampicillin susceptibility test by minimum inhibitory c oncentration > NRG Cefazolin susceptibility test by minimum inhibitory co ncentration 2 NRG Ceftriaxone susceptibility test by minimum inhibitory concentration <= NRG Meropenem susceptibility test by minimum inhibitory co ncentration <= NRG Nitrofurantoin susceptibility test by mi nimum inhibitory concentration > NRG Dirithromycin susceptibility test by dis k diffusion - 06/17/19 09:49 Gentamicin susceptibility test by minimum inhibitory c oncentration <= NRG Trimethoprim/sulfamethoxazole susceptibi lity test by minimum inhibitoryconcentration > NRG Levofloxacin susceptibility test by minimum inhibitory concentration <= NRG Ampicillin susceptibility test by minimum inhibitory c oncentration > NRG Cefazolin susceptibility test by minimum inhibitory co ncentration <= NRG Ceftriaxone susceptibility test by minimum inhibitory concentration <= NRG Ciprofloxacin susceptibility test by minimum inhibitor y concentration 2 NRG Meropenem susceptibility test by minimum inhibitory co ncentration <= NRG Nitrofurantoin susceptibility test by mi nimum inhibitory concentration <= NRG Amoxicillin and clavulanate potassium susc PETER <= NRG Dirithromycin susceptibility test by dis k diffusion - 06/17/19 09:49 Vancomycin susceptibility test by minimum inhibitory c oncentration 1 NRG Levofloxacin susceptibility test by minimum inhibitory concentration <= NRG Ampicillin susceptibility test by minimum inhibitory c oncentration 1 NRG Nitrofurantoin susceptibility test by mi nimum inhibitory concentration <= NRG Linezolid susceptibility test by minimum inhibitory co ncentration <= NRG Daptomycin susc PETER 2 NRG Complete urinalysis with reflex to cultu re - 06/17/19 09:49 Urine color determination YELLOW NRG Urine clarity determination CLOUDY NR G Urine pH measurement by test strip >= 5-9 Specific gravity of urine by test strip 1.010 1.016-1.022 Urine protein assay by test strip, semi-quantitative 1+ NEGATIVE Urine glucose detection by automated test strip NE GATIVE NEGATIVE Erythrocytes detection in urine sediment by light micr oscopy NEGATIVE NEGATIVE Urine ketones detection by automated test strip NE GATIVE NEGATIVE Urine nitrite detection by test strip NEGATIVE NEGATIVE Urine total bilirubin detection by test strip NEGA TIVE NEGATIVE Urine urobilinogen measurement by automated test strip (mass/volume) 4.0 mg/dL < = 1.0 Urine leukocyte esterase detection by dipstick TRA CE NEGATIVE Automated urine sediment erythrocyte cou nt by microscopy (number/high power field) NONE NRG Automated urine sediment leukocyte count by microscopy (number/high power field) [HPF] NRG Bacteria detection in urine sediment by light microsco py LARGE NRG Squamous epithelial cells detection in u rine sediment by light microscopy RARE NRG Crystals detection in urine sediment by light microsco py PRESENT NRG Casts detection in urine sediment by light microscopy NONE NRG Mucus detection in urine sediment by light microscopy NEGATIVE NRG Complete urinalysis with reflex to culture YES NRG Amorphous sediment detection in urine sediment by ligh t microscopy MOD YOHANNES PHOSPHATE NRG Urine drug screening test - 06/17/19 09: 49 Urine phencyclidine detection by screening method NEGATIVE NEGATIVE Urine benzodiazepines detection by screening method NEGATIVE NEGATIVE Urine cocaine detection NEGATIVE NEGATI VE Urine amphetamines detection by screening method N EGATIVE NEGATIVE Urine methamphetamine detection by screening method NEGATIVE NEGATIVE Urine cannabinoids detection by screening method N EGATIVE NEGATIVE Urine opiates detection by screening method NEGATI VE NEGATIVE Urine barbiturates detection NEGATIVE N EGATIVE Screening urine tricyclic antidepressants detection NEGATIVE NEGATIVE Urine methadone detection by screening method NEGA TIVE NEGATIVE Urine oxycodone detection NEGATIVE NEGA TIVE Urine propoxyphene detection NEGATIVE N EGATIVE Arterial blood gas measurement - 0 10:00 Blood pCO2 38 mm[Hg] 35-45 Blood pO2 121 mm[Hg] 79-93 Arterial blood bicarbonate measurement (moles/volume) 23 mmol/L 23-27 Arterial blood base excess by calculation -1.7 mmo l/L -2.5-2.5 Arterial blood oxygen saturation measurement 99 % 94-100 * Inhaled oxygen flow rate 50% NRG Arterial blood pH measurement with patient temperature correction 7.39 7.37-7.43 Arterial blood carbon dioxide, total measurement (mole s/volume) 24.0 mmol/L 21.0-31.0 Body site RIGHT RADIAL NRG Assessment of wrist artery patency prior to arterial p uncture POSITIVE NRG Setting of ventilation mode YES NR G Measurement of body temperature 97 NRG Bacterial blood culture - 06/17/19 10:09 Bacterial blood culture NG NRG Methicillin resistant Staphylococcus aur eus (MRSA) screening culture - 06/17/19 14:00 Methicillin resistant Staphylococcus aureus (MRSA) scr eening culture NEG NRG Capillary blood glucose measurement by g lucometer (mass/volume) - 06/17/19 16:17 Capillary blood glucose measurement by glucometer (mas s/volume) 108 mg/dL 70-110 Arterial blood gas measurement - 0 16:21 Blood pCO2 34 mm[Hg] 35-45 Blood pO2 82 mm[Hg] 79-93 Arterial blood bicarbonate measurement (moles/volume) 21 mmol/L 23-27 Arterial blood base excess by calculation -3.0 mmo l/L -2.5-2.5 Arterial blood oxygen saturation measurement 97 % 94-100 * Inhaled oxygen flow rate 21% NRG Arterial blood pH measurement with patient temperature correction 7.40 7.37-7.43 Arterial blood carbon dioxide, total measurement (mole s/volume) 22.2 mmol/L 21.0-31.0 Body site RIGHT RADIAL NRG Assessment of wrist artery patency prior to arterial p uncture POSITIVE NRG Setting of ventilation mode YES NR G Measurement of body temperature 36.1 NRG Capillary blood glucose measurement by g lucometer (mass/volume) - 06/17/19 18:18 Capillary blood glucose measurement by glucometer (mas s/volume) 91 mg/dL 70-110 Capillary blood glucose measurement by g lucometer (mass/volume) - 06/17/19 23:42 Capillary blood glucose measurement by glucometer (mas s/volume) 105 mg/dL 70-110 Complete blood count (CBC) with automate d white blood cell (WBC) differential - 06/18/19 03:10 Blood leukocytes automated count (number/volume) 11.5 10*3/uL 4.3-11.0 Blood erythrocytes automated count (number/volume) 3.19 10*6/uL 4.35-5.85 Venous blood hemoglobin measurement (mass/volume) 10.9 g/dL 13.3-17.7 Blood hematocrit (volume fraction) 32 % 40-54 Automated erythrocyte mean corpuscular volume 101 [foz_us] 80-99 Automated erythrocyte mean corpuscular h emoglobin (mass per erythrocyte) 34 pg 25-34 Automated erythrocyte mean corpuscular h emoglobin concentration measurement (mass/volume) 34 g/dL 32-36 Automated erythrocyte distribution width ratio 14. 8 % 10.0- 14.5 Automated blood platelet count (count/volume) 85 1 0*3/uL 130-400 Automated blood platelet mean volume measurement 10.8 [foz_us] 7.4-10.4 Automated blood neutrophils/100 leukocytes 68 % 42-75 Automated blood lymphocytes/100 leukocytes 17 % 12-44 Blood monocytes/100 leukocytes 9 % 0-12 Automated blood eosinophils/100 leukocytes 6 % 0-10 Automated blood basophils/100 leukocytes 0 % 0-10 Blood neutrophils automated count (number/volume) 7.8 10*3 1.8-7.8 Blood lymphocytes automated count (number/volume) 2.0 10*3 1.0-4.0 Blood monocytes automated count (number/volume) 1. 1 10*3 0.0-1.0 Automated eosinophil count 0.6 10*3/uL 0 .0-0.3 Automated blood basophil count (count/volume) 0.0 10*3/uL 0.0-0.1 Comprehensive metabolic panel - 06/18/19 03:10 Serum or plasma sodium measurement (moles/volume) 139 mmol/L 135-145 Serum or plasma potassium measurement (moles/volume) 3.7 mmol/L 3.6-5.0 Serum or plasma chloride measurement (moles/volume) 116 mmol/L 98-107 Carbon dioxide 17 mmol/L 21-32 Serum or plasma anion gap determination (moles/volume) 6 mmol/L 5-14 Serum or plasma urea nitrogen measurement (mass/volume ) 15 mg/dL 7-18 Serum or plasma creatinine measurement (mass/volume) 0.69 mg/dL 0.60-1.30 Serum or plasma urea nitrogen/creatinine mass ratio 22 NRG Serum or plasma creatinine measurement w ith calculation of estimated glomerular filtration rate > NRG Serum or plasma glucose measurement (mass/volume) 116 mg/dL 70-105 Serum or plasma calcium measurement (mass/volume) 8.2 mg/dL 8.5-10.1 Serum or plasma total bilirubin measurement (mass/volu me) 1.8 mg/dL 0.1-1.0 Serum or plasma alkaline phosphatase angelina surement (enzymatic activity/volume) 94 U/L 40-136 Serum or plasma aspartate aminotransfera se measurement (enzymatic activity/volume) 62 U/L 5-34 Serum or plasma alanine aminotransferase measurement (enzymatic activity/volume) 50 U/L 0-55 Serum or plasma protein measurement (mass/volume) 6.7 g/dL 6.4-8.2 Serum or plasma albumin measurement (mass/volume) 2.1 g/dL 3.2-4.5 CALCIUM CORRECTED 9.7 mg/dL 8.5-10.1 Serum or plasma phosphate measurement (m ass/volume) - 06/18/19 03:10 Serum or plasma phosphate measurement (mass/volume) 3.4 mg/dL 2.3-4.7 Magnesium - 06/18/19 03:10 Magnesium 1.6 mg/dL 1.6-2.4 Ammonia - 06/18/19 03:10 Ammonia 92 umol/L 11-32 Arterial blood gas measurement - 0 04:10 Blood pCO2 34 mm[Hg] 35-45 Blood pO2 91 mm[Hg] 79-93 Arterial blood bicarbonate measurement (moles/volume) 21 mmol/L 23-27 Arterial blood base excess by calculation -3.0 mmo l/L -2.5-2.5 Arterial blood oxygen saturation measurement 98 % 94-100 * Inhaled oxygen flow rate 21% NRG Arterial blood pH measurement with patient temperature correction 7.41 7.37-7.43 Arterial blood carbon dioxide, total measurement (mole s/volume) 21.8 mmol/L 21.0-31.0 Body site L RAD NRG Assessment of wrist artery patency prior to arterial p uncture YES-POS NRG Setting of ventilation mode YES NR G Measurement of body temperature 37.4 NRG Capillary blood glucose measurement by g lucometer (mass/volume) - 06/18/19 12:02 Capillary blood glucose measurement by glucometer (mas s/volume) 92 mg/dL 70-110 Capillary blood glucose measurement by g lucometer (mass/volume) - 06/18/19 15:38 Capillary blood glucose measurement by glucometer (mas s/volume) 148 mg/dL 70-110 Complete blood count (CBC) with automate d white blood cell (WBC) differential - 06/19/19 04:20 Blood leukocytes automated count (number/volume) 8.1 10*3/uL 4.3-11.0 Blood erythrocytes automated count (number/volume) 3.03 10*6/uL 4.35-5.85 Venous blood hemoglobin measurement (mass/volume) 10.2 g/dL 13.3-17.7 Blood hematocrit (volume fraction) 30 % 40-54 Automated erythrocyte mean corpuscular volume 100 [foz_us] 80-99 Automated erythrocyte mean corpuscular h emoglobin (mass per erythrocyte) 34 pg 25-34 Automated erythrocyte mean corpuscular h emoglobin concentration measurement (mass/volume) 34 g/dL 32-36 Automated erythrocyte distribution width ratio 14. 8 % 10.0- 14.5 Automated blood platelet count (count/volume) 80 1 0*3/uL 130-400 Automated blood platelet mean volume measurement 10.1 [foz_us] 7.4-10.4 Automated blood neutrophils/100 leukocytes 54 % 42-75 Automated blood lymphocytes/100 leukocytes 22 % 12-44 Blood monocytes/100 leukocytes 15 % 0-12 Automated blood eosinophils/100 leukocytes 9 % 0-10 Automated blood basophils/100 leukocytes 1 % 0-10 Blood neutrophils automated count (number/volume) 4.3 10*3 1.8-7.8 Blood lymphocytes automated count (number/volume) 1.8 10*3 1.0-4.0 Blood monocytes automated count (number/volume) 1. 2 10*3 0.0-1.0 Automated eosinophil count 0.7 10*3/uL 0 .0-0.3 Automated blood basophil count (count/volume) 0.1 10*3/uL 0.0-0.1 Whole blood basic metabolic panel - 05/22 06/08 04:20 Serum or plasma sodium measurement (moles/volume) 139 mmol/L 135-145 Serum or plasma potassium measurement (moles/volume) 3.4 mmol/L 3.6-5.0 Serum or plasma chloride measurement (moles/volume) 114 mmol/L 98-107 Carbon dioxide 22 mmol/L 21-32 Serum or plasma anion gap determination (moles/volume) 3 mmol/L 5-14 Serum or plasma urea nitrogen measurement (mass/volume ) 12 mg/dL 7-18 Serum or plasma creatinine measurement (mass/volume) 0.69 mg/dL 0.60-1.30 Serum or plasma urea nitrogen/creatinine mass ratio 17 NRG Serum or plasma creatinine measurement w ith calculation of estimated glomerular filtration rate > NRG Serum or plasma glucose measurement (mass/volume) 98 mg/dL 70-105 Serum or plasma calcium measurement (mass/volume) 7.6 mg/dL 8.5-10.1 Serum or plasma phosphate measurement (m ass/volume) - 06/19/19 04:20 Serum or plasma phosphate measurement (mass/volume) 3.1 mg/dL 2.3-4.7 Magnesium - 06/19/19 04:20 Magnesium 1.7 mg/dL 1.6-2.4 Serum or plasma triglyceride measurement (mass/volume) - 06/19/19 04:20 Serum or plasma triglyceride measurement (mass/volume) 45 mg/dL <150 Complete blood count (CBC) with automate d white blood cell (WBC) differential - 07/08/19 15:25 Blood leukocytes automated count (number/volume) 9.0 10*3/uL 4.3-11.0 Blood erythrocytes automated count (number/volume) 3.12 10*6/uL 4.35-5.85 Venous blood hemoglobin measurement (mass/volume) 10.7 g/dL 13.3-17.7 Blood hematocrit (volume fraction) 32 % 40-54 Automated erythrocyte mean corpuscular volume 103 [foz_us] 80-99 Automated erythrocyte mean corpuscular h emoglobin (mass per erythrocyte) 34 pg 25-34 Automated erythrocyte mean corpuscular h emoglobin concentration measurement (mass/volume) 33 g/dL 32-36 Automated erythrocyte distribution width ratio 15. 8 % 10.0- 14.5 Automated blood platelet count (count/volume) 91 1 0*3/uL 130-400 Automated blood platelet mean volume measurement 10.2 [foz_us] 7.4-10.4 Automated blood neutrophils/100 leukocytes 63 % 42-75 Automated blood lymphocytes/100 leukocytes 17 % 12-44 Blood monocytes/100 leukocytes 13 % 0-12 Automated blood eosinophils/100 leukocytes 5 % 0-10 Automated blood basophils/100 leukocytes 1 % 0-10 Blood neutrophils automated count (number/volume) 5.7 10*3 1.8-7.8 Blood lymphocytes automated count (number/volume) 1.6 10*3 1.0-4.0 Blood monocytes automated count (number/volume) 1. 2 10*3 0.0-1.0 Automated eosinophil count 0.5 10*3/uL 0 .0-0.3 Automated blood basophil count (count/volume) 0.1 10*3/uL 0.0-0.1 PT panel in platelet poor plasma by coag ulation assay - 07/08/19 15:25 Prothrombin time (PT) in platelet poor plasma by coagu lation assay 16.4 s 12.2-14.7 INR in platelet poor plasma or blood by coagulation as say 1.3 0.8-1.4 Comprehensive metabolic panel - 07/08/19 15:25 Serum or plasma sodium measurement (moles/volume) 146 mmol/L 135-145 Serum or plasma potassium measurement (moles/volume) 3.5 mmol/L 3.6-5.0 Serum or plasma chloride measurement (moles/volume) 116 mmol/L 98-107 Carbon dioxide 21 mmol/L 21-32 Serum or plasma anion gap determination (moles/volume) 9 mmol/L 5-14 Serum or plasma urea nitrogen measurement (mass/volume ) 14 mg/dL 7-18 Serum or plasma creatinine measurement (mass/volume) 0.77 mg/dL 0.60-1.30 Serum or plasma urea nitrogen/creatinine mass ratio 18 NRG Serum or plasma creatinine measurement w ith calculation of estimated glomerular filtration rate > NRG Serum or plasma glucose measurement (mass/volume) 117 mg/dL 70-105 Serum or plasma calcium measurement (mass/volume) 8.2 mg/dL 8.5-10.1 Serum or plasma total bilirubin measurement (mass/volu me) 2.1 mg/dL 0.1-1.0 Serum or plasma alkaline phosphatase angelina surement (enzymatic activity/volume) 153 U/L 40-136 Serum or plasma aspartate aminotransfera se measurement (enzymatic activity/volume) 71 U/L 5-34 Serum or plasma alanine aminotransferase measurement (enzymatic activity/volume) 40 U/L 0-55 Serum or plasma protein measurement (mass/volume) 7.3 g/dL 6.4-8.2 Serum or plasma albumin measurement (mass/volume) 2.3 g/dL 3.2-4.5 CALCIUM CORRECTED 9.6 mg/dL 8.5-10.1 Lipase - 07/08/19 15:25 Lipase 58 U/L 8-78 Ammonia - 07/08/19 15:25 Ammonia 61 umol/L 11-32 Complete urinalysis with reflex to cultu re - 07/08/19 15:40 Urine color determination BROWN NRG Urine clarity determination CLOUDY NR G Urine pH measurement by test strip 6.5 5-9 Specific gravity of urine by test strip 1.025 1.016-1.022 Urine protein assay by test strip, semi-quantitative 3+ NEGATIVE Urine glucose detection by automated test strip NE GATIVE NEGATIVE Erythrocytes detection in urine sediment by light micr oscopy 3+ NEGATIVE Urine ketones detection by automated test strip TR RIGOBERTO NEGATIVE Urine nitrite detection by test strip POSITIVE NEGATIVE Urine total bilirubin detection by test strip 2+ NEGATIVE Urine urobilinogen measurement by automated test strip (mass/volume) >= mg/dL < = 1.0 Urine leukocyte esterase detection by dipstick 1+ NEGATIVE Automated urine sediment erythrocyte cou nt by microscopy (number/high power field) TNTC NRG Automated urine sediment leukocyte count by microscopy (number/high power field) > [HPF] NRG Bacteria detection in urine sediment by light microsco py FEW NRG Crystals detection in urine sediment by light microsco py NONE NRG Casts detection in urine sediment by light microscopy NONE NRG Mucus detection in urine sediment by light microscopy NEGATIVE NRG Complete urinalysis with reflex to culture YES NRG Bacterial urine culture - 07/08/19 15:40 Bacterial urine culture [id number] NRG COLONY COUNT >100,000/ML NRG FTX;REPORTABLE SUSCEPTIBILITY REPORTED 07/12 12:10 NRG FREE TEXT ENTRY 2 PRELIM RAPID ID BY VCP [id number] NRG FREE TEXT ENTRY 3 ID CONFIRMED NRG Dirithromycin susceptibility test by dis k diffusion - 07/08/19 15:40 Gentamicin susceptibility test by minimum inhibitory c oncentration <= NRG Trimethoprim/sulfamethoxazole susceptibi lity test by minimum inhibitoryconcentration <= NRG Levofloxacin susceptibility test by minimum inhibitory concentration <= NRG Ampicillin susceptibility test by minimum inhibitory c oncentration R NRG Cefazolin susceptibility test by minimum inhibitory co ncentration <= NRG Ceftriaxone susceptibility test by minimum inhibitory concentration <= NRG Ciprofloxacin susceptibility test by minimum inhibitor y concentration <= NRG Meropenem susceptibility test by minimum inhibitory co ncentration <= NRG Nitrofurantoin susceptibility test by mi nimum inhibitory concentration 32 NRG Amoxicillin and clavulanate potassium susc PETER <= NRG Complete blood count (CBC) with automate d white blood cell (WBC) differential - 07/09/19 05:10 Blood leukocytes automated count (number/volume) 8.9 10*3/uL 4.3-11.0 Blood erythrocytes automated count (number/volume) 3.01 10*6/uL 4.35-5.85 Venous blood hemoglobin measurement (mass/volume) 10.2 g/dL 13.3-17.7 Blood hematocrit (volume fraction) 31 % 40-54 Automated erythrocyte mean corpuscular volume 103 [foz_us] 80-99 Automated erythrocyte mean corpuscular h emoglobin (mass per erythrocyte) 34 pg 25-34 Automated erythrocyte mean corpuscular h emoglobin concentration measurement (mass/volume) 33 g/dL 32-36 Automated erythrocyte distribution width ratio 16. 0 % 10.0- 14.5 Automated blood platelet count (count/volume) 87 1 0*3/uL 130-400 Automated blood platelet mean volume measurement 9.9 [foz_us] 7.4-10.4 Automated blood neutrophils/100 leukocytes 59 % 42-75 Automated blood lymphocytes/100 leukocytes 20 % 12-44 Blood monocytes/100 leukocytes 13 % 0-12 Automated blood eosinophils/100 leukocytes 8 % 0-10 Automated blood basophils/100 leukocytes 1 % 0-10 Blood neutrophils automated count (number/volume) 5.2 10*3 1.8-7.8 Blood lymphocytes automated count (number/volume) 1.8 10*3 1.0-4.0 Blood monocytes automated count (number/volume) 1. 1 10*3 0.0-1.0 Automated eosinophil count 0.7 10*3/uL 0 .0-0.3 Automated blood basophil count (count/volume) 0.1 10*3/uL 0.0-0.1 PT panel in platelet poor plasma by coag ulation assay - 07/09/19 05:10 Prothrombin time (PT) in platelet poor plasma by coagu lation assay 17.9 s 12.2-14.7 INR in platelet poor plasma or blood by coagulation as say 1.4 0.8-1.4 Comprehensive metabolic panel - 07/09/19 05:10 Serum or plasma sodium measurement (moles/volume) 143 mmol/L 135-145 Serum or plasma potassium measurement (moles/volume) 3.5 mmol/L 3.6-5.0 Serum or plasma chloride measurement (moles/volume) 116 mmol/L 98-107 Carbon dioxide 21 mmol/L 21-32 Serum or plasma anion gap determination (moles/volume) 6 mmol/L 5-14 Serum or plasma urea nitrogen measurement (mass/volume ) 15 mg/dL 7-18 Serum or plasma creatinine measurement (mass/volume) 0.80 mg/dL 0.60-1.30 Serum or plasma urea nitrogen/creatinine mass ratio 19 NRG Serum or plasma creatinine measurement w ith calculation of estimated glomerular filtration rate > NRG Serum or plasma glucose measurement (mass/volume) 86 mg/dL 70-105 Serum or plasma calcium measurement (mass/volume) 7.7 mg/dL 8.5-10.1 Serum or plasma total bilirubin measurement (mass/volu me) 2.2 mg/dL 0.1-1.0 Serum or plasma alkaline phosphatase angelina surement (enzymatic activity/volume) 142 U/L 40-136 Serum or plasma aspartate aminotransfera se measurement (enzymatic activity/volume) 61 U/L 5-34 Serum or plasma alanine aminotransferase measurement (enzymatic activity/volume) 39 U/L 0-55 Serum or plasma protein measurement (mass/volume) 6.6 g/dL 6.4-8.2 Serum or plasma albumin measurement (mass/volume) 2.0 g/dL 3.2-4.5 CALCIUM CORRECTED 9.3 mg/dL 8.5-10.1 Complete blood count (CBC) with automate d white blood cell (WBC) differential - 07/10/19 04:23 Blood leukocytes automated count (number/volume) 6.4 10*3/uL 4.3-11.0 Blood erythrocytes automated count (number/volume) 2.91 10*6/uL 4.35-5.85 Venous blood hemoglobin measurement (mass/volume) 9.9 g/dL 13.3-17.7 Blood hematocrit (volume fraction) 30 % 40-54 Automated erythrocyte mean corpuscular volume 103 [foz_us] 80-99 Automated erythrocyte mean corpuscular h emoglobin (mass per erythrocyte) 34 pg 25-34 Automated erythrocyte mean corpuscular h emoglobin concentration measurement (mass/volume) 33 g/dL 32-36 Automated erythrocyte distribution width ratio 14. 9 % 10.0- 14.5 Automated blood platelet count (count/volume) 69 1 0*3/uL 130-400 Automated blood platelet mean volume measurement 9.7 [foz_us] 7.4-10.4 Automated blood neutrophils/100 leukocytes 52 % 42-75 Automated blood lymphocytes/100 leukocytes 25 % 12-44 Blood monocytes/100 leukocytes 12 % 0-12 Automated blood eosinophils/100 leukocytes 11 % 0-10 Automated blood basophils/100 leukocytes 1 % 0-10 Blood neutrophils automated count (number/volume) 3.4 10*3 1.8-7.8 Blood lymphocytes automated count (number/volume) 1.6 10*3 1.0-4.0 Blood monocytes automated count (number/volume) 0. 8 10*3 0.0-1.0 Automated eosinophil count 0.7 10*3/uL 0 .0-0.3 Automated blood basophil count (count/volume) 0.0 10*3/uL 0.0-0.1 Comprehensive metabolic panel - 07/10/19 04:23 Serum or plasma sodium measurement (moles/volume) 139 mmol/L 135-145 Serum or plasma potassium measurement (moles/volume) 3.9 mmol/L 3.6-5.0 Serum or plasma chloride measurement (moles/volume) 112 mmol/L 98-107 Carbon dioxide 21 mmol/L 21-32 Serum or plasma anion gap determination (moles/volume) 6 mmol/L 5-14 Serum or plasma urea nitrogen measurement (mass/volume ) 14 mg/dL 7-18 Serum or plasma creatinine measurement (mass/volume) 0.74 mg/dL 0.60-1.30 Serum or plasma urea nitrogen/creatinine mass ratio 19 NRG Serum or plasma creatinine measurement w ith calculation of estimated glomerular filtration rate > NRG Serum or plasma glucose measurement (mass/volume) 109 mg/dL 70-105 Serum or plasma calcium measurement (mass/volume) 7.8 mg/dL 8.5-10.1 Serum or plasma total bilirubin measurement (mass/volu me) 1.5 mg/dL 0.1-1.0 Serum or plasma alkaline phosphatase angelina surement (enzymatic activity/volume) 148 U/L 40-136 Serum or plasma aspartate aminotransfera se measurement (enzymatic activity/volume) 59 U/L 5-34 Serum or plasma alanine aminotransferase measurement (enzymatic activity/volume) 39 U/L 0-55 Serum or plasma protein measurement (mass/volume) 6.4 g/dL 6.4-8.2 Serum or plasma albumin measurement (mass/volume) 1.9 g/dL 3.2-4.5 CALCIUM CORRECTED 9.5 mg/dL 8.5-10.1 Serum or plasma phosphate measurement (m ass/volume) - 07/10/19 04:23 Serum or plasma phosphate measurement (mass/volume) 3.3 mg/dL 2.3-4.7 Magnesium - 07/10/19 04:23 Magnesium 1.6 mg/dL 1.6-2.4 Complete blood count (CBC) with automate d white blood cell (WBC) differential - 12/09/19 16:42 Blood leukocytes automated count (number/volume) 13.9 10*3/uL 4.3-11.0 Blood erythrocytes automated count (number/volume) 3.61 10*6/uL 4.35-5.85 Venous blood hemoglobin measurement (mass/volume) 12.7 g/dL 13.3-17.7 Blood hematocrit (volume fraction) 37 % 40-54 Automated erythrocyte mean corpuscular volume 103 [foz_us] 80-99 Automated erythrocyte mean corpuscular h emoglobin (mass per erythrocyte) 35 pg 25-34 Automated erythrocyte mean corpuscular h emoglobin concentration measurement (mass/volume) 34 g/dL 32-36 Automated erythrocyte distribution width ratio 14. 1 % 10.0- 14.5 Automated blood platelet count (count/volume) 95 1 0*3/uL 130-400 Automated blood platelet mean volume measurement 10.3 [foz_us] 7.4-10.4 Automated blood neutrophils/100 leukocytes 68 % 42-75 Automated blood lymphocytes/100 leukocytes 16 % 12-44 Blood monocytes/100 leukocytes 11 % 0-12 Automated blood eosinophils/100 leukocytes 4 % 0-10 Automated blood basophils/100 leukocytes 1 % 0-10 Blood neutrophils automated count (number/volume) 9.4 10*3 1.8-7.8 Blood lymphocytes automated count (number/volume) 2.2 10*3 1.0-4.0 Blood monocytes automated count (number/volume) 1. 5 10*3 0.0-1.0 Automated eosinophil count 0.6 10*3/uL 0 .0-0.3 Automated blood basophil count (count/volume) 0.1 10*3/uL 0.0-0.1 Comprehensive metabolic panel - 12/09/19 16:42 Serum or plasma sodium measurement (moles/volume) 139 mmol/L 135-145 Serum or plasma potassium measurement (moles/volume) 3.9 mmol/L 3.6-5.0 Serum or plasma chloride measurement (moles/volume) 111 mmol/L 98-107 Carbon dioxide 20 mmol/L 21-32 Serum or plasma anion gap determination (moles/volume) 8 mmol/L 5-14 Serum or plasma urea nitrogen measurement (mass/volume ) 27 mg/dL 7-18 Serum or plasma creatinine measurement (mass/volume) 0.67 mg/dL 0.60-1.30 Serum or plasma urea nitrogen/creatinine mass ratio 40 NRG Serum or plasma creatinine measurement w ith calculation of estimated glomerular filtration rate > NRG Serum or plasma glucose measurement (mass/volume) 105 mg/dL 70-105 Serum or plasma calcium measurement (mass/volume) 8.2 mg/dL 8.5-10.1 Serum or plasma total bilirubin measurement (mass/volu me) 3.1 mg/dL 0.1-1.0 Serum or plasma alkaline phosphatase angelina surement (enzymatic activity/volume) 111 U/L 40-136 Serum or plasma aspartate aminotransfera se measurement (enzymatic activity/volume) 80 U/L 5-34 Serum or plasma alanine aminotransferase measurement (enzymatic activity/volume) 50 U/L 0-55 Serum or plasma protein measurement (mass/volume) 7.9 g/dL 6.4-8.2 Serum or plasma albumin measurement (mass/volume) 2.3 g/dL 3.2-4.5 CALCIUM CORRECTED 9.6 mg/dL 8.5-10.1 TROPONIN I FS - 12/09/19 16:42 TROPONIN I FS < 0.30 <0.30 Lipase - 12/09/19 16:42 Lipase 39 U/L 8-78 Ammonia - 12/09/19 16:42 Ammonia 193 umol/L 11-32 Complete urinalysis with reflex to cultu re - 12/09/19 17:02 Urine color determination ORANGE NRG Urine clarity determination CLOUDY NR G Urine pH measurement by test strip 8.0 5-9 Specific gravity of urine by test strip 1.015 1.016-1.022 Urine protein assay by test strip, semi-quantitative 1+ NEGATIVE Urine glucose detection by automated test strip NE GATIVE NEGATIVE Erythrocytes detection in urine sediment by light micr oscopy 1+ NEGATIVE Urine ketones detection by automated test strip NE GATIVE NEGATIVE Urine nitrite detection by test strip NEGATIVE NEGATIVE Urine total bilirubin detection by test strip NEGA TIVE NEGATIVE Urine urobilinogen measurement by automated test strip (mass/volume) >= mg/dL < = 1.0 Urine leukocyte esterase detection by dipstick 2+ NEGATIVE Automated urine sediment erythrocyte cou nt by microscopy (number/high power field) NONE NRG Automated urine sediment leukocyte count by microscopy (number/high power field) [HPF] NRG Bacteria detection in urine sediment by light microsco py LARGE NRG Squamous epithelial cells detection in u rine sediment by light microscopy NONE NRG Crystals detection in urine sediment by light microsco py PRESENT NRG Casts detection in urine sediment by light microscopy NONE NRG Mucus detection in urine sediment by light microscopy NEGATIVE NRG Complete urinalysis with reflex to culture YES NRG Triple phosphate crystals detection in u rine sediment by light microscopy FEW NRG Encounters ACCT No. Visit Date/Time Discharge Status Pt. Type Provider Facility Loc./Unit Complaint [id number] 08/09/2014 15:36:00 08/09/2014 23:59: 59 CLS Outpatient PANCHO ANDRADE MD [id number] 03/10/2014 15:22:00 03/10/2014 23:59: 59 CLS Outpatient LUCÍA YANEZ APRN [id number] 02/08/2014 15:28:00 02/08/2014 23:59: 59 CLS Outpatient PANCHO ANDRADE MD [id number] 09/21/2013 11:47:00 09/21/2013 23:59: 59 CLS Outpatient LUCÍA YANEZ APRN [id number] 09/11/2013 11:46:00 09/11/2013 23:59: 59 CLS Outpatient LUCÍA YANEZ APRN [id number] 08/03/2013 12:10:00 08/03/2013 23:59: 59 CLS Outpatient LUCÍA YANEZ APRN [id number] 07/14/2013 15:51:00 07/14/2013 23:59: 59 CLS Outpatient LUCÍA YANEZ APRN [id number] 10/20/2012 12:45:00 Document Registration [id number] 10/04/2012 14:10:00 Document Registration [id number] 04/08/2019 16:20:00 04/08/2019 23:59:5 9 CLS Outpatient LUCÍA YANEZ APRN [facility] [id number] 04/08/2019 16:20:00 Document Registration [id number] 05/05/2018 16:30:00 Document Registration [id number] 08/14/2017 10:40:00 Document Registration [id number] 07/08/2019 17:48:00 020 14:06:00 DIS Inpatient PATI ROBLERO MD [facility] 4TH AMS,HYPERAMMONEMIA,ACCU TE UTI,LIVER FAILURE [id number] 06/17/2019 12:00:00 020 15:53:00 DIS Inpatient SHANA ABBOTT DO, [facility] 4TH ACUTE RESP FAILURE;HEPA TIC ENCEPHALOPATHY [id number] 12/24/2018 14:09:00 019 23:59:59 CLS Preadmit LUCÍA YANEZ [facility] REHAB L SHOULDER PAIN S/P FAL L [id number] 10/04/2018 17:32:00 019 13:20:00 DIS Inpatient ERIC DAVIS DO [facility] 4TH FALL,MULTIPLE CONTUSION S,FX L HUMERAL NECK [id number] 11/01/2017 15:30:00 018 17:25:00 DIS Inpatient BARNIORQUIDEA CARY DO [facility] 4TH HEPATIC ENCEPHA LOPATHY [id number] 10/02/2017 18:16:00 018 11:55:00 DIS Inpatient BARNIORQUIDEA Pearl DO [facility] 4TH HEPATIC ENCEPHALOPATHY,LIVER FAILURE,UTI [id number] 08/14/2017 12:24:00 018 12:24:00 CAN Preadmit RADHA PIÑA [facility] CARD B18.2 CHRONIC HEP C R60 .1 EDMEA [id number] 12/09/2019 17:22:00 Document Registration [id number] 06/17/2019 09:32:00 020 23:59:59 CLS Emergency ANNA CHANCE DO [facility] UNRESPONSIVE
--- NOTE | 2019-12-09 19:55 | NUR ---
ems here report and care given
[2019-12-09 20:45] VITALS: BP 184/83
--- NOTE | 2019-12-09 20:45 | NUR ---
ESCOBAR BRYANT admitted to room 408-1, with an admitting diagnosis of ALTERED MENTAL STATUS,LIVER FAILURE,UTI on 12/09/19 from [facility], accompanied by EMS. ESCOBAR BRYANT introduced to surroundings, call light, bed controls, phone, TV, temperature control, lights, meal times, smoking policy, visitor policy, side rail policy, bathrooms and showers. Patient Rights given to patient in the handbook. ESCOBAR BRYANT WAS UNABLE TO verbalize understanding that [facility] is not responsible for the loss or damage to any personal effects or valuables that are kept in the patients possession during their hospitalization.
--- NOTE | 2019-12-09 21:34 | NUR ---
DR. CASTANEDA NOTIFIED OF PT NOT HAVING ANY ORDERS FROM [facility]. NEW ORDERS RECEIVED FOR ROCEPHIN 1GM IV Q24HR AND LACTULOSE 30ML PO TID.
--- OUTSIDE RECORDS SUMMARY | 2019-12-09 21:58 | XMS REPORT | Continuity of Care Document ---
Author Organization Unknown Address Unknown Phone Unavailable Allergies Active Description Code Type Severity Reaction Onset Reported/Identified Relationship to Patient Clinical Status Yes No Known Drug Allergies [id number] Drug Allergy Unknown N/A 10/02/2017 Yes No Allergy Information Available [id number] Drug Allergy Unknown N/A 020 Yes No Allergy Information Available [id number] Drug Allergy Unknown N/A 020 Medications There [...] PANCHO ANDRADE MD 477.9 RHINITIS 07/14/2013 RENATA GASKET MAKER, LUCÍA T 40 1.1 HYPERTENSION, BENIGN ESSENTIAL [...] ACUTE AND SUBACUTE HEPATIC FAILURE [facility]04[facility]2017 [facility] N[facility].01 ACUTE CYSTITIS WITH HEMATURIA 10/04/2017 [facility] Ot R26.81 UNSTEADINESS ON FEET 10/04/2017 [facility] Ot R41.0 DISORIENTATION, UNSPECIFIED 10/06/2017 [facility] Ot A41.9 SEPSIS, UNSPECIFIED ORGANISM 10/06/2017 [facility] Ot B18.2 CHRONIC VIRAL HEPATITIS C 10/06/2017 [facility] Ot D64.9 ANEMIA, UNSPECIFIED 10/06/2017 [facility] Ot D69.6 THROMBOCYTOPENIA, UNSPECIFIED 10/06/2017 [facility] Ot E46 UNSPECIFIED PROTEIN-CALORIE MALNUTRITION 10/06/2017 [facility] Ot E72.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, UNSPE 10/06/2017 [facility] Ot E80.6 OTHER DISORDERS OF BILIRUBIN METABOLISM 10/06/2017 [facility] Ot E83.42 HYPOMAGNESEMIA 10/06/2017 [facility] Ot E83.51 HYPOCALCEMIA 10/06/2017 [facility] Ot E88.09 OTH DISORDERS OF PLASMA-PROTEIN METABOLI 10/06/2017 [facility] Ot F10.10 ALCOHOL ABUSE, UNCOMPLICATED 10/06/2017 [facility] Ot F10.20 ALCOHOL DEPENDENCE, UNCOMPLICATED 10/06/2017 [facility] Ot F15.10 OTHER STIMULANT ABUSE, UNCOMPLICATED 10/06/2017 [facility] Ot F17.200 NICOTINE DEPENDENCE, UNSPECIFIED, UNCOMP 10/06/2017 [facility] Ot F17.210 NICOTINE DEPENDENCE, CIGARETTES, UNCOMPL 10/06/2017 [facility] Ot G93.40 ENCEPHALOPATHY, UNSPECIFIED 10/06/2017 [facility] Ot H91.90 UNSPECIFIED HEARING LOSS, UNSPECIFIED EA 10/06/2017 [facility] OTT Ot I10 ESSENTIAL (PRIMARY) HYPERTENSION 10/06/2017 [facility] Ot I85.00 ESOPHAGEAL VARICES WITHOUT BLEEDING 10/06/2017 [facility] Ot K72.00 ACUTE AND SUBACUTE HEPATIC FAILURE WITHO 10/06/2017 [facility] Ot K74.60 UNSPECIFIED CIRRHOSIS OF LIVER 10/06/2017 [facility] Ot N30.01 ACUTE CYSTITIS WITH HEMATURIA 10/06/2017 [facility] Ot N32.89 OTHER SPECIFIED DISORDERS OF BLADDER 10/06/2017 [facility] Ot N39.0 URINARY TRACT INFECTION, SITE NOT SPECIF 10/06/2017 [facility] OTT Ot R01.1 CARDIAC MURMUR, UNSPECIFIED 10/06/2017 [facility] OTT Ot R16.1 SPLENOMEGALY, NOT ELSEWHERE CLASSIFIED 10/06/2017 [facility] Ot R26.81 UNSTEADINESS ON FEET 10/06/2017 [facility] R41.0 DISORIENTATION, UNSPECIFIED 10/06/2017 [facility] [place] OTT Ot Y90.0 BLOOD ALCOHOL LEVEL OF LESS THAN 20 MG/1 11/05/2017 [facility] Pearl DO Ot A41.9 SEPSIS, UNSPECIFIED ORGANISM 11/05/2017 [facility] OTT Ot B18.2 CHRONIC VIRAL HEPATITIS C 11/05/2017 [facility] Ot D69.6 THROMBOCYTOPENIA, UNSPECIFIED 11/05/2017 [facility] Ot F15.10 OTHER STIMULANT ABUSE, UNCOMPLICATED 11/05/2017 [facility] Ot F17.210 NICOTINE DEPENDENCE, CIGARETTES, UNCOMPL 11/05/2017 [facility] [place] OTT Ot G81.94 HEMIPLEGIA, UNSPECIFIED AFFECTING LEFT N 11/05/2017 [facility] [place] E Ot I10 ESSENTIAL (PRIMARY) [...] Ot R33.9 RETENTION OF URINE, UNSPECIFIED 11/05/2017 [facility] Ot R47.81 SLURRED SPEECH 11/05/2017 [facility] Ot A41.9 SEPSIS, UNSPECIFIED ORGANISM 11/05/2017 [facility] Ot B18.2 CHRONIC VIRAL HEPATITIS C 11/05/2017 [facility] Ot D69.6 THROMBOCYTOPENIA, UNSPECIFIED 11/05/2017 [facility] [place] OTT Ot F15.10 OTHER STIMULANT ABUSE, UNCOMPLICATED 11/05/2017 [facility] [place] OTT Ot F17.210 NICOTINE DEPENDENCE, CIGARETTES, UNCOMPL 11/05/2017 [facility] Pearl DO Ot G81.94 HEMIPLEGIA, UNSPECIFIED AFFECTING LEFT N 11/05/2017 [facility] Ot I10 ESSENTIAL (PRIMARY) HYPERTENSION 11/05/2017 [facility] Ot I69.354 HEMIPLGA FOLLOWING CEREBRAL INFRC AFFECT 11/05/2017 [facility] Pearl DO Ot J30.2 OTHER SEASONAL ALLERGIC RHINITIS 11/05/2017 [facility] Ot K59.00 CONSTIPATION, UNSPECIFIED 11/05/2017 [facility] Ot K70.9 ALCOHOLIC LIVER DISEASE, UNSPECIFIED 11/05/2017 [facility] Ot K72.00 ACUTE AND SUBACUTE HEPATIC [...] 10/05/2018 RYAN DO, B Ot Z79.[address] (CURRENT) USE OF ASPIRIN 10/05/2018 FUENTESANTONIO DO, B Ot Z79.[address] WORKER (CURRENT) DRUG THERAPY 10/05/2018 RYAN DO, B [...] 10/05/2018 DELANTONIO DO, B Ot Z79.8 2 PRISON (CURRENT) USE OF ASPIRIN 10/05/2018 DELMAN DO, B Ot Z79.8 99 OTHER PRISON (CURRENT) DRUG THERAPY 06/18/2019 SHANA ABBOTT DO [...] MD Ot Z91.1 9 PATIENT'S NONCOMPLIANCE [facility] Procedures Code [place] [address] ROUT INE VENIPUNCTURE 08/03/2013 65414 A1C (RML) 08/03/2013 35158 PSA TOTAL 08/03/2013 18770 TEST OSTERONE TOTAL MALES 08/03/2013 06516 TSH 08/03/2013 62029 CBC 08/03/2013 1890417 GF R CALC (RESULT ONLY) 08/03/2013 42175 CMP 08/03/2013 77778 LIPI D PANEL 08/03/2013 48067 ROUT INE VENIPUNCTURE 09/11/2013 18744 LIVE R PANEL (LFT) 09/11/2013 45919 HEPA TITIS PROFILE 09/11/2013 25941 AMYLASE 09/11/2013 81270 LIPASE 09/11/2013 90436 EKG, TRACING (IN-HOUSE) 09/11/2013 26992 ROUT INE VENIPUNCTURE 09/21/2013 22625 HEP C PCR QUANT W/RAKAN 09/21/2013 [facility] 09/22/2013 63380 ROUT INE VENIPUNCTURE 03/10/2014 76445 TEST OSTERONE TOTAL MALES 03/10/2014 20726 HEP C PCR QUANT (SERIAL) 03/10/2014 93412 LIVE R PANEL (LFT) 03/10/2014 49213 CULT URE WOUND (AEROBIC) 08/12/2014 [id number] RE SPIRATORY VENTILATION, LESS THAN 24 CO [...] COLONY COUNT . NRG FTX;REPORTABLE SENT TO [facility] 10/03 09:00 NRG FREE TEXT ENTRY 2 REPORTED BY [facility] 10/03/17 17:05 NRG Methicillin resistant Staphylococcus aur [...] culture - 11/01/17 16:30 Bacterial urine culture [id number] NRG COLONY COUNT >100,000/ML NRG FTX;REPORTABLE RML [...] 7-25 CREATININE 0.74 mg/dL 0.70-1.25 eGFR NON-AFR. CITIZEN OF [place] 96 mL/min/1.73m2 > OR = 60 eGFR [...] FOR INFLUENZA A AND B ANTIGENS BY [facility] Comprehensive metabolic panel - 06/17/19 09:40 Serum [...] culture - 06/17/19 09:49 Bacterial urine culture [id number] NRG COLONY COUNT >100,000/ML NRG FTX;REPORTABLE SUSCEPTIBILITY REPORTED 06/20 17:30 NRG FREE TEXT ENTRY 2 PRELIM RAPID ID TEST AT [facility] 06/18 7:50 NRG FREE TEXT ENTRY 3 [...] culture - 07/08/19 15:40 Bacterial urine culture [id number] NRG COLONY COUNT >100,000/ML NRG FTX;REPORTABLE SUSCEPTIBILITY [...] Status Pt. Type Provider Facility Loc./Unit Complaint [id number] 08/09/2014 15:36:00 08/09/2014 23:59: 59 CLS Outpatient PANCHO ANDRADE MD [id number] 03/10/2014 15:22:00 03/10/2014 23:59: 59 CLS Outpatient LUCÍA YANEZ APRN [id number] 02/08/2014 15:28:00 02/08/2014 23:59: 59 CLS Outpatient PANCHO ANDRADE MD [id number] 09/21/2013 11:47:00 09/21/2013 23:59: 59 CLS Outpatient LUCÍA YANEZ APRN [id number] 09/11/2013 11:46:00 09/11/2013 23:59: 59 CLS Outpatient LUCÍA YANEZ APRN [id number] 08/03/2013 12:10:00 08/03/2013 23:59: 59 CLS Outpatient LUCÍA YANEZ APRN [id number] 07/14/2013 15:51:00 07/14/2013 23:59: 59 CLS Outpatient LUCÍA YANEZ APRN [id number] 10/20/2012 12:45:00 Document Registration [id number] 10/04/2012 14:10:00 Document Registration [id number] 04/08/2019 16:20:00 04/08/2019 23:59:5 9 CLS Outpatient LUCÍA YANEZ APRN [facility] [id number] 04/08/2019 16:20:00 Document Registration [id number] 05/05/2018 16:30:00 Document Registration [id number] 08/14/2017 10:40:00 Document Registration [id number] 07/08/2019 17:48:00 020 14:06:00 DIS Inpatient PATI ROBLERO MD Via [facility] 4TH AMS,HYPERAMMONEMIA,ACCU TE UTI,LIVER FAILURE [id number] 06/17/2019 12:00:00 020 15:53:00 DIS Inpatient SHANA ABBOTT DO, V ia [facility] 4TH ACUTE RESP FAILURE;HEPA TIC ENCEPHALOPATHY [id number] 12/24/2018 14:09:00 019 23:59:59 CLS Preadmit LUCÍA YANEZ Via [facility] REHAB L SHOULDER PAIN S/P FAL L [id number] 10/04/2018 17:32:00 019 13:20:00 DIS Inpatient ERIC DAVIS DO Via [facility] 4TH FALL,MULTIPLE CONTUSION S,FX L HUMERAL NECK [id number] 11/01/2017 15:30:00 018 17:25:00 DIS Inpatient BARNIORQUIDEA CARY DO Via [facility] 4TH HEPATIC ENCEPHA LOPATHY [id number] 10/02/2017 18:16:00 018 11:55:00 DIS Inpatient BARNIORQUIDEA CARY DO Via [facility] 4TH HEPATIC ENCEPHALOPATHY,LIVER FAILURE,UTI [id number] 08/14/2017 12:24:00 018 12:24:00 CAN Preadmit RADHA PIÑA Via [facility] CARD B18.2 CHRONIC HEP C R60 .1 EDMEA [id number] 12/09/2019 20:45:[address] Inpatient LEONEL CAMACHO, DONTE Barrios Via [facility] 4TH AMS, UTI [id number] 06/17/2019 09:32:00 020 23:59:59 CLS Emergency ANNA CHANCE DO [facility] ER UNRESPONSIVE
[2019-12-09] MEDS: NS IV 1000 ML 1,000 ML IV SCH (22:16)
[2019-12-10] VITALS (7 sets, daily range): BP systolic 137–175; BP diastolic 68–81
[2019-12-10] MEDS: LACTULOSE SYRUP 10GM/15ML (ENULOSE) 30ML UDC PO SCH ×4 (01:01→20:18)
--- NOTE | 2019-12-10 06:13 | NUR ---
DR. CASTANEDA NOTIFIED OF PT'S DVT SCORE OF 7, NEW ORDERS RECEIVED TO START LOVENOX Q24HR AND PHARMACY TO DOSE. ALSO THAT PT DOES NOT HAVE A DIET ORDER, NEW ORDER FOR REGULAR DIET. ALSO PT NOT HAVING ANY LABS ORDERED, NEW ORDERS RECEIVED FOR CBC WITH AUTO DIFF AND CMP NOW.
[2019-12-10] MEDS: ENOXAPARIN 40 MG/0.4 ML (LOVENOX) SYR SQ SCH (07:12)
[2019-12-10 07:33] LABS: BASOPHILS # (AUTO) 0.1 10^3/uL (0.0-0.1); BASOPHILS % (AUTO) 1 % (0-10); EOSINOPHILS # (AUTO) 0.8 10^3/uL (0.0-0.3); EOSINOPHILS % (AUTO) 7 % (0-10); HEMATOCRIT 37 % (40-54); HEMOGLOBIN 11.9 G/DL (13.3-17.7); LYMPHOCYTES % (AUTO) 18 % (12-44); MEAN CORPUSCULAR HEMOGLOBIN 34 PG (25-34); MEAN CORPUSCULAR HGB CONC 33 G/DL (32-36); MEAN CORPUSCULAR VOLUME 104 FL (80-99); MEAN PLATELET VOLUME 10.4 FL (7.4-10.4); MONOCYTES # (AUTO) 1.5 X 10^3 (0.0-1.0); MONOCYTES % (AUTO) 13 % (0-12); NEUTROPHILS # (AUTO) 6.9 X 10^3 (1.8-7.8); NEUTROPHILS % (AUTO) 62 % (42-75); PLATELET COUNT 84 10^3/uL (130-400); RED CELL DISTRIBUTION WIDTH 14.3 % (10.0-14.5); WHITE BLOOD COUNT 11.2 10^3/uL (4.3-11.0)
[2019-12-10 07:44] LABS: ALBUMIN 2.1 GM/DL (3.2-4.5); CHLORIDE 117 MMOL/L (98-107); POTASSIUM 3.8 MMOL/L (3.6-5.0); SODIUM 143 MMOL/L (135-145)
[2019-12-10 07:45] LABS: CALCIUM 7.8 MG/DL (8.5-10.1)
[2019-12-10 07:46] LABS: GLUCOSE 83 MG/DL (70-105); TOTAL PROTEIN 7.3 GM/DL (6.4-8.2)
[2019-12-10 07:47] LABS: CARBON DIOXIDE 20 MMOL/L (21-32)
[2019-12-10 07:48] LABS: BILIRUBIN,TOTAL 2.6 MG/DL (0.1-1.0)
[2019-12-10 07:50] LABS: ALKALINE PHOSPHATASE 99 U/L (40-136); CREATININE SERUM 0.68 MG/DL (0.60-1.30); GFR ESTIMATED > 60
[2019-12-10 07:51] LABS: BUN/CREATININE RATIO 38
[2019-12-10 07:53] LABS: ALANINE AMINOTRANSFERASE 47 U/L (0-55)
[2019-12-10] MEDS: NS IV 1000 ML 1,000 ML IV SCH ×2 (09:12→17:26)
--- NOTE | 2019-12-10 12:25 | History & Physical ---
HPI History of Present Illness: 64 yo male brought by EMS who were called by family/friends due to altered mental status. His speech is very difficult to understand and he has hearing problems, but he is able to state his name and that he is in the hospital and has liver problems. He is not able to provide more history than that. Apparently he usually requires straight catheterization intermittently, and it seems that may have not been done as he had large amount of purulent urine in his bladder in the ER. He has been admitted with hepatic encephalopathy in the past as well. Exam Limitations: clinical condition Date seen by provider: Dec 10, 2019 Time Seen by Provider: 11:45 Attending Physician Donte Manuel MD [facility] Consult Date of Admission Dec 09, 2019 at 20:45 Home Medications Home Medications Reviewed patient Home Medication Reconciliation performed by pharmacy medication reconciliations proof technician helper and/or nursing. Patients Allergies have been reviewed. Allergies Coded Allergies: No Allergy Information Available (Unverified , 06/17/19) No Known Drug Allergies (Unverified , 10/02/17) ZAO-Pomjxd-Lvnrne Hx Patient Social History Alcohol Use: Past History Recreational Drug Use: Yes Drug of Choice: METHAMPHETAMINES, BENZODIAZEPINES Smoking Status: Former Smoker Type Used: Cigarettes 2nd Hand Smoke Exposure: Yes Recent Hopitalizations: No Immunizations Up To Date Tetanus Booster (TDap): Unknown Date of Influenza Vaccine: Feb 16, 2019 Past Medical History PMHx: Chronic Hepatits C Alcohol Abuse Tobacco Abuse Methamphetamine Abuse Erectile Dysfunction HTN Seasonal Allergies Past Surgical History: Appendectomy Family Medical History Significant Family History: Hypertension, Psychiatric Problems Review of Systems ([facility]) Constitutional: other (unable to obtain due to patient condition) Reviewed Test Results Reviewed Test Results Lab Laboratory Tests Test 12/09/19 16:42 12/09/19 17:02 12/10/19 07:25 Range/Units White Blood Count 13.9 H 11.2 H 4.3-11.0 10^3/uL Red Blood Count 3.61 L 3.52 L 4.35-5.85 10^6/uL Hemoglobin 12.7 L 11.9 L 13.3-17.7 G/DL Hematocrit 37 L 37 L 40-54 % Mean Corpuscular Volume 103 H 104 H 80-99 FL Mean Corpuscular Hemoglobin 35 H 34 25-34 PG Mean Corpuscular Hemoglobin Concent 34 33 32-36 G/DL Red Cell Distribution Width 14.1 14.3 10.0-14.5 % Platelet Count 95 L 84 L 130-400 10^3/uL Mean Platelet Volume 10.3 10.4 7.4-10.4 FL Neutrophils (%) (Auto) 68 62 42-75 % Lymphocytes (%) (Auto) 16 18 12-44 % Monocytes (%) (Auto) 11 13 H 0-12 % Eosinophils (%) (Auto) 4 7 0-10 % Basophils (%) (Auto) 1 1 0-10 % Neutrophils # (Auto) 9.4 H 6.9 1.8-7.8 X 10^3 Lymphocytes # (Auto) 2.2 2.0 1.0-4.0 X 10^3 Monocytes # (Auto) 1.5 H 1.5 H 0.0-1.0 X 10^3 Eosinophils # (Auto) 0.6 H 0.8 H 0.0-0.3 10^3/uL Basophils # (Auto) 0.1 0.1 0.0-0.1 10^3/uL Sodium Level 139 143 135-145 MMOL/L Potassium Level 3.9 3.8 3.6-5.0 MMOL/L Chloride Level 111 H 117 H 98-107 MMOL/L Carbon Dioxide Level 20 L 20 L 21-32 MMOL/L Anion Gap 8 6 5-14 MMOL/L Blood Urea Nitrogen 27 H 26 H 7-18 MG/DL Creatinine 0.67 0.68 0.60-1.30 MG/DL Estimat Glomerular Filtration Rate > 60 > 60 BUN/Creatinine Ratio 40 38 Glucose Level 105 83 70-105 MG/DL Calcium Level 8.2 L 7.8 L 8.5-10.1 MG/DL Corrected Calcium 9.6 9.3 8.5-10.1 MG/DL Total Bilirubin 3.1 H 2.6 H 0.1-1.0 MG/DL Aspartate Amino Transf (AST/SGOT) 80 H 67 H 5-34 U/L Alanine Aminotransferase (ALT/SGPT) 50 47 0-55 U/L Alkaline Phosphatase 111 99 40-136 U/L Ammonia 193 H 11-32 UMOL/L Troponin I < 0.30 <0.30 NG/ML Total Protein 7.9 7.3 6.4-8.2 GM/DL Albumin 2.3 L 2.1 L 3.2-4.5 GM/DL Lipase 39 8-78 U/L Urine Color ORANGE Urine Clarity CLOUDY H Urine pH 8.0 5-9 Urine Specific [place] 1.015 L 1.016-1.022 Urine Protein 1+ H NEGATIVE Urine Glucose (UA) NEGATIVE NEGATIVE Urine Ketones NEGATIVE NEGATIVE Urine Nitrite NEGATIVE NEGATIVE Urine Bilirubin NEGATIVE NEGATIVE Urine Urobilinogen >=8.0 < = 1.0 MG/DL Urine Leukocyte Esterase 2+ H NEGATIVE Urine RBC (Auto) 1+ H NEGATIVE Urine RBC NONE /HPF Urine WBC 50-100 H /HPF Urine Squamous Epithelial Cells NONE /HPF Urine Crystals PRESENT H /LPF Urine Triple Phosphate Crystals FEW H /LPF Urine Bacteria LARGE H /HPF Urine Casts NONE /LPF Urine Mucus NEGATIVE /LPF Urine Culture Indicated YES Radiology CXR 12/08: IMPRESSION: 1. No acute pleuroparenchymal process. Physical Exam-([facility]) Physical Exam Vital Signs VS - Last 72 Hours, by Label 12/09/19 12/09/19 12/09/19 12/09/19 17:01 20:00 20:45 20:45 Temp 36.4 37.0 Pulse 96 76 82 Resp 18 16 20 B/P (MAP) 157/74 (101) 163/86 184/83 Pulse Ox 96 98 96 O2 Delivery Room Air Room Air Room Air Room Air 12/10/19 12/10/19 12/10/19 12/10/19 00:00 04:00 07:43 08:00 Temp 37.0 36.8 37.1 Pulse 96 85 83 Resp 20 19 18 B/P (MAP) 137/75 (95) 148/81 (103) 162/81 (108) Pulse Ox 92 93 97 97 O2 Delivery Room Air Room Air Room Air Room Air 12/10/19 11:39 Temp 37.4 Pulse 89 Resp 18 B/P (MAP) 158/75 (102) Pulse Ox 98 O2 Delivery Room Air Capillary Refill : Less Than 3 SecondsLess Than 3 Seconds General Appearance: no apparent distress Eyes: Bilateral Eye PERRL, Bilateral Eye EOMI Respiratory: lungs clear, normal breath sounds Cardiovascular: regular rate, rhythm, no murmur Gastrointestinal: normal bowel sounds, non tender, soft Extremities: pedal edema (trace) Neurologic/Psychiatric: pot fisher II-XII nml as tested (decreased hearing otherwise normal), other (oriented x 2, very slow and mumbled speech, moves all extremities equally when asked but very slow to follow instructions) Skin: normal color, warm/dry Assessment/Plan Assessment/Plan Admission Status: Inpatient Order (span 2 midnights) Reason for Inpatient Admission: Severe hepatic encephalopathy will require 2 nights or more for treatment (1) Altered mental status Status: Acute Assessment & Plan: Most likely secondary to hepatic encephalopathy. Possibility of substance use also with history of. No evidence of localized intracranial pathology on neuro exam. (2) Urinary tract infection Status: Acute Assessment & Plan: Elevated WBC but no other sepsis criteria. Rocephin while awaiting urine and blood cultures. Qualifiers: Qualified Codes: N30.01 - Acute cystitis with hematuria (3) Hyperammonemia Status: Chronic Assessment & Plan: Lactulose TID (4) Hepatic encephalopathy Status: Acute Assessment & Plan: Severe, secondary to UTI. Lactulose for hyperammonemia, treat UTI and monitor closely. (5) Urinary retention Status: Chronic Assessment & Plan: Victor placed in ER (6) Thrombocytopenia Status: Chronic (7) Hypertension Status: Chronic Qualifiers: Qualified Codes: I10 - Essential (primary) hypertension (8) Liver disease, chronic Status: Chronic (9) Methamphetamine abuse Status: Chronic (10) History of alcohol abuse Status: Chronic (11) Hepatitis C virus infection Status: Chronic (12) DVT prophylaxis Status: Acute Assessment & Plan: Enoxaparin, monitor platelets closely Clinical Quality Measures DVT/VTE Risk/Contraindication: Risk Factor Score Per Nursin RFS Level Per Nursing on Admit: 4+=Very High DONTE MANUEL MD Dec 10, 2019 12:25
[2019-12-10] MEDS ORDERED: 1/2 NS IV SOLUTION 1,000 ML IV PRN (12:32)
[2019-12-10] MEDS ORDERED: LORazepam 1 MG (ATIVAN) TAB PO PRN (12:45)
[2019-12-10] MEDS ORDERED: LORazepam INJ 2 MG/ML (ATIVAN) VIAL IM/IV PRN (12:45)
[2019-12-10] MEDS ORDERED: SENNA W/DOCUSATE (SENOKOT S) TABLET PO PRN (12:45)
[2019-12-10] MEDS ORDERED: ANTACID SUSP 30 ML UDC (MYLANTA) PO PRN (12:45)
[2019-12-10] MEDS ORDERED: LORazepam INJ 2 MG/ML (ATIVAN) VIAL IV PRN (12:45)
[2019-12-10] MEDS ORDERED: ONDANSETRON 4 MG (ZOFRAN) ORAL DISSOLVE TAB SL PRN (12:45)
[2019-12-10] MEDS ORDERED: D5 1/2 NS 1000 ML IV SOLUTION 1,000 ML IV PRN (12:45)
[2019-12-10] MEDS ORDERED: ONDANSETRON 4 MG/2 ML (SDV) Z0FRAN IV PRN (12:45)
[2019-12-10 13:18] LABS: INR 1.4 (0.8-1.4); PROTHROMBIN TIME PATIENT 17.5 SEC (12.2-14.7)
[2019-12-10 13:28] LABS: ACETAMINOPHEN < 10 UG/ML (10-30); SALICYLATE < 5.0 MG/DL (5.0-20.0)
--- NOTE | 2019-12-10 15:49 | NUR ---
CM/SS: Visited with pt and significant other Audrey as per consult related to drug and alcohol Plan: Undetermined at this time Summary: Significant other Audrey is in bed with pt. Pt is able to speak with this worker but has very slurred speech. Audrey reports this is based on his ammonia level. Pt reports not wanting to take the medication related to his Liver. Pt seems to drift off to sleep while this worker is talking to him. Pt does have medicaid and asked about Audrey being paid to care for him. This worker will need to follow up. Pt wants Audrey to spend the night. This worker shares that she can not spend the night as he is not critically ill. Pt seems frustrated by this. Unable to assess drug or alcohol use or abuse. This worker will follow up on tomorrow and pt can perhaps be a little more clear due to his ammonia level.
[2019-12-10] MEDS: TAMSULOSIN 0.4 MG (FLOMAX) CAP PO SCH (17:24)
[2019-12-10] MEDS: cefTRIAXone FOR IV USE 1,000 MG in WATER (STERILE) FOR INJECTION 10 ML IV SCH (17:25)
--- NOTE | 2019-12-10 18:19 | NUR ---
tele-sitter has been set up in pt's room
[2019-12-10] MEDS: RIFAXIMIN 550 MG TABLET (XIFAXAN) PO SCH (20:18)
--- NOTE | 2019-12-10 21:13 | NUR ---
[facility] 175/77. THIS RN REASSESSED B/P USING MANUAL CUFF AND GOT 156/78.
[2019-12-11 00:07] VITALS: BP 162/81
[2019-12-11 04:13] VITALS: BP 160/84
[2019-12-11] MEDS: NS IV 1000 ML 1,000 ML IV SCH ×2 (05:01→13:50)
[2019-12-11 06:08] LABS: BASOPHILS # (AUTO) 0.1 10^3/uL (0.0-0.1); BASOPHILS % (AUTO) 1 % (0-10); EOSINOPHILS # (AUTO) 1.1 10^3/uL (0.0-0.3); EOSINOPHILS % (AUTO) 12 % (0-10); HEMATOCRIT 34 % (40-54); HEMOGLOBIN 11.2 G/DL (13.3-17.7); LYMPHOCYTES % (AUTO) 23 % (12-44); MEAN CORPUSCULAR HEMOGLOBIN 34 PG (25-34); MEAN CORPUSCULAR HGB CONC 33 G/DL (32-36); MEAN CORPUSCULAR VOLUME 102 FL (80-99); MEAN PLATELET VOLUME 10.2 FL (7.4-10.4); MONOCYTES # (AUTO) 1.3 X 10^3 (0.0-1.0); MONOCYTES % (AUTO) 15 % (0-12); NEUTROPHILS # (AUTO) 4.5 X 10^3 (1.8-7.8); NEUTROPHILS % (AUTO) 50 % (42-75); PLATELET COUNT 79 10^3/uL (130-400); RED CELL DISTRIBUTION WIDTH 13.9 % (10.0-14.5)
[2019-12-11] MEDS: ENOXAPARIN 40 MG/0.4 ML (LOVENOX) SYR SQ SCH (06:14)
[2019-12-11] MEDS: CYANOCOBALAMIN 1,000 MCG (VITAMIN B-12) TABLET PO SCH (06:15)
[2019-12-11 06:19] LABS: CHLORIDE 113 MMOL/L (98-107); POTASSIUM 3.3 MMOL/L (3.6-5.0); SODIUM 139 MMOL/L (135-145)
[2019-12-11 06:21] LABS: CALCIUM 7.6 MG/DL (8.5-10.1)
[2019-12-11 06:22] LABS: GLUCOSE 88 MG/DL (70-105); TOTAL PROTEIN 6.9 GM/DL (6.4-8.2)
[2019-12-11 06:23] LABS: CARBON DIOXIDE 22 MMOL/L (21-32)
[2019-12-11 06:24] LABS: BILIRUBIN,TOTAL 1.9 MG/DL (0.1-1.0)
[2019-12-11 06:25] LABS: ALKALINE PHOSPHATASE 95 U/L (40-136); CREATININE SERUM 0.65 MG/DL (0.60-1.30); GFR ESTIMATED > 60
[2019-12-11 06:26] LABS: BUN/CREATININE RATIO 26
[2019-12-11 06:28] LABS: ALANINE AMINOTRANSFERASE 43 U/L (0-55); MAGNESIUM 1.7 MG/DL (1.6-2.4)
[2019-12-11] MEDS ORDERED: KCL 20 MEQ TAB (K-DUR) PO NR (08:15)
[2019-12-11 08:30] VITALS: BP 143/77
[2019-12-11] MEDS: LACTULOSE SYRUP 10GM/15ML (ENULOSE) 30ML UDC PO SCH ×3 (08:31→21:49)
[2019-12-11] MEDS: PANTOPRAZOLE 40 MG (PROTONIX) TAB PO SCH (08:31)
[2019-12-11] MEDS: RIFAXIMIN 550 MG TABLET (XIFAXAN) PO SCH ×2 (08:31→21:49)
[2019-12-11] MEDS: FOLIC ACID 1 MG TAB PO SCH (08:31)
--- NOTE | 2019-12-11 11:01 | NUR ---
PITER Mirza made initial visit.
[2019-12-11 12:04] VITALS: BP 132/64
--- NOTE | 2019-12-11 12:55 | NUR ---
"RD ASSESSMENT PMHx: polysubstance use/abuse (ETOH; tobacco; methamphetamine); HTN; hepatitis C PT INTERACTION: Note pt has AMS, per chart review. Note all diet information gathered is per chart review. Note avg PO intake <25% x1d. Note no BM has been recorded and pt currently on bowel regimen of senna PRN. Note recent 1# wt loss x5mon. ABNORMAL NUTRITION-RELATED LAB VALUES LOW: K 3.3; Ca 7.6; alb 2.0 HIGH: Cl 113; bili 1.9; AST 66 Est. kcal needs: 1350 kcal | 15 kcal/kg Est. Pro needs: 72 g Pro | 0.8 g Pro/kg PES STATEMENT: Inadequate oral intake (NI-2.1) related to loss of appetite | AMS as evidenced by chart review | avg PO intake <25% x1d INTERVENTION: Continue with current diet order of Regular diet. Add Ensure Enlive (vary) to meals TID, for increased kcal intake. Provides 350 kcal and 13 g Pro per serving. Will continue to follow and reassess as pt needs, intake, and status change. MONITOR/EVALUATE: PO Intake; Plan of Care; Hydration Status; Weight Status; Lab Values Ruben Gamboa, MS, RD, LD"
--- NOTE | 2019-12-11 14:15 | NUR ---
CM/SS: Visited with pt as to plan for discharge and as per consult related to drugs and alcohol Plan: Undetermined. Pt is from home and lives with significant other Audrey Summary: Pt is upset that is girlfriend has not arrived at the hospital. Call to son as to getting the phone number for Audrey. Audrey phone number [phone]. Son will pass along the number to Audrey to the room. Phone rings and it is Audrey. Pt is able to talk with Audrey. Call to Son Oneal [phone] - to obtain additional information. He suggest that significant other to be taught. He seems open to the thought of pt having home care and suggest that someone talk to Audrey. This worker will follow up.
--- NOTE | 2019-12-11 14:40 | Progress Note ---
Subjective Subjective/Events-last exam Afebrile, confusion somewhat improved. Still with difficult to understand speech and very slow motor movements. Objective Exam Last Set of Vital Signs Vital Signs Date Time Temp Pulse Resp B/P (MAP) Pulse Ox O2 Delivery O2 Flow Rate FiO2 12/11/19 12:36 90 12/11/19 12:04 37.0 16 132/64 (86) 95 Room Air Capillary Refill : Less Than 3 SecondsLess Than 3 Seconds I&O Intake and Output 12/11/19 00:00 Intake Total 1326 ml Output Total 1375 ml Balance -49 ml Intake Oral 1326 ml Output Urine Total 1375 ml General: Alert, No Acute Distress HEENT: PERRLA, EOMI Lungs: Clear to Auscultation, Normal Air Movement Heart: Regular Rate, No Murmurs Neuro: Other (mumbling, oriented to self only, has difficulty raising right arm- states that is chronic due to falling out of an attic and injury to rotator cuff) Results/Procedures Lab Laboratory Tests 12/10/19 18:49: Glucometer 90 12/11/19 00:13: Glucometer 98 12/11/19 06:00: White Blood Count 9.0, Red Blood Count 3.28L, Hemoglobin 11.2L, Hematocrit 34L, Mean Corpuscular Volume 102H, Mean Corpuscular Hemoglobin 34, Mean Corpuscular Hemoglobin Concent 33, Red Cell Distribution Width 13.9, Platelet Count 79L, Mean Platelet Volume 10.2, Neutrophils (%) (Auto) 50, Lymphocytes (%) (Auto) 23, Monocytes (%) (Auto) 15H, Eosinophils (%) (Auto) 12H, Basophils (%) (Auto) 1, Neutrophils # (Auto) 4.5, Lymphocytes # (Auto) 2.0, Monocytes # (Auto) 1.3H, Eosinophils # (Auto) 1.1H, Basophils # (Auto) 0.1, Sodium Level 139, Potassium Level 3.3L, Chloride Level 113H, Carbon Dioxide Level 22, Anion Gap 4L, Blood Urea Nitrogen 17, Creatinine 0.65, Estimat Glomerular Filtration Rate > 60, BUN/Creatinine Ratio 26, Glucose Level 88, Calcium Level 7.6L, Corrected Calcium 9.2, Magnesium Level 1.7, Total Bilirubin 1.9H, Aspartate Amino Transf (AST/SGOT) 66H, Alanine Aminotransferase (ALT/SGPT) 43, Alkaline Phosphatase 95, Total Protein 6.9, Albumin 2.0L 12/11/19 06:34: Glucometer 106 12/11/19 12:07: Glucometer 136H Radiology CXR 12/08: IMPRESSION: 1. No acute pleuroparenchymal process. Assessment/Plan Assessment/Plan (1) Altered mental status Status: Acute Assessment & Plan: Most likely secondary to hepatic encephalopathy. Possibility of substance use also with history of. No evidence of localized intracranial pathology on neuro exam. 12/10 slowly improving, continue treatment of UTI and hyperammonemia (2) Urinary tract infection Status: Acute Assessment & Plan: Elevated WBC but no other sepsis criteria. Rocephin while awaiting urine and blood cultures. Qualifiers: Qualified Codes: N30.01 - Acute cystitis with hematuria (3) Hyperammonemia Status: Chronic Assessment & Plan: Lactulose TID (4) Hepatic encephalopathy Status: Acute Assessment & Plan: Severe, secondary to UTI. Lactulose for hyperammonemia, treat UTI and monitor closely. (5) Urinary retention Status: Chronic Assessment & Plan: Victor placed in ER (6) Thrombocytopenia Status: Chronic (7) Hypertension Status: Chronic Qualifiers: Qualified Codes: I10 - Essential (primary) hypertension (8) Liver disease, chronic Status: Chronic (9) Methamphetamine abuse Status: Chronic (10) History of alcohol abuse Status: Chronic (11) Hepatitis C virus infection Status: Chronic (12) DVT prophylaxis Status: Acute Assessment & Plan: Enoxaparin, monitor platelets closely Clinical Quality Measures DVT/VTE Risk/Contraindication: Risk Factor Score Per Nursin RFS Level Per Nursing on Admit: 4+=Very High DONTE CASTANEDA MD Dec 11, 2019 14:40
[2019-12-11 16:05] VITALS: BP 187/77
[2019-12-11] MEDS: TAMSULOSIN 0.4 MG (FLOMAX) CAP PO SCH (18:14)
[2019-12-11] MEDS: cefTRIAXone FOR IV USE 1,000 MG in WATER (STERILE) FOR INJECTION 10 ML IV SCH (18:14)
[2019-12-11 20:00] VITALS: BP 139/78
[2019-12-12] MEDS: NS IV 1000 ML 1,000 ML IV SCH ×2 (00:06→08:19)
[2019-12-12 00:15] VITALS: BP 134/71
[2019-12-12 04:20] VITALS: BP 154/88
[2019-12-12] MEDS: ENOXAPARIN 40 MG/0.4 ML (LOVENOX) SYR SQ SCH (06:28)
[2019-12-12] MEDS: CYANOCOBALAMIN 1,000 MCG (VITAMIN B-12) TABLET PO SCH (06:28)
[2019-12-12 07:30] VITALS: BP 146/86
[2019-12-12] MEDS: RIFAXIMIN 550 MG TABLET (XIFAXAN) PO SCH (08:19)
[2019-12-12] MEDS: FOLIC ACID 1 MG TAB PO SCH (08:20)
[2019-12-12] MEDS: PANTOPRAZOLE 40 MG (PROTONIX) TAB PO SCH (08:20)
[2019-12-12] MEDS: LACTULOSE SYRUP 10GM/15ML (ENULOSE) 30ML UDC PO SCH (08:20)
[2019-12-12] MEDS ORDERED: CIPR500T4 PO (12:05)
[2019-12-12] MEDS ORDERED: AMOX1TAB11 PO (12:05)
--- NOTE | 2019-12-12 12:12 | Discharge Summary ---
Diagnosis/Chief Complaint Date of Admission Dec 09, 2019 at 20:45 Date of Discharge December 12, 2019 Discharge Date: Dec 12, 2019 Discharge Time: 14:00 Admission Diagnosis Hepatic encephalopathy [facility] Discharge Diagnosis Hepatic encephalopathy Decompensated liver disease Urinary tract infection with Klebsiella and enterococcus sensitivities pending Fractured left humerus Urinary retention chronic necessitating self-catheterization Discharge Summary Discharge Physical Exam Allergies: Coded Allergies: No Allergy Information Available (Unverified , 06/17/19) No Known Drug Allergies (Unverified , 10/02/17) Vitals & I&Os Vital Signs Date Time Temp Pulse Resp B/P (MAP) Pulse Ox O2 Delivery O2 Flow Rate FiO2 12/12/19 08:00 96 Room Air 12/12/19 07:30 36.2 106 18 146/86 (106) General Appearance: No Apparent Distress, WD/WN HEENT: Normal ENT Inspection Respiratory: Chest Non Tender, Lungs Clear, Normal Breath Sounds, No Accessory Muscle Use, No Respiratory Distress Cardiovascular: Regular Rate, Rhythm, No Gallop, No JVD, No Murmur Gastrointestinal: Normal Bowel Sounds, No Organomegaly, No Pulsatile Mass, Non Tender, Soft Extremity: Non Tender, No Calf Tenderness, Pedal Edema, Other (Left shoulder with inability to locate) Skin: Normal Color, Warm/Dry Neurologic/Psychiatric: Alert, Other (Some inappropriate speech but not really confused talks over his daughter me) Hospital Course Was the Problem List Reviewed?: Yes The patient was admitted with decompensated hepatic encephalopathy most likely secondary to a urinary tract infection and urinary retention. He had had a difficult social situation with a support teacher who was to be doing has straight catheters had evidently stopped for some reason and the patient came in more confused with 2000 cc urine retention. Victor catheter was placed and the patient was placed on Rocephin. He is doing much better and much better in terms of his appropriateness and alertness. He still a little unsteady on his feet but adamant that he wants to go home. His daughter is been pursuing DURABLE POWER OF DATA STEWARD and medical power of trademark attorney. She is interested in proceeding with getting his name back on liver transplant list. The patient is somewhat hard of hearing and talks of her wrist and is somewhat inappropriate but not necessarily confused. Sensitivities on Klebsiella and enterococcus are pending but the patient has responded well to Rocephin.) It in an abundance of caution he'll be discharged on Augmentin and Cipro. Labs (last 24 hrs) Laboratory Tests 12/11/19 12:07: Glucometer 136H 12/11/19 17:54: Glucometer 128H 12/12/19 00:15: Glucometer 117H 12/12/19 05:35: Glucometer 96 Microbiology 12/09/19 Urine Culture - Preliminary, Resulted Klebsiella pneumoniae Enterococcus faecalis Patient resulted labs reviewed. Pending Labs Laboratory Tests 12/12/19 05:35: Glucometer 96 Discussion & Recommendations Discharge Planning: >30 minutes discharge planning (Long discussion with his daughter about getting follow-up for his left shoulder outpatient physical therapy and the necessity to straight catheter every 8 hours.) Discharge Home Medications: Active Scripts Active Amox Tr-K Clv 500-125 mg Tab (Amoxicillin/Potassium Clav) 1 Each Tablet 1 Each PO BID 5 Days Ciprofloxacin HCl 500 Mg Tablet 500 Mg PO BID 7 Days Lactulose 20 Gm/30 Ml Solution 30 Gm NG TID Xifaxan (Rifaximin) 550 Mg Tablet 550 Mg PO BID Reported Folic Acid 0.8 Mg Tablet 0.8 Mg PO DAILY Vitamin B-12 (Cyanocobalamin (Vitamin B-12)) 500 Mcg Tablet 500 Mcg PO DAILY Centrum Silver Tablet (Multivit-Min/FA/Lycopene/Lut) 1 Each Tablet 1 Tab PO DAILY Condition at discharge Stable and improved Instructions to patient/family Please see electronic discharge instructions given to patient. Clinical Quality Measures DVT/VTE Risk/Contraindication: Risk Factor Score Per Nursin RFS Level Per Nursing on Admit: 4+=Very High Copy Copies To 1: [facility]/TERRA WINTER MD Dec 12, 2019 12:12
[2019-12-12 12:35] VITALS: BP 146/86
--- NOTE | 2019-12-12 12:43 | NUR ---
Prescriptions called into [facility] at this time due to [facility] pharmacy in [place] closing at 12:30 today.
== END 2019-12-12 12:44 | disposition home or self-care (01) | DRG 442 ==
LOC: EDUNIT# 16:32 → ER FS 16:33 → 4TH 20:45
PROVIDERS: ADMIT Family Medicine; ATTEND Family Medicine
DX: K72.90 Hepatic failure, unspecified without coma (principal); N39.0 Urinary tract infection, site not specified; B18.2 Chronic viral hepatitis C; K74.60 Unspecified cirrhosis of liver; I10 Essential (primary) hypertension; R33.9 Retention of urine, unspecified; D69.6 Thrombocytopenia, unspecified; J30.2 Other seasonal allergic rhinitis; D64.9 Anemia, unspecified; F10.10 Alcohol abuse, uncomplicated; F15.10 Other stimulant abuse, uncomplicated; N52.9 Male erectile dysfunction, unspecified; Z87.891 Personal history of nicotine dependence; B96.1 Klebsiella pneumoniae [K. pneumoniae] as the cause of diseases classified elsewhere; B95.2 Enterococcus as the cause of diseases classified elsewhere; Z87.81 Personal history of (healed) traumatic fracture
CPT/HCPCS: 36415; 51702; 71045; 80053; 80320; 80329; 81000; 82140; 82962; 83690; 83735; 84484; 85025; 85610; 85730; 87077; 87088; 87186; 93005; 96374

== ENCOUNTER 2020-03-28 12:08 | Inpatient (IN) | payer MEDICARE, MEDICAID ==
[~2020-03-28] VITALS: Ht 170.2 cm; Wt 95.3 kg
[~2020-03-28 12:08] MED LIST changes: +AMOX1TAB11 PO; +CIPR500T4 PO; -PANT40TA3 PO; +PANT40TA52 PO
[2020-03-28] MEDS ORDERED: NS IV 1000 ML 1,000 ML IV SCH (12:30)
[2020-03-28] MEDS ORDERED: HALOPERIDOL 5 MG/ML (HALDOL) VIAL IM ONE (12:30)
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
--- NOTE | 2020-03-28 12:41 | Diagnostic Imaging Report ---
Indication: Altered mental status. Time of exam: 12:28 PM Correlation is made with prior chest from 12/09/2019. The heart size is normal. The pulmonary vascularity is unremarkable. The lungs are clear. No infiltrate, effusion or pneumothorax is detected. Impression: No acute cardiopulmonary process is detected. Dictated by: Dictated on workstation # [id number]
[2020-03-28 13:05] LABS: HEMATOCRIT 38 % (40-54); HEMOGLOBIN 12.5 G/DL (13.3-17.7); LYMPHOCYTES % (AUTO) 10 % (12-44); MEAN CORPUSCULAR HEMOGLOBIN 34 PG (25-34); MEAN CORPUSCULAR HGB CONC 33 G/DL (32-36); MEAN CORPUSCULAR VOLUME 103 FL (80-99); MEAN PLATELET VOLUME 10.4 FL (7.4-10.4); MONOCYTES % (AUTO) 13 % (0-12); NEUTROPHILS % (AUTO) 75 % (42-75); PLATELET COUNT 114 10^3/uL (130-400); WHITE BLOOD COUNT 19.6 10^3/uL (4.3-11.0)
[2020-03-28 13:06] LABS: BASOPHILS % (AUTO) 1 % (0-10); EOSINOPHILS % (AUTO) 1 % (0-10); LYMPHOCYTES # (AUTO) 1.9 X 10^3 (1.0-4.0); MONOCYTES # (AUTO) 2.6 X 10^3 (0.0-1.0); NEUTROPHILS # (AUTO) 14.6 X 10^3 (1.8-7.8)
[2020-03-28 13:15] LABS: COLOR,URINE ORANGE
[2020-03-28 13:16] LABS: BILIRUBIN,URINE 1+ (NEGATIVE); CLARITY,URINE CLOUDY; GLUCOSE, URINE (UA) NEGATIVE (NEGATIVE); KETONES,URINE NEGATIVE (NEGATIVE); NITRITE,URINE NEGATIVE (NEGATIVE); PROTEIN,URINE 1+ (NEGATIVE)
[2020-03-28 13:17] LABS: BACTERIA,URINE LARGEG /HPF; LEUKOCYTE ESTERASE ,URINE 3+ (NEGATIVE); WBC,URINE >100 /HPF
[2020-03-28 13:24] LABS: AMPHETAMINE SCREEN, URINE NEGATIVE (NEGATIVE); BARBITURATE SCREEN URINE NEGATIVE (NEGATIVE); BENZODIAZEPINES SCREEN URINE NEGATIVE (NEGATIVE); CANNABINOID SCREEN, URINE NEGATIVE (NEGATIVE); COCAINE SCREEN URINE NEGATIVE (NEGATIVE); METHADONE STAT NEGATIVE (NEGATIVE); METHAMPHETAMINE SCREEN URINE S POSITIVE (NEGATIVE); OPIATE SCREEN URINE NEGATIVE (NEGATIVE); OXYCODONE STAT NEGATIVE (NEGATIVE); PROPOXYPHENE STAT NEGATIVE (NEGATIVE); TRICYCLIC ANTIDEPRESSANTS SCRE NEGATIVE (NEGATIVE)
[2020-03-28 13:26] LABS: ALANINE AMINOTRANSFERASE 34 U/L (0-55); ALBUMIN 1.9 GM/DL (3.2-4.5); ALKALINE PHOSPHATASE 158 U/L (40-136); BILIRUBIN,TOTAL 3.8 MG/DL (0.1-1.0); BUN/CREATININE RATIO 48; CALCIUM 8.9 MG/DL (8.5-10.1); CARBON DIOXIDE 21 MMOL/L (21-32); CHLORIDE 115 MMOL/L (98-107); GFR ESTIMATED > 60; GLUCOSE 102 MG/DL (70-105); MAGNESIUM 2.1 MG/DL (1.6-2.4); POTASSIUM 3.9 MMOL/L (3.6-5.0); SODIUM 143 MMOL/L (135-145); TOTAL PROTEIN 7.9 GM/DL (6.4-8.2)
[2020-03-28 13:27] LABS: LIPASE 175 U/L (8-78)
[2020-03-28] MEDS ORDERED: cefTRIAXone FOR IV USE 2,000 MG in WATER (STERILE) FOR INJECTION 20 ML IV ONE (13:30)
[2020-03-28 14:01] LABS: BAND NEUTROPHILS 9 %; BASOPHILS % (MANUAL) 0 %; EOSINOPHILS % (MANUAL) 0 %; LYMPHOCYTES % (MANUAL) 14 %; MONOCYTES % (MANUAL) 6 %; NEUTROPHILS % (MANUAL) 71 %; RBC MORPH NORMAL
[2020-03-28 14:10] LABS: INR 1.5 (0.8-1.4); PROTHROMBIN TIME PATIENT 18.2 SEC (12.2-14.7)
--- NOTE | 2020-03-28 15:25 | NUR ---
ESCOBAR BRYANT admitted to room 408-1, with an admitting diagnosis of CIRRHOSIS, on 03/28/20 from [facility] ED via EMS, accompanied by EMS. ESCOBAR BRYANT introduced to surroundings, call light, bed controls, phone, TV, temperature control, lights, meal times, smoking policy, visitor policy, side rail policy, bathrooms and showers. Patient Rights given to patient in the handbook. ESCOBAR BRYANT verbalizes understanding that [facility] is not responsible for the loss or damage to any personal effects or valuables that are kept in the patients posession during their hospitalization. The following Patient Care Plans were discussed with the PT: Discharge Planning,PAIN, AND CIRRHOSIS. ESCOBAR BRYANT verbalizes understanding of Interdisciplinary Patient Education. Patient and/or family were informed about the Rapid Response Team and its purpose. PT UNABLE TO COMPREHEND. CARE OF PT TO MIGUEL HOBBS.
[2020-03-28 16:42] VITALS: BP 171/92
--- NOTE | 2020-03-28 17:46 | Diagnostic Imaging Report ---
PROCEDURE: CT head without contrast. TECHNIQUE: Multiple contiguous axial images were obtained through the brain without the use of intravenous contrast. Auto Exposure Controls were utilized during the CT exam to meet ALARA standards for radiation dose reduction. INDICATION: Unresponsive, altered mental status, 65-year-old Hospital inpatient. CORRELATION STUDY: 07/08/2019 FINDINGS: There are diffuse atrophic changes with prominence of the ventricles and sulci. There are scattered areas of decreased attenuation, nonspecific but likely changes of chronic small vessel ischemic disease. There is otherwise normal barros-white differentiation. No abnormal areas of attenuation to suggest edema from ischemia. Intracranial vascular calcification. No hyperdense vascular sign. There is no midline shift or mass effect. No evidence for acute intracranial hemorrhage or abnormal extra-axial fluid collection. Bony calvarium is intact. Partial opacification right mastoid air cells. Prominent opacification large portion the sphenoid sinus with some calcification appears be chronic. No air-fluid level. IMPRESSION: 1. 1. No CT evidence for acute intracranial abnormality. 2. Age-related atrophic changes with changes of small vessel ischemic disease. Dictated by: Dictated on workstation # [id number]
--- NOTE | 2020-03-28 18:04 | NUR ---
DAUGHTER INEZ ANDREW PHONED AND GAVE ALL INFORMATION TO VERIFY PATIENT AND SET UP [employer]. DAUGHTER IS CONCERNED THAT HER DAD ISN'T BEING WELL TAKEN CARE OF BY PATIENT'S SIGNIFICANT OTHER AND STATES SHE HAS POA PAPERWORK THAT JUST NEEDS NOTARIZED. THIS RN INFORMED THAT [facility] TO INFORM DAY RN TO HAVE SS PHONE DAUGHTER.
[2020-03-28 20:00] VITALS: BP 142/72
[2020-03-28] MEDS: LACTULOSE SYRUP 10GM/15ML (ENULOSE) 30ML UDC PO SCH (21:00)
[2020-03-28] MEDS: LACTULOSE 10 GM/15 ML 30 ML POUR BOTTLE FOR ENEMA PR SCH (21:54)
[2020-03-28 23:56] VITALS: BP 157/93
[2020-03-29 03:48] VITALS: BP 155/69
[2020-03-29 04:57] LABS: BASOPHILS # (AUTO) 0.1 10^3/uL (0.0-0.1); BASOPHILS % (AUTO) 1 % (0-10); EOSINOPHILS # (AUTO) 0.3 10^3/uL (0.0-0.3); EOSINOPHILS % (AUTO) 2 % (0-10); HEMATOCRIT 36 % (40-54); HEMOGLOBIN 11.4 g/dL (13.3-17.7); LYMPHOCYTES # (AUTO) 1.4 10^3/uL (1.0-4.0); LYMPHOCYTES % (AUTO) 9 % (12-44); MEAN CORPUSCULAR HEMOGLOBIN 34 pg (25-34); MEAN CORPUSCULAR HGB CONC 32 g/dL (32-36); MEAN CORPUSCULAR VOLUME 106 fL (80-99); MEAN PLATELET VOLUME 10.7 fL (9.0-12.2); MONOCYTES # (AUTO) 1.8 10^3/uL (0.0-1.0); MONOCYTES % (AUTO) 11 % (0-12); NEUTROPHILS # (AUTO) 12.3 10^3/uL (1.8-7.8); NEUTROPHILS % (AUTO) 76 % (42-75); PLATELET COUNT 95 10^3/uL (130-400); WHITE BLOOD COUNT 16.1 10^3/uL (4.3-11.0)
[2020-03-29] MEDS: LACTULOSE SYRUP 10GM/15ML (ENULOSE) 30ML UDC PO SCH ×3 (05:13→20:34)
[2020-03-29 05:25] LABS: ALANINE AMINOTRANSFERASE 32 U/L (0-55); ALBUMIN 1.8 GM/DL (3.2-4.5); ALKALINE PHOSPHATASE 126 U/L (40-136); BUN/CREATININE RATIO 51; CALCIUM 8.3 MG/DL (8.5-10.1); CARBON DIOXIDE 20 MMOL/L (21-32); CHLORIDE 118 MMOL/L (98-107); CREATININE SERUM 0.79 MG/DL (0.60-1.30); GFR ESTIMATED > 60; GLUCOSE 94 MG/DL (70-105); POTASSIUM 3.9 MMOL/L (3.6-5.0); SODIUM 144 MMOL/L (135-145); TOTAL PROTEIN 7.2 GM/DL (6.4-8.2)
--- NOTE | 2020-03-29 05:32 | NUR ---
2004 - Notified Dr. Manuel that pt has oral Enulose ordered but pt is unresponsive, would not open eyes, and was only moaning. Received orders to give Lactulose Enema, 200 mg (300ml) to be diluted with 700ml water. 2199 - 2229 - Administered Enema together with supervisor pipe finishing. Pt able to hold 600ml of mixture for 15-20 minutes but everything came out afterwards, including inflated rectal catheter. 233 - attempted do do enema again for the remaining 400ml mixture, pt is moaning loudly and was verbalizing no. 0430 - pt is opening eyes, asking to speak to his daughter. Pt is also asking for water and ice cream. Pt is alert and able to answer questions on where he is and what year it is. 499 - Notified Dr. Manuel of the following: - Enema was only partially successful, was not able to give the full mixture - Pt is now waking up and more alert. Diet is currently NPO and pt is asking for food and water - Pt scored a severe sepsis risk on sepsis screening. Received orders to change diet to Regular Diet if pt is able to swallow; to give a dose of oral lactulose now. Will follow orders. 0530 - pt tolerated water, jello, and ice cream well. Oral lactulose given.
[2020-03-29 08:00] VITALS: BP 126/74
[2020-03-29] MEDS: LACTULOSE 10 GM/15 ML 30 ML POUR BOTTLE FOR ENEMA PR SCH (08:05)
--- NOTE | 2020-03-29 08:35 | NUR ---
increased moaning and crying noticed at this time. despite verbal redirection patient continues to yell out stating he doesn't need to be here. this RN requested pain and/or agitation medication at this time. doctor stated she is making rounds soon and will assess patient.
[2020-03-29] MEDS ORDERED: LORazepam 0.5 MG (ATIVAN) TABLET PO PRN (08:45)
--- NOTE | 2020-03-29 08:46 | History & Physical ---
HPI History of Present Illness: 65 yo male with history of cirrhosis brought to ER due to somnolence and confusion, found to have sepsis with UTI. He is more awake this morning and able to state that he is in the hospital and is complaining of thirst, but does not answer any other questions other than with mumbling. Source: patient Exam Limitations: clinical condition Date seen by provider: Mar 29, 2020 Time Seen by Provider: 08:40 Attending Physician Donte Manuel MD PCP [facility] Consult Date of Admission Mar 28, 2020 at 15:25 Home Medications Home Medications Reviewed patient Home Medication Reconciliation performed by pharmacy medication reconciliations gate technician and/or nursing. Patients Allergies have been reviewed. Allergies Coded Allergies: No Allergy Information Available (Unverified , 03/28/20) No Known Drug Allergies (Unverified , 03/28/20) RWI-Mptjrt-Qhsxdl Hx Patient Social History Alcohol Use: Occasionally Uses Recreational Drug Use: Yes Drug of Choice: METHAMPHETAMINES, BENZODIAZEPINES Smoking Status: Current Everyday Smoker Type Used: Cigarettes 2nd Hand Smoke Exposure: Yes Recent Foreign Travel: No Contact w/other who traveled: No Recent Hopitalizations: No Recent Infectious Disease Expo: No Physical Abuse Screen: No Sexual Abuse: No Immunizations Up To Date Tetanus Booster (TDap): Unknown Date of Influenza Vaccine: Feb 16, 2019 Past Medical History PMHx: Chronic Hepatits C Alcohol Abuse Tobacco Abuse Methamphetamine Abuse Erectile Dysfunction HTN Seasonal Allergies Past Surgical History: Appendectomy Family Medical History Significant Family History: Hypertension, Psychiatric Problems Review of Systems (CHC) Constitutional: other (unable to obtain due to patient condition) Reviewed Test Results Reviewed Test Results Lab Laboratory Tests Test 03/28/20 12:35 03/28/20 12:50 03/28/20 16:40 03/29/20 04:23 Range/Units White Blood Count 19.6 H 16.1 H 4.3-11.0 10^3/uL Red Blood Count 3.67 L 3.37 L 4.30-5.52 10^6/uL Hemoglobin 12.5 L 11.4 L 13.3-17.7 g/dL Hematocrit 38 L 36 L 40-54 % Mean Corpuscular Volume 103 H 106 H 80-99 fL Mean Corpuscular Hemoglobin 34 34 25-34 pg Mean Corpuscular Hemoglobin Concent 33 32 32-36 g/dL Red Cell Distribution Width 16.6 H 16.5 H 10.0-14.5 % Platelet Count 114 L 95 L 130-400 10^3/uL Mean Platelet Volume 10.4 10.7 9.0-12.2 fL Immature Granulocyte % (Auto) 1 1 % Neutrophils (%) (Auto) 75 76 H 42-75 % Lymphocytes (%) (Auto) 10 L 9 L 12-44 % Monocytes (%) (Auto) 13 H 11 0-12 % Eosinophils (%) (Auto) 1 2 0-10 % Basophils (%) (Auto) 1 1 0-10 % Neutrophils # (Auto) 14.6 H 12.3 H 1.8-7.8 10^3/uL Lymphocytes # (Auto) 1.9 1.4 1.0-4.0 10^3/uL Monocytes # (Auto) 2.6 H 1.8 H 0.0-1.0 10^3/uL Eosinophils # (Auto) 2.0 H 0.3 0.0-0.3 10^3/uL Basophils # (Auto) 1.0 H 0.1 0.0-0.1 10^3/uL Immature Granulocyte # (Auto) 2.0 H 0.2 H 0.0-0.1 10^3/uL Neutrophils % (Manual) 71 % Lymphocytes % (Manual) 14 % Monocytes % (Manual) 6 % Eosinophils % (Manual) 0 % Basophils % (Manual) 0 % Band Neutrophils 9 % Blood Morphology Comment NORMAL Prothrombin Time 18.2 H 12.2-14.7 SEC INR Comment 1.5 H 0.8-1.4 Activated Partial Thromboplast Time 35 24-35 SEC Sodium Level 143 144 135-145 MMOL/L Potassium Level 3.9 3.9 3.6-5.0 MMOL/L Chloride Level 115 H 118 H 98-107 MMOL/L Carbon Dioxide Level 21 20 L 21-32 MMOL/L Anion Gap 7 6 5-14 MMOL/L Blood Urea Nitrogen 38 H 40 H 7-18 MG/DL Creatinine 0.80 0.79 0.60-1.30 MG/DL Estimat Glomerular Filtration Rate > 60 > 60 BUN/Creatinine Ratio 48 51 Glucose Level 102 94 70-105 MG/DL Lactic Acid Level 3.06 *H 0.50-2.00 MMOL/L Calcium Level 8.9 8.3 L 8.5-10.1 MG/DL Corrected Calcium 10.6 H 10.1 8.5-10.1 MG/DL Magnesium Level 2.1 1.6-2.4 MG/DL Total Bilirubin 3.8 H 4.0 H 0.1-1.0 MG/DL Aspartate Amino Transf (AST/SGOT) 54 H 48 H 5-34 U/L Alanine Aminotransferase (ALT/SGPT) 34 32 0-55 U/L Alkaline Phosphatase 158 H 126 40-136 U/L Troponin I < 0.30 <0.30 NG/ML Pro-B-Type Natriuretic Peptide 102.1 H <75.0 PG/ML Total Protein 7.9 7.2 6.4-8.2 GM/DL Albumin 1.9 L 1.8 L 3.2-4.5 GM/DL Lipase 175 H 8-78 U/L Serum Alcohol < 10 <10 MG/DL Urine Color ORANGE Urine Clarity CLOUDY Urine pH 8.0 5-9 Urine Specific [place] 1.015 L 1.016-1.022 Urine Protein 1+ H NEGATIVE Urine Glucose (UA) NEGATIVE NEGATIVE Urine Ketones NEGATIVE NEGATIVE Urine Nitrite NEGATIVE NEGATIVE Urine Bilirubin 1+ H NEGATIVE Urine Urobilinogen 4.0 < = 1.0 MG/DL Urine Leukocyte Esterase 3+ H NEGATIVE Urine RBC (Auto) TRACE H NEGATIVE Urine RBC NONE /HPF Urine WBC >100 H /HPF Urine Crystals NONE /LPF Urine Bacteria LARGEG /HPF Urine Casts NONE /LPF Urine Mucus NEGATIVE /LPF Urine Culture Indicated YES Urine Opiates Screen NEGATIVE NEGATIVE Urine Oxycodone Screen NEGATIVE NEGATIVE Urine Methadone Screen NEGATIVE NEGATIVE Urine Propoxyphene Screen NEGATIVE NEGATIVE Urine Barbiturates Screen NEGATIVE NEGATIVE Ur Tricyclic Antidepressants Screen NEGATIVE NEGATIVE Urine Phencyclidine Screen NEGATIVE NEGATIVE Urine Amphetamines Screen NEGATIVE NEGATIVE Urine Methamphetamines Screen POSITIVE H NEGATIVE Urine Benzodiazepines Screen NEGATIVE NEGATIVE Urine Cocaine Screen NEGATIVE NEGATIVE Urine Cannabinoids Screen NEGATIVE NEGATIVE Ammonia 87 H 11-32 UMOL/L Radiology CXR 03/[address] head 03/28 with chronic microvascular changes and volume loss Physical Exam-(CHC) Physical Exam Vital Signs VS - Last 72 Hours, by Label 03/28/20 03/28/20 03/28/20 03/28/20 12:40 14:45 15:25 16:34 Temp 37.2 Pulse 109 99 94 Resp 19 23 B/P (MAP) 131/81 (98) 125/80 Pulse Ox 96 96 97 O2 Delivery Room Air 03/28/20 03/28/20 03/28/20 03/28/20 16:42 19:00 20:00 20:15 Temp 37.2 37.2 Pulse 95 103 91 Resp 14 16 B/P (MAP) 171/92 142/72 (95) Pulse Ox 97 94 O2 Delivery Room Air Room Air Room Air 03/28/20 03/29/20 03/29/20 03/29/20 23:56 01:00 03:48 06:41 Temp 37.2 37.5 Pulse 107 94 105 104 Resp 16 16 B/P (MAP) 157/93 (114) 155/69 (97) Pulse Ox 96 92 O2 Delivery Room Air Room Air 03/29/20 08:00 Temp 37.2 Pulse 106 Resp 16 B/P (MAP) 126/74 (91) Pulse Ox 100 O2 Delivery Room Air Capillary Refill : Less Than 3 SecondsLess Than 3 Seconds General Appearance: no apparent distress Eyes: Bilateral Eye PERRL HEENT: other (dry mucous membranes) Respiratory: lungs clear, normal breath sounds Cardiovascular: regular rate, rhythm, no murmur Gastrointestinal: normal bowel sounds, non tender, soft Neurologic/Psychiatric: alert, other (oriented to self only, does not follow instructions well, but able to move all extremities- less movement in left arm) Skin: warm/dry Assessment/Plan Assessment/Plan Admission Status: Inpatient Order (span 2 midnights) Reason for Inpatient Admission: Sepsis with underlying comorbidities (1) Sepsis Status: Acute Assessment & Plan: Tachycardic and with leukocytosis and elevated lactic acid on admit. Secondary to UTI, probable E coli and enterococcus on culture, treat with levofloxacin based on prior sensitivities. Qualifiers: Qualified Codes: A41.51 - Sepsis due to Escherichia coli [e. coli]; R65.20 - Severe sepsis without septic shock; K72.01 - Acute and subacute hepatic failure with coma (2) Urinary retention Status: Chronic Assessment & Plan: Intermittent cath at home, has history of not completing frequently enough and recurrent UTIs. Victor in place currently. (3) Urinary tract infection Status: Acute Assessment & Plan: See sepsis diagnosis Qualifiers: Qualified Codes: N30.00 - Acute cystitis without hematuria (4) Hepatic encephalopathy Status: Chronic Assessment & Plan: Per report was not taking lactulose at home, ammonia is elevated, resume lactulose and rifaxamin. (5) Hypertension Status: Chronic Qualifiers: Qualified Codes: I10 - Essential (primary) hypertension (6) Methamphetamine abuse Status: Chronic (7) History of alcohol abuse Status: Chronic (8) Hepatitis C virus infection Status: Chronic (9) Altered mental status Status: Acute Qualifiers: Qualified Codes: R41.82 - Altered mental status, unspecified (10) DVT prophylaxis Status: Acute Assessment & Plan: Enoxaparin, monitor closely due to chronic thrombocytopenia. Clinical Quality Measures DVT/VTE Risk/Contraindication: Risk Factor Score Per Nursin RFS Level Per Nursing on Admit: 4+=Very High DONTE MANUEL MD Mar 29, 2020 08:46
[2020-03-29] MEDS ORDERED: LEVOFLOXACIN 750 MG TAB (LEVAQUIN) PO NR (09:35)
--- NOTE | 2020-03-29 09:38 | Diagnostic Imaging Report ---
INDICATION: Cirrhosis Ultrasound of the liver and right upper quadrant was performed in routine fashion. The liver shows a coarse echo pattern compatible with cirrhosis and is very difficult to penetrate, its evaluation is therefore limited. There appear to be at least 2 different suspected masses however, one fairly centrally measuring 4.6 x 4.2 x 4.0 cm and a 2nd lesion more medially measuring about 3.0 x 2.6 cm. The gallbladder shows some sludge posteriorly with small polyp anteriorly measuring about 4 mm. Common duct could not be visualized. The pancreas and aorta are obscured. IVC appears unremarkable. Right kidney was normal measured 11.5 cm in length. There is a trace of ascites. Portal vein appears to be patent but is hepatofugal. Hepatic veins appear to be patent. IMPRESSION: Findings compatible with cirrhosis of the liver with at least 2 mass lesions as described above, in this setting, hepatocellular carcinoma should be excluded. Portal vein is patent but has hepatofugal flow. Hepatic veins are patent . There is a trace of ascites. There is some sludge in the gallbladder as well as a small gallbladder wall polyp. Correlation with CT is suggested to further evaluate the liver lesions. Dictated by: Dictated on workstation # [id number]
--- NOTE | 2020-03-29 09:53 | NUR ---
PRN oral Ativan given at this time. patient continues to bret vale, has set off bed alarm multiple times and is attempting to sit up and roll out of bed patient stated " i have medicine at home, I do not need to be here get me a wheelchair"
--- NOTE | 2020-03-29 11:30 | NUR ---
Dr notified of low grade fever 37.6 and excessive thirst at this time, no orders for fever due to increased risk for liver injury. critical lactic acid also reported 2.02 no new orders at this time for lactic acid
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
[2020-03-29] MEDS ORDERED: NF-RIFA200 PO (11:51)
[2020-03-29] MEDS ORDERED: LACT10SO PO (11:51)
[2020-03-29] MEDS ORDERED: ASCO-262 PO (11:51)
[2020-03-29] MEDS ORDERED: MILK175T2 PO (11:51)
[2020-03-29] MEDS ORDERED: CHOL10002 PO (11:51)
--- NOTE | 2020-03-29 11:53 | NUR ---
I SPOKE WITH THE PT BUT HE COULD NOT GIVE ME ANY INFORMATION ABOUT HIS MEDICATIONS, I THEN CALLED TAB HUTTON), GOT A MED LIST FROM [facility], WENT THRU THE EXT MED HISTORY AND CALLED JA LAMBERT TO COMPLETE THE MED REC ACCORDING TO TAB THE PT IS TAKING XIFAXAN BUT THE LAST TIME IT WAS FILLED WAS SEPTEMBER 2019 #180. THE DIRECTIONS ON THE LAST SCRIPT THAT WAS FILLED AT THE PHARMACY WAS 200MG TAKE 2 TABS TID. HOWEVER WHEN I ASKED TAB ABOUT THE DIRECTIONS AND THE PAST DUE FILL SHE SAID THAT PT IS TAKING 1 TABLET BID, AND THE PHARMACY MADE IT SO THEY WOULD GET A 90 DAY SUPPLY ([facility] HAS NO RECORD OF THIS AND THEY MAINTAIN THEY FILLED #180 BUT IT WAS ONLY A 30 DAY SUPPLY). I DOCUMENTED THE PAST DUE FILL ON THE MED REC TAB ALSO ME KNOW THAT PT DOES NOT TAKE LACTULOSE VERY OFTEN AND HE IS MORE USING IT PRN OTC MEDS: VIT C VIT D MILK THISTLE MTV Addendum: 03/29/20 at 1204 by KEVIN SENA hot plate press operator THE MEDICATION LIST FROM [facility] SHOWS HE IS ON THE FOLLOWING MEDICATIONS BUT THEY HAVE NOT BEEN FILLED AT A PHARMACY AND TAB DENIES HE IS CURRENTLY TAKING: PANTOPRAZOLE 40MG FOLIC ACID VIT B12 FINASTERIDE 5MG TAMSULOSIN 0.4MG OMEGA COMPLEX
[2020-03-29 12:00] VITALS: BP 105/58
--- NOTE | 2020-03-29 13:20 | NUR ---
agitation continues as patient is now screaming for "Help" and continues to set off bed alarm by rolling his body and legs over the side railing. Patients neighbors are complaining of continued noise at this time as well. Dr clarke notified and increased oral Ativan dosage to 1mg PO Q4 PRN. previous orders will be discontinued
[2020-03-29] MEDS ORDERED: LORazepam 1 MG (ATIVAN) TAB PO PRN (13:30)
[2020-03-29] MEDS ORDERED: LORazepam 1 MG (ATIVAN) TAB ONE (13:36)
--- NOTE | 2020-03-29 13:46 | NUR ---
"RD ASSESSMENT PMHx: polysubstance abuse (ETOH, tobacco, methamphetamine); hepatitis C; HTN; cirrhosis; PT INTERACTION: Received dietary consult for MST score. Note pt has AMS, and is a poor historian. Note all diet information for consult is per [place] [facility] or per chart review. Haydee states current appetite appears poor. Note PO intake 100% x1meal, per chart review. Haydee states no issues with nausea, vomiting, constipation, or diarrhea that she is aware of. Note last BM was 03/29 and pt not currently on bowel regimen per chart review. Note recent 5# wt gain x4mon, per chart review. Per visual assessment, pt appears to be adequately nourished with a BMI of 37.3 (Obese class III for age). Given PO intake, wt hx, and visual assessment, pt does not meet criteria for malnutrition per ASPEN guidelines. ABNORMAL NUTRITION-RELATED LAB VALUES LOW: alb 1.8 HIGH: Cl 118; BUN 40; bili 4.0; AST 48 Est. kcal needs: 7152-7714 kcal | 15-18 kcal/kg Est. Pro needs: 92-111 g Pro | 1.0-1.2 g Pro/kg PES STATEMENT: Given current PO intake, no nutrition diagnosis at this time (NO-1.1) INTERVENTION: Continue with current diet order of Regular diet. Continue with current supplementation order of Ensure Enlive with meals TID, for increased kcal intake. Provides 350 kcal and 20 g Pro per serving. If avg PO intake is >75%, can DC supplementation order. Will continue to follow and reassess as pt needs, intake, and status change. Ruben Gamboa, MS RD LD"
[2020-03-29] MEDS ORDERED: HOLD METFORMIN - RECEIVED CONTRAST 20 ML VIAL IV SCH (14:15)
[2020-03-29] MEDS ORDERED: CATHETER FLUSH 10 ML SYR IV PRN (14:15)
[2020-03-29] MEDS ORDERED: NS 100 ML (IVPB) BAG IV ONE (14:15)
[2020-03-29] MEDS ORDERED: IOHEXOL 350 MG/ML 100 ML (OMNIPAQUE 350) VIAL IV ONE (14:15)
--- NOTE | 2020-03-29 15:24 | Diagnostic Imaging Report ---
INDICATION: Liver lesion, abnormal ultrasound. TECHNIQUE: CT abdomen obtained pre and post IV contrast with multiphase imaging. Auto Exposure Controls were utilized during the CT exam to meet ALARA standards for radiation dose reduction. FINDINGS: The visualized portions of the lung bases are clear. There were no pleural fluid collections. There is no free intraperitoneal air. The liver shows diffuse irregularity and nodular contour, compatible with cirrhosis. There is an enhancing lesion in the right lobe of the liver superiorly measuring about 2.9 x 3.2 cm. There is a hypodense lesion in the right lobe of the liver inferiorly measuring about 2.7 x 2.7 cm. There is a questionable ill-defined hypodense lesion of the caudate lobe as well. Given the setting of cirrhosis, the possibility of hepatocellular cancer should be excluded. The spleen is not appreciably enlarged. The adrenals and pancreas and kidneys appear normal. There is no sign of bowel obstruction. There are prominent varices in the left upper quadrant along the medial border of the stomach, extending to the GE junction, compatible with portal hypertension. There is a small amount of ascites present. IMPRESSION: 1. Findings compatible with cirrhosis of the liver. There are findings compatible with portal hypertension with extensive varices along the medial wall of the stomach and GE junction. There is a small amount of ascites. 2. There are lesions in the right lobe of the liver, as described above, suspicious for hepatocellular cancer given the history of cirrhosis. There is also a questionable hypodense lesion in the caudate lobe. Note that these lesions were not seen on previous study without contrast from 10/04/2018. Dictated by: Dictated on workstation # [id number]
[2020-03-29 15:36] VITALS: BP 112/64
[2020-03-29 20:30] VITALS: BP 103/55
[2020-03-29] MEDS: RIFAXIMIN 550 MG TABLET (XIFAXAN) PO SCH (20:34)
[2020-03-29 23:41] VITALS: BP 150/67
[2020-03-30 03:49] VITALS: BP 139/67
[2020-03-30 04:41] LABS: BASOPHILS # (AUTO) 0.1 10^3/uL (0.0-0.1); BASOPHILS % (AUTO) 1 % (0-10); EOSINOPHILS # (AUTO) 1.2 10^3/uL (0.0-0.3); EOSINOPHILS % (AUTO) 10 % (0-10); HEMATOCRIT 33 % (40-54); HEMOGLOBIN 10.9 g/dL (13.3-17.7); LYMPHOCYTES # (AUTO) 1.7 10^3/uL (1.0-4.0); LYMPHOCYTES % (AUTO) 15 % (12-44); MEAN CORPUSCULAR HEMOGLOBIN 34 pg (25-34); MEAN CORPUSCULAR HGB CONC 33 g/dL (32-36); MEAN CORPUSCULAR VOLUME 104 fL (80-99); MEAN PLATELET VOLUME 10.2 fL (9.0-12.2); MONOCYTES # (AUTO) 1.3 10^3/uL (0.0-1.0); MONOCYTES % (AUTO) 12 % (0-12); NEUTROPHILS # (AUTO) 6.7 10^3/uL (1.8-7.8); NEUTROPHILS % (AUTO) 59 % (42-75); PLATELET COUNT 78 10^3/uL (130-400); WHITE BLOOD COUNT 11.4 10^3/uL (4.3-11.0)
[2020-03-30 05:04] LABS: ALBUMIN 1.7 GM/DL (3.2-4.5); CHLORIDE 112 MMOL/L (98-107); POTASSIUM 3.4 MMOL/L (3.6-5.0); SODIUM 139 MMOL/L (135-145)
[2020-03-30 05:05] LABS: CALCIUM 8.1 MG/DL (8.5-10.1)
[2020-03-30 05:06] LABS: GLUCOSE 106 MG/DL (70-105); TOTAL PROTEIN 6.8 GM/DL (6.4-8.2)
[2020-03-30 05:08] LABS: BILIRUBIN,TOTAL 2.8 MG/DL (0.1-1.0); CARBON DIOXIDE 19 MMOL/L (21-32)
[2020-03-30 05:10] LABS: ALKALINE PHOSPHATASE 109 U/L (40-136); CREATININE SERUM 0.68 MG/DL (0.60-1.30); GFR ESTIMATED > 60
[2020-03-30 05:11] LABS: BUN/CREATININE RATIO 38
[2020-03-30 05:13] LABS: ALANINE AMINOTRANSFERASE 27 U/L (0-55)
[2020-03-30 08:00] VITALS: BP 126/71
[2020-03-30] MEDS: RIFAXIMIN 550 MG TABLET (XIFAXAN) PO SCH ×2 (08:09→20:49)
[2020-03-30] MEDS: LACTULOSE SYRUP 10GM/15ML (ENULOSE) 30ML UDC PO SCH ×3 (08:10→20:49)
[2020-03-30] MEDS ORDERED: CLOPIDOGREL 300 MG (PLAVIX) TABLET PO NR (10:00)
[2020-03-30] MEDS ORDERED: ASPIRIN 81 MG CHEW (CHILDREN'S ASA) PO NR (10:00)
[2020-03-30] MEDS ORDERED: ENOXAPARIN 100 MG/1 ML (LOVENOX) SYR SC NR (10:00)
[2020-03-30] MEDS: LEVOFLOXACIN 750 MG TAB (LEVAQUIN) PO SCH (10:32)
[2020-03-30] MEDS: inSUlin ASPART (NovoLOG) 1 UNIT/0.01 ML (CHARGE PER UNIT) SC SCH ×3 (11:28→20:58)
[2020-03-30 12:00] VITALS: BP 128/66
[2020-03-30] MEDS ORDERED: CHARCOAL/AQUEOUS 50 GM/240 ML BTL PO NR (12:00)
[2020-03-30] MEDS: PANTOPRAZOLE 40 MG (PROTONIX) VIAL IV SCH ×2 (12:09→20:49)
--- NOTE | 2020-03-30 12:29 | NUR ---
PATIENT DRANK APPROXIMATELY 1/4 OF THE ACTIVATED CHARCOAL OVER A 25 MINUTE SPAN. Addendum: 03/30/20 at 1232 by DAYSI GO RN PATIENT YELLING, CUSSING AND REFUSING TO DRINK MORE. PATIENT SWINGING HIS ARMS AT STAFF AT TIMES
--- NOTE | 2020-03-30 13:08 | Progress Note ---
Subjective Subjective/Events-last exam Pt continues to be confused, occasionally combative, but more alert. Drinking fluids well but not eating much. This morning he states "no" when asked if he has any concerns, but doesn't answer other questions other than with mumbling. Focused Exam Lactate Level 03/28/20 12:35: Lactic Acid Level 3.06*H 03/29/20 11:10: Lactic Acid Level 2.02*H 03/29/20 13:15: Lactic Acid Level 1.92 Objective Exam Last Set of Vital Signs Vital Signs Date Time Temp Pulse Resp B/P (MAP) Pulse Ox O2 Delivery O2 Flow Rate FiO2 03/30/20 12:28 124 03/30/20 08:00 96 Room Air 03/30/20 08:00 36.8 18 126/71 (89) Capillary Refill : Less Than 3 SecondsLess Than 3 Seconds I&O Intake and Output 03/30/20 00:00 Intake Total 4134 ml Output Total 1375 ml Balance 2759 ml Intake Oral 4134 ml Output Urine Total 1375 ml # Bowel Movements 3 General: Other (somnolent, awakens and opens eyes to name but does not follow further directions) Lungs: Clear to Auscultation Heart: Regular Rate Abdomen: Normal Bowel Sounds, Soft Extremities: Other (trace edema) Results/Procedures Lab Laboratory Tests 03/29/20 13:15: Lactic Acid Level 1.92 03/30/20 04:35: White Blood Count 11.4H, Red Blood Count 3.17L, Hemoglobin 10.9L, Hematocrit 33L , Mean Corpuscular Volume 104H, Mean Corpuscular Hemoglobin 34, Mean Corpuscular Hemoglobin Concent 33, Red Cell Distribution Width 15.9H, Platelet Count 78L, Mean Platelet Volume 10.2, Immature Granulocyte % (Auto) 3, Neutrophils (%) (Auto) 59, Lymphocytes (%) (Auto) 15, Monocytes (%) (Auto) 12, Eosinophils (%) (Auto) 10, Basophils (%) (Auto) 1, Neutrophils # (Auto) 6.7, Lymphocytes # (Auto) 1.7, Monocytes # (Auto) 1.3H, Eosinophils # (Auto) 1.2H, Basophils # (Auto) 0.1, Immature Granulocyte # (Auto) 0.4H, Sodium Level 139, Potassium Level 3.4L, Chloride Level 112H, Carbon Dioxide Level 19L, Anion Gap 8, Blood Urea Nitrogen 26H, Creatinine 0.68, Estimat Glomerular Filtration Rate > 60, BUN/Creatinine Ratio 38, Glucose Level 106H, Calcium Level 8.1L, Corrected Calcium 9.9, Total Bilirubin 2.8H, Aspartate Amino Transf (AST/SGOT) 51H, Alanine Aminotransferase (ALT/SGPT) 27, Alkaline Phosphatase 109, Total Protein 6.8, Albumin 1.7L 03/30/20 11:03: Glucometer 106 Microbiology 03/28/20 Blood Culture - Preliminary, Resulted No growth 03/28/20 Urine Culture - Preliminary, Resulted Klebsiella pneumoniae Escherichia coli Enterococcus faecalis Radiology CXR 03/[address] head 03/28 with chronic microvascular changes and volume loss Assessment/Plan Assessment/Plan (1) Sepsis Status: Acute Assessment & Plan: Tachycardic and with leukocytosis and elevated lactic acid on admit. Secondary to UTI, probable E coli and enterococcus on culture, treat with levofloxacin based on prior sensitivities. Qualifiers: Qualified Codes: A41.51 - Sepsis due to Escherichia coli [e. coli]; R65.20 - Severe sepsis without septic shock; K72.01 - Acute and subacute hepatic failure with coma (2) Urinary retention Status: Chronic Assessment & Plan: Intermittent cath at home, has history of not completing frequently enough and recurrent UTIs. Victor in place currently. (3) Urinary tract infection Status: Acute Assessment & Plan: See sepsis diagnosis Qualifiers: Qualified Codes: N30.00 - Acute cystitis without hematuria (4) Hepatic encephalopathy Status: Chronic Assessment & Plan: Per report was not taking lactulose at home, ammonia is elevated, resume lactulose and rifaxamin. (5) Hypertension Status: Chronic Qualifiers: Qualified Codes: I10 - Essential (primary) hypertension (6) Methamphetamine abuse Status: Chronic (7) History of alcohol abuse Status: Chronic (8) Hepatitis C virus infection Status: Chronic (9) Altered mental status Status: Acute Qualifiers: Qualified Codes: R41.82 - Altered mental status, unspecified (10) Anemia (11) Liver mass Status: Acute Assessment & Plan: New right lobe of liver 2 masses seen on US and suspicious for hepatocellular carcinoma on CT scan. Discussed with daughter and she is going to discuss with siblings as well and will look toward setting up family meeting as patient unable to provide wishes for goals of care at this time. (12) Thrombocytopenia Status: Chronic (13) Accidental medication error Status: Acute Assessment & Plan: 03/30 am erroneously ordered aspirin, plavix and 1 mg/kg enoxaparin that was intended for a different patient, and was given in error. Start PPI BID for GI protection, attempted activated charcoal, but he only drank about 1/4 of dose. Discussed with daughter on the phone and apologized and discussed plan for close monitoring and she expressed understanding. Qualifiers: Qualified Codes: T50.901A - Poisoning by unspecified drugs, medicaments and biological substances, accidental (unintentional), initial encounter (14) DVT prophylaxis Status: Acute Assessment & Plan: Planned enoxaparin prophylaxis yesterday but did not end up starting. Given therapeutic dose today, see above. Monitor closely. Clinical Quality Measures DVT/VTE Risk/Contraindication: Risk Factor Score Per Nursin RFS Level Per Nursing on Admit: 4+=Very High DONTE CASTANEDA MD Mar 30, 2020 13:08
[2020-03-30 16:14] VITALS: BP 95/51
[2020-03-30 19:27] VITALS: BP 116/62
[2020-03-30 23:38] VITALS: BP 128/58
[2020-03-31 03:42] VITALS: BP 120/61
[2020-03-31 05:24] LABS: MEAN PLATELET VOLUME 10.6 fL (9.0-12.2); WHITE BLOOD COUNT 8.5 10^3/uL (4.3-11.0)
[2020-03-31 05:30] LABS: ALBUMIN 1.6 GM/DL (3.2-4.5); CHLORIDE 108 MMOL/L (98-107); POTASSIUM 3.2 MMOL/L (3.6-5.0); SODIUM 137 MMOL/L (135-145)
[2020-03-31 05:31] LABS: CALCIUM 7.7 MG/DL (8.5-10.1)
[2020-03-31 05:32] LABS: GLUCOSE 108 MG/DL (70-105); TOTAL PROTEIN 6.2 GM/DL (6.4-8.2)
[2020-03-31 05:33] LABS: CARBON DIOXIDE 22 MMOL/L (21-32)
[2020-03-31 05:34] LABS: BILIRUBIN,TOTAL 2.2 MG/DL (0.1-1.0)
[2020-03-31 05:35] LABS: ALKALINE PHOSPHATASE 102 U/L (40-136)
[2020-03-31 05:36] LABS: CREATININE SERUM 0.73 MG/DL (0.60-1.30); GFR ESTIMATED > 60
[2020-03-31 05:37] LABS: BUN/CREATININE RATIO 29
[2020-03-31 05:39] LABS: ALANINE AMINOTRANSFERASE 28 U/L (0-55)
[2020-03-31] MEDS: inSUlin ASPART (NovoLOG) 1 UNIT/0.01 ML (CHARGE PER UNIT) SC SCH ×4 (05:49→20:19)
[2020-03-31] MEDS ORDERED: KCL 20 MEQ TAB (K-DUR) PO NR (07:45)
[2020-03-31 08:00] VITALS: BP 122/68
[2020-03-31] MEDS: RIFAXIMIN 550 MG TABLET (XIFAXAN) PO SCH ×2 (08:11→20:19)
[2020-03-31] MEDS: LACTULOSE SYRUP 10GM/15ML (ENULOSE) 30ML UDC PO SCH ×3 (08:11→20:19)
[2020-03-31] MEDS: PANTOPRAZOLE 40 MG (PROTONIX) VIAL IV SCH ×2 (08:12→20:19)
--- NOTE | 2020-03-31 09:59 | NUR ---
CM/SS: Attempted to visit with pt - pt remains a little confused and unable to have appropriate conversation with this worker at this time This worker will follow up.
[2020-03-31 11:42] VITALS: BP 150/76
--- NOTE | 2020-03-31 11:44 | Progress Note ---
Subjective Subjective/Events-last exam Afebrile, more alert today. Denies concerns. Able to answer most questions, reports he knows his liver is bad and reports that his daughter was going to try to donate part of his. He is surprised that he had methamphetamine in his urine and says he doesn't know where that could have come from. Focused Exam Lactate Level 03/28/20 12:35: Lactic Acid Level 3.06*H 03/29/20 11:10: Lactic Acid Level 2.02*H 03/29/20 13:15: Lactic Acid Level 1.92 Objective Exam Last Set of Vital Signs Vital Signs Date Time Temp Pulse Resp B/P (MAP) Pulse Ox O2 Delivery O2 Flow Rate FiO2 03/31/20 08:00 35.4 98 20 122/68 (86) 97 Room Air Capillary Refill : Less Than 3 SecondsLess Than 3 Seconds I&O Intake and Output 03/31/20 00:00 Intake Total 2622 ml Output Total 1100 ml Balance 1522 ml Intake Oral 2622 ml Output Urine Total 1100 ml General: Alert, No Acute Distress Lungs: Clear to Auscultation, Normal Air Movement Heart: Regular Rate, No Murmurs Abdomen: Normal Bowel Sounds, Soft Extremities: Other (trace edema) Neuro: Other (speech improved, still somewhat mumbling but easier to understand) Results/Procedures Lab Laboratory Tests 03/30/20 16:20: Glucometer 106 03/30/20 20:08: Glucometer 108 03/31/20 04:25: White Blood Count 8.5, Red Blood Count 2.92L, Hemoglobin 10.0L, Hematocrit 30L, Mean Corpuscular Volume 103H, Mean Corpuscular Hemoglobin 34, Mean Corpuscular Hemoglobin Concent 33, Red Cell Distribution Width 15.6H, Platelet Count 85L, Mean Platelet Volume 10.6, Sodium Level 137, Potassium Level 3.2L, Chloride Level 108H, Carbon Dioxide Level 22, Anion Gap 7, Blood Urea Nitrogen 21H, Creatinine 0.73, Estimat Glomerular Filtration Rate > 60, BUN/Creatinine Ratio 29, Glucose Level 108H, Calcium Level 7.7L, Corrected Calcium 9.6, Total Bilirubin 2.2H, Aspartate Amino Transf (AST/SGOT) 56H, Alanine Aminotransferase (ALT/SGPT) 28, Alkaline Phosphatase 102, Total Protein 6.2L, Albumin 1.6L 03/31/20 11:06: Glucometer 103 Microbiology 03/28/20 Blood Culture - Preliminary, Resulted No growth 03/28/20 Urine Culture - Preliminary, Resulted Klebsiella pneumoniae Escherichia coli Enterococcus faecalis Radiology CXR 03/[address] head 03/28 with chronic microvascular changes and volume loss Assessment/Plan Assessment/Plan (1) Sepsis Status: Acute Assessment & Plan: Tachycardic and with leukocytosis and elevated lactic acid on admit. Secondary to UTI, probable E coli and enterococcus on culture, treat with levofloxacin based on prior sensitivities. Qualifiers: Qualified Codes: A41.51 - Sepsis due to Escherichia coli [e. coli]; R65.20 - Severe sepsis without septic shock; K72.01 - Acute and subacute hepatic failure with coma (2) Urinary retention Status: Chronic Assessment & Plan: Intermittent cath at home, has history of not completing frequently enough and recurrent UTIs. Victor in place currently. (3) Urinary tract infection Status: Acute Assessment & Plan: See sepsis diagnosis Qualifiers: Qualified Codes: N30.00 - Acute cystitis without hematuria (4) Hepatic encephalopathy Status: Chronic Assessment & Plan: Per report was not taking lactulose at home, ammonia is elevated, resume lactulose and rifaxamin. (5) Hypertension Status: Chronic Qualifiers: Qualified Codes: I10 - Essential (primary) hypertension (6) Methamphetamine abuse Status: Chronic (7) History of alcohol abuse Status: Chronic (8) Hepatitis C virus infection Status: Chronic (9) Altered mental status Status: Acute Qualifiers: Qualified Codes: R41.82 - Altered mental status, unspecified (10) Anemia Status: Chronic (11) Liver mass Status: Acute Assessment & Plan: New right lobe of liver 2 masses seen on US and suspicious for hepatocellular carcinoma on CT scan. Discussed with daughter and she is going to discuss with siblings as well and will look toward setting up family meeting as patient unable to provide wishes for goals of care at this time. 03/31 discussed with patient today, unclear how much he understands at this point, discussed with daughter again, she suspects they will want to proceed with biopsy, will discuss with patient again tomorrow. (12) Thrombocytopenia Status: Chronic (13) Accidental medication error Status: Acute Assessment & Plan: 03/30 am erroneously ordered aspirin, plavix and 1 mg/kg enoxaparin that was intended for a different patient, and was given in error. S tart PPI BID for GI protection, attempted activated charcoal, but he only drank about 1/4 of dose. Discussed with daughter on the phone and apologized and discussed plan for close monitoring and she expressed understanding. 03/31- no evidence of bleeding, platelets and hemoglobin stable, continue to monitor closely. Qualifiers: Qualified Codes: T50.901A - Poisoning by unspecified drugs, medicaments and biological substances, accidental (unintentional), initial encounter (14) DVT prophylaxis Status: Acute Assessment & Plan: Planned enoxaparin prophylaxis yesterday but did not end up starting. Given therapeutic dose 03/31, see above. Monitor closely. Clinical Quality Measures DVT/VTE Risk/Contraindication: Risk Factor Score Per Nursin RFS Level Per Nursing on Admit: 4+=Very High DONTE CASTANEDA MD Mar 31, 2020 11:44
[2020-03-31] MEDS: LEVOFLOXACIN 750 MG TAB (LEVAQUIN) PO SCH (12:20)
--- NOTE | 2020-03-31 14:53 | Occupational Therapy Eval ---
OT Evaluation-General/PLF Medical Diagnosis Admission Date Mar 28, 2020 at 15:25 Medical Diagnosis: hepatic encephalopathy/UTI Onset Date: Mar 28, 2020 Therapy Diagnosis Therapy Diagnosis: weakness, decreased ADL status Height/Weight Height (Feet): 5 Height (Inches): 7.00 Weight (Pounds): 210 Weight (Ounces): 0.0 Precautions Precautions/Isolations: Fall Prevention, Standard Precautions Referral Physician: Kaleb Referral Reason: Evaluation/Treatment Medical History Pertinent Medical History: Alcoholism, HTN, Smoking Additional Medical History meth use Current History pt to ED with somnolence and confusion, found to have sepsis and UTI Reviewed History: Yes Social History unknown ADL-Prior Level of Function SCALE: Activities may be completed with or without assistive devices. 7-Pttixrakls-ilyfrtu completes the activity by him/herself with no assistance from a helper. 5-Set-up or Clean-up Assistance-helper sets up or cleans up; patient completes activity. [place] assists only prior to or following the activity. 4-Supervision or Touching Assistance-helper provides verbal cues and/or touching/steadying and/or contact guard assistance as patient completes activity. Assistance may be provided throughout the activity or intermittently. 3-Partial/Moderate Assistance-helper does LESS THAN HALF the effort. [place] lifts, holds or supports trunk or limbs, but provides less than half the effort. 2-Substantial/Maximal Assistance-helper does MORE THAN HALF the effort. [place] lifts or holds trunk or limbs and provides more than half the effort. 2-Zwvnkxypt-qstbct does ALL the effort. Patient does none of the effort to complete the activity. Or, the assistance of 2 or more helpers is required for the patient to complete the activity. If activity was not attempted, code reason: 7-Patient Refused. 9-Not Applicable-not attempted and the patient did not perform the activity before the current illness, exacerbation or injury. 10-Not Attempted due to Environmental Limitations-(lack of equipment, weather restraints, etc.). 88-Not Attempted due to Medical Conditions or Safety Concerns. ADL PLOF Comments Pt's PLOF is unknown. Pt indicates he lives alone, but then mentions something about a girlfriend. Pt unable to provide details about PLOF at this time. Self Care: Unknown Functional Cognition: Unknown OT Current Status Subjective Pt laying in bed, asking if his daughter is her. OT introduced self to pt, noting pt's lunch tray sitting to the side untouched. Mental Status/Objective Patient Orientation: Person, Confused Attachments: Victor Catheter Current Dentures/Partials: Yes Upper Extremity ROM PROM LUE to approx 90 degrees RUE AROM to approx 90 degrees Upper Extremity Strength decreased ADL-Treatment Eating (QC): 3 (Pt required min a with lunch) Other Treatments Pt laying in bed asking about his daughter. OT introduces self and encourages pt to eat lunch. Pt unaware of lunch tray, asking for ice cream. OT hands pt pudding and orients him to it, pt insists it is oatmeal in the dish, but eats some anyways. Pt scooted towards HOB with assist x2 for proper positioning, then OT sets up lunch tray in front of pt. Pt able to supervisor picking crew beef with his hand and bring to mouth, chewing food with increased time due to not having dentures. Pt asks for Sprite, OT provides pt with drink after checking with nurse. PT arrives to assist pt to chair, max A supine to sit transfer and max A bed to chair. OT heated pt's lunch up and set up lunch tray for pt. Post OT Tx, pt seated in recliner, PT present, all needs met. Education OT Patient Education: Correct positioning, Modified ADL techniques, Progress toward Goal/Update tx plan, Purpose of tx/functional activities Teaching Recipient: Patient Teaching Methods: Discussion Response to Teaching: Verbalize Understanding OT Wood Cutter Goals Wood Cutter Goals Time Frame: Apr 08, 2020 Eating (QC): 6 Oral Hygiene (QC): 6 Toileting Hygiene (QC): 4 Shower/Bathe Self (QC): 4 Upper Body Dressing (QC): 5 Lower Body Dressing (QC): 4 On/Off Footwear (QC): 4 Additional Goals: 1-Demonstrate ADL Tasks, 2-Verbalize Understanding, 3- ImproveStrength/Latha 1=Demonstrate adherence to instructed precautions during ADL tasks. 2=Patient will verbalize/demonstrate understanding of assistive devices/modifications for ADL. 3=Patient will improve strength/tolerance for activity to enable patient to perform ADL's. OT Education/Plan Problem List/Assessment Assessment: Decreased Activ Tolerance, Decreased Safety Aware, Decreased UE Strength, Impaired Bed Mobility, Impaired Cognition, Impaired Funct Balance, Impaired I ADL's, Impaired Self-Care Skills, Restricted Funct UE ROM Discharge Recommendations Plan/Recommendations: Continue POC Treatment Plan/Plan of Care Treatment,Training & Education: Yes Patient would benefit from OT for education, treatment and training to promote independence in ADL's, mobility, safety and/or upper extremity function for ADL's. Plan of Care: ADL Retraining, Functional Mobility, UE Funct Exercise/Act Treatment Duration: Apr 08, 2020 Frequency: 5 times per week Estimated Hrs Per Day: .25 hour per day Rehab Potential: Good Time/GCodes Start Time: 14:09 Stop Time: 14:35 Total Time Billed (hr/min): 26 Billed Treatment Time 1, EVM (10'), ADL (16') JUANA JEAN OT Mar 31, 2020 14:53
--- NOTE | 2020-03-31 15:00 | Physician Query Clarification ---
"Physician Query-General Query to Physician: The medical record reflects the following clinical scenario: History/Risk factors: Chronic Hepatic failure, New liver mass Clinical Findings: Somnolence, confusion on 03/29, Ammonia 87, more alert 03/31 Treatment: Lactulose, rifaximin Question: Do you agree with the impression of Acute and subacute hepatic failure with coma per Dr. Padilla? If you agree, please document in Progress Notes or Discharge Summary. 1. Yes; will document Acute and subacute hepatic failure with coma diagnosis/condition in the Progress Notes 2. No; will continue to document Hepatic encephalopathy in the Progress Notes 3. Other; will document explanation of clinical findings 4. Clinically undetermined; no explanation for clinical findings Please remember a lack of response to the above will prompt a phone page by [place] DELGADO/coding staff In responding to this query, please exercise your independent professional judgment. The purpose of this communication is to more accurately reflect the complexity of your patients condition. The fact that a question is asked does not imply that any particular answer is desired or expected. Thank you for timely response to this clarification. Jazmin Ng, MSN, RN RN Specialist-Clinical Doc Improvement CD -Health Info Mgmt Operations [address] [facility] t: [phone] | f: [phone] If you are unable to reach me at my extension, I may be working from home. Please contact me at [phone] PHYSICIAN RESPONSE: Based on the clinical findings in the record, please respond to the query above on this document as an addendum. Physician Response: Physician Response 2 If you have questions please contact: [place]inell Tester: Ext: Thank you for your time and cooperation. Clinical Pipe Stem Sawyer/Brinell Tester This is a permanent part of the medical record JAZMIN NG Mar 31, 2020 15:00 DONTE CASTANEDA MD Apr 01, 2020 14:17"
--- NOTE | 2020-03-31 15:13 | Physical Therapy Evaluation ---
PT Evaluation-General Medical Diagnosis Admission Date Mar 28, 2020 at 15:25 Medical Diagnosis: hepatic encephalopathy/UTI Onset Date: Mar 28, 2020 Therapy Diagnosis Therapy Diagnosis: generalized weakness/debility Height/Weight Height (Feet): 5 Height (Inches): 7.00 Weight (Pounds): 210 Weight (Ounces): 0.0 Precautions Precautions/Isolations: Fall Prevention, Standard Precautions Referral Physician: Kaleb Reason for Referral: Evaluation/Treatment Medical History Pertinent Medical History: Alcoholism, HTN, Smoking Additional Medical History meth use Current History EMS secondary to AMS per caregiver report/in bed x 4-5 days not feeling well. Reviewed History: Yes Prior Prior Level of Function SCALE: Activities may be completed with or without assistive devices. 1-Wqxzhxcpqy-chqdtit completes the activity by him/herself with no assistance from a helper. 5-Set-up or Clean-up Assistance-helper sets up or cleans up; patient completes activity. [place] assists only prior to or following the activity. 4-Supervision or Touching Assistance-helper provides verbal cues and/or touching/steadying and/or contact guard assistance as patient completes activity. Assistance may be provided throughout the activity or intermittently. 3-Partial/Moderate Assistance-helper does LESS THAN HALF the effort. [place] lifts, holds or supports trunk or limbs, but provides less than half the effort. 2-Substantial/Maximal Assistance-helper does MORE THAN HALF the effort. [place] lifts or holds trunk or limbs and provides more than half the effort. 2-Spwtfddwz-xwtwmg does ALL the effort. Patient does none of the effort to complete the activity. Or, the assistance of 2 or more helpers is required for the patient to complete the activity. If activity was not attempted, code reason: 7-Patient Refused. 9-Not Applicable-not attempted and the patient did not perform the activity before the current illness, exacerbation or injury. 10-Not Attempted due to Environmental Limitations-(lack of equipment, weather restraints, etc.). 88-Not Attempted due to Medical Conditions or Safety Concerns. Bed Mobility: 5 Transfers (B,C,W/C): 5 Gait: 5 Indoor Mobility (Ambulation): Needed Some Help PT Evaluation-Current Subjective Patient is very confused and requires continuous redirection. Objective Patient Orientation: Confused Attachments: Victor Catheter ROM/Strength ROM Lower Extremities bilateral LE WFL Strength Lower Extremities 3+/5 grossly bilateral LE (unable to formally test due to confusion and inab ility to follow direction) Integumentary/Posture Integumentary refer to nursing notes Bowel Incontinence: Yes Bladder Incontinence: Victor Cath Posture WFL Neuromuscular (Tone, Coordination, Reflexes) diminished coordination due to weakness/debility Sensory Vision: Functional Hearing: Functional Transfers Lying to Sitting/Side of Bed(Q: 2 Sit to Stand (QC): 2 Chair/Pjj-kt-Ajoer Xfer(QC): 2 Gait Does the Patient Walk?: Yes Mode of Locomotion: Walk Anticipated Mode of Locomotion: Walk Walk 10 feet (QC): 2 Walk 50 ft with 2 Turns(QC): 88 Walk 150 ft (QC): 88 Gait Assistive Device: FWW Comments/Gait Description Patient very insistent on sitting in recliner for lunch (chair alarm in place and activated) Balance Sitting Static: Fair Sitting Dynamic: Fair Standing Static: Fair Standing Dynamic: Fair Assessment/Needs 65 y.o. male, will benefit from skilled PT to address functional strength and mobility to improve current LOF to safely return to home with caregiver at maximum LOF. Rehab Potential: Guarded PT Correction Goals Brush Polisher Goals PT Correction Goals Time Frame: Apr 09, 2020 Roll Left & Right (QC): 5 Sit to Lying (QC): 5 Lying-Sitting on Side/Bed(QC): 5 Sit to Stand (QC): 5 Chair/Fqa-nv-Qibsy Xfer(QC): 5 Toilet Transfer (QC): 5 Does the Patient Walk: Yes Walk 10 feet (QC): 5 Walk 50ft with 2 Turns (QC): 5 Walk 150 ft (QC): 5 PT Plan Problem List Problem List: Activity Tolerance, Functional Strength, Balance, Gait, Transfer, Bed Mobility Treatment/Plan Treatment Plan: Continue Plan of Care Treatment Plan: Bed Mobility, Education, Functional Activity Latha, Functional Strength, Gait, Safety, Therapeutic Exercise, Transfers Treatment Duration: Apr 09, 2020 Frequency: 6 times per week Estimated Hrs Per Day: .25 hour per day Time/GCodes Time In: 1425 Time Out: 1440 Total Billed Treatment Time: 15 Total Billed Treatment 1 visit EVMod 15 min EVELINA BALLARD PT Mar 31, 2020 15:13
[2020-03-31 16:00] VITALS: BP 119/64
[2020-03-31 19:31] VITALS: BP 134/53
[2020-03-31 23:43] VITALS: BP 118/65
[2020-04-01 03:38] VITALS: BP 144/65
[2020-04-01 06:30] LABS: HEMOGLOBIN 9.6 g/dL (13.3-17.7); MEAN PLATELET VOLUME 10.5 fL (9.0-12.2); WHITE BLOOD COUNT 8.4 10^3/uL (4.3-11.0)
[2020-04-01 06:49] LABS: ALANINE AMINOTRANSFERASE 30 U/L (0-55); ALBUMIN 1.7 GM/DL (3.2-4.5); ALKALINE PHOSPHATASE 128 U/L (40-136); BILIRUBIN,TOTAL 1.9 MG/DL (0.1-1.0); BUN/CREATININE RATIO 21; CALCIUM 7.8 MG/DL (8.5-10.1); CARBON DIOXIDE 22 MMOL/L (21-32); CHLORIDE 108 MMOL/L (98-107); CREATININE SERUM 0.71 MG/DL (0.60-1.30); GFR ESTIMATED > 60; GLUCOSE 81 MG/DL (70-105); POTASSIUM 3.6 MMOL/L (3.6-5.0); SODIUM 136 MMOL/L (135-145); TOTAL PROTEIN 6.3 GM/DL (6.4-8.2)
[2020-04-01] MEDS: inSUlin ASPART (NovoLOG) 1 UNIT/0.01 ML (CHARGE PER UNIT) SC SCH ×2 (06:51→11:02)
[2020-04-01 08:00] VITALS: BP 143/77
[2020-04-01] MEDS: RIFAXIMIN 550 MG TABLET (XIFAXAN) PO SCH (08:35)
[2020-04-01] MEDS: LACTULOSE SYRUP 10GM/15ML (ENULOSE) 30ML UDC PO SCH ×2 (08:35→13:17)
[2020-04-01] MEDS: PANTOPRAZOLE 40 MG (PROTONIX) VIAL IV SCH (08:35)
[2020-04-01] MEDS: LEVOFLOXACIN 750 MG TAB (LEVAQUIN) PO SCH (11:09)
[2020-04-01 12:00] VITALS: BP 153/77
[2020-04-01] MEDS ORDERED: AMOX-358 PO (12:26)
[2020-04-01] MEDS ORDERED: RIFA550T PO (12:26)
[2020-04-01] MEDS ORDERED: TMSL.4C PO (12:26)
[2020-04-01] MEDS ORDERED: LACT10SO PO (12:26)
[2020-04-01] MEDS ORDERED: PANT40TA2 PO (12:26)
--- NOTE | 2020-04-01 12:45 | Discharge Summary ---
Discharge Summary Instructions for Patient Assessment/Instructions Follow up with Everett Umanzor on 04/07 at 1 pm. Physician to follow Patient: Everett Umanzor, JOHN Discharge Diet for Home: Regular Diet Hospital Course Date of Admission: Mar 28, 2020 at 15:25 Admission Diagnosis : Altered mental status Urinary tract infection Urinary retention Family Physician/Provider[facility] Date of Discharge: 04/01/20 Discharge Diagnosis: Liver mass Cirrhosis Hep C Hepatic encephalopathy Urinary tract infection Chronic urinary retention Hospital Course: Pt was brought to ER due to severe confusion/altered mental status and found to have urinary tract infection and elevated ammonia. Treated with antibiotics and lactulose and rifaximin with good improvement. He requires TID self-cath which his girlfriend does, but has not been getting done regularly and he also has not been taking lactulose or rifaximin as prescribed. He was recommended to have more help at last hospitalization and declined. He was willing to have home health at d/c this stay and his daughter planned to help as well. He was noted to have methamphetamine in his urine on admit, and he states he does not recall using but does not think he has used in a long time. He did also have a medication error occur inpatient and was given plavix, aspirin and enoxaparin on 03/30 that was meant to be ordered for another patient. This was discussed with him and his daughter and apologized for this mistake, and he was placed on PPI for GI protection. During stay he also had a CT of his abdomen done to follow up on abnormality on liver ultrasound and was found to have 2 right liver masses. He and family indicated that he would like to proceed with diagnostic testing, he will need set up for outpatient biopsy. Labs and Pending Lab Test: Laboratory Tests 03/31/20 16:36: Glucometer 95 03/31/20 20:00: Glucometer 109 04/01/20 06:12: White Blood Count 8.4, Red Blood Count 2.79L, Hemoglobin 9.6L, Hematocrit 28L, Mean Corpuscular Volume 102H, Mean Corpuscular Hemoglobin 34, Mean Corpuscular Hemoglobin Concent 34, Red Cell Distribution Width 15.9H, Platelet Count 86L, Mean Platelet Volume 10.5, Sodium Level 136, Potassium Level 3.6, Chloride Level 108H, Carbon Dioxide Level 22, Anion Gap 6, Blood Urea Nitrogen 15, Creatinine 0.71, Estimat Glomerular Filtration Rate > 60, BUN/Creatinine Ratio 21, Glucose Level 81, Calcium Level 7.8L, Corrected Calcium 9.6, Total Bilirubin 1.9H, Aspartate Amino Transf (AST/SGOT) 69H, Alanine Aminotransferase (ALT/SGPT) 30, Alkaline Phosphatase 128, Total Protein 6.3L, Albumin 1.7L 04/01/20 10:59: Glucometer 106 Microbiology 03/28/20 Blood Culture - Preliminary, Resulted No growth 03/28/20 Urine Culture - Final, Complete Klebsiella pneumoniae Escherichia coli Enterococcus faecalis Home Meds Active Reported Milk Thistle (Milk Thistle Seed Extract) 175 Mg Tablet 175 Mg PO DAILY Vitamin D3 (Cholecalciferol (Vitamin D3)) 25 Mcg Tablet 25 Mcg PO DAILY Vitamin C (Ascorbate Calcium) 500 Mg Tablet 500 Mg PO DAILY Lactulose 10 Gm/15 Ml Solution 30 Ml PO TID PRN Xifaxan (Rifaximin) 200 Mg Tablet 200 Mg PO BID LAST FILLED 10-01-2019 #180 Centrum Silver Tablet (Multivit-Min/FA/Lycopene/Lut) 1 Each Tablet 1 Tab PO DAILY Patient Allergies: Coded Allergies: No Allergy Information Available (Unverified , 03/28/20) No Known Drug Allergies (Unverified , 03/28/20) Height (Feet): 5 Height (Inches): 7.00 Weight (Pounds): 210 Weight (Ounces): 0.0 Home Health Need/Face to Face Date of Face to Face: Apr 01, 2020 Clinical Findings: Generalized weakness and fatigue, Instability, Other-list in note (chronic encephalopathy) I have seen Pt xkjl-re-voic: Yes Discharged To: Home Diagnosis/Conditions: Urinary tract infection Urinary retention Hepatitis C Cirrhosis Liver mass Hepatic encephalopathy Patient is Homebound due to: CognItive deficits, Suki fall risk due to instabilty Homebound Status Due to the above stated illness, injury or surgical procedure (medical condition or diagnosis) and associated clinical findings, the patient is homebo und because of his/her inability to leave home except with aid of a supportive device and/or person AND leaving the home requires a considerable and taxing effort or is medically contraindicated. Pt req the following assistanc: Walker Home Health Nursing Orders Home Health Services Order: Nursing Services, Physical Therapy-Evaluate & Treat Home Health Infusion Therapy Line Start Date: Mar 28, 2020 Certify Stmt I certify that this patient is under my care and that I, a nurse practitioner or a physician; a front desk assistant working with me, had a face to face encounter that - meets the physician face to face encounter requirements with this patient as dated. Discharge Physical Exam General: Alert, No Acute Distress Lungs: Clear to Auscultation, Normal Air Movement Heart: Regular Rate, No Murmurs Extremities: No Edema Neuro: Normal Speech Psych/Mental Status: Mental Status NL DONTE CASTANEDA MD Apr 01, 2020 12:32
--- NOTE | 2020-04-01 13:17 | NUR ---
KIRBY FINALIZED DISCHARGE PLAN: Patient is dismissing to home today with new Home Health Care. He has selected [facility] as his [facility] provider. Referral sent to them for Nursing to do family teaching for straight cath and for Physical Therapy. [facility] indicate that they will be able to see him this weekend. I spoke with Miley at [facility] and she took the daughter Medina's phone number of [phone] and [facility] will call her when they are going out to see [place] so that Medina can be there and learn to straight cath the patient. Addendum: 04/01/20 at 1502 by ANKUSH LOREDO RN also ordered FWW that patient's daughter will package pick up for the patient. No further needs or requests at this time.
--- NOTE | 2020-04-01 14:25 | NUR ---
REPORT CALLED TO DAUGHTER, VERBALIZED UNDERSTANDING OF DISCHARGE INSTRUCTION, FOLLOW UP APPOINTMENT ABD NEW PRESCRIPTIONS, PATTEN CATH DC WITHOUT DIFFICULTY, IV SITE DC IN LEFT ARM AND LEFT FOREARM, SITE WITHOUT DIFFICULTY.
--- NOTE | 2020-04-01 14:55 | Occupational Ther Daily Note ---
OT Current Status-Daily Note Subjective Pt dozing in bed, woke to name. Pt agrees to therapy. Pt to discharge home today. Mental Status/Objective Patient Orientation: Person ADL-Treatment Therapy Code Descriptions/Definitions Functional Clark Measure: 0=Not Assessed/NA 4=Minimal Assistance 1=Total Assistance 5=Supervision or Setup 2=Maximal Assistance 6=Modified Clark 3=Moderate Assistance 7=Complete IndependenceSCALE: Activities may be completed with or without assistive devices. 7-Wrjuklbzmx-puhbdxj completes the activity by him/herself with no assistance from a helper. 5-Set-up or Clean-up Assistance-helper sets up or cleans up; patient completes activity. Butler assists only prior to or following the activity. 4-Supervision or Touching Assistance-helper provides verbal cues and/or touching/steadying and/or contact guard assistance as patient completes activity. Assistance may be provided throughout the activity or intermittently. 3-Partial/Moderate Assistance-helper does LESS THAN HALF the effort. Butler lifts, holds or supports trunk or limbs, but provides less than half the effort. 2-Substantial/Maximal Assistance-helper does MORE THAN HALF the effort. Butler lifts or holds trunk or limbs and provides more than half the effort. 7-Hthvxutxr-dtytio does ALL the effort. Patient does none of the effort to complete the activity. Or, the assistance of 2 or more helpers is required for the patient to complete the activity. If activity was not attempted, code reason: 7-Patient Refused. 9-Not Applicable-not attempted and the patient did not perform the activity before the current illness, exacerbation or injury. 10-Not Attempted due to Environmental Limitations-(lack of equipment, weather restraints, etc.). 88-Not Attempted due to Medical Conditions or Safety Concerns. Other Treatment Min A for supine to EOB. Verbal and physical cues to manipulate FWW when ambulating. Pt has scissoring gait, with verbal cues pt able to correct. Pt required assist to lift feet up in bed. After session, pt lying in bed with call light/phone in reach. Safety measures in place. All needs met in room. 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 2=Patient will verbalize/demonstrate understanding of assistive devices/modifications for ADL. 3=Patient will improve strength/tolerance for activity to enable patient to perform ADL's. OT Education/Plan Problem List/Assessment Assessment: Decreased Activ Tolerance, Decreased Safety Aware, Impaired Cognition, Impaired Self-Care Skills Discharge Recommendations Plan/Recommendations: Continue POC Treatment Plan/Plan of Care Patient would benefit from OT for education, treatment and training to promote independence in ADL's, mobility, safety and/or upper extremity function for ADL's. Plan of Care: ADL Retraining, Functional Mobility, UE Funct Exercise/Act Treatment Duration: Apr 08, 2020 Frequency: 5 times per week Estimated Hrs Per Day: .25 hour per day Rehab Potential: Good Time/GCodes Start Time: 14:22 Stop Time: 14:42 Total Time Billed (hr/min): 20 Billed Treatment Time 1 visit-FA 1 (20 min) OLIVER DOMINGUEZ Apr 01, 2020 14:55
[2020-04-01 16:10] VITALS: BP 153/77
[2020-04-01 16:22] VITALS: BP 91/47
== END 2020-04-01 16:10 | disposition home health service (06) | DRG 872 ==
LOC: EDUNIT# 12:08 → ER FS 12:09 → 4TH 15:25
PROVIDERS: ADMIT Family Medicine; ATTEND Family Medicine
DX: A41.51 Sepsis due to Escherichia coli [E. coli] (principal); N39.0 Urinary tract infection, site not specified; A41.81 Sepsis due to Enterococcus; R65.20 Severe sepsis without septic shock; K72.90 Hepatic failure, unspecified without coma; B18.2 Chronic viral hepatitis C; K74.60 Unspecified cirrhosis of liver; R16.1 Splenomegaly, not elsewhere classified; F10.10 Alcohol abuse, uncomplicated; F15.10 Other stimulant abuse, uncomplicated; I10 Essential (primary) hypertension; J30.2 Other seasonal allergic rhinitis; F17.210 Nicotine dependence, cigarettes, uncomplicated; R33.9 Retention of urine, unspecified; D64.9 Anemia, unspecified; R16.0 Hepatomegaly, not elsewhere classified; D69.6 Thrombocytopenia, unspecified; T39.011A Poisoning by aspirin, accidental (unintentional), initial encounter; T45.521A Poisoning by antithrombotic drugs, accidental (unintentional), initial encounter; T45.511A Poisoning by anticoagulants, accidental (unintentional), initial encounter
CPT/HCPCS: 36415; 70450; 71045; 74170; 76705; 80053; 80306; 80320; 81000; 82140; 82962; 83605; 83690; 83735; 83880; 84484; 85007; 85025; 85027; 85610; 85730; 87040; 87077; 87088; 87186; 93005

== ENCOUNTER 2020-06-06 12:12 | Inpatient (IN) | payer MEDICARE, MEDICAID ==
[~2020-06-06] VITALS: Ht 172.7 cm; Wt 100.8 kg
[~2020-06-06 12:12] MED LIST changes: +AMOX-358 PO; +ASCO-262 PO; +CHOL10002 PO; -CYAN500T62 PO; +CYAN500T8 PO; +LACT10SO PO; +MILK175T2 PO; +NF-RIFA200 PO; +PANT40TA2 PO
[2020-06-06] MEDS ORDERED: KETOROLAC 30 MG/ML VIAL IVP ONE (12:45)
[2020-06-06 12:51] LABS: HEMOGLOBIN 9.5 G/DL (13.3-17.7); WHITE BLOOD COUNT 7.6 10^3/uL (4.3-11.0)
[2020-06-06 12:52] LABS: HEMATOCRIT 28 % (40-54); LYMPHOCYTES % (AUTO) 22 % (12-44); MEAN CORPUSCULAR HEMOGLOBIN 35 PG (25-34); MEAN CORPUSCULAR HGB CONC 34 G/DL (32-36); MEAN CORPUSCULAR VOLUME 104 FL (80-99); MEAN PLATELET VOLUME 10.9 FL (7.4-10.4); MONOCYTES % (AUTO) 14 % (0-12); NEUTROPHILS % (AUTO) 53 % (42-75); PLATELET COUNT 87 10^3/uL (130-400)
[2020-06-06 12:53] LABS: BASOPHILS # (AUTO) 0.1 10^3/uL (0.0-0.1); BASOPHILS % (AUTO) 1 % (0-10); EOSINOPHILS # (AUTO) 0.7 10^3/uL (0.0-0.3); EOSINOPHILS % (AUTO) 10 % (0-10); LYMPHOCYTES # (AUTO) 1.7 X 10^3 (1.0-4.0); MONOCYTES # (AUTO) 1.1 X 10^3 (0.0-1.0)
[2020-06-06 13:42] LABS: BILIRUBIN,URINE 1+ (NEGATIVE); CLARITY,URINE CLOUDY; COLOR,URINE BROWN; GLUCOSE, URINE (UA) NEGATIVE (NEGATIVE); KETONES,URINE NEGATIVE (NEGATIVE); LEUKOCYTE ESTERASE ,URINE TRACE (NEGATIVE); NITRITE,URINE POSITIVE (NEGATIVE); PH,URINE 5.5 (5-9); PROTEIN,URINE NEGATIVE (NEGATIVE)
[2020-06-06 13:43] LABS: BACTERIA,URINE LARGE /HPF; RBC,URINE 25-50 /HPF; SQUAMOUS EPITHELIAL CELL,UR 0-2 /HPF; WBC,URINE 0-2 /HPF
--- NOTE | 2020-06-06 13:43 | Diagnostic Imaging Report ---
PROCEDURE: CT head and CT cervical spine without contrast. TECHNIQUE: Multiple contiguous axial images were obtained through the brain and cervical spine without the use of intravenous contrast. Sagittal and coronal reformations through the cervical spine were then performed. Auto Exposure Controls were utilized during the CT exam to meet ALARA standards for radiation dose reduction. INDICATION: Recurrent falls. Weakness. COMPARISON: 03/28/2020. FINDINGS: CT HEAD: No large acute territorial ischemia, mass, or hemorrhage. No midline shift or mass effect. Decreased attenuation is seen in the periventricular and subcortical white matter. The ventricles and cortical sulci are prominent. The basilar cisterns are patent and unremarkable. The calvarium is intact. Retained secretions are visualized in the left sphenoid sinus. The mastoid air cells are clear. CT CERVICAL SPINE: No acute fracture or dislocation is seen in the cervical spine. No focal osseous lesions. Reversal of the normal lordotic curvature of the cervical spine is seen centered at the C5-C6 level. Vertebral body heights are well-maintained. The craniocervical junction is well-maintained. Moderate degenerative changes are seen in the cervical spine with disc osteophyte complexes and uncovertebral arthropathy. Soft tissues of the neck are unremarkable. IMPRESSION: 1. No hemorrhage or focal intra-axial mass. No CT evidence of large acute territorial ischemia. 2. No acute fracture or dislocation in the cervical spine. 3. Generalized parenchymal volume loss with chronic microvascular disease. 4. Findings most likely representing chronic sinusitis in the left sphenoid sinus. Dictated by: Dictated on workstation # [id number]
[2020-06-06 13:50] LABS: CARBON DIOXIDE 23 MMOL/L (21-32); CHLORIDE 112 MMOL/L (98-107); POTASSIUM 3.5 MMOL/L (3.6-5.0); SODIUM 142 MMOL/L (135-145)
[2020-06-06 13:51] LABS: ALANINE AMINOTRANSFERASE 36 U/L (0-55); ALKALINE PHOSPHATASE 145 U/L (40-136); BILIRUBIN,TOTAL 3.1 MG/DL (0.1-1.0); BUN/CREATININE RATIO 25; CALCIUM 8.2 MG/DL (8.5-10.1); CREATININE SERUM 0.75 MG/DL (0.60-1.30); GFR ESTIMATED > 60; GLUCOSE 107 MG/DL (70-105); TOTAL PROTEIN 6.8 GM/DL (6.4-8.2)
--- NOTE | 2020-06-06 14:04 | Diagnostic Imaging Report ---
EXAMINATION: CT Chest without contrast. TECHNIQUE: Multiple contiguous axial images were obtained through the chest without the use of intravenous contrast. All CT scans use one or more of the following dose optimizing techniques: automated exposure control, MA and/or KvP adjustment based on a patient size and exam type, or iterative reconstruction. HISTORY: recurrent falls, left chest wall pain COMPARISON: CT chest from 06/17/2019. FINDINGS: Thyroid: The thyroid is normal. Mediastinum: Heart size is normal without significant pericardial effusion. The aorta is normal in caliber. No suspicious lymphadenopathy. Lungs and airways: There is a small left pleural effusion with Hounsfield units of approximately 44 which is greater than that of simple fluid. No pneumothorax. Mild atelectasis. Evaluation of the lungs is somewhat limited secondary to patient respiratory motion. The airways are normal. Upper abdomen: Cirrhotic morphology of the liver with mild perihepatic ascites. There are numerous portosystemic collateral vessels. Musculoskeletal: Newly displaced fracture of the posterior left seventh rib. There is an adjacent expansile mixed lytic and sclerotic lesion within the posterior left seventh rib (series 5 image 92). There is a nondisplaced fracture of the left lateral fifth rib (series 5 image 69). There is a lytic lesion within the T11 and T12 vertebral bodies measuring up to 2.4 cm in the T11 vertebral body. There is a lytic lesion within the upper sternum measuring 1.9 cm (series 7 image 106). Mild bilateral gynecomastia. IMPRESSION: 1. Fractures of the left fifth and seventh ribs. 2. There is a hyperdense left pleural effusion, concerning for hemothorax adjacent to the displaced seventh rib fracture on the left. No pneumothorax. 3. Multiple new lytic lesions involving the T11 and T12 vertebral bodies, left seventh rib, and sternum, concerning for osseous metastatic disease. Recommend correlation with any known history of cancer. 4. Cirrhosis with sequela of portal hypertension. Dictated by: Dictated on workstation # [id number]
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
--- NOTE | 2020-06-06 14:30 | Diagnostic Imaging Report ---
Indication: Bilateral lower extremity swelling. Recent fall. COMPARISON: None available. TECHNIQUE: 2 views of the right and 2 views of left tibia and fibula were obtained. FINDINGS: No acute or healing fracture on either side. No periosteal callus formation or endosteal scalloping. No knee joint effusion on either side. Subcutaneous reticulations are most likely due to edema. No radiopaque foreign body or soft tissue gas. IMPRESSION: No acute or healing fracture in either of the lower extremities. Dictated by: Dictated on workstation # [id number]
[2020-06-06] MEDS ORDERED: NS IV 1000 ML 1,000 ML IV SCH (14:45)
[2020-06-06] MEDS ORDERED: cefTRIAXone FOR IV USE 1,000 MG in WATER (STERILE) FOR INJECTION 10 ML IV ONE (14:45)
[2020-06-06] MEDS ORDERED: VANCOMYCIN INJECTION 1,000 MG in NS (IVPB) 250 ML IV ONE (15:15)
[2020-06-06 15:17] LABS: AMPHETAMINE SCREEN, URINE POSITIVE (NEGATIVE); BARBITURATE SCREEN URINE NEGATIVE (NEGATIVE); BENZODIAZEPINES SCREEN URINE NEGATIVE (NEGATIVE); CANNABINOID SCREEN, URINE NEGATIVE (NEGATIVE); COCAINE SCREEN URINE NEGATIVE (NEGATIVE); METHADONE STAT NEGATIVE (NEGATIVE); METHAMPHETAMINE SCREEN URINE S POSITIVE (NEGATIVE); OPIATE SCREEN URINE NEGATIVE (NEGATIVE); OXYCODONE STAT NEGATIVE (NEGATIVE); PROPOXYPHENE STAT NEGATIVE (NEGATIVE); TRICYCLIC ANTIDEPRESSANTS SCRE NEGATIVE (NEGATIVE)
[2020-06-06] MEDS ORDERED: ONDANSETRON 4 MG/2 ML (SDV) Z0FRAN IV PRN (18:45)
[2020-06-06] MEDS ORDERED: CATHETER FLUSH 10 ML SYR IV PRN (18:45)
--- NOTE | 2020-06-06 19:34 | NUR ---
PT SON DIOR BRYANT NOTIFIED OF ADMISSION AND WILL BE PT MAIN CONTACT. SON WAS UPDATED ON THE FAMILY COMMUNICATION PROCESS AND VERBALIZED UNDERSTANDING.
[2020-06-06] MEDS: NS IV 1000 ML 1,000 ML IV SCH (19:49)
[2020-06-06 20:35] VITALS: BP 148/69
[2020-06-06 23:06] VITALS: BP 137/89
[2020-06-07] VITALS (7 sets, daily range): BP systolic 106–152; BP diastolic 60–74
[2020-06-07] MEDS ORDERED: RT-ALBUTEROL/IPRATROPIUM 3 ML (DUONEB) VIAL INH PRN ×2 (04:30→16:00)
[2020-06-07] MEDS: NS IV 1000 ML 1,000 ML IV SCH (05:19)
[2020-06-07 05:38] LABS: BASOPHILS # (AUTO) 0.1 10^3/uL (0.0-0.1); BASOPHILS % (AUTO) 1 % (0-10); EOSINOPHILS # (AUTO) 0.6 10^3/uL (0.0-0.3); EOSINOPHILS % (AUTO) 6 % (0-10); HEMATOCRIT 27 % (40-54); HEMOGLOBIN 8.9 g/dL (13.3-17.7); LYMPHOCYTES # (AUTO) 1.5 10^3/uL (1.0-4.0); LYMPHOCYTES % (AUTO) 14 % (12-44); MEAN CORPUSCULAR HEMOGLOBIN 35 pg (25-34); MEAN CORPUSCULAR HGB CONC 33 g/dL (32-36); MEAN CORPUSCULAR VOLUME 105 fL (80-99); MEAN PLATELET VOLUME 10.4 fL (9.0-12.2); MONOCYTES # (AUTO) 1.1 10^3/uL (0.0-1.0); MONOCYTES % (AUTO) 10 % (0-12); NEUTROPHILS # (AUTO) 7.5 10^3/uL (1.8-7.8); NEUTROPHILS % (AUTO) 69 % (42-75); PLATELET COUNT 75 10^3/uL (130-400); WHITE BLOOD COUNT 10.9 10^3/uL (4.3-11.0)
[2020-06-07 05:49] LABS: ALBUMIN 1.9 GM/DL (3.2-4.5); CHLORIDE 114 MMOL/L (98-107); POTASSIUM 3.8 MMOL/L (3.6-5.0); SODIUM 141 MMOL/L (135-145)
[2020-06-07 05:50] LABS: CALCIUM 7.7 MG/DL (8.5-10.1)
[2020-06-07 05:51] LABS: GLUCOSE 85 MG/DL (70-105)
[2020-06-07 05:52] LABS: TOTAL PROTEIN 6.9 GM/DL (6.4-8.2)
[2020-06-07 05:53] LABS: BILIRUBIN,TOTAL 3.3 MG/DL (0.1-1.0); CARBON DIOXIDE 23 MMOL/L (21-32)
[2020-06-07 05:55] LABS: ALKALINE PHOSPHATASE 122 U/L (40-136); CREATININE SERUM 0.75 MG/DL (0.60-1.30)
[2020-06-07 05:56] LABS: BUN/CREATININE RATIO 23
[2020-06-07 05:58] LABS: ALANINE AMINOTRANSFERASE 40 U/L (0-55)
[2020-06-07 05:59] LABS: GFR ESTIMATED > 60
--- NOTE | 2020-06-07 07:42 | NUR ---
Pt refusing to put Telemetry for now. Pt stated he wants to sleep for a little bit. Will pass to AM nurse
--- NOTE | 2020-06-07 09:48 | History & Physical-Hospitalist ---
JOSE ROUSE MED STUDENT 06/07/20 0948: History of Present Illness HPI/Chief Complaint CC Falls This is a 65 year old male that was admitted yesterday from the ER due to multiple episodes of falling. He was carrying a 2x4 on his shoulder and fell forward. He is unsure if he lost consciousness during the fall. He tries to use a walker at home and still experiences falls. He was given a dose of ceftriaxone and vancomycin in the ER due to urine culture positive for E.coli. He has a history of chronic anemia and thrombocytopenia. CT scan showed masses in his liver as well as other lesions in spine and ribs. Patient is confused, hard of hearing, and is a poor historian. He is unsure of whether he has been evaluated for his liver mass or what the results of an evaluation were. He states that he doesn't have any pain this morning but is unable to flex his L hip due to pain on exam. He is unsure of why he falls, doesnt know if he is losing balance or his legs are giving out. He lives with a lawn caretaker, who's phone number is unknown, and his girlfriend. He is unsure of his medical, surgical, and family history. He claims that he has not had a drink in 4 years, only smokes occasionally, and doesn't do street drugs. He was positive for amphetamines on drug screen. Source: patient Date Seen 06/07/20 Time Seen by a Provider: 09:40 Attending Physician Pati Crane MD PCP [facility] Referring Physician Date of Admission Jun 06, 2020 at 17:55 Home Medications & Allergies Home Medications Reviewed patient Home Medication Reconciliation performed by pharmacy medication reconciliations lead based paint technician and/or nursing. Patients Allergies have been reviewed. Allergies Allergies Coded Allergies No Allergy Information Available (Cteirqjjul55/9/20) No Known Drug Allergies (Kvtwrzjgfg51/9/20) Past Dlsnibm-Ubdqvb-Ffgbyq Hx Past Med/Social Hx: Reviewed Nursing Past Med/Soc Hx Patient Social History Alcohol Use: Denies Use Alcohol Beverage of Choice: Whiskey Recreational Drug Use: Yes Drug of Choice: METHAMPHETAMINES, BENZODIAZEPINES Smoking Status: Current Everyday Smoker Type Used: Cigarettes 2nd Hand Smoke Exposure: Yes Recent Foreign Travel: No Contact w/other who traveled: No Recent Hopitalizations: No Recent Infectious Disease Expo: No Immunizations Up To Date Tetanus Booster (TDap): Unknown Pediatric: No Date of Influenza Vaccine: Feb 16, 2019 Seasonal Allergies Seasonal Allergies: No Past Medical History Surgeries: Abdominal, Appendectomy Cardiac: Hypertension Genitourinary: Bladder Infection Gastrointestinal: Liver Disease/Jaundice, Hepatitis, Cirrhosis Musculoskeletal: Fractures History of Blood Disorders: Yes (ANEMIA) Family History Hypertension, Psychiatric Problems Review of Systems Constitutional: see HPI EENTM: hearing loss Respiratory: no symptoms reported Cardiovascular: no symptoms reported Gastrointestinal: no symptoms reported Genitourinary: no symptoms reported Musculoskeletal: no symptoms reported Skin: no symptoms reported Psychiatric/Neurological: No Symptoms Reported Physical Exam Physical Exam Vital Signs Vital Signs - First Documented 06/06/20 12:28 Temp 36.2 Pulse 85 Resp 18 B/P (MAP) 149/74 (99) Pulse Ox 100 O2 Delivery Room Air Capillary Refill : Less Than 3 Seconds Height, Weight, BMI Height: 5'7.00" Weight: 210lbs. 0.0oz. [id number]; 33.79 BMI Method:Stated General Appearance: No Apparent Distress Eyes: Bilateral Eye Normal Inspection HEENT: PERRL/EOMI Neck: Full Range of Motion, Normal Inspection, Non Tender, Supple Respiratory: Chest Non Tender, Lungs Clear, Normal Breath Sounds, No Accessory Muscle Use, No Respiratory Distress Cardiovascular: Regular Rate, Rhythm, No Edema, No Gallop, No JVD, No Murmur, Normal Peripheral Pulses Gastrointestinal: Normal Bowel Sounds, No Organomegaly, No Pulsatile Mass, Non Tender, Soft Rectal: Deferred Back: Normal Inspection, No CVA Tenderness, No Vertebral Tenderness Extremity: No Normal Range of Motion (Decreased hip flexion L side.); Non Tender, No Calf Tenderness; No No Pedal Edema (Bilateral 2+ Pitting edema) Neurologic/Psychiatric: Alert; No Oriented x3 (Oriented to Person and place only) Skin: Normal Color, Warm/Dry Results Results/Procedures Labs Laboratory Tests 06/06/20 12:27 06/06/20 13:00 06/07/20 05:25 Patient resulted labs reviewed. Assessment/Plan Admission Diagnosis Fall Admission Status: Inpatient Order (span 2 midnights) Reason for Inpatient Admission: Multiple falls, Liver mass, Fractured ribs, UTI Assessment and Plan 65 Year old male with a hx of multiple falls presents with multiple liver and bone lesions, UTI, and anemia. AMS Liver Mass/Bone Lesions -Contact [facility] and try to get previous records -Possibly will need biopsy if records cannot be obtained, or records show there has been no biopsy -Consult Oncology Macrocytic Anemia -Iron levels -Folate, B12 -Baseline anemia according to hx, but if worsens, may need iron supplementation, or possibly transfusion. No obvious bleeding noted Elevated LFT -Probably related to liver masses or cirrosis -Wait for [facility] hepatology records AMS -Ensure pts hydration and glucose are WNL -No hyperammonemia -Possibly related to UTI, restart ABX Leg Swelling -Leg compression, Elevation -BUN & Creatine WNL UTI -Restart ABX L Side Leg Pain -Rest, Ice, Diagnosis/Problems Diagnosis/Problems (1) Liver mass Status: Acute (2) Anemia Status: Chronic Qualifiers: Anemia type: unspecified type Qualified Codes: D64.9 - Anemia, unspecified (3) Multiple fractures of ribs, left side, initial encounter for closed fracture Status: Acute (4) Frequent falls Status: Acute (5) Acute cystitis without hematuria Status: Acute (6) Thrombocytopenia Status: Chronic (7) Sepsis Status: Acute (8) Hypertension Status: Chronic (9) Urinary retention Status: Chronic (10) Liver disease, chronic Status: Chronic (11) Hepatic encephalopathy Status: Chronic (12) Methamphetamine abuse Status: Chronic (13) History of alcohol abuse Status: Chronic (14) Hepatitis C virus infection Status: Chronic (15) DVT prophylaxis Status: Acute (16) Urinary tract infection Status: Acute (17) Altered mental status Status: Acute Supervisory-Addendum Brief Verification & Attestation Participated in pt care: history, physical Personally performed: exam Care discussed with: other Procedures: n/a n/a PATI CRANE MD 06/07/20 6659: History of Present Illness Source: patient Exam Limitations: no limitations Past Iwbcrep-Jqyqtf-Tirlig Hx Patient Social History Living Status: Lives at home with GF Review of Systems Constitutional: No chills, No fever; weakness EENTM: hearing loss; No mouth pain, No nose congestion Respiratory: no symptoms reported; No cough, No dyspnea on exertion Cardiovascular: chest pain, edema; No palpitations Gastrointestinal: no symptoms reported; No abdominal pain, No loss of appetite, No nausea, No vomiting Genitourinary: No dysuria; frequency; No hematuria Musculoskeletal: other (Leg pain) Skin: no symptoms reported Psychiatric/Neurological: No Symptoms Reported Physical Exam Physical Exam General Appearance: No Apparent Distress, WD/WN HEENT: PERRL/EOMI Respiratory: Chest Non Tender, Lungs Clear, Normal Breath Sounds, No Respiratory Distress Cardiovascular: Regular Rate, Rhythm, No Murmur, Normal Peripheral Pulses Gastrointestinal: Normal Bowel Sounds, Non Tender, Soft Back: No CVA Tenderness, No Vertebral Tenderness Extremity: Non Tender, Other (3+ pitting edema bilaterally) Neurologic/Psychiatric: Alert, methods examiner II-XII Norm as Tested, Motor Weakness Lymphatic: No Adenopathy Results Results/Procedures Imaging: Reviewed Imaging Films Assessment/Plan Admission Diagnosis Admission Status: Inpatient Order (span 2 midnights) Reason for Inpatient Admission: Requires workup on new lytic lesions and treatement for altered mental status with consults placed Diagnosis/Problems Diagnosis/Problems (1) Liver mass Status: Acute (2) Anemia Status: Chronic Qualifiers: Anemia type: unspecified type Qualified Codes: D64.9 - Anemia, unspecified (3) Multiple fractures of ribs, left side, initial encounter for closed fracture Status: Acute (4) Frequent falls Status: Acute (5) Acute cystitis without hematuria Status: Acute (6) Thrombocytopenia Status: Chronic (7) Hypertension Status: Chronic (8) Hepatic encephalopathy Status: Chronic (9) Methamphetamine abuse Status: Chronic (10) History of alcohol abuse Status: Chronic (11) Hepatitis C virus infection Status: Chronic (12) DVT prophylaxis Status: Acute (13) Altered mental status Status: Acute Supervisory-Addendum Brief Verification & Attestation Participated in pt care: history, physical Personally performed: exam Care discussed with: Medical Student Procedures: n/a Verification and Attestation of Medical Student E/M Service A medical student performed and documented this service in my presence. I reviewed and verified all information documented by the medical student and made modifications to such information, when appropriate. I personally performed the physical exam and medical decision making. Pati Crane, Jun 07, 2020,21:44 65 yo M that presented after multiple falls and found to have rib fractures and multiple lytic bone lesions and multiple liver masses 06/07/2020 Altered Mental status: Likely multifactoral given h/o hepatic encephalopathy vs UTI, CT head in ER normal w/o acute changes given recent fall UTI: Started on Rocephin, culture pending Atypical CP: Cardiology consulted, not likely cardiac in nature, appreciate recommendations Liver Mass: Likely Hepatocellular Carcinoma given h/o EtOH abuse and Hep C, now with lytic lesions, Oncology consulted, patient was lost to f.u after masses were discovered in Mar, no bx have been done at this time Bone Lytic Lesions: Vertebra, Sterum and ribs Rib Fractures: Continue to monitor Macrocyctic Anemia: Will get Folate and B12 levels, no signs of acute bleeding Falls: PT/OT consulted LE Edema: Echo pending DVT Px: SCDs Dispo: Admit to Med/Surg, Normal diet JOSE ROUSE MED STUDENT Jun 07, 2020 09:48 PATI CRANE MD Jun 07, 2020 21:49
--- NOTE | 2020-06-07 10:07 | Physical Therapy Evaluation ---
PT Evaluation-General Medical Diagnosis Admission Date Jun 06, 2020 at 17:55 Medical Diagnosis: cystitis/left rib fracture Onset Date: Jun 06, 2020 Therapy Diagnosis Therapy Diagnosis: generalized weakness/debility Height/Weight Height (Feet): 5 Height (Inches): 7.00 Weight (Pounds): 210 Weight (Ounces): 0.0 Precautions Precautions/Isolations: Fall Prevention, Standard Precautions Referral Physician: Rosa Maria Medical History Pertinent Medical History: Alcoholism, HTN, Smoking Additional Medical History drug use Current History EMS secondary bilateral LE pain and fall carrying a 2x4 Reviewed History: Yes Social History Home: Single Level Current Living Status: caregiver Prior Prior Level of Function SCALE: Activities may be completed with or without assistive devices. 6-Rafjvvkvch-mlvpysy completes the activity by him/herself with no assistance from a helper. 5-Set-up or Clean-up Assistance-helper sets up or cleans up; patient completes activity. [place] assists only prior to or following the activity. 4-Supervision or Touching Assistance-helper provides verbal cues and/or touching/steadying and/or contact guard assistance as patient completes activity. Assistance may be provided throughout the activity or intermittently. 3-Partial/Moderate Assistance-helper does LESS THAN HALF the effort. [place] lifts, holds or supports trunk or limbs, but provides less than half the effort. 2-Substantial/Maximal Assistance-helper does MORE THAN HALF the effort. [place] lifts or holds trunk or limbs and provides more than half the effort. 0-Psmjjkwvi-nnvstn does ALL the effort. Patient does none of the effort to complete the activity. Or, the assistance of 2 or more helpers is required for the patient to complete the activity. If activity was not attempted, code reason: 7-Patient Refused. 9-Not Applicable-not attempted and the patient did not perform the activity before the current illness, exacerbation or injury. 10-Not Attempted due to Environmental Limitations-(lack of equipment, weather restraints, etc.). 88-Not Attempted due to Medical Conditions or Safety Concerns. Bed Mobility: 6 Transfers (B,C,W/C): 6 Gait: 6 Stairs: 6 Indoor Mobility (Ambulation): Independent Stairs: Independent Prior Devices Use: None PT Evaluation-Current Subjective Patient is very tearful upon PT arrival, however, does calm. Agrees to PT. Objective Patient Orientation: Person, Time, Situation Attachments: Victor Catheter, IV ROM/Strength ROM Lower Extremities bilateral LE WFL ( noted edema) Strength Lower Extremities 4-/5 grossly bilateral LE Integumentary/Posture Integumentary refer to nursing notes Bowel Incontinence: No Bladder Incontinence: Victor Cath Posture WFL Neuromuscular (Tone, Coordination, Reflexes) grossly intact Sensory Vision: Wears Glasses Hearing: Impaired Transfers Sit to Lying (QC): 4 Lying to Sitting/Side of Bed(Q: 4 Sit to Stand (QC): 3 Chair/Wku-cj-Iotyk Xfer(QC): 3 Gait Does the Patient Walk?: Yes Mode of Locomotion: Walk Anticipated Mode of Locomotion: Walk Walk 10 feet (QC): 4 Walk 50 ft with 2 Turns(QC): 4 Walk 150 ft (QC): 4 Distance: 250' Gait Assistive Device: FWW Comments/Gait Description functional gait sequence with FWW/CGA for safety Balance Sitting Static: Normal Sitting Dynamic: Normal Standing Static: Fair Standing Dynamic: Fair Assessment/Needs 65 y.o. male, will benefit from skilled PT to address functional strength and mobility to improve current LOF. Patient is adamant to return to home [facility] with caregiver/girlfriend. Rehab Potential: Guarded Post Rehab Potential-Barriers: compliance PT Brick Pitcher Goals Shelter Goals PT Brick Pitcher Goals Time Frame: Jun 18, 2020 Roll Left & Right (QC): 6 Sit to Lying (QC): 6 Lying-Sitting on Side/Bed(QC): 6 Sit to Stand (QC): 6 Chair/Eix-go-Ybdox Xfer(QC): 6 Toilet Transfer (QC): 6 Car Transfer (QC): 6 Does the Patient Walk: Yes Walk 10 feet (QC): 6 Walk 50ft with 2 Turns (QC): 6 Walk 150 ft (QC): 6 PT Plan Problem List Problem List: Safety Treatment/Plan Treatment Plan: Continue Plan of Care Treatment Plan: Education, Functional Activity Latha, Functional Strength, Gait, Safety, Therapeutic Exercise, Transfers Treatment Duration: Jun 18, 2020 Frequency: 6 times per week Estimated Hrs Per Day: .25 hour per day Patient and/or Family Agrees t: Yes Time/GCodes Time In: 916 Time Out: 930 Total Billed Treatment Time: 14 Total Billed Treatment 1 visit EVMod 14 min EVELINA BALLARD PT Jun 07, 2020 10:07
--- NOTE | 2020-06-07 10:16 | Occupational Therapy Eval ---
OT Evaluation-General/PLF Medical Diagnosis Admission Date Jun 06, 2020 at 17:55 Medical Diagnosis: cystitis/left rib fracture Onset Date: Jun 06, 2020 Therapy Diagnosis Therapy Diagnosis: Decreased ADL status Height/Weight Height (Feet): 5 Height (Inches): 7.00 Weight (Pounds): 210 Weight (Ounces): 0.0 Precautions Precautions/Isolations: Fall Prevention, Standard Precautions Referral Physician: Rosa Maria Referral Reason: Activity Tolerance, Self Care, Evaluation/Treatment, Strengthening/ROM Medical History Pertinent Medical History: Alcoholism, HTN, Smoking Additional Medical History meth+benzodiazepines hx, smoker daily, chronic liver failure, L humeral fx 10/05 with limited L UE movement, anemia. Current History Pt fel carrying wood to truck 2 days prior to admission. Admits to EMS with L side pain and BLE pain. Pt denies LOC. CT scan showed fx of 5th and 7th rib fx. Reviewed History: Yes Social History Home: Single Level Current Living Status: Significant Other Steps Into Home: 0 (unsure based on pt's discription) ADL-Prior Level of Function SCALE: Activities may be completed with or without assistive devices. 7-Ijoujubvbw-zqrdjnr completes the activity by him/herself with no assistance from a helper. 5-Set-up or Clean-up Assistance-helper sets up or cleans up; patient completes activity. [place] assists only prior to or following the activity. 4-Supervision or Touching Assistance-helper provides verbal cues and/or touching/steadying and/or contact guard assistance as patient completes activity. Assistance may be provided throughout the activity or intermittently. 3-Partial/Moderate Assistance-helper does LESS THAN HALF the effort. [place] lifts, holds or supports trunk or limbs, but provides less than half the effort. 2-Substantial/Maximal Assistance-helper does MORE THAN HALF the effort. [place] lifts or holds trunk or limbs and provides more than half the effort. 4-Chvegefza-mgswxo does ALL the effort. Patient does none of the effort to complete the activity. Or, the assistance of 2 or more helpers is required for the patient to complete the activity. If activity was not attempted, code reason: 7-Patient Refused. 9-Not Applicable-not attempted and the patient did not perform the activity before the current illness, exacerbation or injury. 10-Not Attempted due to Environmental Limitations-(lack of equipment, weather restraints, etc.). 88-Not Attempted due to Medical Conditions or Safety Concerns. ADL PLOF Comments Pt states he was dependent on girlfriend/ caregiver for every ADL. Pt states she completed assist in/out of shower, in the shower, wiped bottom, donned pants, pushed pt in w/c in home, etc. Pt states he was ambulating with walker/ cane at one point but is now in w/c in home as it is easier for pt's girlfriend to get him around the home. However, pt was loading wood upon day of fall. Self Care: Dependent Functional Cognition: Unknown DME/Equipment: Bath Chair, Shower DME/Equipment Comments tub/ shower (s/o assists in/out), sc in shower, w/c, walker, [address] Self: Yes (though states s/o drives most of time. ) OT Current Status Subjective Pt alert in recliner. No pain per pt. Pt expresses he is [place] and cannot hear even with elevated voice. OT begins to write, pt states he cannot see as his glasses are not here. OT gets closer to pt and increases volume close to ear, pt able to hear with max volume. Current Glasses/Contacts: Yes Hearing Aids: No Dentures/Partials: No Hand Dominance: Left Upper Extremity ROM Decreased LUE (shoulder flexion/ abduction decreased significantly), pt states L handed, though utilizes RUE to drink/ eat. Upper Extremity Coordination WFL BUE Upper Extremity Sensation DNT Upper Extremity Strength Decreased bilaterally. Edema: pitting bLE. ADL-Treatment Eating (QC): 5 (pt able to drink with s/u of soda. Due to limited LUE movement, pt will require assist with cutting/ opening tasks. However, pt states his s/o feeds him at home. ) Oral Hygiene (QC): 7 (denies) On/Off Footwear (QC): 7 (denies attempt, stating his s/o completes at home. ) Pt in chair, completes ROM/ MMT screening. Decreased ability with BUE, though significant limitations with LUE. Pt completes sit to stand with SBA, use of walker in stance. Pt states he is able to get from chair to w/c with walker if needed/ if caregiver is not present. However, he states caregiver is there 10/12 and assists in cooking/ cleaning, feeding pt, bathing pt, dressing pt, etc. Pt expresses "she does everything." Pt also expresses desire to go home. Pt stands ~2 min, doffing RUE from walker, fair balance. Pt returns to sit. Pt is questioned if he needs anything, pt expresses need for warm blankets, these gathered, LE's elevated, call light in reach, all needs met. As pt is at PLOF (no pain, same ROM per report, dependence on caregiver for ADLs, and limited motivation to increased IND) OT to d/c pt. Education OT Patient Education: Correct positioning, Purpose of tx/functional activities, Safety issues Teaching Recipient: Patient Teaching Methods: Demonstration, Discussion Response to Teaching: Verbalize Understanding, Return Demonstration OT Spinning Frame Changer Goals Usp Goals 1=Demonstrate adherence to instructed precautions during ADL tasks. 2=Patient will verbalize/demonstrate understanding of assistive salome baudilio/modifications for ADL. 3=Patient will improve strength/tolerance for activity to enable patient to perform ADL's. OT Education/Plan Problem List/Assessment Assessment: No Skilled OT Needs ID'd Discharge Recommendations Plan/Recommendations: Discharge/Goals Met Therapy Discharge Recommendati: Home & Family Treatment Plan/Plan of Care Treatment,Training & Education: Yes Patient would benefit from OT for education, treatment and training to promote independence in ADL's, mobility, safety and/or upper extremity function for ADL's. Plan of Care: OTHER (eval and d/c as pt at [facility].) Treatment Duration: Jun 07, 2020 Frequency: 1 time per week (eval and d/c. ) Rehab Potential: Guarded Time/GCodes Start Time: 09:55 Stop Time: 10:10 Total Time Billed (hr/min): 15 Billed Treatment Time 1, EVM (15) d/c. HERBIE PILLAI OTR Jun 07, 2020 10:16
--- NOTE | 2020-06-07 11:17 | NUR ---
"RD ASSESSMENT PMHx: HTN; hepatic encephalopathy; hepatitis; cirrhosis; polysubstance use (ETOH, tobacco, methamphetamines, benzodiazepines); PT INTERACTION: Pt was awake and pleasant during nutrition consult for MST score. Note pt is a poor historian per chart review. Note pt is hard of hearing. Pt states current appetite is good. Note PO intake 75% x1meal, per chart review. Pt states following a regular diet at home, and has no issues with chewing/swallowing food. Pt states no recent issues with n/v/c/d, and that he is unsure of when his last BM occurred. Note no BM has been recorded, and pt not currently on bowel regimen per chart review. Pt states no recent wt changes. Note recent 19# wt gain x2mon, per chart review. Upon visual assessment, pt appears to be well nourished with no visible signs of muscle/fat wasting and a BMI of 33.8 (Obese class I for age). Given PO intake, wt hx, and visual assessment, pt does not meet criteria for malnutrition per ASPEN guidelines. Est. kcal needs: 8435-2043 kcal | 15-20 kcal/kg Est. Pro needs: 81-101 g Pro | 0.8-1.0 g Pro/kg PES STATEMENT: Given current PO intake, no nutrition diagnosis at this time (NO-1.1). INTERVENTION: Continue with current diet order of 2000mg Na diet. Will continue to follow and reassess as pt needs, intake, and status change. Diya AMBRIZ, MS RD LD [phone] cell"
[2020-06-07] MEDS ORDERED: PANT40TA52 PO (13:01)
[2020-06-07] MEDS ORDERED: FOLI0.8T PO (13:01)
[2020-06-07] MEDS ORDERED: NF-RIFA200 PO (13:01)
[2020-06-07] MEDS ORDERED: LACT10SO PO (13:01)
--- NOTE | 2020-06-07 13:03 | NUR ---
SPOKE WITH PT- HE WAS NOT ABLE TO GIVE ME ANY INFORMATION REGARDING HIS MEDICATIONS. I CALLED HIS SON DIOR WHO SUGGESTED I CALL THE PTS FRIEND/CAREGIVER TAB ([phone]). I SPOKE WITH TAB, WENT THRU THE EXT MED HISTORY AND CALLED [facility] TO COMPLETE THE MED REC XIFAXAN 200MG WAS LAST FILLED 04-04-2020 #180/30DS- I DOCUMENTED THE REFILL DATE ON THE MED REC WHEN PT WAS DISCHARGED FROM IN MARCH 2020 HE WAS PRESCRIBED FLOMAX 0.4MG- ACCORDING TO TAB THE PT TOOK FOR 1 MONTH AND THEN HE WAS NEVER ABLE TO GET A REFILL. FOR THIS REASON I HAVE REMOVED IT FROM THE MED REC OTC MEDS: VIT D MILK THISTLE MTV FOLIC ACID
--- NOTE | 2020-06-07 13:26 | NUR ---
SPOKE WITH NURY RN AT [facility] WHO REPORTS PT HAD NOT SEEN DR FLORES YET. PT WAS A NEW REFERRAL TO THEM FROM DR ALMA DELIA YANEZ AND HAD AN APPT ON THE FOR MRI AND CT OF THE CHEST. DR ROBLERO NOTIFIED OF THIS
--- NOTE | 2020-06-07 13:34 | Consultation-Cardiology ---
HPI-Cardiology Cardiology Consultation: Date of Consultation 06/07/20 Time Seen by a Provider: 10:15 Date of Admission Attending Physician Radha Crane MD Admitting Physician Dr. Saulo Teixeira MD Consulting Physician Dr. Yoli Prieto MD, FACP, FACC, CCDS HPI: Chief Complaint: Consult: Chest pain Mr. Munguia is a 65 y/o male with PMHx of chronic hepatic failure w/ associated encephalopathy, anemia and thrombocytopenia who presents s/p fall with subsequent L sided chest pain. Patient is a poor historian secondary to confusion and is poor of hearing, however he relays that he was carrying a 2x4 plank and suddenly fell. Patient denies any preceding symptoms save for feeling as though he was off balance, denying any syncope, vision changes or chest pain. On further questioning patient states he is not completely sure about his level of consciousness over the course of the evening but doesn't believe he passed out at any point. Patient was brought to the ER via EMS with complaint of L sided chest pain and bilateral lower extremity pain. Patient had positive urine culture for E. Coli was treated with Ceftriaxone and Vancomycin. Patient also underwent Tib/fib x-rays as well as CT head which both came back negative. Chest CT revealed fractures of the L 5th and 7th ribs, multiple lytic lesions of the vertebra and ribs as well as L pleural effusion later confirmed to be hemothorax. Labs on arrival showed hemoglobin of 9.5, AST of 88 (ALT 36), BNP of 81.1 albumin of 2.0 and negative troponin; otherwise unremarkable. Drug screen positive for methamphetamines and urinalysis consistent with UTI. Patient now denies any pain or complaints, stating that he doesn't remember complaining of chest pain yesterday and that we should contact his caregiver/girlfriend if we need his history as he can't seem to recall anything. Currently denies CP, SOB, abdominal pain, GI changes, urinary issues or any other current complaints. Patient states he normally is able to walk by himself quite well at home though this is inconsistent with his statements in the ER where he reported multiple falls over the last few weeks. Review of Systems-Cardiology Review of Systems Constitutional: No fever, No lightheadedness Eyes: No pain, No photophobia Ears/Nose/Throat: chronic hearing loss; No ear pain Respiratory: No shortness of breath, No stridor Cardiovascular: chest pain (resolved); No palpitations Gastrointestinal: No abdominal pain, No diarrhea, No vomiting Genitourinary: No dysuria, No discharge Musculoskeletal: No joint pain, No muscle pain Skin: other (multiple bruises from his dog), rash on exposed areas (R sided face, patient unable to explain them) Psychiatric/Neurological: tremors; No headache Hematologic: anemia CGQ-Iahedr-Hxnjoa Hx Patient Social History Smoking Status: Current Everyday Smoker 2nd Hand Smoke Exposure: Yes Have you traveled recently?: No Alcohol Use?: No Substance type: Amphetamines Pt feels they are or have been: No Tobacco type used: Cigarettes Immunizations Up To Date Tetanus Booster (TDap): Unknown Date of Influenza Vaccine: Feb 16, 2019 Past Medical History PMH Chronic liver failure, hepatic encephalopathy, HTN, hepatitis C, anemia, meth amphetamine abuse, hx smoking Allergies and Home Medications Allergies Coded Allergies: No Allergy Information Available (Unverified , 03/28/20) No Known Drug Allergies (Unverified , 03/28/20) Home Medications Cholecalciferol (Vitamin D3) 25 Mcg Tablet, 25 MCG PO DAILY, (Reported) Folic Acid 0.8 Mg Tablet, 0.8 MG PO DAILY, (Reported) Lactulose 10 Gm/15 Ml Solution, 30 MG PO TID PRN for CONSTIPATION-3RD LINE, (Reported) Milk Thistle Seed Extract 175 Mg Tablet, 175 MG PO DAILY, (Reported) Multivit-Min/FA/Lycopene/Lut 1 Each Tablet, 1 TAB PO DAILY, (Reported) Pantoprazole Sodium 40 Mg Tablet.dr, 40 MG PO DAILY, (Reported) Rifaximin 200 Mg Tablet, 400 MG PO TID, (Reported) TAKES 2 (200MG) TABS LAST FILLED 04-04-2020 #180/30 DAY SUPPLY Patient Home Medication List Home Medication List Reviewed: Yes Physical Exam-Cardiology Physical Exam Vital Signs/I&O 06/07/20 06/07/20 06/07/20 06/07/20 06:48 08:00 11:49 12:00 Temp 37.2 36.2 37.2 Pulse 102 85 90 Resp 22 20 B/P (MAP) 152/69 (96) 106/74 (85) Pulse Ox 97 100 96 O2 Delivery Room Air Room Air Room Air 06/07/20 14:36 Pulse Ox 97 O2 Delivery Room Air 06/07/20 00:00 Intake Total 500 ml Output Total 250 ml Balance 250 ml Capillary Refill : Less Than 3 Seconds Constitutional: appears stated age, other (patient seemed lethargic, slightly confused and exceptionally hard of eharing) HEENT: scleral icterus (R), scleral icterus (L); No photophobia; hard of hearing Neck: non-tender, normal inspection; No carotid bruit; carotid pulses are 2 + bilaterally Respiratory: No accessory muscle use, No respiratory distress, No chest tender (no pain while palpating over L chest/ribs); chest expansion is symmetric, cr ackles (minor L>R); No rhonchi Cardiovascular: extra beats, other (regularly irregular) Gastrointestinal: No tender, No pulsatile mass; organomegaly (Palpable Liver); No guarding, No tenderness; audible bowel sounds; No abdominal bruits Extremities: normal range of motion; No calf tenderness; significant edema Neurologic/Psychiatric: alert; No normal mood/affect; other (appears to move all limbs but appears to have difficult moving his left leg; not cooperative with a detailed neuro exam) Skin: ecchymosis, jaundice (mild), rash on exposed areas Data Review Labs Laboratory Tests 06/07/20 05:25: White Blood Count 10.9, Red Blood Count 2.57L, Hemoglobin 8.9L, Hematocrit 27L, Mean Corpuscular Volume 105H, Mean Corpuscular Hemoglobin 35H, Mean Corpuscular Hemoglobin Concent 33, Red Cell Distribution Width 17.0H, Platelet Count 75L, Mean Platelet Volume 10.4, Immature Granulocyte % (Auto) 1, Neutrophils (%) (Auto) 69, Lymphocytes (%) (Auto) 14, Monocytes (%) (Auto) 10, Eosinophils (%) (Auto) 6, Basophils (%) (Auto) 1, Neutrophils # (Auto) 7.5, Lymphocytes # (Auto) 1.5, Monocytes # (Auto) 1.1H, Eosinophils # (Auto) 0.6H, Basophils # (Auto) 0.1, Immature Granulocyte # (Auto) 0.1, Sodium Level 141, Potassium Level 3.8, Chloride Level 114H, Carbon Dioxide Level 23, Anion Gap 4L, Blood Urea Nitrogen 17, Creatinine 0.75, Estimat Glomerular Filtration Rate > 60, BUN/Creatinine Ratio 23, Glucose Level 85, Calcium Level 7.7L, Corrected Calcium 9.4, Total Bilirubin 3.3H, Aspartate Amino Transf (AST/SGOT) 87H, Alanine Aminotransferase (ALT/SGPT) 40, Alkaline Phosphatase 122, Total Protein 6.9, Albumin 1.9L Microbiology 06/06/20 Urine Culture - Preliminary, Resulted Escherichia coli Laboratory Tests 06/06/20 12:27 06/06/20 13:00 06/07/20 05:25 Laboratory Tests 06/06/20 12:27 06/07/20 05:25 A/P-Cardiology Assessment/Admission Diagnosis Cardiology consult for chest pain and leg swelling Rib Fractures of L 5th and 7th ribs s/p fall on L side Hemothorax Acute Cystitis without hematuria AMS Liver Mass Frequent Falls of unknown etiology Chronic Liver Failure Chronic Hepatic Encephalopathy Chronic Anemia Chronic Thrombocytopenia Chronic Hypertention Hx Methanphetamine abuse Hx EtOH abuse Hx Hepatitis C Discussion and Recomendations Chest pain workup -pain likely from rib fractures, currently resolved and nonreproducible -denies chest pain, SOB, no obvious murmur -negative troponin -leg edema stated by patient to be chronic with onset of Liver failure -ectopic beat noted on auscultation -Recommend EKG -consider orthostatic testing Management per medicine -Rib Fractures: limit physical activity -Acute Cystitis without hematuria: Vancomycin and Ceftriaxone administered -AMS: monitor hydration and electrolyte levels, reassess after resolution of UTI -Frequent Falls of unknown etiology Consult Oncology --Liver Mass F/u with PCP/[facility] for detention management -Chronic Liver Failure -Chronic Hepatic Encephalopathy -Chronic Anemia -Chronic Thrombocytopenia -Chronic Hypertention -Hx Methamphetamine abuse -Hx EtOH abuse -Hx Hepatitis C Physician Assessment Physician Assessment I interviewed and examined the patient Our assessment and plan are given above with which I agree Chest discomfort does not appear to be of cardiac origin Leg swelling is chronic and likely related to chronic liver failure and venous insuff. Nevertheless, we recommend echo to eval for any cardiac sources of leg swelling JEFF GRAY MED STUDENT Jun 07, 2020 13:34 YOLI PRIETO MD FACP FAC CCDS Jun 07, 2020 17:02
[2020-06-07] MEDS: cefTRIAXone FOR IV USE 1,000 MG in WATER (STERILE) FOR INJECTION 10 ML IV SCH (14:27)
--- NOTE | 2020-06-07 14:30 | NUR ---
PT CONTINUES TO REFUSE TELEMONITOR. DR ORELLANA GAVE ORDERS TO D/C
[2020-06-07] MEDS: RT-ALBUTEROL/IPRATROPIUM 3 ML (DUONEB) VIAL INH SCH ×3 (14:36→22:09)
--- NOTE | 2020-06-07 16:26 | NUR ---
CM/SS: CONTACTS FOR PATIENT ARE FOLLOWS - 1. Aaron Munguia [phone] - son, 2. Oneal Munguia [phone] - son, 3. Elvira Leonin [phone] - daughter The above contacts are children of pt. They are unable at this time to trust what information that Audrey - girlfriend can provide. She does indicate that she had DPOA, however we do not have paperwork at this time. This worker spoke with son Oneal to determine the above information.
[2020-06-07] MEDS ORDERED: FUROSEMIDE 40 MG/4 ML INJ (LASIX) IVP NR (18:00)
[2020-06-07] MEDS ORDERED: ASPIRIN 81 MG CHEW (CHILDREN'S ASA) PO NR (18:00)
[2020-06-08] VITALS: BP 130/69
[2020-06-08] MEDS: RT-ALBUTEROL/IPRATROPIUM 3 ML (DUONEB) VIAL INH SCH ×4 (02:10→15:23)
[2020-06-08 04:00] VITALS: BP 158/80
[2020-06-08 05:49] LABS: BASOPHILS # (AUTO) 0.1 10^3/uL (0.0-0.1); BASOPHILS % (AUTO) 1 % (0-10); EOSINOPHILS # (AUTO) 0.6 10^3/uL (0.0-0.3); EOSINOPHILS % (AUTO) 7 % (0-10); HEMATOCRIT 27 % (40-54); HEMOGLOBIN 8.9 g/dL (13.3-17.7); LYMPHOCYTES # (AUTO) 1.5 10^3/uL (1.0-4.0); LYMPHOCYTES % (AUTO) 18 % (12-44); MEAN CORPUSCULAR HEMOGLOBIN 35 pg (25-34); MEAN CORPUSCULAR HGB CONC 33 g/dL (32-36); MEAN CORPUSCULAR VOLUME 105 fL (80-99); MEAN PLATELET VOLUME 10.4 fL (9.0-12.2); MONOCYTES # (AUTO) 1.2 10^3/uL (0.0-1.0); MONOCYTES % (AUTO) 14 % (0-12); NEUTROPHILS # (AUTO) 4.9 10^3/uL (1.8-7.8); NEUTROPHILS % (AUTO) 59 % (42-75); PLATELET COUNT 77 10^3/uL (130-400); WHITE BLOOD COUNT 8.3 10^3/uL (4.3-11.0)
[2020-06-08 06:03] LABS: ALBUMIN 1.9 GM/DL (3.2-4.5); CHLORIDE 110 MMOL/L (98-107); POTASSIUM 3.6 MMOL/L (3.6-5.0); SODIUM 138 MMOL/L (135-145)
[2020-06-08 06:04] LABS: CALCIUM 7.5 MG/DL (8.5-10.1)
[2020-06-08 06:05] LABS: GLUCOSE 85 MG/DL (70-105); TOTAL PROTEIN 6.8 GM/DL (6.4-8.2)
[2020-06-08 06:06] LABS: CARBON DIOXIDE 22 MMOL/L (21-32)
[2020-06-08 06:07] LABS: BILIRUBIN,TOTAL 3.2 MG/DL (0.1-1.0)
[2020-06-08 06:09] LABS: ALKALINE PHOSPHATASE 129 U/L (40-136); CREATININE SERUM 0.78 MG/DL (0.60-1.30); GFR ESTIMATED > 60
[2020-06-08 06:10] LABS: BUN/CREATININE RATIO 21
[2020-06-08 06:12] LABS: ALANINE AMINOTRANSFERASE 38 U/L (0-55)
[2020-06-08 08:00] VITALS: BP 161/72
[2020-06-08] MEDS ORDERED: PANTOPRAZOLE 40 MG (PROTONIX) TAB PO SCH (09:00)
[2020-06-08] MEDS ORDERED: FOLIC ACID 1 MG TAB PO SCH (09:00)
[2020-06-08] MEDS ORDERED: ASPIRIN 81 MG CHEW (CHILDREN'S ASA) PO SCH (09:00)
[2020-06-08] MEDS ORDERED: LACTULOSE SYRUP 10GM/15ML (ENULOSE) 30ML UDC PO PRN (10:00)
--- NOTE | 2020-06-08 11:20 | Physical Therapy Daily Note ---
PT Daily Note-Current Subjective Pt in bed, agreeable. "Can you tell the doctor I need to go home? I just need to go home, I can't get any sleep here!" Reports (L) rib pain but not rated. NELSON LAGOON, mumbles at times. Mental Status Patient Orientation: Person, Confused, Situation, Mumbles Attachments: Victor Catheter Transfers SCALE: Activities may be completed with or without assistive devices. 3-Resaovpeyu-zupypyg completes the activity by him/herself with no assistance from a helper. 5-Set-up or Clean-up Assistance-helper sets up or cleans up; patient completes activity. Hammond assists only prior to or following the activity. 4-Supervision or Touching Assistance-helper provides verbal cues and/or touching/steadying and/or contact guard assistance as patient completes activity. Assistance may be provided throughout the activity or intermittently. 3-Partial/Moderate Assistance-helper does LESS THAN HALF the effort. Hammond lifts, holds or supports trunk or limbs, but provides less than half the effort. 2-Substantial/Maximal Assistance-helper does MORE THAN HALF the effort. Hammond lifts or holds trunk or limbs and provides more than half the effort. 1-Jotlsdbto-odxrpt does ALL the effort. Patient does none of the effort to complete the activity. Or, the assistance of 2 or more helpers is required for the patient to complete the activity. If activity was not attempted, code reason: 7-Patient Refused. 9-Not Applicable-not attempted and the patient did not perform the activity before the current illness, exacerbation or injury. 10-Not Attempted due to Environmental Limitations-(lack of equipment, weather restraints, etc.). 88-Not Attempted due to Medical Conditions or Safety Concerns. Sit to Lying (QC): 5 Lying to Sitting/Side of Bed(Q: 4 Sit to Stand (QC): 4 Weight Bearing Right Lower Extremity: Right Full Weight Bearing Left Lower Extremity: Left Full Weight Bearing Gait Training Does the Patient Walk?: Yes Distance: 200 Walk 10 feet (QC): 4 Walk 50 ft with 2 Turns(QC): 4 Walk 150 ft (QC): 4 Gait Persons Needed: 1 Gait Assistive Device: FWW Pt ambulates with min A x 1 for safety. Pt ambulates with narrow base of support, short, shuffling steps. Precarious balance initially but no joanna LOB. Pt very SOB with activity, recovered quickly with seated recovery break in room. Treatments Gait training with FWW. Pt returned to bed with all needs met. Assessment Current Status: Fair Progress Pt tolerated fair-well. Poor functional activity tolerance and decreased balance but no joanna LOB with activity. PT Longterm Goals Medical Records Specialist Goals PT Medical Records Specialist Goals Time Frame: Jun 18, 2020 Roll Left & Right (QC): 6 Sit to Lying (QC): 6 Lying-Sitting on Side/Bed(QC): 6 Sit to Stand (QC): 6 Chair/Pde-dm-Qsxjt Xfer(QC): 6 Toilet Transfer (QC): 6 Car Transfer (QC): 6 Does the Patient Walk: Yes Walk 10 feet (QC): 6 Walk 50ft with 2 Turns (QC): 6 Walk 150 ft (QC): 6 PT Plan Problem List Problem List: Activity Tolerance, Functional Strength, Safety, Balance, Gait, Transfer, Bed Mobility Treatment/Plan Treatment Plan: Continue Plan of Care Treatment Plan: Bed Mobility, Education, Functional Activity Latha, Functional Strength, Gait, Safety, Therapeutic Exercise, Transfers Treatment Duration: Jun 18, 2020 Frequency: 6 times per week Estimated Hrs Per Day: .25 hour per day Patient and/or Family Agrees t: Yes Safety Risks/Education Patient Education: Gait Training Teaching Recipient: Patient Teaching Methods: Discussion Response to Teaching: Reinforcement Needed Time/GCodes Time In: 1036 Time Out: 1059 Total Billed Treatment Time: 23 Total Billed Treatment 1, GT x 23' HUBER LEAL DPGilles Jun 08, 2020 11:20
[2020-06-08] MEDS ORDERED: FUROSEMIDE 40 MG/4 ML INJ (LASIX) IVP NR (11:30)
--- NOTE | 2020-06-08 12:09 | Progress Note - Hospitalist ---
PADMAJOSE MED STUDENT 06/08/20 1209: Subjective HPI/CC On Admission Date Seen by Provider: Jun 08, 2020 Time Seen by Provider: 10:00 CC Falls This is a 65 year old male that was admitted yesterday from the ER due to mu ltiple episodes of falling. He was carrying a 2x4 on his shoulder and fell forward. He is unsure if he lost consciousness during the fall. He tries to use a walker at home and still experiences falls. He was given a dose of ceftriaxone and vancomycin in the ER due to urine culture positive for E.coli. He has a history of chronic anemia and thrombocytopenia. CT scan showed masses in his liver as well as other lesions in spine and ribs. Patient is confused, hard of hearing, and is a poor historian. He is unsure of whether he has been evaluated for his liver mass or what the results of an evaluation were. He states that he doesn't have any pain this morning but is unable to flex his L hip due to pain on exam. He is unsure of why he falls, doesnt know if he is losing balance or his legs are giving out. He lives with a lawn caretaker, who's phone number is unknown, and his girlfriend. He is unsure of his medical, surgical, and family history. He claims that he has not had a drink in 4 years, only smokes occasionally, and doesn't do street drugs. He was positive for amphetamines on drug screen. Subjective/Events-last exam Pt states that he does not have any new pains today. Denies CP, SOB. States that he has a lot of trouble sleeping at hospital and would like to be discharged. His legs are still quite swollen. He is able to walk to the nurses station with PT this morning. He has an appointment at tomorrow for his liver. LBM yesterday. Cardiology states his chest pain is likely not cardiac, due to his broken ribs. He is able to move his L leg more than he was yesterday. Focused Exam Lactate Level 06/06/20 15:02: Lactic Acid Level 1.36 Objective Exam Vital Signs Vital Signs Date Time Temp Pulse Resp B/P (MAP) Pulse Ox O2 Delivery O2 Flow Rate FiO2 06/08/20 08:19 95 Room Air 06/08/20 08:00 37.4 91 20 161/72 (101) Capillary Refill : Less Than 3 Seconds General Appearance: No Apparent Distress, WD/WN HEENT: PERRL/EOMI, TMs Normal, Normal ENT Inspection, Pharynx Normal, Moist Mucous Membranes Neck: Full Range of Motion, Normal Inspection, Non Tender, Supple, Carotid Bruit Respiratory: Chest Non Tender, Lungs Clear, Normal Breath Sounds, No Accessory Muscle Use, No Respiratory Distress Cardiovascular: Regular Rate, Rhythm, No Edema, No Gallop, No JVD, No Murmur, Normal Peripheral Pulses Gastrointestinal: Normal Bowel Sounds, No Organomegaly, No Pulsatile Mass, Non Tender, Soft Rectal: Deferred Back: Normal Inspection, No CVA Tenderness, No Vertebral Tenderness Extremity: Swelling Neurologic/Psychiatric: Alert, Oriented x3 Skin: Normal Color, Warm/Dry Results/Procedures Lab Laboratory Tests 06/08/20 05:25 Patient resulted labs reviewed. Imaging: Reviewed Imaging Films Assessment/Plan Assessment and Plan Assess & Plan/Chief Complaint 65 Year old male with a hx of multiple falls presents with multiple liver and bone lesions, UTI, and anemia. AMS Liver Mass/Bone Lesions -Pt has appointment at tomorrow -Discharge Pt today so he can make his appointment tomorrow Macrocytic Anemia -Iron levels -Folate, B12 labs pending, received a dose of folic acid. -Baseline anemia according to hx, but if worsens, may need iron supplementation, or possibly transfusion. No obvious bleeding noted Elevated LFT -Continuing to improve, pt will go to tomorrow for APT AMS -AMS resolving -Patient Alert and Oriented today Leg Swelling -Leg compression, Elevation -BUN & Creatine WNL UTI -Restart ABX L Side Leg Pain -Rest, Ice, Patient discharge today to make appointment for tommow Diagnosis/Problems Diagnosis/Problems (1) Liver mass Status: Acute (2) Anemia Status: Chronic Qualifiers: Qualified Codes: D64.9 - Anemia, unspecified (3) Multiple fractures of ribs, left side, initial encounter for closed fracture Status: Acute (4) Frequent falls Status: Acute (5) Acute cystitis without hematuria Status: Acute (6) Thrombocytopenia Status: Chronic (7) Sepsis Status: Acute (8) Hypertension Status: Chronic (9) Urinary retention Status: Chronic (10) Liver disease, chronic Status: Chronic (11) Hepatic encephalopathy Status: Chronic (12) Methamphetamine abuse Status: Chronic (13) History of alcohol abuse Status: Chronic (14) Hepatitis C virus infection Status: Chronic (15) DVT prophylaxis Status: Acute (16) Urinary tract infection Status: Acute (17) Altered mental status Status: Acute Supervisory-Addendum Brief Verification & Attestation Participated in pt care: history, physical Personally performed: exam Care discussed with: other Procedures: n/a n/a PATI CRNAE MD 06/08/202101: Supervisory-Addendum Brief Verification & Attestation Participated in pt care: history, physical Personally performed: exam, history Care discussed with: Medical Student Procedures: n/a Verification and Attestation of Medical Student E/M Service A medical student performed and documented this service in my presence. I reviewed and verified all information documented by the medical student and made modifications to such information, when appropriate. I personally performed the physical exam and medical decision making. Pati Crane, Jun 08, 2020,21:01 Please see d/c Summary JOSE ROUSE MED STUDENT Jun 08, 2020 12:09 PATI CRANE MD Jun 08, 2020 21:02
[2020-06-08] MEDS: cefTRIAXone FOR IV USE 1,000 MG in WATER (STERILE) FOR INJECTION 10 ML IV SCH (14:57)
[2020-06-08 16:00] VITALS: BP 118/55
--- NOTE | 2020-06-08 16:23 | Discharge Summary ---
Diagnosis/Chief Complaint Date of Admission Jun 06, 2020 at 17:55 Date of Discharge 06/08/2020 Admission Diagnosis Admission Diagnosis UTI Altered mental status Hepatic Encephalopathy Liver mass lytic lesions on bones rib fracture macrocytic anemia Fall Atypical chest pain LE edema Discharge Diagnosis See above Discharge Summary-Simple/Stand Consultations Dr Prieto: Cardiology Discharge Physical Examination Allergies: Coded Allergies: No Allergy Information Available (Unverified , 03/28/20) No Known Drug Allergies (Unverified , 03/28/20) Vitals & I&Os Vital Sign - Last 12Hours Date Time Temp Pulse Resp B/P (MAP) Pulse Ox O2 Delivery O2 Flow Rate FiO2 06/08/20 15:24 96 Room Air 06/08/20 08:00 37.4 91 20 161/72 (101) Intake and Output 06/08/20 00:00 Intake Total 2685 ml Output Total 1300 ml Balance 1385 ml General Appearance: Alert, Cooperative, No Acute Distress HEENT: Atraumatic, PERRLA Respiratory: Clear to Auscultation, Normal Air Movement Cardiovascular: Regular Rate, No Murmurs Abdominal: Normal Bowel Sounds, Soft, No Tenderness Extremities: Other (2+ pitting edema bilaterally) Neuro: Normal Speech, Sensation Intact, Cranial Nerves 3-12 NL Psych/Mental Status: Mental Status NL, Mood NL Hospital Course Was the Problem List Reviewed?: Yes See final discharge diagnosis. Discussion & Recommendations 65 yo M with significant EtOH and Hep C history with Liver mass. Patient present ed with altered mental status and was started on his lactulose and Xifaxin due to elevated ammonia. He was also found to have UTI and received rocephin. Patient was at his baseline mental status at time of discharge. Patient had known liver masses but was found to have new lytic lesions on his bone. He has appt with [facility] tomorrow and would like to be discharged so that he can follow up with them. He has not had bx of masses at this time. Discharge Condition at discharge Guarded Instructions to patient/family Please see electronic discharge instructions given to patient. Discharge Medications Reviewed and agree with Discharge Medication list on patient's Discharge Instruction sheet Copy Copies To 1: Umberto ZHENG HOLLY R MD Jun 08, 2020 16:23
[2020-06-08] MEDS ORDERED: CEFD300C3 PO (16:25)
[2020-06-08] MEDS ORDERED: ASPI-999 PO (16:25)
--- NOTE | 2020-06-08 16:27 | Discharge Summary ---
Discharge [facility] Reconcile Patient Problems Problems Reviewed?: Yes Discharge Medications New, Converted or Re-Newed RX: Transmitted to Pharmacy New Medications: Cefdinir (Cefdinir) 300 Mg Capsule 300 MG PO BID, #14 CAP Aspirin (Aspirin) 81 Mg Tab.chew 81 MG PO DAILY, #30 TAB Continued Medications: Cholecalciferol (Vitamin D3) (Vitamin D3) 25 Mcg Tablet 25 MCG PO DAILY, TAB Folic Acid (Folic Acid) 0.8 Mg Tablet 0.8 MG PO DAILY, TAB Lactulose (Lactulose) 10 Gm/15 Ml Solution 30 MG PO TID PRN for CONSTIPATION-3RD LINE, EA Milk Thistle Seed Extract (Milk Thistle) 175 Mg Tablet 175 MG PO DAILY, TAB Multivit-Min/FA/Lycopene/Lut (Centrum Silver Tablet) 1 Each Tablet 1 TAB PO DAILY, TAB Pantoprazole Sodium (Pantoprazole Sodium) 40 Mg Tablet.dr 40 MG PO DAILY, TAB Rifaximin (Xifaxan) 200 Mg Tablet 400 MG PO TID, TAB TAKES 2 (200MG) TABS LAST FILLED 04-04-2020 #180/30 DAY SUPPLY Patient Instructions Goal/Follow Up Appt: Make sure to make your appt at tomorrow You have an appt with your PCP on Jun 14 @ 0120 Patient Instructions: - Make sure to take your Xifaxan and Lactulose to prevent hepatic encephalopathy - Make sure to complete your antibiotics for your UTI Activity & Diet Discharge Diet: Cardiac Diet Activity as Tolerated: Yes PATI ROBLERO MD Jun 08, 2020 16:27
[2020-06-08 17:00] VITALS: BP 118/55
--- NOTE | 2020-06-08 17:00 | NUR ---
ESCOBAR BRYANT demonstrates understanding of discharge instructions and accurately returns instructions upon questioning. Copy of Post-Discharge Instructions and Medication Discharge Instructions given to PT. ESCOBAR BRYANT is able to manage continuing needs after discharge. Patients belongings returned to PT. Skin dry and intact; no breakdown noted. Patient discharged from [facility] on at 1700. ESCOBAR BRYANT left floor via WC, accompanied by STAFF.
[2020-06-08] MEDS ORDERED: RIFAXIMIN 550 MG TABLET (XIFAXAN) PO SCH (21:00)
== END 2020-06-08 17:00 | disposition home or self-care (01) | DRG 689 ==
LOC: EDUNIT# 12:12 → ER FS 12:17 → 4TH 17:55
PROVIDERS: ADMIT Family Medicine; ATTEND Family Medicine
DX: N30.00 Acute cystitis without hematuria (principal); S27.1XXA Traumatic hemothorax, initial encounter; S22.42XA Multiple fractures of ribs, left side, initial encounter for closed fracture; K72.90 Hepatic failure, unspecified without coma; R16.0 Hepatomegaly, not elsewhere classified; D53.9 Nutritional anemia, unspecified; R07.89 Other chest pain; R60.0 Localized edema; M89.9 Disorder of bone, unspecified; D69.6 Thrombocytopenia, unspecified; F17.210 Nicotine dependence, cigarettes, uncomplicated; I10 Essential (primary) hypertension; K74.60 Unspecified cirrhosis of liver; B19.20 Unspecified viral hepatitis C without hepatic coma; W18.30XA Fall on same level, unspecified, initial encounter; F15.10 Other stimulant abuse, uncomplicated
CPT/HCPCS: 36415; 51702; 70450; 71250; 72125; 80053; 80306; 80320; 81000; 82140; 82607; 82746; 83605; 83880; 84425; 84484; 85025; 87040; 87088; 87186; 93005; 93306; 94640; 94664; 94760

== ENCOUNTER 2020-08-19 23:37 | Emergency (ER) | payer MEDICARE, MEDICAID ==
[~2020-08-19] VITALS: Ht 170.1 cm; Wt 92.1 kg
[~2020-08-19 23:37] MED LIST changes: +CHOL-34 PO; -CHOL10002 PO; -CIPR500T4 PO; +CIPR500T5 PO; -FOLI0.8T PO; +FOLI0.8T4 PO; -LACT10SO PO; +LACT10SO3 PO; -LISI-552 PO; +LISI20TA26 PO
[2020-08-20 00:05] VITALS: BP 152/80
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
[2020-08-20] MEDS ORDERED: LIDOCAINE UROJET 2% GEL 10 ML PKG TOP ONE (00:15)
[2020-08-20 00:26] LABS: BUN/CREATININE RATIO 30; CALCIUM 8.5 MG/DL (8.5-10.1); CARBON DIOXIDE 22 MMOL/L (21-32); CHLORIDE 107 MMOL/L (98-107); GFR ESTIMATED > 60; GLUCOSE 122 MG/DL (70-105); POTASSIUM 3.9 MMOL/L (3.6-5.0); SODIUM 136 MMOL/L (135-145)
[2020-08-20 00:29] LABS: CLARITY,URINE CLOUDY; COLOR,URINE YELLOW
[2020-08-20 00:30] LABS: BACTERIA,URINE LARGE /HPF; BILIRUBIN,URINE NEGATIVE (NEGATIVE); GLUCOSE, URINE (UA) NEGATIVE (NEGATIVE); KETONES,URINE NEGATIVE (NEGATIVE); LEUKOCYTE ESTERASE ,URINE NEGATIVE (NEGATIVE); NITRITE,URINE NEGATIVE (NEGATIVE); PROTEIN,URINE NEGATIVE (NEGATIVE); RBC,URINE 0-2 /HPF; SQUAMOUS EPITHELIAL CELL,UR RARE /HPF
[2020-08-20] MEDS ORDERED: NITR-65 PO (00:43)
== END 2020-08-20 00:45 | disposition home or self-care (01) ==
LOC: EDUNIT# 23:37 → ER FS 23:41
DX: N39.0 Urinary tract infection, site not specified (principal); I10 Essential (primary) hypertension; Z77.22 Contact with and (suspected) exposure to environmental tobacco smoke (acute) (chronic); Z79.82 Long term (current) use of aspirin; Z85.05 Personal history of malignant neoplasm of liver; Z96.0 Presence of urogenital implants
CPT/HCPCS: 36415; 51702; 80048; 81000; 87077; 87088

== ENCOUNTER 2020-09-05 13:41 | Inpatient (IN) | payer MEDICARE, MEDICAID ==
[~2020-09-05] VITALS: Ht 167.7 cm; Wt 91.9 kg
[~2020-09-05 13:41] MED LIST changes: +NITR-65 PO
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
[2020-09-05 14:31] LABS: BASOPHILS # (AUTO) 0.1 10^3/uL (0.0-0.1); BASOPHILS % (AUTO) 1 % (0-10); EOSINOPHILS # (AUTO) 0.7 10^3/uL (0.0-0.3); EOSINOPHILS % (AUTO) 8 % (0-10); HEMATOCRIT 33 % (40-54); HEMOGLOBIN 11.3 G/DL (13.3-17.7); LYMPHOCYTES # (AUTO) 1.8 X 10^3 (1.0-4.0); LYMPHOCYTES % (AUTO) 21 % (12-44); MEAN CORPUSCULAR HEMOGLOBIN 36 PG (25-34); MEAN CORPUSCULAR HGB CONC 34 G/DL (32-36); MEAN CORPUSCULAR VOLUME 106 FL (80-99); MEAN PLATELET VOLUME 10.6 FL (7.4-10.4); MONOCYTES # (AUTO) 1.6 X 10^3 (0.0-1.0); MONOCYTES % (AUTO) 19 % (0-12); NEUTROPHILS # (AUTO) 4.4 X 10^3 (1.8-7.8); NEUTROPHILS % (AUTO) 51 % (42-75); PLATELET COUNT 101 10^3/uL (130-400); WHITE BLOOD COUNT 8.6 10^3/uL (4.3-11.0)
--- NOTE | 2020-09-05 14:36 | Diagnostic Imaging Report ---
CHEST 1 VIEW AP/PA ONLY Indication: Sepsis and hematuria. Frequent falls. Comparison: 03/28/2020 Findings: No focal airspace disease in the visualized lungs. Please note that the posterior lower lobes are poorly evaluated by portable radiography. No pleural effusion or pneumothorax. Normal cardiomediastinal silhouette. Impression: 1. No acute cardiopulmonary process by portable radiography. Dictated by: Dictated on workstation # [id number]
[2020-09-05 14:41] LABS: INR 1.2 (0.8-1.4); PROTHROMBIN TIME PATIENT 15.8 SEC (12.2-14.7)
[2020-09-05 14:55] LABS: ATYPICAL LYMPHOCYTES 2 %; BAND NEUTROPHILS 5 %; EOSINOPHILS % (MANUAL) 4 %; LYMPHOCYTES % (MANUAL) 21 %; MONOCYTES % (MANUAL) 20 %; NEUTROPHILS % (MANUAL) 48 %
[2020-09-05 14:56] LABS: ALKALINE PHOSPHATASE 147 U/L (40-136); BILIRUBIN,TOTAL 2.8 MG/DL (0.1-1.0); BUN/CREATININE RATIO 28; CALCIUM 9.1 MG/DL (8.5-10.1); CARBON DIOXIDE 24 MMOL/L (21-32); CHLORIDE 104 MMOL/L (98-107); CREATININE SERUM 1.12 MG/DL (0.60-1.30); GFR ESTIMATED > 60; GLUCOSE 125 MG/DL (70-105); POTASSIUM 3.9 MMOL/L (3.6-5.0); SODIUM 137 MMOL/L (135-145)
[2020-09-05 14:57] LABS: ALANINE AMINOTRANSFERASE 41 U/L (0-55); ALBUMIN 2.5 GM/DL (3.2-4.5); TOTAL PROTEIN 7.5 GM/DL (6.4-8.2)
--- NOTE | 2020-09-05 15:01 | Diagnostic Imaging Report ---
PROCEDURE: US right lower extremity venous. TECHNIQUE: Multiple real-time grayscale images were obtained over the right lower extremity in various projections. Additional spectral analysis and color Doppler duplex images were also obtained. INDICATION: Pain. FINDINGS: Right lower extremity femoropopliteal deep venous system is widely patent and showed normal color flow, normal compressibility, and normal waveforms. There is no deep vein thrombus and no superficial thrombi identified. No mass or fluid collection demonstrated. IMPRESSION: Normal negative unilateral right lower extremity venous Doppler and ultrasound exam. Dictated by: Dictated on workstation # [id number]
[2020-09-05] MEDS ORDERED: NS IV 1000 ML 1,000 ML ONE (15:02)
[2020-09-05] MEDS ORDERED: NS IV 1000 ML 1,000 ML IV ONE (15:15)
[2020-09-05 15:17] LABS: CLARITY,URINE TURBID; COLOR,URINE RED; GLUCOSE, URINE (UA) TRACE (NEGATIVE); KETONES,URINE TRACE (NEGATIVE); PROTEIN,URINE 2+ (NEGATIVE)
[2020-09-05 15:18] LABS: NITRITE,URINE POSITIVE (NEGATIVE)
[2020-09-05 15:19] LABS: BILIRUBIN,URINE 2+ (NEGATIVE)
[2020-09-05 15:20] LABS: BACTERIA,URINE TRACE /HPF; LEUKOCYTE ESTERASE ,URINE 2+ (NEGATIVE); RBC,URINE TNTC /HPF
[2020-09-05] MEDS ORDERED: IOHEXOL 350 MG/ML 100 ML (OMNIPAQUE 350) VIAL IV ONE (15:45)
[2020-09-05] MEDS ORDERED: NS 100 ML (IVPB) BAG IV ONE (15:45)
[2020-09-05] MEDS ORDERED: HOLD METFORMIN - RECEIVED CONTRAST 20 ML VIAL IV SCH (15:45)
[2020-09-05] MEDS ORDERED: CATHETER FLUSH 10 ML SYR IV PRN ×2 (15:45→20:30)
--- NOTE | 2020-09-05 16:23 | Diagnostic Imaging Report ---
EXAMINATION: CT abdomen/pelvis w. TECHNIQUE: Multiple contiguous axial images were obtained through the abdomen and pelvis after administration of intravenous contrast. All CT scans use one or more of the following dose optimizing techniques: automated exposure control, MA and/or KvP adjustment based on a patient size and exam type, or iterative reconstruction. INDICATION: Hematuria, fall with flank pain. COMPARISON: CT chest of 06/06/[address] abdomen and pelvis of 03/29/2020. FINDINGS: Lower chest: The lung bases are clear. No pericardial or pleural effusion. Peritoneum: No free intraperitoneal air or fluid. Liver and biliary system: Nodular liver is indicative of cirrhosis. Peripheral enhancing hypodense masses within segments 6 and 8 are again noted indicative of neoplasm. The segment 6 lesion measures 4.2 x 4.6 cm (previously 2.6 x 2.7 cm). There are also likely smaller infiltrative masses in the caudate lobe and more anteriorly in segment 5. The gallbladder is normal. No biliary duct dilation. Spleen and Pancreas: Spleen is normal. The pancreas enhances normally without mass lesion or peripancreatic inflammatory changes. Adrenals: Bilateral soft tissue masses in the adrenal glands have developed since prior CT. The left adrenal mass measures 5.3 x 4.5 cm. The right adrenal mass measures 4.9 x 4.1 cm. tract: The kidneys enhance normally without suspicious mass or obstruction. No renal or ureteral stones. Urinary bladder is decompressed by Victor catheter which limits assessment for wall thickening. GI tract: Stomach is decompressed. No bowel obstruction. No pericolonic inflammatory changes. Appendix is not visualized. Vasculature and Lymph nodes: There are multiple paraesophageal varicosities present. Enlarged left gastric veins are also present indicative of varicosities. No abdominal aortic aneurysm. No retroperitoneal lymphadenopathy. No pelvic or inguinal lymphadenopathy. Musculoskeletal: Lytic destructive lesions are present in the right lorena-aspect of the L5 vertebral body invading the right L5 neuroforamen. There is a soft tissue mass adjacent to the right L4 vertebral body measuring 4.0 x 2.6 cm. Destructive lesion has developed occupying approximately one half of the T11 vertebral body and has soft tissue extension into the paravertebral soft tissues. IMPRESSION: 1. Since CT abdomen and pelvis of 03/29/2020, there has been development of extensive metastatic disease throughout the abdomen and pelvis. This includes masses in the liver that may be hepatocellular carcinoma, which have increased in size since the prior exam. New since that exam are bilateral adrenal masses and multifocal musculoskeletal metastases involving the thoracic and lumbar spine. If tissue diagnosis is warranted, there is a soft tissue mass located to the right of the L4 vertebral body which would be most amenable to CT-guided biopsy. 2. The skeletal metastasis involving the L5 vertebral body does extend into the right L5 neuroforamen and has some epidural extension into the spinal canal likely resulting in severe spinal stenosis at L5. Dictated by: Dictated on workstation # [id number]
[2020-09-05] MEDS ORDERED: cefTRIAXone FOR IV USE 1,000 MG in WATER (STERILE) FOR INJECTION 10 ML IV STA (16:27)
[2020-09-05] MEDS ORDERED: NS IV 1000 ML 1,000 ML IV STA (16:44)
[2020-09-05] MEDS ORDERED: morphine INJ 10 MG/ML 1ML (SYR OR VIAL) ONE (18:56)
[2020-09-05] MEDS ORDERED: morphine INJ 10 MG/ML 1ML (SYR OR VIAL) IVP STA (19:03)
[2020-09-05] MEDS ORDERED: ONDANSETRON 4 MG/2 ML (SDV) Z0FRAN IV PRN (20:30)
[2020-09-05 20:40] LABS: BASOPHILS # (AUTO) 0.1 10^3/uL (0.0-0.1); BASOPHILS % (AUTO) 1 % (0-10); EOSINOPHILS # (AUTO) 0.6 10^3/uL (0.0-0.3); EOSINOPHILS % (AUTO) 7 % (0-10); HEMATOCRIT 30 % (40-54); HEMOGLOBIN 10.1 g/dL (13.3-17.7); LYMPHOCYTES # (AUTO) 1.9 10^3/uL (1.0-4.0); LYMPHOCYTES % (AUTO) 23 % (12-44); MEAN CORPUSCULAR HEMOGLOBIN 36 pg (25-34); MEAN CORPUSCULAR HGB CONC 33 g/dL (32-36); MEAN CORPUSCULAR VOLUME 109 fL (80-99); MEAN PLATELET VOLUME 10.1 fL (9.0-12.2); MONOCYTES # (AUTO) 1.2 10^3/uL (0.0-1.0); MONOCYTES % (AUTO) 14 % (0-12); NEUTROPHILS # (AUTO) 4.5 10^3/uL (1.8-7.8); NEUTROPHILS % (AUTO) 55 % (42-75); PLATELET COUNT 85 10^3/uL (130-400); WHITE BLOOD COUNT 8.2 10^3/uL (4.3-11.0)
[2020-09-05] MEDS ORDERED: MELATONIN 3 MG TABLET PO PRN (20:45)
[2020-09-05] MEDS ORDERED: LOPERAMIDE 2 MG (IMODIUM) TABLET PO PRN (20:45)
[2020-09-05] MEDS ORDERED: CALCIUM CARBONATE 500 MG (TUMS) TAB.CHEW PO PRN (20:45)
[2020-09-05] MEDS ORDERED: ACETAMINOPHEN 500 MG TAB (TYLENOL) PO PRN (20:45)
[2020-09-05] MEDS ORDERED: DOCUSATE SODIUM 100 MG (COLACE) CAP PO PRN (20:45)
[2020-09-05 20:48] LABS: CHLORIDE 108 MMOL/L (98-107); POTASSIUM 4.4 MMOL/L (3.6-5.0); SODIUM 138 MMOL/L (135-145)
[2020-09-05 20:50] LABS: CALCIUM 7.9 MG/DL (8.5-10.1); GLUCOSE 89 MG/DL (70-105)
[2020-09-05 20:52] LABS: CARBON DIOXIDE 22 MMOL/L (21-32)
[2020-09-05 20:54] LABS: CREATININE SERUM 0.91 MG/DL (0.60-1.30); GFR ESTIMATED > 60
[2020-09-05 20:55] LABS: BUN/CREATININE RATIO 31
[2020-09-05 21:00] VITALS: BP 116/58
[2020-09-05] MEDS: SENNA W/DOCUSATE (SENOKOT S) TABLET PO SCH (21:38)
[2020-09-05] MEDS: NS IV 1000 ML 1,000 ML IV SCH (21:40)
[2020-09-06 00:58] VITALS: BP 131/71
[2020-09-06 04:56] VITALS: BP 127/74
[2020-09-06] MEDS: NS IV 1000 ML 1,000 ML IV SCH (04:56)
[2020-09-06 06:09] LABS: BASOPHILS # (AUTO) 0.1 10^3/uL (0.0-0.1); BASOPHILS % (AUTO) 1 % (0-10); EOSINOPHILS # (AUTO) 0.6 10^3/uL (0.0-0.3); EOSINOPHILS % (AUTO) 8 % (0-10); HEMATOCRIT 29 % (40-54); HEMOGLOBIN 9.5 g/dL (13.3-17.7); LYMPHOCYTES # (AUTO) 1.4 10^3/uL (1.0-4.0); LYMPHOCYTES % (AUTO) 18 % (12-44); MEAN CORPUSCULAR HEMOGLOBIN 36 pg (25-34); MEAN CORPUSCULAR HGB CONC 33 g/dL (32-36); MEAN CORPUSCULAR VOLUME 111 fL (80-99); MEAN PLATELET VOLUME 9.8 fL (9.0-12.2); MONOCYTES # (AUTO) 1.1 10^3/uL (0.0-1.0); MONOCYTES % (AUTO) 14 % (0-12); NEUTROPHILS # (AUTO) 4.6 10^3/uL (1.8-7.8); NEUTROPHILS % (AUTO) 59 % (42-75); PLATELET COUNT 84 10^3/uL (130-400); WHITE BLOOD COUNT 7.8 10^3/uL (4.3-11.0)
[2020-09-06 06:29] LABS: CHLORIDE 109 MMOL/L (98-107); POTASSIUM 4.2 MMOL/L (3.6-5.0); SODIUM 137 MMOL/L (135-145)
[2020-09-06 06:30] LABS: CALCIUM 7.6 MG/DL (8.5-10.1)
[2020-09-06 06:31] LABS: GLUCOSE 91 MG/DL (70-105); TOTAL PROTEIN 6.6 GM/DL (6.4-8.2)
[2020-09-06 06:32] LABS: CARBON DIOXIDE 21 MMOL/L (21-32)
[2020-09-06 06:33] LABS: BILIRUBIN,TOTAL 2.4 MG/DL (0.1-1.0)
[2020-09-06 06:35] LABS: ALKALINE PHOSPHATASE 119 U/L (40-136); GFR ESTIMATED > 60
[2020-09-06 06:36] LABS: BUN/CREATININE RATIO 31
[2020-09-06 06:38] LABS: ALANINE AMINOTRANSFERASE 38 U/L (0-55)
[2020-09-06 07:26] VITALS: BP 105/55
[2020-09-06] MEDS: HYDROcodone/APAP 5 MG/325 MG (LORTAB) TAB PO PRN ×3 (10:10→21:36)
[2020-09-06] MEDS: SENNA W/DOCUSATE (SENOKOT S) TABLET PO SCH ×2 (10:10→20:11)
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
[2020-09-06 11:35] VITALS: BP 121/58
--- NOTE | 2020-09-06 11:54 | Physical Therapy Evaluation ---
PT Evaluation-General Medical Diagnosis Admission Date Sep 05, 2020 at 20:00 Medical Diagnosis: UTI/sepsis Onset Date: Sep 05, 2020 Therapy Diagnosis Therapy Diagnosis: debility/weakness Height/Weight Height (Feet): 5 Height (Inches): 7.00 Weight (Pounds): 210 Weight (Ounces): 0.0 Precautions Precautions/Isolations: Fall Prevention, Standard Precautions Referral Physician: Coy Reason for Referral: Evaluation/Treatment Medical History Pertinent Medical History: Alcoholism, HTN, Smoking Additional Medical History metastatic liver cancer to bone/spine/meth use Current History ER secondary to hematuria in Victor/multiple falls Reviewed History: Yes Social History Home: Apartment Current Living Status: Significant Other Prior Prior Level of Function SCALE: Activities may be completed with or without assistive devices. 1-Kfdpihoycu-kitgsms completes the activity by him/herself with no assistance from a helper. 5-Set-up or Clean-up Assistance-helper sets up or cleans up; patient completes activity. [place] assists only prior to or following the activity. 4-Supervision or Touching Assistance-helper provides verbal cues and/or touching/steadying and/or contact guard assistance as patient completes activity. Assistance may be provided throughout the activity or intermittently. 3-Partial/Moderate Assistance-helper does LESS THAN HALF the effort. [place] lifts, holds or supports trunk or limbs, but provides less than half the effort. 2-Substantial/Maximal Assistance-helper does MORE THAN HALF the effort. [place] lifts or holds trunk or limbs and provides more than half the effort. 8-Zutfngboe-mutzas does ALL the effort. Patient does none of the effort to complete the activity. Or, the assistance of 2 or more helpers is required for the patient to complete the activity. If activity was not attempted, code reason: 7-Patient Refused. 9-Not Applicable-not attempted and the patient did not perform the activity before the current illness, exacerbation or injury. 10-Not Attempted due to Environmental Limitations-(lack of equipment, weather restraints, etc.). 88-Not Attempted due to Medical Conditions or Safety Concerns. Bed Mobility: 3 Transfers (B,C,W/C): 3 Gait: 3 Indoor Mobility (Ambulation): Needed Some Help Stairs: Needed Some Help Prior Devices Use: None girlfriend assist per patient report (unable to use AD secondary to left UE debility and overall debility) PT Evaluation-Current Subjective Patient agrees to PT. Objective Patient Orientation: Normal For Age Attachments: Victor Catheter ROM/Strength ROM Lower Extremities bilateral LE WFL Strength Lower Extremities 3/5 grossly bilateral LE Integumentary/Posture Integumentary refer to nursing notes Bladder Incontinence: Victor Cath Posture WFL Neuromuscular (Tone, Coordination, Reflexes) diminished coordination with gross motor skills Sensory Vision: Functional Hearing: Impaired Transfers Roll Left to Right (QC): 6 Lying to Sitting/Side of Bed(Q: 6 Sit to Stand (QC): 2 Chair/Rnl-fu-Lvape Xfer(QC): 2 Gait Does the Patient Walk?: Yes Mode of Locomotion: Walk Anticipated Mode of Locomotion: Walk Walk 10 feet (QC): 3 Walk 50 ft with 2 Turns(QC): 88 Walk 150 ft (QC): 88 Gait Assistive Device: None (INTELLIGENT SYSTEMS ENGINEER) Comments/Gait Description unsteady gait sequence Balance Sitting Static: Normal Sitting Dynamic: Normal Standing Static: Fair Standing Dynamic: Fair Assessment/Needs 65 y.o. male will be seen by skilled PT to address functional strength and mobility to improve current LOF to return to home with significant other at maximum LOF. patient does have spinal mets. Rehab Potential: Poor PT Group Home Goals Sales Solutions Associate Goals PT Sales Solutions Associate Goals Time Frame: September 17, 2020 Roll Left & Right (QC): 6 Sit to Lying (QC): 6 Lying-Sitting on Side/Bed(QC): 6 Sit to Stand (QC): 4 Chair/Vnn-lg-Cnazk Xfer(QC): 4 Walk 10 feet (QC): 4 Walk 50ft with 2 Turns (QC): 4 PT Plan Problem List Problem List: Activity Tolerance, Functional Strength, Safety, Balance, Gait, Transfer Treatment/Plan Treatment Plan: Continue Plan of Care Treatment Plan: Education, Functional Activity Latha, Functional Strength, Gait, Safety, Therapeutic Exercise, Transfers Treatment Duration: September 17, 2020 Frequency: 6 times per week Estimated Hrs Per Day: .25 hour per day Patient and/or Family Agrees t: Yes Time/GCodes Time In: 1124 Time Out: 1134 Total Billed Treatment Time: 10 Total Billed Treatment 1 visit EVModC 10 min EVELINA BALLARD PT Sep 06, 2020 11:54
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
[2020-09-06 16:00] VITALS: BP 136/60
[2020-09-06] MEDS: cefTRIAXone 1,000 MG/SWFI 10 ML IV PUSH IV SCH ×2 (16:16)
[2020-09-06 19:52] VITALS: BP 132/61
[2020-09-06] MEDS: ALPRAZolam 0.25 MG (XANAX) TAB PO PRN (20:11)
[2020-09-06] MEDS: morphine INJ 4 MG/ML 1 ML (VIAL/SYRINGE) IV PRN (20:18)
[2020-09-06] MEDS: RIFAXIMIN 550 MG TABLET (XIFAXAN) PO SCH (21:36)
[2020-09-06] MEDS: diphenhydrAMINE 25 MG TAB (BENADRYL) PO PRN (21:36)
[2020-09-07] VITALS: BP 136/63
[2020-09-07] MEDS: morphine INJ 4 MG/ML 1 ML (VIAL/SYRINGE) IV PRN ×2 (03:43→07:28)
[2020-09-07] MEDS: diphenhydrAMINE 25 MG TAB (BENADRYL) PO PRN (03:43)
[2020-09-07 04:00] VITALS: BP 105/54
[2020-09-07] MEDS: HYDROcodone/APAP 5 MG/325 MG (LORTAB) TAB PO PRN ×2 (04:06→10:50)
[2020-09-07 06:41] LABS: BASOPHILS # (AUTO) 0.1 10^3/uL (0.0-0.1); BASOPHILS % (AUTO) 1 % (0-10); EOSINOPHILS # (AUTO) 0.5 10^3/uL (0.0-0.3); EOSINOPHILS % (AUTO) 7 % (0-10); HEMATOCRIT 30 % (40-54); HEMOGLOBIN 9.8 g/dL (13.3-17.7); LYMPHOCYTES # (AUTO) 1.7 10^3/uL (1.0-4.0); LYMPHOCYTES % (AUTO) 21 % (12-44); MEAN CORPUSCULAR HEMOGLOBIN 36 pg (25-34); MEAN CORPUSCULAR HGB CONC 33 g/dL (32-36); MEAN CORPUSCULAR VOLUME 110 fL (80-99); MEAN PLATELET VOLUME 10.9 fL (9.0-12.2); MONOCYTES # (AUTO) 1.1 10^3/uL (0.0-1.0); MONOCYTES % (AUTO) 13 % (0-12); NEUTROPHILS # (AUTO) 4.7 10^3/uL (1.8-7.8); NEUTROPHILS % (AUTO) 58 % (42-75); PLATELET COUNT 97 10^3/uL (130-400)
[2020-09-07] MEDS: ALPRAZolam 0.25 MG (XANAX) TAB PO PRN (06:53)
[2020-09-07 06:57] LABS: ALBUMIN 2.3 GM/DL (3.2-4.5); CHLORIDE 106 MMOL/L (98-107); POTASSIUM 4.4 MMOL/L (3.6-5.0); SODIUM 134 MMOL/L (135-145)
[2020-09-07 06:58] LABS: CALCIUM 8.1 MG/DL (8.5-10.1)
[2020-09-07 07:00] LABS: GLUCOSE 121 MG/DL (70-105); TOTAL PROTEIN 7.2 GM/DL (6.4-8.2)
[2020-09-07] MEDS ORDERED: PANTOPRAZOLE 40 MG (PROTONIX) TAB PO SCH (07:00)
[2020-09-07 07:01] LABS: CARBON DIOXIDE 22 MMOL/L (21-32)
[2020-09-07 07:02] LABS: BILIRUBIN,TOTAL 2.4 MG/DL (0.1-1.0)
[2020-09-07 07:03] LABS: ALKALINE PHOSPHATASE 152 U/L (40-136); GFR ESTIMATED > 60
[2020-09-07 07:04] LABS: BUN/CREATININE RATIO 24
[2020-09-07 07:06] LABS: ALANINE AMINOTRANSFERASE 43 U/L (0-55)
[2020-09-07 08:00] VITALS: BP 107/61
--- NOTE | 2020-09-07 08:51 | Occ Therapy Progress Note ---
Therapy Progress Note 1, attempt: 807 am. Pt's nurse states pt was up for multiple hours desiring assistance and finally is resting/ asleep. OT to check on pt at next available time. HERBIE PILLAI OTR Sep 07, 2020 08:51
[2020-09-07] MEDS: SENNA W/DOCUSATE (SENOKOT S) TABLET PO SCH (10:49)
[2020-09-07] MEDS: RIFAXIMIN 550 MG TABLET (XIFAXAN) PO SCH (10:50)
--- NOTE | 2020-09-07 11:10 | Progress Note ---
SILVINO MONZON, MED STUDENT 09/07/20 1110: Progress Note Luther Munguia is a 65 y/o M w/ PMH of ESLD w/ HCC, drug abuse, and urinary retention presenting for a UTI and hematuria. Mr. Munguia was in the bathroom and his catheter caught on a handle causing it to dislodge. Mr. Munguia has an indwelling catheter due to urinary retention for which was most recently seen in the ED on 08/19/2020. It was noted during Mr. Munguia's admission that his catheter was dirty and his urine smelled foul. Gross hematuria was also noted. His vitals on admission included BP 108/59, HR [address] scan was negative for any renal issues but showed diffuse wide spread abdominal metastasis of his HCC. Mr. Munguia was also noted to have right lower extremity swelling with his right lower extremity being greater in size than his left lower extremity. Lower extremity venous US did not show any DVT. Mr. Munguia was started bolused 1L fluids and started on ceftraixone prior to his admission to the medicine unit. While on the medicine unit, ceftriaxone was continued and fluids were stopped at the end of the first day of his stay on the medicine service. He did develop some confusion overnight/data abstractor of 09/07/2020 and was subsequently started on rifaxamin. He was also started on hydrocodone for his back and leg pain. On discharge, Mr. Munguia's hematuria has resolved, had a stable hemoglobin, received 3 days of ceftriaxone for his UTI, and started on rifaxamin for his encephalopathy secondary to ESLD w/ HCC and metastasis. He has a follow up with for his HCC next week. His PCP is [facility] and he will need followup for resolution of his UTI. He will be discharged on ciprofloxacin 500mg PO BID for 5 days. He will need to be readmitted if he develops fevers, flank pain, foul smelling urine, trouble urinating, or his confusion persists. ROHINI ABBOTT DO 09/08/20 0525: Supervisory-Addendum Brief Verification & Attestation Participated in pt care: history, MDM, physical Personally performed: exam, history, MDM, supervision of care Care discussed with: Medical Student Procedures: n/a Results interpretation: Verified all documentation Verification and Attestation of Medical Student E/M Service A medical student performed and documented this service in my presence. I reviewed and verified all information documented by the medical student and made modifications to such information, when appropriate. I personally performed the physical exam and medical decision making. Rohini Abbott, Sep 08, 2020,05:25 SILVINO MONZON, MED STUDENT Sep 07, 2020 11:10 ROHINI ABBOTT DO Sep 08, 2020 05:25
--- NOTE | 2020-09-07 11:19 | D/C HH Face to Face Order ---
D/C Face to Face Orders Reconcile Patient Problems Problems Reviewed?: Yes Instructions for Patient Via [facility], Patient Instructions/FollowUp: [facility] 1 olga LEUNG next week Physician to follow Patient: [facility] Discharge Diet for Home: No Restrictions Patient Problems: UTI Urinary retention Liver cancer Patient Data-Allergies,Ht & Wt Patient Allergies: Coded Allergies: No Allergy Information Available (Unverified , 03/28/20) No Known Drug Allergies (Unverified , 03/28/20) Height (Feet): 5 Height (Inches): 7.00 Weight (Pounds): 210 Weight (Ounces): 0.0 Home Health Need/Face to Face Date of Face to Face: Sep 07, 2020 Clinical Findings: Generalized weakness and fatigue, Muscle weakness, Unsteady gait I have seen Pt [id number]: Yes Discharged To: Home Diagnosis/Conditions: UTI Urinary retention Liver cancer Patient is Homebound due to: Suki fall risk due to instabilty, Muscle weakness Homebound Status Due to the above stated illness, injury or surgical procedure (medical condition or diagnosis) and associated clinical findings, the patient is homebound because of his/her inability to leave home except with aid of a supportive device and/or person AND leaving the home requires a considerable and taxing effort or is medically contraindicated. Pt req the following assistanc: [facility] Nursing Orders Home Health Services Order: Nursing Services, Dental Scheduling Coordinator-Evaluate & Treat, Physical Therapy-Evaluate & Treat Home Health Infusion Therapy Line Start Date: Sep 05, 2020 Certify Stmt I certify that this patient is under my care and that I, a nurse practitioner or a physician; a assistant manager retail working with me, had a face to face encounter that - meets the physician face to face encounter requirements with this patient as dated. SHANA ABBOTT DO Sep 07, 2020 11:19
[2020-09-07] MEDS ORDERED: FURO40TA4 PO (11:36)
[2020-09-07] MEDS ORDERED: SPIR100T4 PO (11:36)
[2020-09-07] MEDS ORDERED: CIPR500T5 PO (11:50)
--- NOTE | 2020-09-07 11:51 | Discharge Summary ---
Discharge Summary Hospital Course Was the Problem List Reviewed?: Yes Problems/Dx: (1) UTI (urinary tract infection) (2) Hepatic encephalopathy (3) Altered mental status Status: Acute (4) Liver failure Hospital Course Date of Admission: Sep 05, 2020 at 20:00 Admission Diagnosis : [facility] Date of Discharge: 09/07/20 Discharge Diagnosis: UTI, Victor cath injury, liver cancer with widespread mets Hospital Course: Hospital course: Pt had an uneventful brief hospital course when he was admitted for UTI and sepsis and hematuria after Victor catheter trauma, he was admitted, placed on IV fluids and Rocephin, supportive care initiated, home medication was restarted and urine culture reviewed, changed to Cipro of 500 Mg, BID for five days and Pt will be seen at [facility]. Home health was set up, and [facility] will see him for the liver cancer with widespread Metastisis next week. Labs and Pending Lab Test: Laboratory Tests 09/07/20 05:53: White Blood Count 8.0, Red Blood Count 2.71L, Hemoglobin 9.8L, Hematocrit 30L, Mean Corpuscular Volume 110H, Mean Corpuscular Hemoglobin 36H, Mean Corpuscular Hemoglobin Concent 33, Red Cell Distribution Width 17.5H, Platelet Count 97L, Mean Platelet Volume 10.9, Immature Granulocyte % (Auto) 1, Neutrophils (%) (Auto) 58, Lymphocytes (%) (Auto) 21, Monocytes (%) (Auto) 13H, Eosinophils (%) (Auto) 7, Basophils (%) (Auto) 1, Neutrophils # (Auto) 4.7, Lymphocytes # (Auto) 1.7, Monocytes # (Auto) 1.1H, Eosinophils # (Auto) 0.5H, Basophils # (Auto) 0.1, Immature Granulocyte # (Auto) 0.0, Sodium Level 134L, Potassium Level 4.4, Chloride Level 106, Carbon Dioxide Level 22, Anion Gap 6, Blood Urea Nitrogen 22H, Creatinine 0.90, Estimat Glomerular Filtration Rate > 60, BUN/Creatinine Ratio 24, Glucose Level 121H, Calcium Level 8.1L, Corrected Calcium 9.5, Total Bilirubin 2.4H, Aspartate Amino Transf (AST/SGOT) 107H, Alanine Aminotransferase (ALT/SGPT) 43, Alkaline Phosphatase 152H, Total Protein 7.2, Albumin 2.3L Microbiology 09/05/20 Blood Culture - Preliminary, Resulted No growth 09/05/20 Urine Culture - Preliminary, Resulted Probable E.coli Probable Klebsiella/Enterobact Home Meds Active Reported Furosemide 40 Mg Tablet 40 Mg PO DAILY PRN Spironolactone 100 Mg Tablet 100 Mg PO DAILY PRN Folic Acid 0.8 Mg Tablet 0.8 Mg PO DAILY Xifaxan (Rifaximin) 200 Mg Tablet 400 Mg PO TID TAKES 2 (200MG) TABS Lactulose 10 Gm/15 Ml Solution 30 Mg PO TID PRN Milk Thistle (Milk Thistle Seed Extract) 175 Mg Tablet 175 Mg PO DAILY Centrum Silver Tablet (Multivit-Min/FA/Lycopene/Lut) 1 Each Tablet 1 Tab PO DAILY Assessment/Pt Instructions [facility] 1 week [facility] 1 week Discharge Planning: <30 minutes discharge planning Discharge Instructions Discharge Diet: No Restrictions Discharge Physical Examination Vital Signs Vital Signs Date Time Temp Pulse Resp B/P (MAP) Pulse Ox O2 Delivery O2 Flow Rate FiO2 09/07/20 08:00 37.3 85 20 107/61 (76) 95 Room Air General Appearance: No Apparent Distress, WD/WN, Chronically ill Respiratory: Lungs Clear Cardiovascular: Regular Rate, Rhythm Neurologic/Psychiatric: Alert, Oriented x3 Allergies: Coded Allergies: No Allergy Information Available (Unverified , 03/28/20) No Known Drug Allergies (Unverified , 03/28/20) Discharge Summary Date of Admission Sep 05, 2020 at 20:00 Date of Discharge Discharge Date: Sep 07, 2020 Admission Diagnosis Assessment: UTI Liver cancer with mets Plan: Abx Victor [facility] apt next week Discharge Diagnosis (1) UTI (urinary tract infection) (2) Hepatic encephalopathy (3) Altered mental status Status: Acute (4) Liver failure SHANA ABBOTT DO Sep 07, 2020 11:51
[2020-09-07 12:00] VITALS: BP 133/74
[2020-09-07] MEDS ORDERED: LACTULOSE 10 GM/15 ML 30 ML POUR BOTTLE FOR ENEMA PO PRN (12:00)
[2020-09-07] MEDS ORDERED: FUROSEMIDE 40 MG (LASIX) TAB PO PRN (12:00)
[2020-09-07] MEDS ORDERED: SPIRONOLACTONE 100 MG (ALDACTONE) TABLET PO PRN (12:00)
[2020-09-07] MEDS ORDERED: LACTULOSE SYRUP 10GM/15ML (ENULOSE) 30ML UDC PO PRN (12:45)
[2020-09-07] MEDS ORDERED: RIFAXIMIN 200 MG TAB (NON-FORMULARY) PO SCH (13:00)
--- NOTE | 2020-09-07 15:59 | Physical Therapy Progress Note ---
Therapy Progress Note RELAY MAN arrives to check on pt and pt refused as pt reports will be DC today. PT will check back on pt tomorrow if not DC. 1 visit, no tx rendered ARAM MITCHELL PTA Sep 07, 2020 15:59
[2020-09-07] MEDS: cefTRIAXone 1,000 MG/SWFI 10 ML IV PUSH IV SCH ×2 (16:33)
[2020-09-07 17:00] VITALS: BP 133/74
[2020-09-08] MEDS ORDERED: MULTIVIT W/MINERALS TAB (THERAGRAN M) PO SCH (07:00)
[2020-09-08] MEDS ORDERED: NON-FORMULARY MEDICATION 1 EA EA (Multivit-Min/FA/Lycopene/Lut (Centrum Silver Tablet) 1 T PO SCH (09:00)
[2020-09-08] MEDS ORDERED: FOLIC ACID 1 MG TAB PO SCH (09:00)
[2020-09-08] MEDS ORDERED: NON-FORMULARY MEDICATION 1 EA EA (Folic Acid 0.8 MG) PO SCH (09:00)
[2020-09-08] MEDS ORDERED: MILK THISTLE SEED EXTRACT 175 MG PO SCH (09:00)
== END 2020-09-07 17:00 | disposition home health service (06) | DRG 698 ==
LOC: EDUNIT# 13:41 → ER FS 13:43 → 4TH 20:00
PROVIDERS: ADMIT Internal Medicine; ATTEND Internal Medicine
DX: T83.098A Other mechanical complication of other urinary catheter, initial encounter (principal); A41.9 Sepsis, unspecified organism; N39.0 Urinary tract infection, site not specified; C22.0 Liver cell carcinoma; C79.51 Secondary malignant neoplasm of bone; R31.9 Hematuria, unspecified; I10 Essential (primary) hypertension; K72.90 Hepatic failure, unspecified without coma; R31.0 Gross hematuria; B18.2 Chronic viral hepatitis C; Z79.82 Long term (current) use of aspirin; Z87.891 Personal history of nicotine dependence
CPT/HCPCS: 36415; 51702; 71045; 74177; 80048; 80053; 81000; 83605; 85007; 85025; 85027; 85610; 85730; 87040; 87077; 87088; 87186